=== PATIENT | female | born 1965 | race African-American/Black ===

== ENCOUNTER 2022-08-30 11:42 | Outpatient (OUT) | payer OTHER, SELFPAY ==
--- NOTE | 2022-08-30 11:53 | XR_ITS ---
The [address] [address] Patient Name: GÓMEZ NUNN MRN: [id number] date: 1965 Sex: F Assigned Patient Location: [facility] Current Patient Location: Accession/Order Number: [id number] Exam Date: 08/30/2022 12:00 Report Date: 08/31/2022 07:07 At the request of: KATERINE DOHERTY Procedure: XR foot LT min 3V PROCEDURE: XR foot LT min 3V HISTORY: Pain in left toe M79.675 ; first toe and medial foot pain for one week; no known injury COMPARISON: None. FINDINGS: BONES:Moderate marked narrowing of the first metatarsophalangeal joint with small periarticular degenerative osteophytes. No erosions. No fracture, dislocation, bone lesion. SOFT TISSUES:No visible soft tissue swelling. EFFUSION:None visible. OTHER: Negative. XR/XR foot LT min 3V IMPRESSION: 1. Moderate marked degenerative joint disease of the first metatarsophalangeal joint favoring osteoarthritis. Electronically authenticated by: AMELIE CORONEL Date: 08/31/2022 07:07
== END 2022-08-30 11:43 | disposition home or self-care (01) ==
LOC: RAD 11:48
PROVIDERS: PCP Family Medicine; Visit Provider Family Medicine
DX: M79.675 Pain in left toe(s) (principal); M19.072 Primary osteoarthritis, left ankle and foot
CPT/HCPCS: 73630

== ENCOUNTER 2022-09-12 14:41 | Outpatient (OUT) | payer OTHER, SELFPAY ==
--- NOTE | 2022-09-12 14:41 | XR_ITS ---
The [address] [address] Patient Name: GÓMEZ NUNN MRN: [id number] date: 1965 Sex: F Assigned Patient Location: [facility] Current Patient Location: [facility] Accession/Order Number: [id number] Exam Date: 09/12/2022 14:41 Report Date: 09/12/2022 15:13 At the request of: ROSA FONTANEZ Procedure: XR foot LT min 3V EXAM: XR foot LT min 3V HISTORY: Left FOOT PAIN COMPARISON: 08/30/2022. TECHNIQUE: 3 views left foot. FINDINGS: Moderate to severe degenerative change of the great toe MTP joints similar to prior. Minimal to mild degenerative change of the midfoot with mild pes planus. No fracture or dislocation. No significant swelling or radiopaque foreign body. Small dorsal and plantar calcaneal enthesophytes. XR/XR foot LT min 3V IMPRESSION: Degenerative and chronic change without acute process left foot. Electronically authenticated by: KENIA BERNARD Date: 09/12/2022 15:13
== END 2022-09-12 14:42 | disposition home or self-care (01) ==
LOC: RAD 14:41
PROVIDERS: PCP Family Medicine; Visit Provider Physician Assistant
DX: M19.072 Primary osteoarthritis, left ankle and foot (principal)
CPT/HCPCS: 73630

== ENCOUNTER 2022-09-27 16:34 | Outpatient (OUT) | payer OTHER, SELFPAY ==
[2022-09-27 16:56] LABS: Basophils Percent Auto 0.4 % (0.2-2.0); Eosinophils Absolute Auto 0.3 10^3/uL (0.0-0.7); Eosinophils Percent Auto 4.1 % (0.9-7.0); Hematocrit 41.8 % (36.0-48.0); Immature Granulocytes Abs Auto 0.01 10^3/uL (0.00-0.03); Immature Granulocytes Pct Auto 0.1 % (0.0-0.5); Lymphocytes Absolute Auto 2.6 10^3/uL (1.2-3.8); Lymphocytes Percent Auto 35.7 % (20.5-60.0); Mean Corpuscular HGB Conc 33.5 g/dL (29.9-35.2); Mean Corpuscular Volume 86.7 fL (81.0-99.0); Monocytes Absolute Auto 0.5 10^3/uL (0.3-0.8); Neutrophils Absolute Auto 3.9 10^3/uL (1.4-6.5); Neutrophils Percent Auto 52.7 % (43.0-75.0); Platelet Count 256 10^3/uL (150-450); Red Blood Count 4.82 10^6/uL (4.20-5.40); Red Cell Distribution Width 13.5 % (11.0-15.0); White Blood Count 7.3 10^3/uL (4.0-11.0)
[2022-09-27 17:00] LABS: Erythrocyte Sedimentation Rate 36 mm/hr (<=30)
[2022-09-27 17:15] LABS: Alanine Aminotransferase 22 U/L (14-59); Albumin Level 3.9 g/dL (3.4-5.0); Alkaline Phosphatase 93 U/L (46-116); Anion Gap 12.1; Aspartate Amino Transferase 26 U/L (15-37); Bilirubin Total 0.5 mg/dL (0.2-1.0); Calcium 8.9 mg/dL (8.5-10.1); Carbon Dioxide 27.6 mmol/L (21.0-32.0); Chloride 103 mmol/L (98-107); Estimated GFR (African America >60 (>=60); Estimated GFR (Non-African Ame >60 (>=60); Globulin 3.8 g/dL; Glucose 102 mg/dL (74-106); Potassium 3.7 mmol/L (3.5-5.1); Sodium 139 mmol/L (136-145); Total Protein 7.7 g/dL (6.4-8.2)
[2022-09-29 04:07] LABS: Rheumatoid Factor (RF) <10.0 IU/mL (<14.0)
== END 2022-09-27 16:35 | disposition home or self-care (01) ==
PROVIDERS: PCP Family Medicine; Visit Provider Family Medicine
DX: M19.90 Unspecified osteoarthritis, unspecified site (principal)
CPT/HCPCS: 36415; 80053; 85025; 85652; 86430

== ENCOUNTER 2023-01-04 16:38 | Outpatient (OUT) | payer OTHER, SELFPAY ==
--- NOTE | 2023-01-04 | XR_ITS ---
The [address] [address] Patient Name: GÓMEZ NUNN MRN: [id number] date: 1965 Sex: F Assigned Patient Location: [facility] Current Patient Location: Accession/Order Number: [id number] Exam Date: 01/04/2023 17:00 Report Date: 01/05/2023 01:34 At the request of: KATERINE DOHERTY Procedure: XR cervical spine 5V EXAMINATION: XR cervical spine 5V HISTORY: CERVICAL RADICULAR PAIN COMPARISON: No relevant comparison available. FINDINGS: BONES: Slight reversal normal lordotic curvature. No fracture or bone lesion. Sclerotic degenerative changes of C5 and C6. Multilevel moderate degenerative facet arthropathy. DISC SPACES: Marked narrowing C5-C6, C6-C7. PARASPINOUS: Negative. No paraspinous abnormality is seen. OTHER: Negative. XR/XR cervical spine 5V IMPRESSION: 1. Marked degenerative changes predominantly involving the mid-lower cervical spine. MRI recommended for further evaluation. Electronically authenticated by: AMELIE CORONEL Date: 01/05/2023 01:34
--- NOTE | 2023-01-04 | XR_ITS ---
The [place] [id number] Patient Name: GÓMEZ NUNN MRN: [id number] date: 1965 Sex: F Assigned Patient Location: [facility] Current Patient Location: [facility] Accession/Order Number: [id number] Exam Date: 01/04/2023 17:00 Report Date: 01/05/2023 01:35 At the request of: KATERINE DOHERTY Procedure: XR lumbar spine 2-3V EXAMINATION: XR lumbar spine 2-3V HISTORY: LUMBAR RADICULITIS , chronic COMPARISON: No relevant comparison available. FINDINGS: BONES: No significant spondylosis, scoliosis, fracture, or visible bony lesion. DISC SPACES: Slight narrowing L3-L4. PARASPINOUS: Negative. No paraspinous abnormality is seen. OTHER: Negative. XR/XR lumbar spine 2-3V IMPRESSION: 1. No significant bone abnormality. 2. Minimal degenerative disc disease L3-L4. Electronically authenticated by: AMELIE COROENL Date: 01/05/2023 01:35
== END 2023-01-04 16:39 | disposition home or self-care (01) ==
LOC: RAD 16:40
PROVIDERS: PCP Family Medicine; Visit Provider Family Medicine
DX: M54.12 Radiculopathy, cervical region (principal); M51.16 Intervertebral disc disorders with radiculopathy, lumbar region
CPT/HCPCS: 72050; 72100

== ENCOUNTER 2023-03-30 15:18 | Outpatient (OUT) | payer OTHER, SELFPAY ==
--- NOTE | 2023-03-30 | XR_ITS ---
The [place] [id number] Patient Name: GÓMEZ NUNN MRN: [id number] date: 1965 Sex: F Assigned Patient Location: LAB Current Patient Location: Accession/Order Number: [id number] Exam Date: 03/30/2023 15:40 Report Date: 04/02/2023 07:20 At the request of: KATERINE DOHERTY Procedure: XR lumbar spine 2-3V EXAMINATION: XR lumbar spine 2-3V HISTORY: M54.16 Radiculopathy in the lumbar region COMPARISON: No relevant comparison available. FINDINGS: BONES: Mild widespread spondylosis and facet osteoarthritis. No visible acute bony abnormality. DISC SPACES: Normal. No significant disc height narrowing, subluxation, or endplate abnormality. PARASPINOUS: Negative. No paraspinous abnormality is seen. OTHER: Negative. XR/XR lumbar spine 2-3V IMPRESSION: Mild stable degenerative changes Electronically authenticated by: TAMRA MARQUES Date: 04/02/2023 07:20
--- OUTSIDE RECORDS SUMMARY | 2023-03-30 15:29 | XMS_ITS | CCD ---
Author Name Unknown Address [address] [facility] [facility] [address] [place] [address] Organization [facility] Care Team Providers Care Engineering Lab Technician Name Role Phone Amaya Waldron Primary Care Physician Amaya Garcia Unavailable Unavailable MD Katerine Jacobs Primary Care Provider [phone] MD Mike Mixon Attending Provider MAGDALENA, ABDULAZIM Admitting Unavailable MAGDALENA, ABDULAZIM Attending Unavailable GAMAL MORGAN Referring Unavailable KATERINE JACOBS Primary Care Unavailable MAGDALENA, ABDULAZIM Admitting Unavailable MAGDALENA, ABDULAZIM Attending Unavailable GAMAL MORGAN Referring Unavailable KATERINE JACOBS Primary Care Unavailable DR KATERINE JACOBS Attending Unavailable DR KATERINE JACOBS Consulting Unavailable DR KATERINE JACOBS Primary Care Unavailable DR KATERINE JACOBS Admitting Unavailable MD Katerine Jacobs Primary Care Provider [phone] MD Mike Mixon Attending Provider Mike Mixon Admitting Unavailable Mike Mixon Attending Unavailable Katerine Jacobs Primary Care Unavailable Mike Mixon Attending Unavailable Katerine Jacobs Primary Care Unavailable Mike Mixon Admitting Unavailable ELGAFY, DAVE Attending Unavailable MAGDALENA, ALIYA Referring Unavailable ELGAFY, DAVE Referring Unavailable MAGDALENA, ALIYA Referring Unavailable ELGAFY, DAVE Referring Unavailable MAGDALENA, ALIYA Attending Unavailable MAGDALENA, ALIYA Attending Unavailable MAGDALENA, ALIYA Admitting Unavailable MAGDALENA, ALIYA Attending Unavailable MAGDALENA, ALIYA Attending Unavailable Katerine Jacobs MD Primary Care Provider [phone] KENNA MESA Attending Unavailable KATERINE JACOBS Primary Care Unavailable KENNA MESA Attending Unavailable KENNA MESA Referring Unavailable KATERINE JACOBS Primary Care Unavailable Allergies Allergy Classification Reported Allergen(s) Allergy Type Date of Onset Reaction(s) Facility (1 source) Acetaminophen / Dextromethorphan / Doxylamine / Pseudoephedrine; Translations: [NyQuil] Drug Allergy SEVERE Myrio (1 source) Naproxen; Translations: [Aleve] Drug Allergy MODERATE Myrio (1 source) Other Allergy to substance (disorder) Head and Chest OTC-MODERATE Myrio Medications Current Medications Medication Drug Class(es) Dates Sig (Normalized) Sig (Original) acetaminophen 250 mg / aspirin 250 mg / caffeine 65 mg oral tablet (2 sources) Platelet Aggregation Inhibitor, Nonsteroidal Anti-inflammatory Drug, Central Nervous System Stimulant, Methylxanthine take 2 tablets by mouth once daily as needed aspirin-acetaminoph en-caffeine (EXCEDRIN EXTRA STRENGTH) 250-250-65 mg per tablet 2 tablets Orally Once a day prn 0 Active amoxicillin 875 mg / clavulanate 125 mg oral tablet (2 sources) Penicillin-class Antibacterial Start: 09-17-2017 take 1 tablet by mouth twice daily Amoxicillin-Pot Clavulanate (Augmentin) 875-125 mg tablet Active 1 TAB PO Twice daily September 16, 2017 11:00pm two days left cetirizine hydrochloride 10 mg oral capsule (2 sources) Histamine-1 Receptor Antagonist Start: 09-17-2017 take 1 capsule by mouth once daily Cetirizine (Zyrtec) 10 mg Capsule Active 10 MG PO Daily September 16, 2017 11:00pm cholecalciferol 0.125 mg oral tablet (2 sources) Vitamin D cholecalciferol, vitamin D3, (VITAMIN D3) 5,000 units tablet Take 8,000 Units by mouth in the morning. 0 Active cod liver oiL oil (2 sources) cod liver oiL oi l Take by mouth. 0 Active cyclobenzaprine hydrochloride 5 mg oral tablet (2 sources) Muscle Relaxant take 2 tablets by mouth three times daily as needed for muscle spasms cyclobenzaprine (FLEXERIL) 5 mg tablet Take 2 tablets (10 mg total) by mouth 3 (three) times a day as needed for muscle spasms. 0 Active estradiol 0.1 mg/ml vaginal cream (3 sources) Estrogen Start: 01-31-2022 End: 02-22-2023 estradioL (ESTRACE) 0.01 % (0.1 mg/gram) vaginal cream Indications: Status post hysterectomy , Vaginal dryness, menopausal , Vaginal atrophy Insert 1 g into the vagina 2 (two) times a week. 42.5 g 3 02/22/2023 Active etodolac 500 mg oral tablet (2 sources) Nonsteroidal Anti-inflammatory Drug Start: 12-07-2021 take 1 tablet by mouth in the morning, then take 1 tablet by mouth at bedtime etodolac (LODINE) 500 mg tablet Take 1 tablet (500 mg total) by mouth in the morning and 1 tablet (500 mg total) before bedtime. 0 12/07/2021 Active fluconazole 100 mg oral tablet (2 sources) Azole Antifungal Start: 09-17-2017 take 100 mg by mouth once daily Fluconazole Active 100 MG PO Daily September 16, 2017 11:00pm fluticasone propionate 0.05 mg/actuat metered dose nasal spray (3 sources) Corticosteroid Start: 12-18-2021 take 2 spray(s) nasal route once daily fluticasone propionate (FLONASE) 50 mcg/actuation nasal spray instill 2 (TWO) sprays IN EACH NOSTRIL ONCE DAILY 0 12/18/2021 Active take 50 ug nasal rou te once daily as needed Flonase Allergy Relief 50 mcg/actuation nasal spray,suspension spray 1 - 2 sprays (50 - 100 mcg) in each nostril by intranasal route once daily as needed gabapentin 300 mg oral capsule (2 sources) Anti-epileptic Agent take 1 capsule by mouth once daily in the morning, then take 2 capsules by mouth at bedtime gabapentin (NEURONTIN) 300 mg capsule TAKE 1 CAPSULE BY MOUTH EVERY MORNING and 2 (TWO) CAPSULES AT BEDTIME 0 Active ibuprofen 800 mg oral tablet (3 sources) Nonsteroidal Anti-inflammatory Drug Start: 09-18-19 take 800 mg by mouth four times daily Ibuprofen Active 800 MG PO Four times daily September 16, 2017 11:00pm take 1 tablet by rabia th three times daily as needed ibuprofen 800 mg tablet take 1 tablet by oral route 3 times a day as needed lisinopril 10 mg oral tablet (5 sources) Angiotensin Converting Enzyme Inhibitor Start: 01-17-2022 take 1 tablet by mouth in the morning lisinopriL (PRINIVIL,ZESTRIL) 10 mg tablet Take 1 tablet (10 mg total) by mouth in the morning. 0 01/17/2022 Active Start: 09-17-2017 take 20 mg by mouth once daily Lisinopril Active 20 MG PO Daily September 16, 2017 11:00pm take 1 tablet by rabia th once daily lisinopril 10 mg tablet take 1 tablet (10 mg) by oral route once daily multivitamin capsule (2 sources) take 1 capsule by mouth in the morning multivitamin capsule Take 1 capsule by mouth in the morning. 0 Active naproxen 500 mg delayed release oral tablet (2 sources) Nonsteroidal Anti-inflammatory Drug take 1 tablet by mouth in the morning, then take 1 tablet by mouth at mealtime naproxen (EC NAPROSYN) 500 mg EC tablet Take 1 tablet (500 mg total) by mouth in the morning and 1 tablet (500 mg total) in the evening. Take with meals. 0 Active 24 hr PARoxetine hydrochloride 12.5 mg extended release oral tablet (3 sources) Serotonin Reuptake Inhibitor Start: 02-01-20 22 take 1 tablet by mouth every twenty-four hours in the morning PARoxetine CR (PAXIL-CR) 12.5 mg 24 hr tablet Indications: Status post hysterectomy , Hot flash not due to menopause , Vaginal dryness, menopausal , Vaginal atrophy Take 1 tablet (12.5 mg total) by mouth in the morning. 90 tablet 3 01/31/2022 Active take 1 tablet by mouth once paige y paroxetine ER 12.5 mg tablet,extended release 24 hr take 1 tablet (12.5 mg) by oral route once daily tetrahydrozoline/polyethyl gly (EYE DROPS OPHT) (2 sources) tetrahydrozoline /polyethyl gly (EYE DROPS OPHT) Instill to eye. 0 Active valACYclovir 1000 mg oral tablet (3 sources) Herpesvirus Nucleoside Analog DNA Polymerase Inhibitor, Herpes Simplex Virus Nucleoside Analog DNA Polymerase Inhibitor, Herpes Zoster Virus Nucleoside Analog DNA Polymerase Inhibitor Sta rt: 2 take 1 tablet by mouth in the morning valACYclovir (VALTREX) 1000 mg tablet Take 1 tablet (1,000 mg total) by mouth in the morning. 0 01/17/2022 Active take 1 tablet by mouth once paige y valacyclovir 1 gram tablet take 1 tablet by oral route daily Completed/Discontinued Medications Medication Drug Class(es) Dates Sig (Normalized) Sig (Original) dexamethasone 1 mg/ml / neomycin 3.5 mg/ml / polymyxin b 59693 unt/ml ophthalmic suspension (1 source) Aminoglycoside Antibacterial, Polymyxin-class Antibacterial, Corticosteroid take 1 drop(s) into the eye(s) every four hours as needed neomycin-polymyxi n-dexameth 3.5 mg/mL-10,000 unit/mL-0.1% eye drops instill in affected eye 1 drop by ophthalmic route every 4 hours as needed traMADol hydrochloride 50 mg oral tablet (1 source) Opioid Agonist take 1 tablet by mouth every six hours as needed tramadol 50 mg tablet take 1 tablet (50 mg) by oral route every 6 hours as needed Problems Active Problems Problem Classification Problem Date Documented Date Episodic/Chronic Esophageal disorders (1 source) Gastro-esophageal reflux disease without esophagitis Chronic Essential hypertension (1 source) Essential (primary) hypertension Chronic Menopausal disorders (4 sources) Vaginal dryness; Translations: [Menopausal and female climacteric states] Onset: 02-22-2023 02-22-2023 Chronic Nonmalignant breast conditions (2 sources) Heterogeneously dense breast composition; Translations: [Heterogeneously dense tissue of both breasts on mammography] Onset: 03-06-2023 03-06-2023 Episodic Osteoarthritis (2 sources) Unspecified osteoarthritis, unspecified site; Translations: [Primary generalized (osteo)arthritis] Onset: 10-17-2021 Chronic Other connective tissue disease (1 source) Pain in right arm Onset: 11-11-2020 Episodic Other connective tissue disease (1 source) Pain in left arm Onset: 11-11-2020 Episodic Other connective tissue disease (2 sources) Pain in right hand; Translations: [Pain in right hand] Onset: 09-29-2022 Episodic Other connective tissue disease (2 sources) Pain in left hand; Translations: [Pain in left hand] Onset: 09-29-2022 Episodic Other connective tissue disease (2 sources) Trigger finger, unspecified finger; Translations: [Trigger finger, unspecified finger] Onset: 07-06-2022 Episodic Other nervous system disorders (1 source) Other disturbances of skin sensation Onset: 11-11-2020 Episodic Other non-traumatic joint disorders (1 source) Other specific arthropathies, not elsewhere classified, right shoulder Chronic Other screening for suspected conditions (not mental disorders or infectious disease) (4 sources) Patient encounter status; Translations: [Encounter for screening mammogram for malignant neoplasm of breast] Onset: 02-22-2023 02-22-2023 Episodic Residual codes; unclassified (2 sources) Family history of breast cancer; Translations: [Family history of malignant neoplasm of breast] Onset: 03-06-2023 03-06-2023 Episodic Residual codes; unclassified (1 source) Acquired absence of both cervix and uterus; Translations: [Acquired absence of both cervix and uterus] Onset: 02-22-2023 Episodic Screening and history of mental health and substance abuse codes (2 sources) Standardized adult depression screening tool completed ; Translations: [Encounter for screening for depression] Onset: 02-22-2023 02-22-2023 Episodic Spondylosis; intervertebral disc disorders; other back problems (3 sources) Cervical disc disorder with radiculopathy, unspecified cervical region; Translations: [Radiculopathy, cervical region] Onset: 09-06-2022 Episodic Unclassified (1 source) Annual Exam Onset: 02-22-2023 Past or Other Problems Problem Classification Problem Date Documented Da te Episodic/Chronic Mood disorders (2 sources) Mood disorders Onset: 02-22-2023 02-22-2023 Other connective tissue disease (2 sources) Acquired trigger finger; Translations: [Trigger finger, unspecified finger] Onset: 07-06-2022 02-22-2023 Episodic Unclassified (1 source) [id number] [email or web address] Unclassified (2 sources) Onset: 02-22-2023 02-22-2023 Results Test Name Value Interpretation Reference Range 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 Assessment unchanged from prior. No evidence of malignancy. BI-RADS 1. One year screening mammogram recommended 60 Finalized by Kristian Olmstead MD on 03/21/2023 9:02 PM 1 c MOLE[facility] BR IMG [facility] Office Visiton 09-29-2022 Follow-up visit [id number] Sherron Garcia 1965 F Date Provider Department Center 09/29/2022 373-[facility]ILKS ORTHO MPORTHO Family History Family Status - Relation Status Age at Mother Father Brother Level of Service:89015 CT OFFICE/OUTPATIENT ESTABLISHED LOW MDM 20-29 MIN Reason for Visit and Comments: Follow-up [538414] - Long finger Normal [facility] Consulton 09-06-2022 Consult [id number] Sherron Garcia 1965 F Date Provider Department Center 09/06/2022 Zuly-DAVE MARTE MP ORTHO MPORTHO No family history on file Level of Service:96926 CT OFFICE/OUTPATIENT ESTABLISHED LOW MDM 20-29 MIN Reason for Visit and Comments: New Patient [632] [facility] Office Visiton 08-04-2022 Follow-up visit [id number] Sherron Garcia 1965 F Date Provider Department Center 08/04/2022 373-ALIYA WILKS MP ORTHO MPORTHO No family history on file Level of Service:04366 CT POSTOP FOLLOW UP VISIT RELATED TO ORIGINAL PX Reason for Visit and Comments: Post-op [483] [facility] HPon 07-24-2022 HP H&P reviewed. The patient was examined and there are no changes to the H&P. Patient also presented with clinical symptoms and signs supportive of adjacent right ring trigger finger as well. She consented for release of both the right long and ring trigger fingers. Normal [facility] OPNOTEon 07-24-2022 OPNOTE ORTHOPAEDIC SURGERY OPERATIVE REPORT Date of Surgery: 07/24/2022 Surgeon: Aliya Wilks MD Fine Unhairer: Jana Spencer MD PGY-2 Anup Anthony MD PGY-4 Preoperative Diagnosis: Right long finger trigger finger Right ring finger trigger finger Postoperative Diagnosis: Right long finger trigger finger Right ring finger trigger finger Procedures Performed: Right long finger A1 radha release Right ring finger A1 radha release Anesthesia: Monitored anesthesia care IV Fluids: Per anesthesia record Tourniquet Time: 22 minutes Estimated Blood Loss: 0 mL Complications: none Implants: none Specimens: none Intraoperative Findings: A1 pulleys of the right ring and long fingers were identified and noted to be significantly thickened. These was completely released. No residual tendon locking or catching was noted following release. Indications For Procedure: Sherron Garcia is a 57 y.o. female with a history of right long and ring finger triggering which has been refractory to conservative treatment. The patient elected to undergo operative intervention after discussing the risks, benefits, alternatives of the procedure, and she presented to the preoperative holding area on the day of surgery. Procedure Detail: The patient was met in the preoperative holding area where their identity, procedure to be performed, and correct operative site were identified. The operative site was marked with the attending's initials. The patient was taken back to the operative theater where they were placed under monitored anesthesia care without complication. The patient's right upper extremity was then prepped and draped in the usual sterile fashion. A preoperative timeout was performed, confirming the patient's identity, procedure to be performed, and correct operative site. Everyone present was in agreement. Preoperative antibiotics were not indicated and were not administered. We began by exsanguinating the limb with the use of a previously placed non-sterile tourniquet. We then infiltrated the óscar-incisional area with local anesthetic. Following this, incision was made in line with the palmar skin crease just distal to the distal crease at the level of the A1 radha of the right long and ring fingers . Incision was taken through skin and subcutaneous tissue. Blunt dissection was taken down until the A1 radha was identified. This was released both proximally and distally. It was noted that the radha was significantly thickened compared to normal radha tissue. This was released both proximally and distally. The FDS and FDP tendons were then excursed through the incision with the use of a Ragnell retractor. There was no locking or catching appreciated. We then copiously irrigated the wound with normal saline and closed the incision with simple interrupted Novafil suture. All counts were correct x2 at this time. A sterile dressing was applied and the tourniquet was deflated. The drapes were taken down and the patient was awoken from anesthesia without complication. They were transferred back to their hospital bed and taken to PACU in stable condition. Postoperative Plan: The patient may be weightbearing as tolerated to the right upper extremity, though she has been advised to avoid heavy use of the hand until the incision heals. The patient will leave their surgical dressing in place for approximately 3-5 days. The patient will be discharged home with a short course of narcotic pain medication per protocol as well as ibuprofen. The patient will follow up with Dr. Aliya Wilks MD in clinic in approximately 10-14 days time for clinical check and suture removal. Dr. Aliya Wilks MD was present for the critical portions of the case and was otherwise immediately available to assist. They made all decisions regarding the patient's care. Jana Spencer MD Orthopaedic Surgery Resident, PGY-2 07/24/22 I was present for the entirety of the procedure(s). Aliya Wilks MD [facility] POCT GLUCOSE METER UNSOLICIT ED RESULTSon 07-24-2022 Glucose [Mass/Vol] 98 mg/dL Normal 70-105 [facility] Comment on above: Result Comment: jenc k2 Performed By: #### L [id number] ####[facility] ([facility])[address] [place] [address] Letter (Out)on 07-10-2022 Letter (Out) [id number] Sherron Garcia 1965 F Date Provider Department [place] 07/10/2022 None-None [facility] No family history on file [facility] Follow-Upon 07-06-2022 Follow-Up [id number] Sherron Garcia 1965 F Date Provider Department [place] 07/06/2022 373-ALIYA WILKS MP ORTHO MPORTHO No family history on file Level of Service:59719 CT OFFICE/OUTPATIENT ESTABLISHED LOW MDM 20-29 MIN Reason for Visit and Comments: Pain [136] Follow-up [[id number]] [facility] HPon 07-06-2022 HP -------- Attestation signed by Aliya Wilks MD at 07/10/2022 9:11 AM I personally saw and examined the patient on the same date of service as resident/fellow . I discussed the findings and therapeutic plan with the resident/fellow . I agree with the documentation, except for any edits/updates below. Teaching Physician's Revisions: -------- Subjective Chief complaint: Chief Complaint Patient presents with Right Middle Finger - Pain, Follow-up 07/06/22 Sherron Garcia is a 57 y.o. year old female presenting for evaluation of right hand pain. She has triggering and locking of the right long finger. She has history of previous trigger finger releases on the left hand. She has a steroid injection done previously in previous months that was not very helpful in relieving her symptoms. Denies numbness, tingling, and weakness. ROS: Denies fevers, chills, and other constitutional symptoms. Denies shortness of breath. Patient History No past surgical history on file. No past medical history on file. Objective General: Body mass index is 27.17 kg/m???. There were no vitals filed for this visit. No acute distress, comfortable Respiratory: Unlabored breathing with normal rate, no cough Cardiovascular: Warm well perfused extremities Psych: Appropriate mood behavior Examination of right hand demonstrates tender to palpation at the A1 radha of the long finger with limitation in active flexion of PIP and DIP secondary to nodule at A1 radha Imaging: Assessment/Plan Sherron Garcia is a 57 y.o. year old female with Trigger finger, acquired -OR for release of R long finger A1 radha Rufus Gee MD PGY-4 Orthopedic Surgery [facility] By using the attestations below, the signing clinician agrees that I have read and verify that the documentation has been personally reviewed by me and ensure that the documentation accurately reflects the encounter. GC: I personally saw this patient on the day of the encounter, performed the ragsdale portion(s) of the service and participated in the management and confirm the resident's documentation. Please note there may be an additional personal documentation from me. Normal [facility] Albumin [Mass/volume] in Ser um or PlasmaOrdered By: Dimitri Mixon on 04-18-2022 Albumin [Mass/Vol] 3.8 g/dL 3.2-5.5 [facility] Alkaline phosphatase [Enzyma tic activity/volume] in Serum or PlasmaOrdered By: Dimitri Mixon on 04-18-2022 ALP [Catalytic activity/Vol] 80 U/L 32-92 [facility] Aspartate aminotransferase [ Enzymatic activity/volume] in Serum or PlasmaOrdered By: Dimitri Mixon on 04-18-2022 AST [Catalytic activity/Vol] 16 U/L 10-42 [facility] Basophils Auto (Bld) [#/Vol] Ordered By: Dimitri Mixon on 04-18-2022 Basophils (Bld) [#/Vol] 0.0 10*3/uL 0.0-0.2 [facility] Basophils/100 WBC Auto (Bld) Ordered By: Dimitri Mixon on 04-18-2022 Basophils/100 WBC (Bld) 0.2 % . F [facility] Bilirubin.total [Mass/volume ] in Serum or PlasmaOrdered By: Dimitri Mixon on 04-18-2022 Bilirubin [Mass/Vol] 0.4 mg/dL 0.3-1.2 [facility] Calcium [Mass/volume] in Ser um or PlasmaOrdered By: Dimitri Mixon on 04-18-2022 Calcium [Mass/Vol] 9.4 mg/dL 8.2-10.2 [facility] Carbon dioxide, total [Moles /volume] in Serum or PlasmaOrdered By: Dimitri Mixon on 04-18-2022 CO2 [Moles/Vol] 25.2 mmol/L 22.0-30.0 [facility] Chloride [Moles/volume] in S david or PlasmaOrdered By: Dimitri Mixon on 04-18-2022 Chloride [Moles/Vol] 103 mmol/L 95-114 [facility] Complete Blood Count Auto Di ffon 04-18-2022 Basophils (Bld) [#/Vol] 0.0 10*3/uL Normal 0.0-0.2 [facility] Comment on above: Result Comment: PERF ORMED BY: [place] [address] PATHOLOGIST ROTARY CUTTER KYLAH BRADFORD M.D. Performed By: #### C BC, CMP #### [facility] [address] [place] [address] [place] Basophils/100 WBC (Bld) 0.2 % Normal . F [facility] Comment on above: Performed By: #### C BC, CMP #### [facility] [address] Eosinophils (Bld) [#/Vol] 0.3 10*3/uL Normal 0.0-0.45 [facility] Comment on above: Performed By: #### C BC, CMP #### [facility] [address] [place] [address] [place] Eosinophils/100 WBC (Bld) 4.2 % Normal . [facility] Comment on above: Performed By: #### C BC, CMP #### [facility] [address] Erythrocyte distribution width (RBC) [Ratio] 14.2 % Normal 11.9-15.3 [facility] Comment on above: Performed By: #### C BC, CMP #### [facility] [address] Hematocrit (Bld) [Volume fraction] 41.1 % Normal 34.0-46.4 [facility] Comment on above: Performed By: #### C BC, CMP #### [facility] [address] [place] [address] [place] Hemoglobin (Bld) [Mass/Vol] 13.5 g/dL Normal 11.8-15.4 [facility] Comment on above: Performed By: #### C BC, CMP #### [facility] [address] Lymphocytes (Bld) [#/Vol] 3.0 10*3/uL Normal 1.00-4.8 [facility] Comment on above: Performed By: #### C BC, CMP #### [facility] [address] Lymphocytes/100 WBC (Bld) 37.3 % Normal . [facility] Comment on above: Performed By: #### C BC, CMP #### [facility] [address] MCH (RBC) [Entitic mass] 28.9 pg Normal 24.7-34.3 [facility] Comment on above: Performed By: #### C BC, CMP #### [address] MCV (RBC) [Entitic vol] 88.3 fL Normal 80-100 F [facility] Comment on above: Performed By: #### C BC, CMP #### [address] Mean Corpuscular HGB Conc 32.7 g/dL Normal 32.0-35.0 [facility] Comment on above: Performed By: #### C BC, CMP #### [address] Monocytes (Bld) [#/Vol] 0.6 10*3/uL Normal 0.0-0.8 [facility] Comment on above: Performed By: #### C BC, CMP #### [place] [address] [place] Monocytes/100 WBC (Bld) 7.3 % Normal . [facility] Comment on above: Performed By: #### C BC, CMP #### [address] Neutrophils (Bld) [#/Vol] 4.2 10*3/uL Normal 1.8-7.7 [facility] Comment on above: Performed By: #### C BC, CMP #### [facility] [address] Neutrophils/100 WBC (Bld) 51.0 % Normal . [facility] Comment on above: Performed By: #### C BC, CMP #### [facility] [address] NRBC% 0.1 /100{WBC} Normal 0-0.5 [facility] Comment on above: Performed By: #### C BC, CMP #### [facility] [address] Platelet mean volume (Bld) [Entitic vol] 9.2 fL Normal 6.3-10.7 [facility] Comment on above: Performed By: #### C BC, CMP #### [address] Platelets (Bld) [#/Vol] 238 10*3/uL Normal 150-450 [facility] Comment on above: Performed By: #### C BC, CMP #### [address] RBC (Bld) [#/Vol] 4.66 10*6/uL Normal 3.60-5.00 [facility] Comment on above: Performed By: #### C BC, CMP #### [address] WBC (Bld) [#/Vol] 8.2 10*3/uL Normal 3.8-11.6 [facility] Comment on above: Performed By: #### C BC, CMP #### [address] Comprehensive Metabolic Pane parth 04-18-2022 Albumin [Mass/Vol] 3.8 g/dL Normal 3.2-5.5 [facility] Comment on above: Performed By: #### C BC, CMP #### [address] Albumin/Globulin [Mass ratio] 1.2 {ratio} Normal [facility] Comment on above: Performed By: #### C BC, CMP #### [address] ALP [Catalytic activity/Vol] 80 U/L Normal 32-92 [facility] Comment on above: Result Comment: PERF ORMED BY: [place] [address] PATHOLOGIST ROTARY CUTTER KYLAH BRADFORD M.D. Performed By: #### C BC, CMP #### [address] ALT [Catalytic activity/Vol] 17 U/L Normal 10-60 [facility] Comment on above: Performed By: #### C BC, CMP #### [address] Anion gap [Moles/Vol] 11.8 mmol/L Normal 6.0-15.0 [facility] Comment on above: Performed By: #### C BC, CMP #### [address] AST [Catalytic activity/Vol] 16 U/L Normal 10-42 [facility] Comment on above: Performed By: #### C BC, CMP #### [address] Bilirubin [Mass/Vol] 0.4 mg/dL Normal 0.3-1.2 [facility] Comment on above: Performed By: #### C BC, CMP #### [address] Calcium [Mass/Vol] 9.4 mg/dL Normal 8.2-10.2 [facility] Comment on above: Performed By: #### C BC, CMP #### [place] [address] [place] Chloride [Moles/Vol] 103 mmol/L Normal 95-114 [facility] Comment on above: Performed By: #### C BC, CMP #### [address] CO2 [Moles/Vol] 25.2 mmol/L Normal 22.0-30.0 [facility] Comment on above: Performed By: #### C BC, CMP #### [address] Creatinine [Mass/Vol] 0.60 mg/dL Normal 0.44-1.03 [facility] Comment on above: Performed By: #### C BC, CMP #### [address] Estimated GFR ( Lyn > 60 Normal [facility] Comment on above: Result Comment: GFR estimated reference range: According to KDOQI guidelines, <60 ml/min/1.73m2 is sufficient to diagnose a patient with chronic kidney disease. Performed By: #### C BC, CMP #### [address] Estimated GFR (Non- Am > 60 Normal [facility] Comment on above: Performed By: #### C BC, CMP #### [address] Globulin (S) [Mass/Vol] 3.1 g/dL Normal [facility] Comment on above: Performed By: #### C BC, CMP #### [address] Glucose [Mass/Vol] 98 mg/dL Normal 70-100 [facility] Comment on above: Result Comment: [place] Glucose Reference Range is dependent on time and content of last meal. Glucose of more than 200 mg/dL in a nonstressed, ambulatory subject supports the diagnosis of Diabetes Mellitus. ADA recommended reference range Performed By: #### C BC, CMP #### [address] Potassium [Moles/Vol] 4.0 mmol/L Normal 3.5-5.1 [facility] Comment on above: Performed By: #### C BC, CMP #### [address] Protein [Mass/Vol] 6.9 g/dL Normal 6.1-7.9 [facility] Comment on above: Performed By: #### C BC, CMP #### [facility] [address] [place] [address] [place] Sodium [Moles/Vol] 136 mmol/L Normal 136-146 [facility] Comment on above: Performed By: #### C BC, CMP #### [facility] [address] [place] [id number] [place] Urea nitrogen [Mass/Vol] 18 mg/dL Normal 9-23 [facility] Comment on above: Performed By: #### C BC, CMP #### [facility] [address] Creatinine and Glomerular fi ltration rate.predicted panel (S/P/Bld)Ordered By: Dimitri Mixon on 04-18-2022 Creatinine [Mass/Vol] 0.60 mg/dL 0.44-1.03 [facility] Eosinophils Auto (Bld) [#/Vo l]Ordered By: Dimitri Mixon on 04-18-2022 Eosinophils (Bld) [#/Vol] 0.3 10*3/uL 0.0-0.45 [facility] Eosinophils/100 WBC Auto (Bl d)Ordered By: Dimitri Mixon on 04-18-2022 Eosinophils/100 WBC (Bld) 4.2 % . [facility] Erythrocyte distribution wid th Auto (RBC) [Ratio]Ordered By: Dimitri Mixon on 04-18-2022 Erythrocyte distribution width (RBC) [Ratio] 14.2 % 11.9-15.3 [facility] Estimated glomerular filtrat ion rate (GFR) non- AmericanOrdered By: Dimitri Mixon on 04-18-2022 GFR/1.73 sq M.predicted among non-blacks MDRD (S/P/Bld) [Vol rate/Area] > 60 mL/Min [facility] Globulin Calc (S) [Mass/Vol] Ordered By: Dimitri Mixon on 04-18-2022 Globulin (S) [Mass/Vol] 3.1 g/dL [facility] Glucose [Mass/volume] in Ser um or PlasmaOrdered By: Dimitri Mixon on 04-18-2022 Glucose [Mass/Vol] 98 mg/dL 70-100 [facility] Comment on above: ADA recommended refe rence rangeRandom Glucose Reference Range is dependent on time and content of last meal. Glucose of more than 200 mg/dL in a nonstressed, ambulatory subject supports the diagnosis of Diabetes Mellitus. Hematocrit Auto (Bld) [Volum e fraction]Ordered By: Dimitri Mixon on 04-18-2022 Hematocrit (Bld) [Volume fraction] 41.1 % 34.0-46.4 [facility] Hemoglobin [Mass/volume] in BloodOrdered By: Dimitri Mixon on 04-18-2022 Hemoglobin (Bld) [Mass/Vol] 13.5 g/dL 11.8-15.4 [facility] Leukocytes [#/volume] correc edel for nucleated erythrocytes in Blood by Automated counOrdered By: Dimitri Mixon on 04-18-2022 WBC corrected for nucl RBC Auto (Bld) [#/Vol] 8.2 10*3/uL 3.8-11.6 [facility] Lymphocytes Auto (Bld) [#/Vo l]Ordered By: Dimitri Mixon on 04-18-2022 Lymphocytes (Bld) [#/Vol] 3.0 10*3/uL 1.00-4.8 [facility] Lymphocytes/100 WBC Auto (Bl d)Ordered By: Dimitri Mixon on 04-18-2022 Lymphocytes/100 WBC (Bld) 37.3 % . [facility] MCH Auto (RBC) [Entitic mass ]Ordered By: Dimitri Mixon on 04-18-2022 MCH (RBC) [Entitic mass] 28.9 pg 24.7-34.3 [facility] MCHC Auto (RBC) [Mass/Vol]Or dered By: Dimitri Mixon on 04-18-2022 MCHC (RBC) [Mass/Vol] 32.7 g/dL 32.0-35.0 [facility] MCV Auto (RBC) [Entitic vol] Ordered By: Dimitri Mixon on 04-18-2022 MCV (RBC) [Entitic vol] 88.3 fL 80-100 F [facility] Monocytes Auto (Bld) [#/Vol] Ordered By: Dimitri Mixon on 04-18-2022 Monocytes (Bld) [#/Vol] 0.6 10*3/uL 0.0-0.8 [facility] Monocytes/100 WBC Auto (Bld) Ordered By: Dimitri Mixon on 04-18-2022 Monocytes/100 WBC (Bld) 7.3 % . [facility] Neutrophils Auto (Bld) [#/Vo l]Ordered By: Dimitri Mixon on 04-18-2022 Neutrophils (Bld) [#/Vol] 4.2 10*3/uL 1.8-7.7 [facility] Neutrophils/100 WBC Auto (Bl d)Ordered By: Dimitri Mixon on 04-18-2022 Neutrophils/100 WBC (Bld) 51.0 % . [facility] No Panel InformationOrdered By: Dimitri Mixon on 04-18-2022 Estimated GFR () > 60 mL/Min [facility] Comment on above: GFR estimated refere nce range: According to KDOQI guidelines, <60 ml/min/1.73m2 is sufficient to diagnose a patient with chronic kidney disease. Pharmacy Creatinine Clearance (Chem N/A [facility] Nucleated erythrocytes [Pres ence] in Blood by Automated countOrdered By: Dimitri Mixon on 04-18-2022 Nucleated RBC Auto Ql (Bld) 0.1 /100{WBC} 0-0.5 [facility] Platelet mean volume Auto (B ld) [Entitic vol]Ordered By: Dimitri Mixon on 04-18-2022 Platelet mean volume (Bld) [Entitic vol] 9.2 fL 6.3-10.7 [facility] Platelets Auto (Bld) [#/Vol] Ordered By: Dimitri Mixon on 04-18-2022 Platelets (Bld) [#/Vol] 238 10*3/uL 150-450 [facility] Potassium [Moles/volume] in Serum or PlasmaOrdered By: Dimitri Mixon on 04-18-2022 Potassium [Moles/Vol] 4.0 mmol/L 3.5-5.1 [facility] Protein [Mass/volume] in Ser um or PlasmaOrdered By: Dimitri Mixon on 04-18-2022 Protein [Mass/Vol] 6.9 g/dL 6.1-7.9 [facility] RBC Auto (Bld) [#/Vol]Ordere d By: Dimitri Mixon on 04-18-2022 RBC (Bld) [#/Vol] 4.66 10*6/uL 3.60-5.00 [facility] Serum or plasma alanine wells otransferase measurement without P-5'-P (enzymatic activiOrdered By: Dimitri Mixon on 04-18-2022 ALT No additional P-5'-P [Catalytic activity/Vol] 17 U/L 10-[address] [facility] Serum or plasma albumin/glob ulin mass ratioOrdered By: Dimitri Mixon on 04-18-2022 Albumin/Globulin [Mass ratio] 1.2 {ratio} [facility] Serum or plasma anion gap de terminationOrdered By: Dimitri Mixon on 04-18-2022 Anion gap [Moles/Vol] 11.8 mmol/L 6.0-15.0 [facility] Sodium [Moles/volume] in Ser um or PlasmaOrdered By: Dimitri Mixon on 04-18-2022 Sodium [Moles/Vol] 136 mmol/L 136-146 [facility] Urea nitrogen [Mass/volume] in Serum or PlasmaOrdered By: Dimitri Mixon on 04-18-2022 Urea nitrogen [Mass/Vol] 18 mg/dL 9 [facility] WBC Auto (Bld) [#/Vol]Ordere d By: Dimitri Mixon on 04-18-2022 WBC (Bld) [#/Vol] 8.2 10*3/uL 3.8-11.6 [facility] CBC AUTO DIFFon 01-18-2022 BASO # 0.0 103/ul Normal 0.0-0.1 [facility] Comment on above: Performed By: #### C BC #### [facility] [address] [address] [address] Jaren Landers Basophils/100 WBC (Bld) 0.4 % Normal 0.2-2.0 [facility] Comment on above: Performed By: #### C BC #### [facility] [address] [place] [address] Dr. Jaren Landers EO # 0.3 103/ul Normal 0.0-0.7 [facility] Comment on above: Performed By: #### C BC #### [facility] [address] [place] [address] Dr. Jaren Landers Eosinophils/100 WBC (Bld) 5.1 % Normal 0.9-7.0 [facility] Comment on above: Performed By: #### C BC #### [facility] [address] [place] [address] Dr. Jaren Landers Erythrocyte distribution width (RBC) [Ratio] 14.5 % Normal 11.0-15.0 [facility] Comment on above: Performed By: #### C BC #### [facility] [address] [place] [address] Dr. Jaren Landers Hematocrit (Bld) [Volume fraction] 41.2 % Normal 36.0-48.0 [facility] Comment on above: Performed By: #### C BC #### [facility] [address] [place] [address] Dr. Jaren Landers Hemoglobin (Bld) [Mass/Vol] 13.7 g/dL Normal 12.0-16.0 [facility] Comment on above: Performed By: #### C BC #### [facility] [address] [place] [address] Dr. Jaren Landers IG # 0.01 10e3/ul Normal 0.00-0.03 [facility] Comment on above: Performed By: #### C BC #### [facility] [address] [place] [address] Dr. Jaren Landers IG % 0.1 % Normal 0.0-0.5 [facility] Comment on above: Performed By: #### C BC #### [facility] [address] [place] [address] Dr. Jaren Landers LYMPH # 2.3 103/ul Normal 1.2-3.8 [facility] Comment on above: Performed By: #### C BC #### [facility] [address] [place] [address] Dr. Jaren Landers Lymphocytes/100 WBC (Bld) 34.1 % Normal 20.5-60.0 [facility] Comment on above: Performed By: #### C BC #### [facility] [address] [place] [address] Dr. Jaren Landers MANUAL DIFF REQ NO Normal [facility] Comment on above: Performed By: #### C BC #### [facility] [address] [place] [address] Dr. Jaren Landers MCH (RBC) [Entitic mass] 29.1 pg Normal 26.7-34.0 [facility] Comment on above: Performed By: #### C BC #### [facility] [address] [place] [address] Dr. Jaren Landers MCHC (RBC) [Mass/Vol] 33.3 g/dL Normal 29.9-35.2 [facility] Comment on above: Performed By: #### C BC #### [facility] [address] [place] [address] Dr. Jaren Landers MCV (RBC) [Entitic vol] 87.7 fL Normal 81.0-99.0 [facility] Comment on above: Performed By: #### C BC #### [facility] [address] [place] [address] Dr. Jaren Landers MONO # 0.5 103/ul Normal 0.3-0.8 [facility] Comment on above: Performed By: #### C BC #### [facility] [address] [place] [address] Dr. Jaren Landers Monocytes/100 WBC (Bld) 7.3 % Normal 1.7-12.0 [facility] Comment on above: Performed By: #### C BC #### [facility] [address] [place] [address] Dr. Jaren Landers NEUT # 3.6 103/ul Normal 1.4-6.5 [facility] Comment on above: Performed By: #### C BC #### [facility] [address] [place] [address] Dr. Jaren Landers Neutrophils/100 WBC (Bld) 53.0 % Normal 43.0-75.0 [facility] Comment on above: Performed By: #### C BC #### [facility] [address] [place] [address] Dr. Jaren aLnders Platelet mean volume (Bld) [Entitic vol] 10.4 fL Normal 9.5-13.5 [facility] Comment on above: Performed By: #### C BC #### [facility] [address] [place] [address] Dr. Jaren Landers PLT 248 103/ul Normal 150-450 [facility] Comment on above: Performed By: #### C BC #### [facility] [address] [place] [address] Dr. Jaren Landers RBC 4.70 106/ul Normal 4.20-5.40 [facility] Comment on above: Performed By: #### C BC #### [facility] [address] [place] [address] Dr. Jaren Landers WBC 6.7 103/ul Normal 4.0-11.0 [facility] Comment on above: Performed By: #### C BC #### [facility] [address] [place] [address] Dr. Jaren Landers FREE THYROXINE INDEX T7on -2021 FTI 2.05 Normal 1.30-4.50 [facility] Comment on above: Performed By: #### T 7, CMP, TSH, LIPID #### [facility] [address] [place] [address] Dr. Jaren Landers T3U 31.0 % Normal 30.0-39.0 [facility] Comment on above: Performed By: #### T 7, CMP, TSH, LIPID #### [facility] [address] [place] [address] Dr. Jaren Landers T4 [Mass/Vol] 6.60 ug/dL Normal 4.80-13.90 [facility] Comment on above: Performed By: #### T 7, CMP, TSH, LIPID #### [facility] [address] [place] [address] Dr. Jaren Landers GLYCOHEMOGLOBIN A1Con 2021 ADA RECOMMENDATION SEE BELOW Normal [facility] Comment on above: Result Comment: ADA RECOMMENDED LIMIT 4.0 - 6.0 ADA THERAPEUTIC TARGET < 7.0 ACTION SUGGESTED > 7.0 Performed By: #### A 1C #### [facility] [address] [address] [address] Jaren Landers Glucose [Mass/Vol] 128 mg/dL Normal [facility] Comment on above: Performed By: #### A 1C #### [facility] [address] [address] [address] Jaren Landers HbA1c (Bld) [Mass fraction] 6.1 % Normal 4.5-6.2 [facility] Comment on above: Performed By: #### A 1C #### [facility] [address] [place] [address] Dr. Jaren Landers IRONon 01-18-2022 Iron [Mass/Vol] 86.0 ug/dL Normal 50.0-170.0 [facility] Comment on above: Performed By: #### I SAMM, VITAD #### [facility] [address] [address] [address] Jaren Landers LIPID PROFILEon 01-18-2022 CHOL-HDL RATIO NORM SEE BELOW Normal [facility] Comment on above: Result Comment: 3.3 - 4.4 LOW RISK 4.4 - 7.1 AVERAGE RISK 7.1 - 11.0 MODERATE RISK >11.0 HIGH RISK Performed By: #### T 7, CMP, TSH, LIPID #### [facility] [address] [place] [address] Dr. Jaren Landers Cholesterol [Mass/Vol] 206 mg/dL Critically high <=200 [facility] Comment on above: Performed By: #### T 7, CMP, TSH, LIPID #### [facility] [address] [address] [address] Jaren Landers Cholesterol in HDL [Mass/Vol] 68 mg/dL Critically high 40-60 [facility] Comment on above: Performed By: #### T 7, CMP, TSH, LIPID #### [facility] [address] [address] [address] Jaren Landers Cholesterol in LDL [Mass/Vol] 126.6 mg/dL Normal [facility] Comment on above: Performed By: #### T 7, CMP, TSH, LIPID #### [facility] [address] [address] [address] Jaren Landers Cholesterol.total/Choles terol in HDL [Mass ratio] 3.0 {ratio} Normal [facility] Comment on above: Performed By: #### T 7, CMP, TSH, LIPID #### [facility] [address] [address] [address] Jaren Landers HDL NORMAL > or = 60 mg/dl - LOW CARDIOVASCULAR RISK <40 mg/dl - HIGH CARDIOVASCULAR RISK Normal [facility] Comment on above: Performed By: #### T 7, CMP, TSH, LIPID #### [facility] [address] [address] [address] Jaren Landers LDL CALC NORMAL SEE BELOW Normal [facility] Comment on above: Result Comment: <100 mg/dl OPTIMAL 100 - 129 mg/dl NEAR OR ABOVE OPTIMAL 130 - 159 mg/dl BORDERLINE HIGH 160 - 189 mg/dl HIGH >190 mg/dl VERY HIGH Performed By: #### T 7, CMP, TSH, LIPID #### [facility] [address] [address] [address] Jaren Landers Triglyceride [Mass/Vol] 57 mg/dL Normal <=150 [facility] Comment on above: Performed By: #### T 7, CMP, TSH, LIPID #### [facility] [address] [address] [address] Jaren Landers VLDL CALC 11.4 mg/dL Normal [facility] Comment on above: Performed By: #### T 7, CMP, TSH, LIPID #### [facility] [address] [address] [address] Jaren Landers PROF 14(COMP METB)on 022 Albumin [Mass/Vol] 3.6 g/dL Normal 3.4-5.0 [facility] Comment on above: Performed By: #### T 7, CMP, TSH, LIPID #### [facility] [address] [address] [address] Jaren Landers Albumin/Globulin [Mass ratio] 0.9 {ratio} Normal [facility] Comment on above: Performed By: #### T 7, CMP, TSH, LIPID #### [facility] [address] [address] [address] Jaren Landers ALP [Catalytic activity/Vol] 84 U/L Normal 46-116 [facility] Comment on above: Performed By: #### T 7, CMP, TSH, LIPID #### [facility] [address] [address] [address] Jaren Landers ALT [Catalytic activity/Vol] 27 U/L Normal 14-59 [facility] Comment on above: Performed By: #### T 7, CMP, TSH, LIPID #### [facility] [address] [address] [address] Jaren Landers Anion gap [Moles/Vol] 11.0 mmol/L Normal [facility] Comment on above: Performed By: #### T 7, CMP, TSH, LIPID #### [facility] [address] [address] [address] Jaren Landers AST [Catalytic activity/Vol] 28 U/L Normal 15-37 [facility] Comment on above: Performed By: #### T 7, CMP, TSH, LIPID #### [facility] [address] [address] [address] Jaren Landers Bilirubin [Mass/Vol] 0.4 mg/dL Normal 0.2-1.0 [facility] Comment on above: Performed By: #### T 7, CMP, TSH, LIPID #### [facility] [address] [address] [address] Jaren Landers Calcium [Mass/Vol] 9.2 mg/dL Normal 8.5-10.1 [facility] Comment on above: Performed By: #### T 7, CMP, TSH, LIPID #### [facility] [address] [address] [address] Jaren Landers Chloride [Moles/Vol] 103 mmol/L Normal 98-107 [facility] Comment on above: Performed By: #### T 7, CMP, TSH, LIPID #### [facility] [address] [address] [address] Jaren Landers CO2 [Moles/Vol] 28.8 mmol/L Normal 21.0-32.0 [facility] Comment on above: Performed By: #### T 7, CMP, TSH, LIPID #### [facility] [address] [place] [address] Dr. Jaren Landers Creatinine [Mass/Vol] 0.66 mg/dL Normal 0.55-1.02 [facility] Comment on above: Performed By: #### T 7, CMP, TSH, LIPID #### [facility] [address] [place] [address] Dr. Jaren Landers EGFR-AF MALAYSIAN >60 Normal >=60 [facility] Comment on above: Performed By: #### T 7, CMP, TSH, LIPID #### [facility] [address] [place] [address] Dr. Jaren Landers EGFR-NON AF MALAYSIAN >60 Normal >=60 [facility] Comment on above: Performed By: #### T 7, CMP, TSH, LIPID #### [facility] [address] [place] [address] Dr. Jaren Landers Globulin (S) [Mass/Vol] 4.2 g/dL Normal [facility] Comment on above: Performed By: #### T 7, CMP, TSH, LIPID #### [facility] [address] [place] [address] Dr. Jaren Landers Glucose [Mass/Vol] 107 mg/dL Critically high 74-106 [facility] Comment on above: Performed By: #### T 7, CMP, TSH, LIPID #### [facility] [address] [place] [address] Dr. Jaren Landers Potassium [Moles/Vol] 3.8 mmol/L Normal 3.5-5.1 [facility] Comment on above: Performed By: #### T 7, CMP, TSH, LIPID #### [facility] [address] [place] [address] Dr. Jaren Landers Protein [Mass/Vol] 7.8 g/dL Normal 6.4-8.2 [facility] Comment on above: Performed By: #### T 7, CMP, TSH, LIPID #### [facility] [address] [place] [address] Dr. Jaren Landers Sodium [Moles/Vol] 139 mmol/L Normal 136-145 [facility] Comment on above: Performed By: #### T 7, CMP, TSH, LIPID #### [facility] [address] [place] [address] Dr. Jaren Landers Urea nitrogen [Mass/Vol] 16.0 mg/dL Normal 7.0-18.0 [facility] Comment on above: Performed By: #### T 7, CMP, TSH, LIPID #### [facility] [address] [place] [address] Dr. Jaren Landers Urea nitrogen/Creatinine [Mass ratio] 24.2 mg/mg Normal [facility] Comment on above: Performed By: #### T 7, CMP, TSH, LIPID #### [facility] [address] [place] [address] Dr. Jaren Landers TSHon 01-18-2022 TSH 0.971 uIU/mL Normal 0.358-3.740 [facility] Comment on above: Performed By: #### T 7, CMP, TSH, LIPID #### [facility] [address] [place] [address] Dr. Jaren Landers VITAMIN D 25 OHon 01-18-2022 VIT D 25-OH 81.1 ng/mL Normal [facility] Comment on above: Performed By: #### I SAMM VITAD #### [facility] [address] [place] [address] Dr. Jaren Landers VIT D RANGES SEE BELOW Normal [facility] Comment on above: Result Comment: <20 ng/mL Vit D deficient 20 - <30 ng/mL Vit D insufficient 30 - 100 ng/mL Vit D sufficient >100 ng/mL Potential Toxicity Performed By: #### I SAMM VITAD #### [facility] [address] [address] [address] Jaren Landers HAND LEFT 3 VWSon 10-20-2021 HAND LEFT 3 S [facility] Department of Radiology [address] [place] [phone] == Patient Name: SHERRON GARCIA : 1965 Sex: F Age: Race: Black Pt. Location: Patient Status: D Ordered Date: 10/20/2021 1:35:00 PM Completed Date: 10/20/2021 02:35 PM Requesting Provider: VENTURA WILKS Attending Provider: Report Copy To: Signs & Symptoms: M79.641 Pain in right hand I10 History: [place] Comments: , , , Ordering Provider - A MAGDALENA AJ , Exam: HAND LEFT 3 S == HAND LEFT 3 S 10/20/2021 2:35 PM CLINICAL INDICATIONS: M79.641 Pain in right hand I10 TECHNOLOGIST COMMENTS: bilateral hand pain and swelling hx: arthritis QUESTION FOR THE RADIOLOGIST: , , , Ordering Provider - A MAGDALENA AJ , PROTOCOL: AP,Lateral and Oblique views were obtained. COMPARISON: None FINDINGS: No acute malalignment or fracture. IMPRESSION: No acute osseous abnormality. Approved by:Glen Benton10/21/2021 8:53 AM. I, Tone Cheatham,have reviewed the image(s) and agree with the findings in this report. Electronically signed: Tone Cheatham. Transcribed by: [email or web address], User Resident: GLEN NGUYEN Electronically Signed by: TONE CHEATHAM @ 10/21/2021 09:13 AM I personally read this/these film(s) with this resident Normal [facility] Comment on above: Order Comment: , , = ========= , Ordering Provider - A MAGDALENA AJ , HAND RIGHT 3 VWSon 2 HAND RIGHT 3 VWS [facility] Department of Radiology [address] [place] [phone] == Patient Name: SHERRON GARCIA : 1965 Sex: F Age: Race: Black Pt. Location: Patient Status: D Ordered Date: 10/20/2021 1:35:00 PM Completed Date: 10/20/2021 02:35 PM Requesting Provider: VENTURA WILKS Attending Provider: Report Copy To: Signs & Symptoms: M79.641 Pain in right hand I10 History: [place] Comments: , , , Ordering Provider - A MAGDALENA AJ , Exam: HAND RIGHT 3 VWS == HAND RIGHT 3 VWS 10/20/2021 2:35 PM CLINICAL INDICATIONS: M79.641 Pain in right hand I10 TECHNOLOGIST COMMENTS: bilateral hand pain and swelling hx: arthritis QUESTION FOR THE RADIOLOGIST: , , , Ordering Provider - Thea SILVEIRANegin , PROTOCOL: AP,Lateral and Oblique views were obtained. COMPARISON: None FINDINGS: No acute malalignment or fracture. Mild multifocal degenerative changes. IMPRESSION: Mild multifocal degenerative changes. No acute bony pathology. Approved by:Glen Benton10/21/2021 8:56 AM. I, Tone Cheatham,have reviewed the image(s) and agree with the findings in this report. Electronically signed: Tone Cheatham. Transcribed by: [email or web address], User Resident: GLEN NGUYEN Electronically Signed by: TONE CHEATHAM @ 10/21/2021 09:14 AM I personally read this/these film(s) with this resident Normal [facility] Comment on above: Order Comment: , , = ========= , Ordering Provider - Thea WILKS MD [facility] , Automated basophil %Ordered By: Dimitri Mixon on 10-17-2021 Basophils/100 WBC (Bld) 0.5 % Normal . [facility] Comment on above: Performed By: #### C BC, CMP #### [address] Automated basophil countOrde red By: Dimitri Mixon on 10-17-2021 Basophils (Bld) [#/Vol] 0.1 10*3/uL Normal 0.0-0.2 [facility] Comment on above: Result Comment: PERF ORMED BY: [place] [address] PATHOLOGIST ROTARY CUTTER KYLAH BRADFORD M.D. Performed By: #### C BC, CMP #### [address] Automated blood lymphocyte c ount (number/volume)Ordered By: Dimitri Mixon on 10-17-2021 Lymphocytes (Bld) [#/Vol] 3.4 10*3/uL Normal 1.00-4.8 [facility] Comment on above: Performed By: #### C BC, CMP #### [address] Automated blood lymphocyte c ount as percentage of total leukocytesOrdered By: Dimitri Oral on 10-17-2021 Lymphocytes/100 WBC (Bld) 32.0 % Normal . [facility] Comment on above: Performed By: #### C BC, CMP #### [address] Automated blood monocyte cou ntOrdered By: Dimitri Oral on 10-17-2021 Monocytes (Bld) [#/Vol] 0.8 10*3/uL Normal 0.0-0.8 [facility] Comment on above: Performed By: #### C BC, CMP #### [address] Automated blood platelet cou nt (count/volume)Ordered By: Dimitriroxanne Mixon on 10-17-2021 Platelets (Bld) [#/Vol] 244 10*3/uL Normal 150-450 [facility] Comment on above: Performed By: #### C BC, CMP #### [address] Automated blood platelet kerri n volume measurementOrdered By: Dimitri Oral on 10-17-2021 Platelet mean volume (Bld) [Entitic vol] 9.9 fL Normal 6.3-10.7 [facility] Comment on above: Performed By: #### C BC, CMP #### [address] Automated eosinophil %Ordere d By: Dimitri Oral on 10-17-2021 Eosinophils/100 WBC (Bld) 1.5 % Normal . [facility] Comment on above: Performed By: #### C BC, CMP #### [address] Automated eosinophil countOr dered By: Dimitriroxanne Mixon on 10-17-2021 Eosinophils (Bld) [#/Vol] 0.2 10*3/uL Normal 0.0-0.45 [facility] Comment on above: Performed By: #### C BC, CMP #### [address] Automated erythrocyte distri bution width ratioOrdered By: Dimitri Oral on 10-17-2021 Erythrocyte distribution width (RBC) [Ratio] 14.4 % Normal 11.9-15.3 [facility] Comment on above: Performed By: #### C BC, CMP #### [address] Automated erythrocyte mean c orpuscular hemoglobin (mass per erythrocyte)Ordered By: Dimitri Oral on 10-17-2021 MCH (RBC) [Entitic mass] 29.7 pg Normal 24.7-34.3 [facility] Comment on above: Performed By: #### C BC, CMP #### [address] Automated erythrocyte mean c orpuscular volumeOrdered By: Dimitri Mixon on 10-17-2021 MCV (RBC) [Entitic vol] 88.5 fL Normal 80-100 F [facility] Comment on above: Performed By: #### C JUAN JOSÉ, CMP #### [address] Automated monocyte %Ordered By: Dimitri Mixon on 10-17-2021 Monocytes/100 WBC (Bld) 7.8 % Normal . [facility] Comment on above: Performed By: #### C BC, CMP #### [address] Automated neutrophil %Ordere d By: Dimitri Mixon on 10-17-2021 Neutrophils/100 WBC (Bld) 58.2 % Normal . [facility] Comment on above: Performed By: #### C BC, CMP #### [address] Blood erythrocytes automated count (number/volume)Ordered By: Dimitriroxanne Mixon on 10-17-2021 RBC (Bld) [#/Vol] 4.55 10*6/uL Normal 3.60-5.00 [facility] Comment on above: Performed By: #### C JUAN JOSÉ, CMP #### [address] Blood hemoglobin measurement (mass/volume)Ordered By: Dimitri Paredesrow on 10-17-2021 Hemoglobin (Bld) [Mass/Vol] 13.5 g/dL Normal 11.8-15.4 [facility] Comment on above: Performed By: #### C JUAN JOSÉ, CMP #### [address] Blood leukocytes automated c ount (number/volume)Ordered By: Dimitri Paredesrow on 10-17-2021 WBC (Bld) [#/Vol] 10.8 10*3/uL Normal 4.5-11.0 [facility] Comment on above: Performed By: #### C JUAN JOSÉ, CMP #### [address] Blood neutrophil count by au tomated method (number/volume)Ordered By: Dimitri Paredesrow on 10-17-2021 Neutrophils (Bld) [#/Vol] 6.3 10*3/uL Normal 1.8-7.7 [facility] Comment on above: Performed By: #### C JUAN JOSÉ, CMP #### [address] Body fluid albumin measureme nt (mass/volume)Ordered By: Dimitri Paredesrow on 10-17-2021 Albumin (Body fld) [Mass/Vol] 3.9 g/dL 3.2-5.5 [facility] Complete Blood Count Auto Di ffon 10-17-2021 Mean Corpuscular HGB Conc 33.6 g/dL Normal 32.0-35.0 [facility] Comment on above: Performed By: #### C JUAN JOSÉ, CMP #### [address] Complete Blood Count Auto Di ffOrdered By: Dimitri Oral on 10-17-2021 Nucleated RBC/100 WBC (Bld) [Ratio] 0.1 % Normal 0-0.5 [facility] Comment on above: Performed By: #### C BC, CMP #### [address] Comprehensive Metabolic Pane parth 10-17-2021 Albumin [Mass/Vol] 3.9 g/dL Normal 3.2-5.5 [facility] Comment on above: Performed By: #### C BC, CMP #### [address] ALT [Catalytic activity/Vol] 14 U/L Normal 10-60 [facility] Comment on above: Performed By: #### C BC, CMP #### [address] Estimated GFR ( Lyn > 60 Normal [facility] Comment on above: Result Comment: GFR estimated reference range: According to KDOQI guidelines, <60 ml/min/1.73m2 is sufficient to diagnose a patient with chronic kidney disease. Performed By: #### C BC, CMP #### [address] Estimated GFR (Non- Am > 60 Normal [facility] Comment on above: Performed By: #### C BC, CMP #### [address] Estimated glomerular filtrat ion rate (GFR) non- AmericanOrdered By: Dimitri Mixon on 10-17-2021 GFR/1.73 sq M.predicted among non-blacks MDRD (S/P/Bld) [Vol rate/Area] > 60 mL/Min [facility] Hematocrit [Volume Fraction] of Blood by Automated countOrdered By: Dimitri Mixon on 10-17-2021 Hematocrit (Bld) [Volume fraction] 40.3 % Normal 34.0-46.4 [facility] Comment on above: Performed By: #### C BC, CMP #### [address] MCHC Auto (RBC) [Mass/Vol]Or dered By: Dimitri Mixon on 10-17-2021 MCHC (RBC) [Mass/Vol] 33.6 g/dL 32.0-35.0 [facility] No Panel InformationOrdered By: Dimitri Mixon on 10-17-2021 Estimated GFR () > 60 mL/Min [facility] Comment on above: GFR estimated refere nce range: According to KDOQI guidelines, <60 ml/min/1.73m2 is sufficient to diagnose a patient with chronic kidney disease. Pharmacy Creatinine Clearance (Chem N/A [facility] Protein [Mass/volume] in Ser um or PlasmaOrdered By: Dimitri Mixon on 10-17-2021 Protein [Mass/Vol] 6.6 g/dL Normal 6.1-7.9 [facility] Comment on above: Performed By: #### C BC, CMP #### [facility] [address] [place] [address] Serum globulin measurement b y calculation (mass/volume)Ordered By: Dimitri Mixon on 10-17-2021 Globulin (S) [Mass/Vol] 2.7 g/dL Normal [facility] Comment on above: Performed By: #### C BC, CMP #### [address] Serum or plasma alanine wells otransferase measurement without P-5'-P (enzymatic activiOrdered By: Dimitri Mixon on 10-17-2021 ALT No additional P-5'-P [Catalytic activity/Vol] 14 U/L 10-[address] [facility] Serum or plasma albumin/glob ulin mass ratioOrdered By: Dimitri Mixon on 10-17-2021 Albumin/Globulin [Mass ratio] 1.4 {ratio} Normal [facility] Comment on above: Performed By: #### C BC, CMP #### [facility] [address] [place] [address] Serum or plasma alkaline landry sphatase measurement (enzymatic activity/volume)Ordered By: Dimitri Mioxn on 10-17-2021 ALP [Catalytic activity/Vol] 86 U/L Normal 32-92 [facility] Comment on above: Result Comment: PERF ORMED BY: [place] [address] PATHOLOGIST ROTARY CUTTER KYLAH BRADFORD M.D. Performed By: #### C BC, CMP #### [address] Serum or plasma anion gap de terminationOrdered By: Dimitri Mixon on 10-17-2021 Anion gap [Moles/Vol] 15.0 mmol/L Normal 6.0-15.0 [facility] Comment on above: Performed By: #### C BC, CMP #### [address] Serum or plasma aspartate am inotransferase measurement (enzymatic activity/volume)Ordered By: Dimitri Mixon on 10-17-2021 AST [Catalytic activity/Vol] 18 U/L Normal 10-42 [facility] Comment on above: Performed By: #### C BC, CMP #### [address] Serum or plasma calcium alexa urement (mass/volume)Ordered By: Dimitri Mixon on 10-17-2021 Calcium [Mass/Vol] 10.5 mg/dL High 8.2-10.2 [facility] Comment on above: Performed By: #### C BC, CMP #### [address] Serum or plasma chloride kerri surement (moles/volume)Ordered By: Dimitri Mixon on 10-17-2021 Chloride [Moles/Vol] 100 mmol/L Normal 95-114 [facility] Comment on above: Performed By: #### C BC, CMP #### [address] Serum or plasma creatinine m easurement with calculation of estimated glomerular filtrOrdered By: Dimitri Mixon on 10-17-2021 Creatinine [Mass/Vol] 0.74 mg/dL Normal 0.44-1.03 [facility] Comment on above: Performed By: #### C BC, CMP #### [address] Serum or plasma glucose alexa urement (mass/volume)Ordered By: Dimitri Mixon on 10-17-2021 Glucose [Mass/Vol] 101 mg/dL High 70-100 [facility] Comment on above: ADA recommended refe rence range Random Glucose Reference Range is dependent on time and content of last meal. Glucose of more than 200 mg/dL in a nonstressed, ambulatory subject supports the diagnosis of Diabetes Mellitus. Result Comment: [place] om Glucose Reference Range is dependent on time and content of last meal. Glucose of more than 200 mg/dL in a nonstressed, ambulatory subject supports the diagnosis of Diabetes Mellitus. ADA recommended reference range Performed By: #### C BC, CMP #### [address] Serum or plasma potassium me asurement (moles/volume)Ordered By: Dimitri Mixon on 10-17-2021 Potassium [Moles/Vol] 4.8 mmol/L Normal 3.5-5.1 [facility] Comment on above: Performed By: #### C BC, CMP #### [address] Serum or plasma sodium measu rement (moles/volume)Ordered By: Dimitri Mixon on 10-17-2021 Sodium [Moles/Vol] 138 mmol/L Normal 136-146 [facility] Comment on above: Performed By: #### C BC, CMP #### [address] Serum or plasma total biliru bin measurement (mass/volume)Ordered By: Dimitri Mixon on 10-17-2021 Bilirubin [Mass/Vol] 0.2 mg/dL Low 0.3-1.2 [facility] Comment on above: Performed By: #### C BC, CMP #### [address] Serum or plasma total carbon dioxide measurement (moles/volume)Ordered By: Dimitri Mixon on 10-17-2021 CO2 [Moles/Vol] 27.8 mmol/L Normal 22.0-30.0 [facility] Comment on above: Performed By: #### C BC, CMP #### [address] [place] [address] [facility] Serum or plasma urea nitroge n measurement (mass/volume)Ordered By: Dimitri Mixon on 10-17-2021 Urea nitrogen [Mass/Vol] 20 mg/dL Normal - [facility] Comment on above: Performed By: #### C BC, CMP #### [facility] [address] [id number] [facility] Operative Reporton Operative Report MR#: [id number] [facility] Pt. Name: Sherron Garcia Room #: 0C Discharge Date: Birthdate: 1965 OPERATIVE REPORT DATE OF SURGERY: 06/06/2021 SURGEON: Nelida Wilks M.D. CONTACT WORKER: Benton Lambert M.D. PREOPERATIVE DIAGNOSIS: Left carpal tunnel syndrome and left long finger trigger finger. POSTOPERATIVE DIAGNOSIS: Left carpal tunnel syndrome and left long finger trigger finger. PROCEDURE PERFORMED: 1. Left carpal tunnel release. 2. Left long finger A1 radha release. ANESTHESIA: MAC with local. FLUIDS: Per anesthesia report. EBL: Minimal. COMPLICATIONS: None. INTRAOPERATIVE FINDINGS: Thickening of the long finger A1 radha and the transverse carpal ligament. INDICATION FOR PROCEDURE: This is a 56-year-old female with a history of left carpal tunnel syndrome and a symptomatic trigger finger of her long finger. She elected for surgical treatment. DESCRIPTION OF PROCEDURE: The patient was brought to the preoperative holding area where she was met by the surgical team and the operative extremity was marked. She was then brought back to the operating room. She was placed in supine position, and all bony prominences were well padded. A nonsterile tourniquet was applied to left upper arm, and the arm was prepped and draped in normal sterile fashion. A time-out was called indicating the patient's name, laterality, and procedure to be performed. First began by marking out the planned incisions and then utilized lidocaine for local anesthesia. We then exsanguinated the left arm using the Esmarch bandage and inflated the tourniquet. We then began the procedure by first addressing the trigger finger. A 1 cm incision was made in line with Bianca's lines. Dissection was carried down to the level of A1 radha, which was identified and released. We then turned our attention to the carpal tunnel and made a skin incision. Dissection carried down to the level of the palmaris fascia, which was sharply incised. We then carried dissection down to the level of palmaris brevis, which was swept to the side, and the transverse carpal ligament was identified and entered. We then released distally using Littler scissors and proximally using a guide and a 15 blade. We confirmed both visually and by palpation that the entire transverse carpal ligament had been released, and there was no remaining pressure in the median nerve. We then copiously irrigated using normal saline, and closed using 4-0 Novafil for both incisions. We then applied Xeroform, fluffs, and a soft dressing. Tourniquet was deflated. The patient was awakened from anesthesia, transferred to PACU in stable condition. Dr. Wilks was present for all critical portions of the procedure, and immediately available to assist at all times. Electronically Signed by: Nelida Wilks M.D. 06/06/2021 07:26 P Nelida Wilks M.D. I was present for the entire procedure. Date Dict: 06/06/2021/08:49 A/Benton Lambert MD Date Trans: 06/06/2021 09:17 Thea/tee [id number] cc: Gamal Morgan M.D. [facility] [address] [place] [phone] Katerine Jacobs M.D. [address] [facility] [phone] Normal [facility] POC GLUCOSE LABon 06-06-2021 Glucose [Mass/Vol] 107 mg/dL High 70-100 [facility] Comment on above: Performed By: #### [id number] #### [facility] [address] [place] [address], [facility] Operative Reporton 2 Operative Report MR#: [id number] [facility] Pt. Name: Sherron Garcia Room #: 0C Discharge Date: Birthdate: 1965 OPERATIVE REPORT DATE OF SURGERY: 05/23/2021 SURGEON: eNlida Wilks M.D. CONTACT WORKER: Benton Lambert M.D. PREOPERATIVE DIAGNOSIS: Right carpal tunnel syndrome. POSTOPERATIVE DIAGNOSIS: Right carpal tunnel syndrome. OPERATIVE PROCEDURES: 1. Right carpal tunnel release. 2. Intraoperative findings noted was that the overlying ligament was significantly thickened. The nerve appeared grossly normal. DESCRIPTION OF PROCEDURE: Under monitored anesthesia care, the patient's right upper extremity was prepped and draped for the proposed procedure. A 0.5% Marcaine/1% Xylocaine x 3 mL was infiltrated overlying the carpal tunnel region, and the distal wrist crease. Tourniquet applied to the right proximal humerus, was inflated to 250 mmHg following exsanguination of the limb by application of an Esmarch bandage. A small longitudinal incision was made centered over the carpal tunnel. Hemostasis was obtained with the use of bipolar cautery. The palmar fascia incised in line with the skin incision followed by sharply incising the ligament, thus entering the carpal tunnel. The distal aspect of the ligament was released under direct visualization with the use of Littler scissors. The proximal aspect was delineated with a hemostat, and then released, with a scalpel directed along the grooved nerve protector. The carpal tunnel was then probed ensuring no remaining restricting fibers of the carpal ligament. The wound was irrigated with normal saline solution and closed in a simple suture fashion. A sterile bulky hand dressing was applied. There were no complications. The patient was transferred to recovery room in stable condition. ESTIMATED BLOOD LOSS: 0 mL. Electronically Signed by: Nelida Wilks M.D. 05/24/2021 06:26 P Nelida Wilks M.D. Date Dict: 05/23/2021/11:25 A/Nelida Wilks M.D. Date Trans: 05/23/2021 11:54 A/mmo [id number] cc: Gamal Morgan M.D. [facility] [address] [place] [phone] Katerine Jacobs M.D. [address] [place] [phone] Normal [facility] POC GLUCOSE LABon 05-23-2021 Glucose [Mass/Vol] 87 mg/dL Normal 70-100 [facility] Comment on above: Performed By: #### [id number] #### [facility] [address] Vital Signs Date Time Vital Sign Value Performing Clinician Faci lity 02-22-2023 14:59-0500 Body mass index (BMI) [Ratio] 28.76 kg/m2 Kenna Landryo KILN HEAD 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 [facility] 02-22-2023 14:59-0500 Body weight 62.41 kg Kenna Landryo KILN HEAD 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 Work Phone: [employer] 02-22-2023 14:59-0500 Diastolic blood pressure 80 mm[Hg] Kenna Landryo KILN HEAD 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 Work Phone: [employer] 02-22-2023 14:59-0500 Systolic blood pressure 128 mm[Hg] Kenna Landryo KILN HEAD 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 Work Phone: [employer] 11-11-2020 14:58-0400 Body height 147.32 cm [facility] 11-11-2020 14:58-0400 Body mass index (BMI) [Ratio] 32.71 kg/m2 [facility] 11-11-2020 14:58-0400 Body surface area Derived from formula 1.7 m2 [facility] 11-11-2020 14:58-0400 Body weight 70.99 kg [facility] 11-11-2020 14:58-0400 Diastolic blood pressure 82 mm[Hg] [facility] 11-11-2020 14:58-0400 Heart rate 84 /min [facility] 11-11-2020 14:58-0400 Systolic blood pressure 142 mm[Hg] [facility] Encounters Encounter Date Encounter Type Care Provider Facility Start: 03-06-2023 Orders Only Kenna Mesa APRN-DIRECT MARKETING EXECUTIVE Work Phone: [facility] Comment on above: Heterogeneously dens e tissue of both breasts on mammography (Primary Dx); Family history of breast cancer Start: 03-05-2023 [facility] Start: 03-02-2023 End: 03-03-2023 ambulatory [facility] Start: 02-22-2023 End: 02-22-2023 ambulatory [facility] Start: 02-22-2023 Encounter for gynecological examination (general) (routine) without abnormal findings [facility] Start: 02-22-2023 End: 02-22-2023 Patient encounter procedure Kenna Mesa APRN-DIRECT MARKETING EXECUTIVE Work Phone: [facility] Start: 02-22-2023 End: 02-22-2023 Periodic preventive med est patient 40-64yrs Kenna Mesa APRN-DIRECT MARKETING EXECUTIVE Work Phone: [facility]Gynecology Comment on above: Well woman exam with routine gynecological exam (Primary Dx); Encounter for screening mammogram for malignant neoplasm of breast; Standardized adult depression screening tool completed; Status post hysterectomy; Vaginal dryness, menopausal; Vaginal atrophy Start: 09-29-2022 End: 09-30-2022 ambulatory ALIYA MAGDALENA [facility] Start: 09-07-2022 End: 09-08-2022 ambulatory [facility] Start: 09-06-2022 End: 09-07-[address] [facility] Start: 08-04-2022 End: 08-04-2022 ambulatory [facility] Start: 07-24-2022 End: 07-24-2022 ambulatory ALIYA [facility] Start: 07-06-2022 ambulatory ALIYA MAGDALENA [facility] Start: 04-18-2022 End: 04-18-2022 ambulatory Mike Mixon Facility:[facility] Start: 04-18-2022 End: 04-18-2022 ambulatory MD Katerine Jacobs Work Phone: [facility] Work Phone: Start: 04-18-2022 End: 04-18-2022 Patient encounter procedure MD Katerine Jacobs Work Phone: [facility] [address] Work Phone: Start: 01-21-2022 Encounter for genera l adult medical examination without abnormal findings DR KATERINE JACOBS [facility] Start: 01-18-2022 End: 01-19-[address] KATERINE JACOBS Facility:[facility] Start: 01-18-2022 End: 01-19-2022 Encounter for general adult medical examination without abnormal findings DR KATERINE JACOBS Facility: Start: 10-17-2021 End: 10-17-2021 ambulatory Mike Mixon Facility:[facility] Start: 10-17-2021 End: 10-17-2021 Patient encounter procedure MD Katerine Jacobs Work Phone: [facility] [address] Start: 06-06-2021 End: 06-07-2021 ambulatory ABDULAZIM MAGDALENA Facility:[facility] Start: 05-23-2021 End: 05-24-2021 ambulatory ABDULAZIM MAGDALENA Facility:[facility] Start: 11-11-2020 Split Srvc Amaya Johnston rne Other [facility] Office Procedures Date Procedure Procedure Detail Performing Clinician Start: 03-02-2023 Mammography Kenna Mesa KILN HEAD 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 Work Phone: Start: 02-22-2023 Adult depression screening assessment Kenna Mesa KILN HEAD 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 Work Phone: Start: 09-29-2022 Follow-up visit Follow-up ALIYA MAGDALENA Start: 12-28-2020 Mammography Kenna Mesa KILN HEAD 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 Work Phone: Start: 11-11-2020 Nerve conduction studies 9-10 studies Amaya Waldron H/O: hysterectomy Status post hysterectom y Kenna Mesa KILN HEAD 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 Work Phone: Plan of Treatment Date Care Activity Detail Author Start: 03-02-2024 Adult BMI Screening Adult BMI Screen ing [facility] Start: 03-02-2024 Screening for malign ant neoplasm of breast Mammogram [facility] Start: 02-23-2024 Adult BMI Follow Up Plan Adult BMI F ollow Up Plan [facility] [employer] [facility] Start: 02-23-2024 Adult BMI Screening Adult BMI Screen ing [facility] Start: 02-23-2024 Depression Screening Depression Scre ening [facility] Start: 02-23-2024 Tobacco Screening Tobacco Screening [facility] Start: 03-06-2023 End: 03-06-2024 NM Guidance limited for localization of tumor NM Molecular breast imaging localization limited area Imaging Routine Heterogeneously dense tissue of both breasts on mammography Family history of breast cancer Expected: 03/06/2023, Expires: 03/06/2024 [facility] Work Phone: Comment on above: Expected: 03/06/2023 , Expires: 03/06/2024 Start: 02-22-2023 End: 04-21-2024 DBT Breast - bilateral screening Mammography screening bilateral with CAD Imaging Routine Encounter for screening mammogram for malignant neoplasm of breast Expected: 02/22/2023, Expires: 04/21/2024 [facility] Work Phone: Comment on above: Expected: 02/22/2023 , Expires: 04/21/2024 Start: 10-20-2022 Influenza vaccination Influenza Vacc ine [facility] Start: 12-28-2021 Screening for malign ant neoplasm of breast Mammogram [facility] Start: 2016 Administration of varicella zoster vaccine Zoster (Shingles) Vaccine (1 of 2) [facility] Start: 1985 DTaP,Tdap and Td Vaccines (1 - Tdap) DTaP,Tdap and Td Vaccines (1 - Tdap) [facility] Payers Date Payer Category Payer Private Health Insurance [facility] [id number] 2022 [facility] Health [facility] [id number] 2022-Present [phone] [address] [address] [place] [address] [id number] 2021 Self-pay [id number] 1966 Unknown [id number] .2.647 1966 Unknown [id number] [id number] .2.647 1966 Unknown [id number] [id number] .2.593 1966 Unknown [id number] 2.16.840.1.150322.3.579 .2.1286 1966 Unknown [id number] 2.16.840.1.574195.3.579 .2.1286 1966 Unknown [id number] 2.16.840.1.482337.3.579 .2.1286 1966 Unknown [id number] 2.16.840.1.858168.3.579 .2.1286 1966 Unknown [id number] 2.16.840.1.636723.3.579 .2.1286 1966 Unknown [id number] 2.16.840.1.183787.3.579 .2.1286 1966 Unknown [id number] [id number] .2.1286 1959 Unknown [id number] Private Health Insurance [employer] [id number] Unknown [id number] Unknown [id number] [id number] .2.531 Unknown [id number] [id number] .2.531 Worker's Compensation [id number] Social History Date Type Detail Facility Start: Nonsmoker [facility] Start: Caffeine [facility] Start: Alcohol [facility] Start: 09-17-2017 End: 09-17-2017 Tobacco smoking status VAIS Smoker (finding) [facility] Start: 1965 Sex Assigned At Female [facility] Start: 01-31-2022 Tobacco smoking stat [facility] Never smoked tobacco [facility] Start: 01-31-2022 Tobacco use and exposure Smokeless tobacco non-user [facility] Start: 02-22-2023 End: 03-02-2023 Alcohol intake Current drinker of alcohol (finding) [facility] Start: 02-22-2023 History of Social function [facility] Start: 02-22-2023 Tobacco use panel [facility] Adolescent depressio n screening assessment 0 [facility] Start: 01-31-2022 Alcohol Comment occasional Parishedlinda fletcher [facility] Start: 1965 Sex Assigned At Not on file P [facility] Clinical Notes 07-06-2022 to 02-22-2023 Kenna Mesa, TERELL-DIRECT MARKETING EXECUTIVE - 02/22/2023 3:00 PM EST Note Date & Type Note Facility 02-22-2023 History of Present illness Narrative Sherron Garcia is a 57 y.o. female who presents for annual vehicle dynamics engineer exam. She is postmenopausal. Hysterectomy: yes - 2005 at age 39 for fibroids She is sexually active. No painful intercourse or pelvic pain. 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 Vaginal Bleeding none Hot flashes / menopausal symptoms - Mild (better with paxil) Bladder issues - None Bowel issues - None History of abnormal Pap smear: no Last pap: unknown Family history of uterine or ovarian cancer: no Family hx pancreatic or prostate cancer: yes, maternal grandfather Family history of colon cancer: no Family history of breast cancer: yes - maternal aunt Regular self breast exam: yes Last mammogram: a couple years ago Dexa Scan: no Colonoscopy / Cologuard: colonoscopy 2016 PHQ9 depression screenin OB History 3 Para 2 Term AB 1 Living SAB IAB 1 Ectopic Multiple Live Births Past Medical History: Diagnosis Date Dry eye Hypertension Osteoarthritis Shingles Past Surgical History: Procedure Laterality Date ACHILLES TENDON REPAIR CARPAL TUNNEL RELEASE Bilateral SECTION HYSTERECTOMY 2006 abdominal INDUCED ROTATOR CUFF REPAIR Bilateral TRIGGER FINGER RELEASE Right 07/2022 TUBAL LIGATION Family History Problem Relation Age of Onset Diabetes Father Hypertension Father Diabetes Mother Hypertension Mother Diabetes Brother Hypertension Brother Kidney failure Brother Current Outpatient Medications Medication Sig Dispense Refill sdxmbxk-yndxypvzdodry-fkdhhpui (EXCEDRIN EXTRA STRENGTH) 250-250-65 mg per tablet 2 tablets Orally Once a day prn cholecalciferol, vitamin D3, (VITAMIN D3) 5,000 units tablet Take 8,000 Units by mouth in the morning. cod liver oiL oil Take by mouth. cyclobenzaprine (FLEXERIL) 5 mg tablet Take 2 tablets (10 mg total) by mouth 3 (three) times a day as needed for muscle spasms. fluticasone propionate (FLONASE) 50 mcg/actuation nasal spray instill 2 (TWO) sprays IN EACH NOSTRIL ONCE DAILY gabapentin (NEURONTIN) 300 mg capsule TAKE 1 CAPSULE BY MOUTH EVERY MORNING and 2 (TWO) CAPSULES AT BEDTIME lisinopriL (PRINIVIL,ZESTRIL) 10 mg tablet Take 1 tablet (10 mg total) by mouth in the morning. multivitamin capsule Take 1 capsule by mouth in the morning. naproxen (EC NAPROSYN) 500 mg EC tablet Take 1 tablet (500 mg total) by mouth in the morning and 1 tablet (500 mg total) in the evening. Take with meals. PARoxetine CR (PAXIL-CR) 12.5 mg 24 hr tablet Take 1 tablet (12.5 mg total) by mouth in the morning. 90 tablet 3 tetrahydrozoline/polyethyl gly (EYE DROPS OPHT) Instill to eye. valACYclovir (VALTREX) 1000 mg tablet Take 1 tablet (1,000 mg total) by mouth in the morning. estradioL (ESTRACE) 0.01 % (0.1 mg/gram) vaginal cream Insert 1 g into the vagina 2 (two) times a week. 42.5 g 3 etodolac (LODINE) 500 mg tablet Take 1 tablet (500 mg total) by mouth in the morning and 1 tablet (500 mg total) before bedtime. (Patient not taking: Reported on 02/22/2023) No current facility-administered medications for this visit. ALLERGIES No Known Allergies Review of Systems Constitutional: Negative. Respiratory: Negative. Negative for chest tightness and shortness of breath. Cardiovascular: Negative. Negative for chest pain and palpitations. Gastrointestinal: Positive for constipation. Negative for diarrhea, nausea and vomiting. Endocrine: Negative. Genitourinary: Negative. Negative for dyspareunia, pelvic pain and vaginal bleeding. Musculoskeletal: Negative. Skin: Negative. Allergic/Immunologic: Negative. Neurological: Negative. Hematological: Negative. Psychiatric/Behavioral: Negative. Physical Exam BP 128/80 Wt 62.4 kg (137 lb 9.6 oz) BMI 28.76 kg/m Physical Exam Vitals and nursing note reviewed. Constitutional: Appearance: Normal appearance. HENT: Head: Normocephalic and atraumatic. Cardiovascular: Rate and Rhythm: Normal rate and regular rhythm. Pulses: Normal pulses. Heart sounds: Normal heart sounds. Pulmonary: Effort: Pulmonary effort is normal. Breath sounds: Normal breath sounds. Chest: Breasts: Breasts are symmetrical. Right: Normal. No mass, skin change or tenderness. Left: Normal. No mass, skin change or tenderness. Abdominal: General: Bowel sounds are normal. Palpations: Abdomen is soft. Genitourinary: General: Normal vulva. Labia: Right: No rash or lesion. Left: No rash or lesion. Vagina: Normal. Adnexa: Left adnexa normal. Right: No mass, tenderness or fullness. Left: No mass, tenderness or fullness. Comments: Uterus and cervix surgically absent Musculoskeletal: General: Normal range of motion. Cervical back: Normal range of motion and neck supple. Skin: General: Skin is warm and dry. Neurological: Mental Status: She is alert and oriented to person, place, and time. Psychiatric: Mood and Affect: Mood normal. Speech: Speech normal. Behavior: Behavior normal. Thought Content: Thought content normal. Judgment: Judgment normal. Assessment / Plan Sherron was seen today for annual exam. Diagnoses and all orders for this visit: Well woman exam with routine gynecological exam Encounter for screening mammogram for malignant neoplasm of breast - Mammography screening bilateral with CAD; Future Standardized adult depression screening tool completed Status post hysterectomy - estradioL (ESTRACE) 0.01 % (0.1 mg/gram) vaginal cream; Insert 1 g into the vagina 2 (two) times a week. Vaginal dryness, menopausal - estradioL (ESTRACE) 0.01 % (0.1 mg/gram) vaginal cream; Insert 1 g into the vagina 2 (two) times a week. Vaginal atrophy - estradioL (ESTRACE) 0.01 % (0.1 mg/gram) vaginal cream; Insert 1 g into the vagina 2 (two) times a week. BMI is above average; Discussed eating tips for weight loss and and exercise steps. Discussed SBE. Discussed taking a multivitamin. Discussed Calcium and Vitamin D for prevention of osteoporosis. Discussed need for yearly mammogram after 40 yo. Order placed. Patient to discuss colon cancer screening recommendations with PCP. Educational material provided. All questions answered. 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 RUTH Carcamo APRN-CNP 02/22/23 1527 documented in this encounter [facility] 09-29-2022 Note Attestation signed by Aliya Wilks MD at 10/03/2022 12:12 PM I personally saw and examined the patient on the same date of service as resident/fellow . I discussed the findings and therapeutic plan with the resident/fellow . I agree with the documentation, except for any edits/updates below. Teaching Physician's Revisions: Subjective 07/24/2022 - long finger A1 pully release - Right 09/29/22 57-year-old female who presents to clinic with new complaint PIP joint pain of the right greater than left hand. Patient states that the pain and stiffness in the bilateral small joints of the hand has been getting progressively worse which prompted her to come in for a visit. She has been taking ketorolac, Tylenol extra strength, and using Biofreeze to the affected digits with limited symptom relief. Of note, she went to her PCP earlier this week and he gave her a steroid injection into the deltoid and ordered a series of rheumatoid arthritis labs per patient report. Following the CSI, patient reports better symptom relief. Patient is concerned that she might have rheumatoid arthritis. States her mother has Graves' disease and she has multiple cousins with RA. Denies any numbness or tingling of the right hand. Regarding her recent right long finger A1 radha release, she reports that that has been doing well with no recurrence of triggering/locking. 08/04/22 Sherron Garcia is a 57 y.o. female s/p 07/24/2022 long finger A1 pully release - Right. 57-year-old female returns for first postoperative visit status post long and ring finger trigger release on 07/24/2022. Patient History Past Surgical History: Procedure Laterality Date CARPAL TUNNEL RELEASE 2021 SECTION, LOW TRANSVERSE HYSTERECTOMY LEG TENDON SURGERY ROTATOR CUFF REPAIR TRIGGER FINGER RELEASE Right 07/24/2022 A1 pully release Past Medical History: Diagnosis Date Arthritis Hypertension PONV (postoperative nausea and vomiting) Objective Exam: -Postsurgical incision clean, dry, and intact. No drainage or erythema - Reasonable post-surgical ROM, swelling, and tenderness - Sensation grossly intact distally - Brisk capillary refill -Moderate swelling and tenderness to the bilateral hand PIP and MP joints. Patient able to make a full fist with some noted difficulty. Imaging of bilateral hands: Pending Assessment/Plan Sherron Garcia is a 57 y.o. female s/p long finger A1 pully release - Right (07/24/2022) who presents for new complaint of bilateral hand pain. 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 GC: I personally saw this patient on the day of the encounter, performed the ragsdale portion(s) of the service and participated in the management and confirm the resident's documentation. Please note there may be an additional personal documentation from me. [facility] 09-06-2022 Note Chief Complaint: nec k and radicular pain both arms HPI When did this problem begin: Long time Timing/frequency of occurrence: Constant Pain description: dull ache Pain severity: 5 Radicular pain: both arms Numbness/tingling: both hands Pain is getting: gradually worsening Weakness: No What improves symptoms: Rest What makes symptoms worse: Activity Gait disturbance: No Fine hand dexterity problem: No Previous treatment for this problem: PT ROS Constitutional: Fatigue: No Weight loss: No Fever: No Chills: No Past Surgical History: Procedure Laterality Date CARPAL TUNNEL RELEASE 2021 SECTION, LOW TRANSVERSE HYSTERECTOMY LEG TENDON SURGERY ROTATOR CUFF REPAIR TRIGGER FINGER RELEASE Right 07/24/2022 A1 pully release Past Medical History: Diagnosis Date Arthritis Hypertension PONV (postoperative nausea and vomiting) Past Surgical History: Procedure Laterality Date CARPAL TUNNEL RELEASE 2021 SECTION, LOW TRANSVERSE HYSTERECTOMY LEG TENDON SURGERY ROTATOR CUFF REPAIR TRIGGER FINGER RELEASE Right 07/24/2022 A1 pully release No Known Allergies Current Outpatient Medications: etodolac (Lodine) 500 mg tablet, Take 500 mg by mouth in the morning and at bedtime., Disp: , Rfl: gabapentin (Neurontin) 300 mg capsule, 1 capsule 1 (one) time each day at the same time., Disp: , Rfl: lisinopril 10 mg tablet, Take 1 tablet by mouth in the morning., Disp: , Rfl: PARoxetine CR (Paxil-CR) 12.5 mg 24 hr tablet, Take 12.5 mg by mouth in the morning., Disp: , Rfl: gabapentin (Neurontin) 100 mg capsule, Take 1 capsule (100 mg) by mouth in the morning, at noon, and at bedtime for 7 days., Disp: 21 capsule, Rfl: 0 gabapentin (Neurontin) 300 mg capsule, Take 1 capsule (300 mg) by mouth in the morning, at noon, and at bedtime. AFTER FINISHING 100MG SCRIPT, Disp: 90 capsule, Rfl: 0 Social History Socioeconomic History Marital status: Spouse name: Not on file Number of children: Not on file Years of education: Not on file Highest education level: Not on file Occupational History Not on file Tobacco Use Smoking status: Never Smokeless tobacco: Never Vaping Use Vaping Use: Never used Substance and Sexual Activity Alcohol use: Never Drug use: Never Sexual activity: Not on file Other Topics Concern Not on file Social History Narrative Not on file Social Determinants of Health Financial Resource Strain: Not on file Food Insecurity: Not on file Transportation Needs: Not on file Physical Activity: Not on file Stress: Not on file Social Connections: Not on file Intimate Partner Violence: Not on file Housing Stability: Not on file No family history on file. Physical Exam There were no vitals taken for this visit. Musculoskeletal Ortho spine musculoskeletal examination: Alignment spine: normal Tenderness: paraspinal Range of motion Cervical spine: limited Range of motion lumbar spine: normal Spurling Test: Positive Neurological Biceps strength: 5 Wrist extension: 5 Triceps strength: 5 Finger flexor: 5 Finger abduction strength: 5 Flexion at the hip strength: 5 Quadriceps strength: 5 Tibialis anterior strength: 5 Plantar flexion strength: 5 Extensor Hallicis Longus strength: 5 Sensory Exam: intact DTR/ Pathologic reflexes Biceps reflex- 2 Brachioradialis reflex- 2 Triceps reflex- 2 Patellar reflex- 2 Achilles reflex- 2 Babinski- negative Dewey reflex: Absent Gait and station Gait: Normal Tandem gait: Able Images: I, Dr. Dave Marte, personally reviewed the images and my personal interpretation are: x ray C5-7 disc degeneration Assessment and Plan 57 years presents with neck and radicular pain both upper extremities Explained the clinical and radiological findings with the patient \ Recommended MRI cervical spine to assess spinal stenosis Follow up after MRI [facility] 08-04-2022 Note Attestation signed by Aliya Wilks MD at 08/04/2022 12:34 PM I personally saw and examined the patient on the same date of service as resident/fellow . I discussed the findings and therapeutic plan with the resident/fellow . I agree with the documentation, except for any edits/updates below. Teaching Physician's Revisions: Subjective 07/24/2022 - long finger A1 pully release - Right 08/04/22 Sherron Garcia is a 57 y.o. female s/p 07/24/2022 long finger A1 pully release - Right. 57-year-old female returns for first postoperative visit status post long and ring finger trigger release on 07/24/2022. Patient History Past Surgical History: Procedure Laterality Date CARPAL TUNNEL RELEASE 2021 SECTION, LOW TRANSVERSE HYSTERECTOMY LEG TENDON SURGERY ROTATOR CUFF REPAIR TRIGGER FINGER RELEASE Right 07/24/2022 A1 pully release Past Medical History: Diagnosis Date Arthritis Hypertension PONV (postoperative nausea and vomiting) Objective Exam: - Incision clean, dry, and intact. No drainage or erythema - Reasonable post-surgical ROM, swelling, and tenderness - Sensation grossly intact distally - Brisk capillary refill -Ring finger incision with minimal dehiscence and no drainage. Steri-Strip applied. Assessment/Plan Sherron Garcia is a 57 y.o. female s/p long finger A1 pully release - Right (07/24/2022). She is doing well. -Follow-up as needed - Referral to Dr. Moore for cervical radiculopathy. Luis Antonio Esteban, PGY3 Orthopedic Surgery Resident By using the attestations below, the signing clinician agrees that I have read and verify that the documentation has been personally reviewed by me and ensure that the documentation accurately reflects the encounter. GC: I personally saw this patient on the day of the encounter, performed the ragsdale portion(s) of the service and participated in the management and confirm the resident's documentation. Please note there may be an additional personal documentation from me. [facility] 07-24-2022 Note Patient: Sherron sheldon Procedure Summary Date: 07/24/22 Room / Location: [address] OR Anesthesia Start: 1316 Anesthesia Stop: 1355 Procedure: long finger A1 pully release (Right: Middle Finger) Diagnosis: Trigger finger, acquired (Trigger finger, acquired [M65.30]) Surgeons: Aliya Wilks MD Responsible Provider: Neris Syed MD Anesthesia Type: MAC ASA Status: 2 Anesthesia Type: MAC Vitals Value Taken Time BP 135/65 07/24/22 1410 Temp 36 ???C (96.8 ???F) 07/24/22 1355 Pulse 73 07/24/22 1410 Resp 16 07/24/22 1410 SpO2 98 % 07/24/22 1410 Anesthesia Post Evaluation No notable events documented. [facility] 07-24-2022 Note Patient: Sherron sheldon Procedure Information Date/Time: 07/24/22 1245 Procedure: long finger A1 pully release (Right: Middle Finger) Location: [facility] OR [facility] OR Surgeons: Aliya Wilks MD Relevant Problems No relevant active problems Clinical information reviewed: Tobacco Allergies Meds Med Hx Surg Hx Fam Hx Soc Hx Past Medical History: Diagnosis Date ??? Arthritis ??? Hypertension ??? PONV (postoperative nausea and vomiting) Physical Exam Airway Mallampati: II TM distance: >3 FB Neck ROM: full Cardiovascular - normal exam Rhythm: regular Rate: normal Dental - normal exam Pulmonary - normal exam Abdominal - normal exam Anesthesia Plan ASA 2 MAC The patient is not a current smoker. intravenous induction Anesthetic plan and risks discussed with patient. Plan discussed with CAA. Additional Equipment Requests [facility] 07-06-2022 Note Attestation signed by Aliya Wilks MD at 07/10/2022 9:11 AM I personally saw and examined the patient on the same date of service as resident/fellow . I discussed the findings and therapeutic plan with the resident/fellow . I agree with the documentation, except for any edits/updates below. Teaching Physician's Revisions: Subjective Chief complaint: Chief Complaint Patient presents with Right Middle Finger - Pain, Follow-up 07/06/22 Sherron Garcia is a 57 y.o. year old female presenting for evaluation of right hand pain. She has triggering and locking of the right long finger. She has history of previous trigger finger releases on the left hand. She has a steroid injection done previously in previous months that was not very helpful in relieving her symptoms. Denies numbness, tingling, and weakness. ROS: Denies fevers, chills, and other constitutional symptoms. Denies shortness of breath. Patient History No past surgical history on file. No past medical history on file. Objective General: Body mass index is 27.17 kg/m???. There were no vitals filed for this visit. No acute distress, comfortable Respiratory: Unlabored breathing with normal rate, no cough Cardiovascular: Warm well perfused extremities Psych: Appropriate mood behavior Examination of right hand demonstrates tender to palpation at the A1 radha of the long finger with limitation in active flexion of PIP and DIP secondary to nodule at A1 radha Imaging: Assessment/Plan Sherron Garcia is a 57 y.o. year old female with Trigger finger, acquired -OR for release of R long finger A1 radha Rufus Gee MD PGY-4 Orthopedic Surgery [facility] By using the attestations below, the signing clinician agrees that I have read and verify that the documentation has been personally reviewed by me and ensure that the documentation accurately reflects the encounter. GC: I personally saw this patient on the day of the encounter, performed the [place] portion(s) of the service and participated in the management and confirm the resident's documentation. Please note there may be an additional personal documentation from me. [facility] Evaluation note No assessment inform ation available [facility] Work Phone: Evaluation note Diagnosis Well woman exam with routine gynecological exam- Primary Routine gynecological examination Encounter for screening mammogram for malignant neoplasm of breast Standardized adult depression screening tool completed Status post hysterectomy Acquired absence of both cervix and uterus Vaginal dryness, menopausal Vaginal atrophy Postmenopausal atrophic vaginitis documented in this encounter [facility]* Diagnosis Heterogeneously dense tissue of both breasts on mammography- Primary Family history of breast cancer Family history of malignant neoplasm of breast documented in this encounter [facility] SystemInstructions* Attachments The following attachments cannot be sent through Care Everywhere. * Vaginal dryness ([place]) * Calcium and vitamin D for bone health ([place]) documented in [facility]Pro[facility] [employer] SystemInstructionsNot on file documented in this encounterProT[facility] Chief Complaint and Reason for Visit Chief Complaint M15.0/M54.2/Z79.899 Advance Directives No Advanced Directives Records Found Advance Directive Response Recorded Date/ Time Advance Directives No January 2:59pm Advance Directive Response Recorded Date/ Time Advance Directives No January 1:59pm Summary Purpose Family History No Family History Records FoundNo Family History Records FoundNo Family History Records FoundNo Family History Records FoundNo Family History Records FoundNo Family History Records Found Reason for Referral Specialty Diagnoses / Procedures Referred By [place] joe Referred To Contact Radiology Diagnoses Heterogeneously dense tissue of both breasts on mammography Family history of breast cancer Procedures NM Molecular breast imaging localization limited area [place], [employer] 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 [address] [place] [address] Referral ID Status Reason Start Date Expiration Date V isits Requested Visits Authorized [id number] Pending Review 03/06/2023 03/05/2024 5 5 Additional Source Comments Care Teams (unrecognized sec tion and content) Team Status: Inactive Member Role Status Dates Katerine Jacobs MD Primary Care Provider Active Mike Mixon MD Attending Provider Active Team Status: Active Member Role Status Dates Katerine Jacobs MD Primary Care Provider Active Engineering Lab 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 Relationship Specialty Start Date End Date Katerine Jacobs MD [address] [place] [address] PCP - General Family Medicine 02/22/23 Engineering Lab Technician Relationship Specialty Start Date End Date Katerine Jacobs MD [address] [place] [address] PCP - General Family Medicine 02/22/23 Goals (unrecognized section and content) Goals may be documented in a n alternate sectionGoals may be documented in an alternate sectionNot on filedocumented as of this encounterNot on filedocumented as of this encounter INFORMATION SOURCE (unrecogn ized section and content) DATE CREATED AUTHOR 10/26/2021 [facility] DATE CREATED AUTHOR AUTHOR'S ORGANIZ ATION 01/21/2022 [facility] DATE CREATED AUTHOR AUTHOR'S ORGANIZ ATION 04/27/[address] [facility] DATE CREATED AUTHOR AUTHOR'S ORGANIZ ATION 10/04/2022 [facility] DATE CREATED AUTHOR AUTHOR'S ORGANIZ ATION 03/06/2023 [facility] DATE CREATED AUTHOR AUTHOR'S ORGANIZ ATION 03/25/2023 [facility] Reason for Visit (unrecogniz ed section and content) Reason Comments Annual Exam FOR RECORDS PERTAINING TO PATIENTS WHO ARE OR HAVE BEEN ENROLLED IN A CHEMICAL DEPENDENCY/SUBSTANCEABUSE PROGRAM, SOME INFORMATION MAY BE OMITTED. This clinical summary was aggregated from multiple sources. Caution should be exercised in using it in the provision of clinical care. This summary normalizes information from multiple sources, and as a consequence, information in this document may materially change the coding, format and clinical context of patient data. In addition, data may be omitted in some cases. CLINICAL DECISIONS SHOULD BE BASED ON THE PRIMARY CLINICAL RECORDS. [employer] provides no warranty or guarantee of the accuracy or completeness of information in this document.
[2023-03-30 15:39] LABS: Basophils Percent Auto 0.5 % (0.2-2.0); Eosinophils Absolute Auto 0.2 10^3/uL (0.0-0.7); Eosinophils Percent Auto 2.1 % (0.9-7.0); Hematocrit 42.3 % (36.0-48.0); Hemoglobin 13.7 g/dL (12.0-16.0); Immature Granulocytes Abs Auto 0.01 10^3/uL (0.00-0.03); Immature Granulocytes Pct Auto 0.1 % (0.0-0.5); Lymphocytes Absolute Auto 2.6 10^3/uL (1.2-3.8); Lymphocytes Percent Auto 29.8 % (20.5-60.0); Mean Corpuscular HGB Conc 32.4 g/dL (29.9-35.2); Mean Corpuscular Volume 92.6 fL (81.0-99.0); Mean Platelet Volume 10.3 fL (9.5-13.5); Monocytes Absolute Auto 0.5 10^3/uL (0.3-0.8); Monocytes Percent Auto 5.8 % (1.7-12.0); Neutrophils Absolute Auto 5.5 10^3/uL (1.4-6.5); Neutrophils Percent Auto 61.7 % (43.0-75.0); Platelet Count 291 10^3/uL (150-450); Red Blood Count 4.57 10^6/uL (4.20-5.40); Red Cell Distribution Width 13.9 % (11.0-15.0); White Blood Count 8.8 10^3/uL (4.0-11.0)
[2023-03-30 16:05] LABS: Estimated Average Glucose 120 mg/dL; Glycohemoglobin A1C 5.8 % (4.5-6.2)
[2023-03-30 16:18] LABS: Alanine Aminotransferase 23 U/L (14-59); Alkaline Phosphatase 77 U/L (46-116); Anion Gap 11.1; Aspartate Amino Transferase 18 U/L (15-37); BUN Creatinine Ratio 37.9; Bilirubin Total 0.4 mg/dL (0.2-1.0); Calcium 9.7 mg/dL (8.5-10.1); Carbon Dioxide 31.3 mmol/L (21.0-32.0); Chloride 102 mmol/L (98-107); Chol HDL Ratio 3.1; Cholesterol 208 mg/dL (<=200); Estimated GFR (African America >60 (>=60); Estimated GFR (Non-African Ame >60 (>=60); Free T3 2.47 pg/mL (2.18-3.98); Globulin 3.9 g/dL; Glucose 97 mg/dL (74-106); HDL Cholesterol 68 mg/dL (40-60); Potassium 3.4 mmol/L (3.5-5.1); Sodium 141 mmol/L (136-145); Thyroid Stimulating Hormone 1.045 uIU/mL (0.358-3.740); Total Protein 7.9 g/dL (6.4-8.2); Triglycerides 46 mg/dL (<=150); VLDL CHOLESTEROL 9.2 mg/dL
[2023-04-02 12:09] LABS: Insulin 15.4 uIU/mL (2.6-24.9)
== END 2023-03-30 15:19 | disposition home or self-care (01) ==
LOC: LAB 15:19
PROVIDERS: PCP Family Medicine; Visit Provider Family Medicine
DX: M54.16 Radiculopathy, lumbar region (principal); M19.072 Primary osteoarthritis, left ankle and foot; E55.9 Vitamin D deficiency, unspecified
CPT/HCPCS: 36415; 72100; 80053; 80061; 82306; 83036; 83525; 83540; 84436; 84443; 84481; 85025

== ENCOUNTER 2023-04-13 13:23 | Outpatient (OUT) | payer OTHER, SELFPAY ==
--- NOTE | 2023-04-13 13:25 | MR_ITS ---
[address] [address] Patient Name: GÓMEZ NUNN MRN: [facility]:[id number] date: 1965 Sex: F Assigned Patient Location: MRI Current Patient Location: Accession/Order Number: [id number] Exam Date: 04/13/2023 13:40 Report Date: 04/14/2023 07:19 At the request of: KATERINE DOHERTY Procedure: MR lumbar spine wo con EXAMINATION: MR lumbar spine wo con HISTORY: Lumbar Radiculitis M54.10 ; chronic lumbar pain with left leg pain and weakness COMPARISON: XR lumbar spine 03/30/2023 TECHNIQUE: A variety of imaging planes and parameters were utilized for visualization of suspected pathology. FINDINGS: For the purposes of numbering, sagittal T2 image # 8 extends from the T10 vertebral body superiorly to the S4 level inferiorly. PARASPINAL AREA: Normal with no visible mass. BONES: No fracture, pars defect, or osseous lesion. CORD/CAUDA EQUINA: Normal caliber, contour, and signal intensity. DISC LEVELS: 12-L1: No significant disc/facet abnormality, spinal stenosis, or foraminal stenosis. L1-L2: No significant disc/facet abnormality, spinal stenosis, or foraminal stenosis. L2-L3: No significant disc/facet abnormality, spinal stenosis, or foraminal stenosis. L3-L4: Mild central canal and left foramen narrowing. Mild diffuse disc bulging, mild disc height reduction, and mild degenerative facet hypertrophy bilaterally. L4-L5: Moderate central canal and left foramen narrowing. Mild right foramen narrowing. Moderate diffuse disc bulging with mild disc height reduction and suspected small disc extrusion within the left foramen extending 3 cm cephalad. Moderate degenerative facet arthropathy and ligamentum flavum thickening bilaterally. L5-S1: No significant disc/facet abnormality, spinal stenosis, or foraminal stenosis. MR/MR lumbar spine wo con IMPRESSION: 1. Degenerative disc disease and facet arthropathy of lower lumbar spine, greatest at L4-L5 resulting in moderate left foramen narrowing as detailed above. Electronically authenticated by: AMELIE CORONEL Date: 04/14/2023 07:19
== END 2023-04-13 13:24 | disposition home or self-care (01) ==
LOC: MRI 13:23
PROVIDERS: PCP Family Medicine; Visit Provider Family Medicine
DX: M54.16 Radiculopathy, lumbar region (principal); M51.36 Other intervertebral disc degeneration, lumbar region
CPT/HCPCS: 72148

== ENCOUNTER 2024-03-17 15:06 | Outpatient (RCR) | payer OTHER, SELFPAY | END 2024-04-12 15:13 | disposition home or self-care (01) | LOC: PT 15:06 | PROVIDERS: PCP Family Medicine; Visit Provider Family Medicine | DX: M25.512 Pain in left shoulder (principal) | CPT/HCPCS: 97035; 97110; 97161 ==

== ENCOUNTER 2024-05-01 15:22 | Outpatient (OUT) | payer OTHER, SELFPAY ==
--- NOTE | 2024-05-01 15:27 | MR_ITS ---
[facility] [place] [id number] Patient Name: GÓMEZ NUNN MRN: [id number] date: 1965 Sex: F Assigned Patient Location: MRI Current Patient Location: MRI Accession/Order Number: [id number] Exam Date: 05/01/2024 18:50 Report Date: 05/01/2024 18:56 At the request of: KATERINE DOHERTY MD Procedure: MR shoulder LT wo con MRI left Shoulder without contrast TECHNIQUE: Multiplanar T1 and T2-weighted imaging obtained without contrast. HISTORY: Acute left shoulder pain. 2 months duration. History of rotator cuff repair in the left. COMPARISON: None BONE MARROW EDEMA: None FRACTURE: None AC JOINT: A degeneration with inferior marginal spurring effacing the myotendinous portion of the supraspinatus tendon. Small amount of fluid in the joint space. Mild bone marrow edema and adjacent soft tissue edema. SHOULDER ROOF LIGAMENTS: The coracoacromial and coracoclavicular ligaments are intact. ROTATOR CUFF: Artifact from humeral head anchor screw. Heterogeneous signal changes of the supraspinatus tendon consistent with high-grade date tendinosis. No fluid signal intensity partial or full-thickness tear. No retraction of the tendon. Unremarkable infraspinatus, subscapularis and teres minor tendons. ROTATOR CUFF INTERVAL: Unremarkable BURSAL FLUID: No subacromial subdeltoid bursal fluid identified. GLENOID: Intact BICEPS LABRAL COMPLEX: Intact LONG HEAD OF BICEPS TENDON: Intact GLENOHUMERAL LIGAMENTS: The superior glenohumeral ligament is intact. The middle glenohumeral ligament is intact. The anterior and posterior glenohumeral ligaments are intact. JOINT EFFUSION: No significant joint effusion is seen. MUSCLES: Normal signal intensity of the muscles. NO SUBCUTANEOUS TISSUES: No subcutaneous abnormalities identified. MR/MR shoulder LT wo con IMPRESSION: Rotator cuff repair changes. Extensive tendinosis of supraspinatus tendon. No fluid signal intensity partial tear or full-thickness tear. No retraction of tendon. Fluid within the subacromial subdeltoid bursa. May consider isolated bursitis. Inferior marginal spurring of acromioclavicular joint effacing the myotendinous portion of supraspinatus tendon. Impression dictated by: Paco Laura M.D.05/01/2024 6:56 PM Dictation Location: [place] [address] Electronically authenticated by: [id number] Y Date: 05/01/2024 18:56
--- OUTSIDE RECORDS SUMMARY | 2024-05-01 15:42 | XMS_ITS | CCD ---
Author Organization [facility] Care Team Providers Care Children Teacher Name Role Phone Amaya Waldron Primary Care Physician Amaya Garcia Unavailable Unavailable MD Katerine Jacobs Primary Care Provider MD Mike Mixon Attending Provider [phone] MAGDALENA, ABDULAZIM Admitting Unavailable MAGDALENA, ABDULAZIM Attending Unavailable GAMAL MORGAN Referring Unavailable KATERINE JACOBS Primary Care Unavailable MAGDALENA, ABDULAZIM Admitting Unavailable MAGDALENA, ABDULAZIM Attending Unavailable GAMAL MORGAN Referring Unavailable KATERINE JACOBS Primary Care Unavailable DR KATERINE JACOBS Attending Unavailable DR KATERINE JACOBS Consulting Unavailable DR KATERINE JACOBS Primary Care Unavailable DR KATERINE JACOBS Admitting Unavailable MD Katerine Jacobs Primary Care Provider [phone] MD Mike Mixon Attending Provider [phone] ELGAFY, DAVE Attending Unavailable MAGDALENA, ALIYA Referring Unavailable ELGAFY, DAVE Referring Unavailable MAGDALENA, ALIYA Referring Unavailable ELGAFY, DAVE Referring Unavailable MAGDALENA, ALIYA Attending Unavailable MAGDALENA, ALIYA Attending Unavailable MAGDALENA, ALIYA Admitting Unavailable MAGDALENA, ALIYA Attending Unavailable MAGDALENA, ALIYA Attending Unavailable WARREN MESAA Martin Attending Unavailable KATERINE JACOBS Primary Care Unavailable MOSHE KENNA Attending Unavailable MOSHE, KENNA Referring Unavailable KATERINE JACOBS Primary Care Unavailable WARREN MESAA M Referring Unavailable KATERINE JACOBS Primary Care Unavailable MD Katerine Jacobs Primary Care Provider [phone] MD Dimitri Mixon Attending Provider [phone] Dimitri Mixon Attending Unavailable Dimitri Mixon Admitting Unavailable Katerine Jacobs Primary Care Unavailable Katerine Jacobs MD Primary Care Provider [phone] Allergies Allergy Classification Reported Allergen(s) Allergy Type Date of Onset Reaction(s) Facility (1 source) Acetaminophen / Dextromethorphan / Doxylamine / Pseudoephedrine; Translations: [NyQuil] Drug Allergy SEVERE [place] (1 source) Naproxen; Translations: [Aleve] Drug Allergy MODERATE [place] (1 source) Other Allergy to substance (disorder) Head and Chest OTC-MODERATE [place] Medications Current Medications Medication Drug Class(es) Dates [...] mg / clavulanate 125 mg oral tablet (3 sources) Penicillin-class Antibacterial Start: 09-17-2017 take 1 tablet by mouth twice daily Amoxicillin-Pot Clavulanate (Augmentin) 875-125 mg tablet Active 1 TAB PO Twice daily September 17, 2017 12:00am two days left cetirizine hydrochloride 10 mg oral capsule (3 sources) Histamine-1 Receptor Antagonist Start: 09-17-2017 take 1 capsule by mouth once daily Cetirizine (Zyrtec) 10 mg Capsule Active 10 MG PO Daily September 17, 2017 12:00am cholecalciferol 0.125 mg oral tablet (2 sources) [...] 12/07/2021 Active fluconazole 100 mg oral tablet (3 sources) Azole Antifungal Start: 09-17-2017 take 100 mg by mouth once daily Fluconazole Active 100 MG PO Daily September 17, 2017 12:00am fluticasone propionate 0.05 mg/actuat metered dose nasal [...] 0 Active ibuprofen 800 mg oral tablet (4 sources) Nonsteroidal Anti-inflammatory Drug Start: 09-18-19 take 800 mg by mouth four times daily Ibuprofen Active 800 MG PO Four times daily September 17, 2017 12:00am take 1 tablet by rabia th three times daily as needed ibuprofen 800 mg tablet take 1 tablet by oral route 3 times a day as needed lisinopril 10 mg oral tablet (6 sources) Angiotensin Converting Enzyme Inhibitor Start: 01-17-2022 take 1 tablet by mouth in the morning lisinopriL (PRINIVIL,ZESTRIL) 10 mg tablet Take 1 tablet (10 mg total) by mouth in the morning. 0 01/17/2022 Active Start: 09-17-2017 take 20 mg by mouth once daily Lisinopril Active 20 MG PO Daily September 17, 2017 12:00am take 1 tablet by rabia th once [...] / neomycin 3.5 mg/ml / polymyxin b 63029 unt/ml ophthalmic suspension (1 source) Aminoglycoside Antibacterial, [...] (primary) hypertension Chronic Menopausal disorders (4 sources) Menopausal and female climacteric states; Translations: [Postmenopausal atrophic vaginitis] Onset: 02-22-2023 02-22-2023 Chronic Osteoarthritis (1 source) Unspecified osteoarthritis, unspecified site Chronic Other connective tissue disease (1 source) [...] mental disorders or infectious disease) (4 sources) Other abnormal and inconclusive findings on diagnostic imaging of breast; Translations: [Encounter for screening mammogram for malignant neoplasm of breast] Onset: 02-22-2023 02-22-2023 Episodic Other skin disorders (1 source) Nonscarring hair loss, unspecified; Translations: [Nonscarring hair loss, unspecified] Onset: 12-13-2023 Episodic Residual codes; unclassified (1 source) Acquired absence of both cervix and uterus; Translations: [Acquired absence of both cervix and uterus] Onset: 02-22-2023 Episodic Residual codes; unclassified (1 source) Family history of malignant neoplasm of breast; Translations: [Family history of malignant neoplasm of breast] Onset: 03-06-2023 Episodic Screening and history of mental health and substance abuse codes (2 sources) Encounter for screening for depression; Translations: [Standardized adult depression screening tool completed ] Onset: 02-22-2023 02-22-2023 Episodic Spondylosis; intervertebral disc disorders; other back problems (3 sources) Cervical disc disorder with radiculopathy, unspecified cervical region; Translations: [Radiculopathy, cervical region] Onset: 09-06-2022 Episodic Unclassified (1 source) Annual Exam Onset: 02-22-2023 Unclassified (1 source) Mammographic heterogeneous density, bilateral breasts; Translations: [Mammographic heterogeneous density, bilateral breasts] Onset: 03-06-2023 Past or Other Problems Problem Classification Problem Date Documented Date Episodic/Chronic Mood disorders (2 sources) Mood disorders Onset: 02-22-2023 02-22-2023 Nonmalignant breast conditions (2 sources) Heterogeneously dense breast composition; Translations: [Heterogeneously dense tissue of both breasts on mammography] Onset: 03-06-2023 03-06-2023 Episodic Other connective tissue disease (2 sources) Acquired trigger finger; Translations: [Trigger finger, unspecified finger] Onset: 07-06-2022 02-22-2023 Episodic Residual codes; unclassified (2 sources) Family history of breast cancer; Translations: [Family history of malignant neoplasm of breast] Onset: 03-06-2023 03-06-2023 Episodic Unclassified (1 source) [id number] [email or web address] Unclassified (2 sources) Onset: 02-22-2023 02-22-2023 Results Test Name Value Interpretation Reference Range Facility Thyrotropin [Units/volume] i n Serum or PlasmaOrdered By: Dimitri Mixon on 12-13-2023 TSH Qn 1.36 m[IU]/L Normal 0.45-5.33 [facility] Comment on above: Result Comment: PERF ORMED BY: [place] [address] PATHOLOGIST MEDICAL REFERRAL COORDINATOR KYLAH BRADFORD M.D. 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 Assessment unchanged from prior. No evidence of malignancy. BI-RADS 1. One year screening mammogram recommended 60 Finalized by Kristian Olmstead MD on 03/21/2023 9:02 PM 1 c MOLEC BR IMG Normal [facility] Office Visiton 09-29-2022 Follow-up visit [id number] Sherron Garcia 1965 F Date Provider Department Center 09/29/2022 373-ALIYA WILKS MP ORTHO MPORTHO Family History Family Status - Relation Status Age at Mother Father Brother Level of Service:[address]136 [place] OFFICE/OUTPATIENT ESTABLISHED LOW MDM 20-29 MIN Reason for Visit and Comments: Follow-up [756156] - Long finger Normal [facility] Consulton 09-06-2022 Consult [id number] Sherron Garcia 1965 F Date Provider Department Center 09/06/2022 DAVE RIOJAS MP ORTHO MPORTHO No family history on file Level of Service:45839 [place] OFFICE/OUTPATIENT ESTABLISHED LOW MDM 20-29 MIN Reason for Visit and Comments: New Patient [632] [facility] Office Visiton 08-04-2022 Follow-up visit [id number] Sherron Garcia 1965 F Date Provider Department Center 08/04/2022 ALIYA MALAGON MP ORTHO MPORTHO No family history on file Level of Service:27175 [place] POSTOP FOLLOW UP VISIT RELATED TO ORIGINAL PX Reason for Visit and Comments: Post-op [483] [facility] HPon 07-24-2022 HP H&P reviewed. The patient was examined and there are no changes to the H&P. Patient also presented with clinical symptoms and signs supportive of adjacent right ring trigger finger as well. She consented for release of both the right long and ring trigger fingers. [facility] OPNOTEon 07-24-2022 OPNOTE ORTHOPAEDIC SURGERY OPERATIVE REPORT Date of Surgery: 07/24/2022 Surgeon: Aliya Wilks MD Manufacturing Management Associate: Jana Spencer MD PGY-2 Anup Anthony MD [...] entirety of the procedure(s). Aliya Wilks MD [facility] POCT GLUCOSE METER UNSOLICIT ED RESULTSon 07-24-2022 Glucose [Mass/Vol] 98 mg/dL Normal 70-105 [facility] Comment on above: Result Comment: jennurys k2 Performed By: #### L [id number] ####[facility] ([facility])[address] [place] [address] Letter (Out)on 07-10-2022 Letter (Out) [id number] Sherron Garcia 1965 F Date Provider Department [place] 07/10/2022 None-None [facility] [place] [facility] No family history on file [facility] Follow-Upon 07-06-2022 Follow-Up [id number] Sherron Garcia 1965 F Date Provider Department [place] 07/06/2022 373-ALIYA WILKS ORTHO MPORTHO No family history on file Level of Service:74577 [place] OFFICE/OUTPATIENT ESTABLISHED LOW MDM 20-29 MIN Reason for Visit and Comments: Pain [136] Follow-up [[id number]] [facility] HPon 07-06-2022 HP -------- Attestation signed [...] radha Rufus Gee MD PGY-4 Orthopedic Surgery [facility] By using the attestations below, the signing [...] an additional personal documentation from me. Normal [facility] Albumin [Mass/volume] in Ser um or PlasmaOrdered By: Dimitri Mixon on 04-18-2022 Albumin [Mass/Vol] 3.8 g/dL 3.2-5.5 [facility] Alkaline phosphatase [Enzyma tic activity/volume] in Serum or PlasmaOrdered By: Dimitri Mixon on 04-18-2022 ALP [Catalytic activity/Vol] 80 U/L 32-92 [facility] Aspartate aminotransferase [ Enzymatic activity/volume] in Serum or PlasmaOrdered By: Dimitri Mixon on 04-18-2022 AST [Catalytic activity/Vol] 16 U/L 10-42 [facility] Basophils Auto (Bld) [#/Vol] Ordered By: Dimitri Mixon on 04-18-2022 Basophils (Bld) [#/Vol] 0.0 10*3/uL 0.0-0.2 [facility] Basophils/100 WBC Auto (Bld) Ordered By: Dimitri Mixon on 04-18-2022 Basophils/100 WBC (Bld) 0.2 % . [facility] Bilirubin.total [Mass/volume ] in Serum or PlasmaOrdered By: Dimitri Mixon on 04-18-2022 Bilirubin [Mass/Vol] 0.4 mg/dL 0.3-1.2 [facility] Calcium [Mass/volume] in Ser um or PlasmaOrdered By: Dimitri Mixon on 04-18-2022 Calcium [Mass/Vol] 9.4 mg/dL 8.2-10.2 [facility] Carbon dioxide, total [Moles /volume] in Serum or PlasmaOrdered By: Dimitri Mixon on 04-18-2022 CO2 [Moles/Vol] 25.2 mmol/L 22.0-30.0 [facility] Chloride [Moles/volume] in S david or PlasmaOrdered By: Dimitri Mixon on 04-18-2022 Chloride [Moles/Vol] 103 mmol/L 95-114 [facility] Creatinine and Glomerular fi ltration rate.predicted panel (S/P/Bld)Ordered By: Dimitri Mixon on 04-18-2022 Creatinine [Mass/Vol] 0.60 mg/dL 0.44-1.03 [facility] Eosinophils Auto (Bld) [#/Vo l]Ordered By: Dimitri Mixon on 04-18-2022 Eosinophils (Bld) [#/Vol] 0.3 10*3/uL 0.0-0.45 [facility] Eosinophils/100 WBC Auto (Bl d)Ordered By: Dimitri Mixon on 04-18-2022 Eosinophils/100 WBC (Bld) 4.2 % . [facility] Erythrocyte distribution wid th Auto (RBC) [Ratio]Ordered By: Dimitri Mixon on 04-18-2022 Erythrocyte distribution width (RBC) [Ratio] 14.2 % 11.9-15.3 [facility] Estimated glomerular filtrat ion rate (GFR) non- AmericanOrdered By: Dimitri Mixon on 04-18-2022 GFR/1.73 sq M.predicted among non-blacks MDRD (S/P/Bld) [Vol rate/Area] > 60 mL/Min [facility] Globulin Calc (S) [Mass/Vol] Ordered By: Dimitri Mixon on 04-18-2022 Globulin (S) [Mass/Vol] 3.1 g/dL [facility] Glucose [Mass/volume] in Ser um or PlasmaOrdered By: Dimitri Mixon on 04-18-2022 Glucose [Mass/Vol] 98 mg/dL 70-100 [facility] Comment on above: ADA recommended refe rence rangeRandom Glucose Reference Range is dependent on time and content of last meal. Glucose of more than 200 mg/dL in a nonstressed, ambulatory subject supports the diagnosis of Diabetes Mellitus. Hematocrit Auto (Bld) [Volum e fraction]Ordered By: Dimitri Mixon on 04-18-2022 Hematocrit (Bld) [Volume fraction] 41.1 % 34.0-46.4 [facility] Hemoglobin [Mass/volume] in BloodOrdered By: Dimitri Mixon on 04-18-2022 Hemoglobin (Bld) [Mass/Vol] 13.5 g/dL 11.8-15.4 [facility] Leukocytes [#/volume] correc edel for nucleated erythrocytes in Blood by Automated counOrdered By: Dimitri Mixon on 04-18-2022 WBC corrected for nucl RBC Auto (Bld) [#/Vol] 8.2 10*3/uL 3.8-11.6 [facility] Lymphocytes Auto (Bld) [#/Vo l]Ordered By: Dimitri Mixon on 04-18-2022 Lymphocytes (Bld) [#/Vol] 3.0 10*3/uL 1.00-4.8 [facility] Lymphocytes/100 WBC Auto (Bl d)Ordered By: Dimitri Mixon on 04-18-2022 Lymphocytes/100 WBC (Bld) 37.3 % . [facility] MCH Auto (RBC) [Entitic mass ]Ordered By: Dimitri Mixon on 04-18-2022 MCH (RBC) [Entitic mass] 28.9 pg 24.7-34.3 [facility] MCHC Auto (RBC) [Mass/Vol]Or dered By: Dimitri Mixon on 04-18-2022 MCHC (RBC) [Mass/Vol] 32.7 g/dL 32.0-35.0 [facility] MCV Auto (RBC) [Entitic vol] Ordered By: Dimitri Mixon on 04-18-2022 MCV (RBC) [Entitic vol] 88.3 fL 80-100 [facility] Monocytes Auto (Bld) [#/Vol] Ordered By: Dimitri Mixon on 04-18-2022 Monocytes (Bld) [#/Vol] 0.6 10*3/uL 0.0-0.8 [facility] Monocytes/100 WBC Auto (Bld) Ordered By: Dimitri Mixon on 04-18-2022 Monocytes/100 WBC (Bld) 7.3 % . [facility] Neutrophils Auto (Bld) [#/Vo l]Ordered By: Dimitri Mixon on 04-18-2022 Neutrophils (Bld) [#/Vol] 4.2 10*3/uL 1.8-7.7 [facility] Neutrophils/100 WBC Auto (Bl d)Ordered By: Dimitri Mixon on 04-18-2022 Neutrophils/100 WBC (Bld) 51.0 % . [facility] No Panel InformationOrdered By: Dimitri Mixon on 04-18-2022 Estimated GFR () > 60 mL/Min [facility] Comment on above: GFR estimated refere nce range: According to KDOQI guidelines, <60 ml/min/1.73m2 is sufficient to diagnose a patient with chronic kidney disease. Pharmacy Creatinine Clearance (Chem N/A [facility] Nucleated erythrocytes [Pres ence] in Blood by Automated countOrdered By: Dimitri Mixon on 04-18-2022 Nucleated RBC Auto Ql (Bld) 0.1 /100{WBC} 0-0.5 [facility] Platelet mean volume Auto (B ld) [Entitic vol]Ordered By: Dimitri Mixon on 04-18-2022 Platelet mean volume (Bld) [Entitic vol] 9.2 fL 6.3-10.7 [facility] Platelets Auto (Bld) [#/Vol] Ordered By: Dimitri Mixon on 04-18-2022 Platelets (Bld) [#/Vol] 238 10*3/uL 150-450 [facility] Potassium [Moles/volume] in Serum or PlasmaOrdered By: Dimitri Mixon on 04-18-2022 Potassium [Moles/Vol] 4.0 mmol/L 3.5-5.1 [facility] Protein [Mass/volume] in Ser um or PlasmaOrdered By: Dimitri Mixon on 04-18-2022 Protein [Mass/Vol] 6.9 g/dL 6.1-7.9 [facility] RBC Auto (Bld) [#/Vol]Ordere d By: Dimitri Mixon on 04-18-2022 RBC (Bld) [#/Vol] 4.66 10*6/uL 3.60-5.00 [facility] Serum or plasma alanine wells otransferase measurement without P-5'-P (enzymatic activiOrdered By: Dimitri Mixon on 04-18-2022 ALT No additional P-5'-P [Catalytic activity/Vol] 17 U/L 10-60 [facility] Serum or plasma albumin/glob ulin mass ratioOrdered By: Dimitri Mixon on 04-18-2022 Albumin/Globulin [Mass ratio] 1.2 {ratio} [facility] Serum or plasma anion gap de terminationOrdered By: Dimitri Mixon on 04-18-2022 Anion gap [Moles/Vol] 11.8 mmol/L 6.0-15.0 [facility] Sodium [Moles/volume] in Ser um or PlasmaOrdered By: Dimitri Mixon on 04-18-2022 Sodium [Moles/Vol] 136 mmol/L 136-146 [facility] Urea nitrogen [Mass/volume] in Serum or PlasmaOrdered By: Dimitri Mixon on 04-18-2022 Urea nitrogen [Mass/Vol] 18 mg/dL 9 [facility] WBC Auto (Bld) [#/Vol]Ordere d By: Dimitri Mixon on 04-18-2022 WBC (Bld) [#/Vol] 8.2 10*3/uL 3.8-11.6 [facility] CBC AUTO DIFFon 01-18-2022 BASO # 0.0 103/ul Normal 0.0-0.1 [facility] Comment on above: Performed By: #### C BC #### [facility] [address] [place] [address] Dr. Jaren Landers Basophils/100 WBC (Bld) 0.4 % Normal 0.2-2.0 [facility] Comment on above: Performed By: #### C BC #### [facility] [address] [place] [address] Dr. Jaren Landers EO # 0.3 103/ul Normal 0.0-0.7 [facility] Comment on above: Performed By: #### C BC #### [facility] [address] [place] [address] Dr. Jaren Landers Eosinophils/100 WBC (Bld) 5.1 % Normal 0.9-7.0 [facility] Comment on above: Performed By: #### C BC #### [facility] [address] [place] [address] Dr. Jaren Landers Erythrocyte distribution width (RBC) [Ratio] 14.5 % Normal 11.0-15.0 [facility] Comment on above: Performed By: #### C BC #### [facility] [address] [place] [address] Dr. Jaren Landers Hematocrit (Bld) [Volume fraction] 41.2 % Normal 36.0-48.0 [facility] Comment on above: Performed By: #### C BC #### [facility] [address] [place] [address] Dr. Jaren Landers Hemoglobin (Bld) [Mass/Vol] 13.7 g/dL Normal 12.0-16.0 [facility] Comment on above: Performed By: #### C BC #### [facility] [address] [address] [address] Jaren Landers IG # 0.01 10e3/ul Normal 0.00-0.03 [facility] Comment on above: Performed By: #### C BC #### [facility] [address] [address] [address] Jaren Landers IG % 0.1 % Normal 0.0-0.5 [facility] Comment on above: Performed By: #### C BC #### [facility] [address] [place] [address] Dr. Jaren Landers LYMPH # 2.3 103/ul Normal 1.2-3.8 [facility] Comment on above: Performed By: #### C BC #### [facility] [address] [place] [address] Dr. Jaren Landers Lymphocytes/100 WBC (Bld) 34.1 % Normal 20.5-60.0 [facility] Comment on above: Performed By: #### C BC #### [facility] [address] [place] [address] Dr. Jaren Landers MANUAL DIFF REQ NO Normal [facility] Comment on above: Performed By: #### C BC #### [facility] [address] [place] [address] Dr. Jaren Landers MCH (RBC) [Entitic mass] 29.1 pg Normal 26.7-34.0 [facility] Comment on above: Performed By: #### C BC #### [facility] [address] [place] [address] Dr. Jaren Landers MCHC (RBC) [Mass/Vol] 33.3 g/dL Normal 29.9-35.2 [facility] Comment on above: Performed By: #### C BC #### [facility] [address] [place] [address] Dr. Jaren Landers MCV (RBC) [Entitic vol] 87.7 fL Normal 81.0-99.0 [facility] Comment on above: Performed By: #### C BC #### [facility] [address] [place] [address] Dr. Jaren Landers MONO # 0.5 103/ul Normal 0.3-0.8 [facility] Comment on above: Performed By: #### C BC #### [facility] [address] [place] [address] Dr. Jaren Landers Monocytes/100 WBC (Bld) 7.3 % Normal 1.7-12.0 [facility] Comment on above: Performed By: #### C BC #### [facility] [address] [place] [address] Dr. Jaren Landers NEUT # 3.6 103/ul Normal 1.4-6.5 [facility] Comment on above: Performed By: #### C BC #### [facility] [address] [place] [address] Dr. Jaren Landers Neutrophils/100 WBC (Bld) 53.0 % Normal 43.0-75.0 [facility] Comment on above: Performed By: #### C BC #### [facility] [address] [place] [address] Dr. Jaren Landers Platelet mean volume (Bld) [Entitic vol] 10.4 fL Normal 9.5-13.5 [facility] Comment on above: Performed By: #### C BC #### [facility] [address] [place] [address] Dr. Jaren Landers PLT 248 103/ul Normal 150-450 [facility] Comment on above: Performed By: #### C BC #### [facility] [address] [place] [address] Dr. Jaren Landers RBC 4.70 106/ul Normal 4.20-5.40 [facility] Comment on above: Performed By: #### C BC #### [facility] [address] [place] [address] Dr. Jaren Landers WBC 6.7 103/ul Normal 4.0-11.0 [facility] Comment on above: Performed By: #### C BC #### [facility] [address] [place] [address] Dr. Jaren Landers FREE THYROXINE INDEX T7on 11 -30-2022 FTI 2.05 Normal 1.30-4.50 [facility] Comment on above: Performed By: #### T 7, CMP, TSH, LIPID #### [facility] [address] [address] [address] Jaren Landers T3U 31.0 % Normal 30.0-39.0 [facility] Comment on above: Performed By: #### T 7, CMP, TSH, LIPID #### [facility] [address] [address] [address] Jaren Landers T4 [Mass/Vol] 6.60 ug/dL Normal 4.80-13.90 [facility] Comment on above: Performed By: #### T 7, CMP, TSH, LIPID #### [facility] [address] [address] [address] Jaren Landers GLYCOHEMOGLOBIN A1Con 2021 ADA RECOMMENDATION SEE BELOW Normal [facility] Comment on above: Result Comment: ADA RECOMMENDED LIMIT 4.0 - 6.0 ADA THERAPEUTIC TARGET < 7.0 ACTION SUGGESTED > 7.0 Performed By: #### A 1C #### [facility] [address] [address] [address] Jaren Landers Glucose [Mass/Vol] 128 mg/dL Normal [facility] Comment on above: Performed By: #### A 1C #### [facility] [address] [address] [address] Jaren Landers HbA1c (Bld) [Mass fraction] 6.1 % Normal 4.5-6.2 [facility] Comment on above: Performed By: #### A 1C #### [facility] [address] [address] [address] Jaren Landers IRONon 01-18-2022 Iron [Mass/Vol] 86.0 ug/dL Normal 50.0-170.0 [facility] Comment on above: Performed By: #### I SAMM VITAD #### [facility] [address] [address] [address] Jaren Landers LIPID PROFILEon 01-18-2022 CHOL-HDL RATIO NORM SEE BELOW Normal [facility] Comment on above: Result Comment: 3.3 - 4.4 LOW RISK 4.4 - 7.1 AVERAGE RISK 7.1 - 11.0 MODERATE RISK >11.0 HIGH RISK Performed By: #### T 7, CMP, TSH, LIPID #### [facility] [facility] [address] [address] [address] Jaren Landers Cholesterol [Mass/Vol] 206 mg/dL Critically high <=200 [facility] Comment on above: Performed By: #### T 7, CMP, TSH, LIPID #### [facility] [address] [address] [address] Jaren Landers Cholesterol in HDL [Mass/Vol] 68 mg/dL Critically high 40-60 [facility] Comment on above: Performed By: #### T 7, CMP, TSH, LIPID #### [facility] [address] [address] [address] Jaren Landers Cholesterol in LDL [Mass/Vol] 126.6 mg/dL Normal [facility] Comment on above: Performed By: #### T 7, CMP, TSH, LIPID #### [facility] [address] [address] [address] Jaren Landers Cholesterol.total/Choles terol in HDL [Mass ratio] 3.0 {ratio} Normal [facility] Comment on above: Performed By: #### T 7, CMP, TSH, LIPID #### [facility] [address] [address] [address] Jaren Landers HDL NORMAL > or = 60 mg/dl - LOW CARDIOVASCULAR RISK <40 mg/dl - HIGH CARDIOVASCULAR RISK Normal [facility] Comment on above: Performed By: #### T 7, CMP, TSH, LIPID #### [facility] [address] [address] [address] Jaren Landers LDL CALC NORMAL SEE BELOW Normal [facility] Comment on above: Result Comment: <100 mg/dl OPTIMAL 100 - 129 mg/dl NEAR OR ABOVE OPTIMAL 130 - 159 mg/dl BORDERLINE HIGH 160 - 189 mg/dl HIGH >190 mg/dl VERY HIGH Performed By: #### T 7, CMP, TSH, LIPID #### [facility] [address] [address] [address] Jaren Landers Triglyceride [Mass/Vol] 57 mg/dL Normal <=150 [facility] Comment on above: Performed By: #### T 7, CMP, TSH, LIPID #### [facility] [address] [address] [address] Jaren Landers VLDL CALC 11.4 mg/dL Normal [facility] Comment on above: Performed By: #### T 7, CMP, TSH, LIPID #### [facility] [address] [address] [address] Jaren Landers PROF 14(COMP METB)on 022 Albumin [Mass/Vol] 3.6 g/dL Normal 3.4-5.0 [facility] Comment on above: Performed By: #### T 7, CMP, TSH, LIPID #### [facility] [address] [address] [address] Jaren Landers Albumin/Globulin [Mass ratio] 0.9 {ratio} Normal [facility] Comment on above: Performed By: #### T 7, CMP, TSH, LIPID #### [facility] [address] [address] [address] Jaren Landers ALP [Catalytic activity/Vol] 84 U/L Normal 46-116 [facility] Comment on above: Performed By: #### T 7, CMP, TSH, LIPID #### [facility] [address] [address] [address] Jaren Landers ALT [Catalytic activity/Vol] 27 U/L Normal 14-59 [facility] Comment on above: Performed By: #### T 7, CMP, TSH, LIPID #### [facility] [address] [address] [address] Jaren Landers Anion gap [Moles/Vol] 11.0 mmol/L Normal [facility] Comment on above: Performed By: #### T 7, CMP, TSH, LIPID #### [facility] [address] [address] [address] Jaren Landers AST [Catalytic activity/Vol] 28 U/L Normal 15-37 [facility] Comment on above: Performed By: #### T 7, CMP, TSH, LIPID #### [facility] [address] [address] [address] Jaren Landers Bilirubin [Mass/Vol] 0.4 mg/dL Normal 0.2-1.0 [facility] Comment on above: Performed By: #### T 7, CMP, TSH, LIPID #### [facility] [address] [address] [address] Jaren Landers Calcium [Mass/Vol] 9.2 mg/dL Normal 8.5-10.1 [facility] Comment on above: Performed By: #### T 7, CMP, TSH, LIPID #### [facility] [address] [place] [address] Dr. Jaren Landers Chloride [Moles/Vol] 103 mmol/L Normal 98-107 [facility] Comment on above: Performed By: #### T 7, CMP, TSH, LIPID #### [facility] [address] [place] [address] Dr. Jaren Landers CO2 [Moles/Vol] 28.8 mmol/L Normal 21.0-32.0 [facility] Comment on above: Performed By: #### T 7, CMP, TSH, LIPID #### [facility] [address] [place] [address] Dr. Jaren Landers Creatinine [Mass/Vol] 0.66 mg/dL Normal 0.55-1.02 [facility] Comment on above: Performed By: #### T 7, CMP, TSH, LIPID #### [facility] [address] [place] [address] Dr. Jaren Landers EGFR-AF MOZAMBICAN >60 Normal >=60 [facility] Comment on above: Performed By: #### T 7, CMP, TSH, LIPID #### [facility] [address] [place] [address] Dr. Jaren Landers EGFR-NON AF MOZAMBICAN >60 Normal >=60 [facility] Comment on above: Performed By: #### T 7, CMP, TSH, LIPID #### [facility] [address] [place] [address] Dr. Jaren Landers Globulin (S) [Mass/Vol] 4.2 g/dL Normal [facility] Comment on above: Performed By: #### T 7, CMP, TSH, LIPID #### [facility] [address] [address] [address] Jaren Landers Glucose [Mass/Vol] 107 mg/dL Critically high 74-106 [facility] Comment on above: Performed By: #### T 7, CMP, TSH, LIPID #### [facility] [address] [place] [address] Dr. Jaren Landers Potassium [Moles/Vol] 3.8 mmol/L Normal 3.5-5.1 [facility] Comment on above: Performed By: #### T 7, CMP, TSH, LIPID #### [facility] [address] [place] [address] Dr. Jaren Landers Protein [Mass/Vol] 7.8 g/dL Normal 6.4-8.2 [facility] Comment on above: Performed By: #### T 7, CMP, TSH, LIPID #### [facility] [address] [place] [address] Dr. Jaren Landers Sodium [Moles/Vol] 139 mmol/L Normal 136-145 [facility] Comment on above: Performed By: #### T 7, CMP, TSH, LIPID #### [facility] [address] [place] [address] Dr. Jaren Landers Urea nitrogen [Mass/Vol] 16.0 mg/dL Normal 7.0-18.0 [facility] Comment on above: Performed By: #### T 7, CMP, TSH, LIPID #### [facility] [address] [place] [address] Dr. Jaren Landers Urea nitrogen/Creatinine [Mass ratio] 24.2 mg/mg Normal [facility] Comment on above: Performed By: #### T 7, CMP, TSH, LIPID #### [facility] [address] [place] [address] Dr. Jaren Landers TSHon 01-18-2022 TSH 0.971 uIU/mL Normal 0.358-3.740 [facility] Comment on above: Performed By: #### T 7, CMP, TSH, LIPID #### [facility] [address] [place] [address] Dr. Jaren Landers VITAMIN D 25 OHon 01-18-2022 VIT D 25-OH 81.1 ng/mL Normal [facility] Comment on above: Performed By: #### I SAMM, VITAD #### [facility] [address] [place] [address] Dr. Jaren Landers VIT D RANGES SEE BELOW Normal [facility] Comment on above: Result Comment: <20 ng/mL Vit D deficient 20 - <30 ng/mL Vit D insufficient 30 - 100 ng/mL Vit D sufficient >100 ng/mL Potential Toxicity Performed By: #### I SAMM, VITAD #### [facility] [address] [place] [address] Dr. Jaren Landers HAND LEFT 3 VWSon 10-20-2021 HAND LEFT 3 [facility] Department of Radiology [address] [place] [phone] == Patient Name: SHERRON GARCIA : 1965 Sex: F Age: Race: Black Pt. Location: Patient Status: D Ordered Date: 10/20/2021 1:35:00 PM Completed Date: 10/20/2021 02:35 PM Requesting Provider: VENTURA WILKS Attending Provider: Report Copy To: Signs & Symptoms: M79.641 Pain in right hand I10 History: [place] Comments: , , , Ordering Provider - A MAGDALENA VIDES [facility] , Exam: HAND LEFT 3 VWS == HAND LEFT 3 S 10/20/2021 2:35 PM CLINICAL INDICATIONS: M79.641 Pain in right hand I10 TECHNOLOGIST COMMENTS: bilateral hand pain and swelling hx: arthritis QUESTION FOR THE RADIOLOGIST: , , , Ordering Provider - Thea AJ , PROTOCOL: AP,Lateral and Oblique views were obtained. COMPARISON: None FINDINGS: No acute malalignment or fracture. IMPRESSION: No acute osseous abnormality. Approved by:Glen Benton10/21/2021 8:53 AM. I, Tone Cheatham,have reviewed the image(s) and agree with the findings in this report. Electronically signed: Tone Cheatham. Transcribed by: [email or web address], User Resident: GLEN NGUYEN Electronically Signed by: TONE CHEATHAM @ 10/21/2021 09:13 AM I personally read this/these film(s) with this resident Normal [facility] Comment on above: Order Comment: , , = ========= , Ordering Provider - Thea AJ , HAND RIGHT 3 [facility] 2 HAND RIGHT 3 [facility] Department of Radiology [address] [place] [phone] == Patient Name: SHERRON GARCIA : 1965 Sex: F Age: Race: Black Pt. Location: 84 Patient Status: D Ordered Date: 10/20/2021 1:35:00 PM Completed Date: 10/20/2021 02:35 PM Requesting Provider: VENTURA WILKS Attending Provider: Report Copy To: Signs & Symptoms: M79.641 Pain in right hand I10 History: [place] Comments: , , , Ordering Provider - Thea AJ , Exam: HAND RIGHT 3 VWS [...] report. Electronically signed: Tone Cheatham. Transcribed by: [email or web address], User Resident: GLEN NGUYEN Electronically Signed by: TONE CHEATHAM @ 10/21/2021 09:14 AM I personally read this/these film(s) with this resident Normal [facility] Comment on above: Order Comment: , , = ========= , Ordering Provider - Thea AJ , Basophils Auto (Bld) [#/Vol] Ordered By: Dimitri Mixon on 10-17-2021 Basophils (Bld) [#/Vol] 0.1 10*3/uL 0.0-0.2 [facility] Basophils/100 WBC Auto (Bld) Ordered By: Dimitri Mixon on 10-17-2021 Basophils/100 WBC (Bld) 0.5 % . [facility] Blood hemoglobin measurement (mass/volume)Ordered By: Dimitri Mixon on 10-17-2021 Hemoglobin (Bld) [Mass/Vol] 13.5 g/dL 11.8-15.4 [facility] Blood leukocytes automated c ount (number/volume)Ordered By: Dimitri Mixon on 10-17-2021 WBC (Bld) [#/Vol] 10.8 10*3/uL 4.5-11.0 [facility] Body fluid albumin measureme nt (mass/volume)Ordered By: Dimitri Mixon on 10-17-2021 Albumin (Body fld) [Mass/Vol] 3.9 g/dL 3.2-5.5 [facility] Creatinine and Glomerular fi ltration rate.predicted panel (S/P/Bld)Ordered By: Dimitri Mixon on 10-17-2021 Creatinine [Mass/Vol] 0.74 mg/dL 0.44-1.03 [facility] Eosinophils Auto (Bld) [#/Vo l]Ordered By: Dimitri Mixon on 10-17-2021 Eosinophils (Bld) [#/Vol] 0.2 10*3/uL 0.0-0.45 [facility] Eosinophils/100 WBC Auto (Bl d)Ordered By: Dimitri Mixon on 10-17-2021 Eosinophils/100 WBC (Bld) 1.5 % . [facility] Erythrocyte distribution wid th Auto (RBC) [Ratio]Ordered By: Dimitri Mixon on 10-17-2021 Erythrocyte distribution width (RBC) [Ratio] 14.4 % 11.9-15.3 [facility] Estimated glomerular filtrat ion rate (GFR) non- AmericanOrdered By: Dimitri Mixon on 10-17-2021 GFR/1.73 sq M.predicted among non-blacks MDRD (S/P/Bld) [Vol rate/Area] > 60 mL/Min [facility] Globulin Calc (S) [Mass/Vol] Ordered By: Dimitri Mixon on 10-17-2021 Globulin (S) [Mass/Vol] 2.7 g/dL [facility] Hematocrit Auto (Bld) [Volum e fraction]Ordered By: Dimitri Mixon on 10-17-2021 Hematocrit (Bld) [Volume fraction] 40.3 % 34.0-46.4 [facility] Laboratory - Hematology and Cell countsOrdered By: Dimitri Mixon on 10-17-2021 Nucleated RBC/100 WBC (Bld) [Ratio] 0.1 % 0-0.5 [facility] Lymphocytes Auto (Bld) [#/Vo l]Ordered By: Dimitri Mixon on 10-17-2021 Lymphocytes (Bld) [#/Vol] 3.4 10*3/uL 1.00-4.8 [facility] Lymphocytes/100 WBC Auto (Bl d)Ordered By: Dimitri Mixon on 10-17-2021 Lymphocytes/100 WBC (Bld) 32.0 % . [facility] MCH Auto (RBC) [Entitic mass ]Ordered By: Dimitri Mixon on 10-17-2021 MCH (RBC) [Entitic mass] 29.7 pg 24.7-34.3 [facility] MCHC Auto (RBC) [Mass/Vol]Or dered By: Dimitri Mixon on 10-17-2021 MCHC (RBC) [Mass/Vol] 33.6 g/dL 32.0-35.0 [facility] MCV Auto (RBC) [Entitic vol] Ordered By: Dimitri Mixon on 10-17-2021 MCV (RBC) [Entitic vol] 88.5 fL 80-100 [facility] Monocytes Auto (Bld) [#/Vol] Ordered By: Dimitri Mioxn on 10-17-2021 Monocytes (Bld) [#/Vol] 0.8 10*3/uL 0.0-0.8 [facility] Monocytes/100 WBC Auto (Bld) Ordered By: Dimitri Mixon on 10-17-2021 Monocytes/100 WBC (Bld) 7.8 % . [facility] Neutrophils Auto (Bld) [#/Vo l]Ordered By: Dimitri Mixon on 10-17-2021 Neutrophils (Bld) [#/Vol] 6.3 10*3/uL 1.8-7.7 [facility] Neutrophils/100 WBC Auto (Bl d)Ordered By: Dimitri Mixon on 10-17-2021 Neutrophils/100 WBC (Bld) 58.2 % . [facility] No Panel InformationOrdered By: Dimitri Mixon on 10-17-2021 Estimated GFR () > 60 mL/Min [facility] Comment on above: GFR estimated refere nce range: According to KDOQI guidelines, <60 ml/min/1.73m2 is sufficient to diagnose a patient with chronic kidney disease. Pharmacy Creatinine Clearance (Chem N/A [facility] Platelet mean volume Auto (B ld) [Entitic vol]Ordered By: Dimitri Mixon on 10-17-2021 Platelet mean volume (Bld) [Entitic vol] 9.9 fL 6.3-10.7 [facility] Platelets Auto (Bld) [#/Vol] Ordered By: Dimitri Mixon on 10-17-2021 Platelets (Bld) [#/Vol] 244 10*3/uL 150-450 [facility] Protein [Mass/volume] in Ser um or PlasmaOrdered By: Dimitri Mixon on 10-17-2021 Protein [Mass/Vol] 6.6 g/dL 6.1-7.9 [facility] RBC Auto (Bld) [#/Vol]Ordere d By: Dimitri Mixon on 10-17-2021 RBC (Bld) [#/Vol] 4.55 10*6/uL 3.60-5.00 [facility] Serum or plasma alanine wells otransferase measurement without P-5'-P (enzymatic activiOrdered By: Dimitri Mixon on 10-17-2021 ALT No additional P-5'-P [Catalytic activity/Vol] 14 U/L 10-60 [facility] Serum or plasma albumin/glob ulin mass ratioOrdered By: Dimitri Mixon on 10-17-2021 Albumin/Globulin [Mass ratio] 1.4 {ratio} [facility] Serum or plasma alkaline landry sphatase measurement (enzymatic activity/volume)Ordered By: Dimitri Mixon on 10-17-2021 ALP [Catalytic activity/Vol] 86 U/L 32-92 [facility] Serum or plasma anion gap de terminationOrdered By: Dimitri Mixon on 10-17-2021 Anion gap [Moles/Vol] 15.0 mmol/L 6.0-15.0 [facility] Serum or plasma aspartate am inotransferase measurement (enzymatic activity/volume)Ordered By: Dimitri Mixon on 10-17-2021 AST [Catalytic activity/Vol] 18 U/L 10-42 [facility] Serum or plasma calcium alexa urement (mass/volume)Ordered By: Dimitri Mixon on 10-17-2021 Calcium [Mass/Vol] 10.5 mg/dL 8.2-10.2 [facility] Serum or plasma chloride kerri surement (moles/volume)Ordered By: Dimitri Mixon on 10-17-2021 Chloride [Moles/Vol] 100 mmol/L 95-114 [facility] Serum or plasma glucose alexa urement (mass/volume)Ordered By: Dimitri Mixon on 10-17-2021 Glucose [Mass/Vol] 101 mg/dL 70-100 [facility] Comment on above: ADA recommended refe rence range Random Glucose Reference Range is dependent on time and content of last meal. Glucose of more than 200 mg/dL in a nonstressed, ambulatory subject supports the diagnosis of Diabetes Mellitus. Serum or plasma potassium me asurement (moles/volume)Ordered By: Dimitri Mixon on 10-17-2021 Potassium [Moles/Vol] 4.8 mmol/L 3.5-5.1 [facility] Serum or plasma sodium measu rement (moles/volume)Ordered By: Dimitri Mixon on 10-17-2021 Sodium [Moles/Vol] 138 mmol/L 136-146 [facility] Serum or plasma total biliru bin measurement (mass/volume)Ordered By: Dimitri Mixon on 10-17-2021 Bilirubin [Mass/Vol] 0.2 mg/dL 0.3-1.2 [facility] Serum or plasma total carbon dioxide measurement (moles/volume)Ordered By: Dimitri Mixon on 10-17-2021 CO2 [Moles/Vol] 27.8 mmol/L 22.0-30.0 [facility] Serum or plasma urea nitroge n measurement (mass/volume)Ordered By: Dimitri Mixon on 10-17-2021 Urea nitrogen [Mass/Vol] 20 mg/dL 11-11 [facility] Operative Reporton 2 Operative Report MR#: [id number] [facility] Pt. Name: Sherron Garcia Room #: 0C Discharge Date: Birthdate: 1965 OPERATIVE REPORT DATE OF SURGERY: 06/06/2021 SURGEON: Nelida Wilks M.D. SUSTAIN ENGINEER: Benton Lambert M.D. PREOPERATIVE DIAGNOSIS: Left carpal [...] Lambert MD Date Trans: 06/06/2021 09:17 Thea/tee [id number] cc: Gamal Morgan M.D. [facility] [address] [place] [phone] Katerine Jacobs M.D. [address] [phone] Normal [facility] POC GLUCOSE LABon 06-06-2021 Glucose [Mass/Vol] 107 mg/dL High 70-100 [facility] Comment on above: Performed By: #### [id number] #### [facility] [address] [place] [address], [facility] Operative Reporton 2 Operative Report MR#: [id number] [facility] Pt. Name: Sherron Garcia Room #: 0C Discharge Date: Birthdate: 1965 OPERATIVE REPORT DATE OF SURGERY: 05/23/2021 SURGEON: Nelida Wilks M.D. SUSTAIN ENGINEER: Benton Lambert M.D. PREOPERATIVE DIAGNOSIS: Right carpal [...] A/Nelida Wilks M.D. Date Trans: 05/23/2021 11:54 A/tee [id number] cc: Gamal Morgan M.D. [facility] [address] [place] [phone] Katerine Jacobs M.D. [address] [place] [phone] Normal [facility] POC GLUCOSE LABon 05-23-2021 Glucose [Mass/Vol] 87 mg/dL Normal 70-[address] [facility] Comment on above: Performed By: #### [id number] #### [facility] [address] Vital Signs Date Time Vital Sign Value Performing Clinician Tiarra wilkinson 02-22-2023 14:59-0500 Body mass index (BMI) [Ratio] 28.76 kg/m2 Kenna Moshe D[employer]ITAL LEARNING [employer]ATFORMS MANAGER-FLIGHT TEST SUPERVISOR Work Phone: [employer] 02-22-2023 14:59-0500 Body weight 62.41 kg Kenna Moshe [employer] LEARNING PLATFOR[employer] MANAGER-FLIGHT TEST SUPERVISOR Work Phone: [employer] 02-22-2023 14:59-0500 Diastolic blood pressure 80 mm[Hg] Kenna Moshe [employer]ITAL LEARNING PLATFORMS MANAGER-FLIGHT TEST SUPERVISOR Work Phone: [employer] 02-22-2023 14:59-0500 Systolic blood pressure 128 mm[Hg] Kenna Moshe [employer]ITAL LEARNING PLATFORMS MANAGER-FLIGHT TEST SUPERVISOR Work Phone: [employer] 11-11-2020 14:58-0400 Body height 147.32 cm [facility] 11-11-2020 14:58-0400 Body mass index (BMI) [Ratio] 32.71 kg/m2 [facility] 11-11-2020 14:58-0400 Body surface area Derived from formula 1.7 m2 [facility] 11-11-2020 14:58-0400 Body weight 70.99 kg [employer] 11-11-2020 14:58-0400 Diastolic blood pressure 82 mm[Hg] [employer] 11-11-2020 14:58-0400 Heart rate 84 /min [facility] 11-11-2020 14:58-0400 Systolic blood pressure 142 mm[Hg] [employer] Encounters Encounter Date Encounter Type Care Provider Facility Start: 12-13-2023 End: 12-13-2023 Patient encounter procedure MD Katerine Jacobs Work Phone: [facility] [address] Work Phone: Start: 12-13-2023 End: 12-13-2023 ambulatory MD Katerine Jacobs Work Phone: [facility] Work Phone: Start: 05-10-2023 End: 05-11-2023 ambulatory [facility] Start: 03-06-2023 Orders Only Kenna Mesa D[employer] LEARNING [employer]ATFORMS MANAGER-FLIGHT TEST SUPERVISOR Work Phone: [facility] Comment on above: Heterogeneously dens e tissue of both breasts on mammography (Primary Dx); Family history of breast cancer Start: 03-05-2023 [facility] Start: 03-02-2023 End: 03-03-2023 ambulatory [facility] Start: 02-22-2023 End: 02-22-2023 ambulatory [facility] Start: 02-22-2023 Encounter for gynecological examination (general) (routine) without abnormal findings [facility] Start: 02-22-2023 End: 02-22-2023 Patient encounter procedure Kenna Mesa D[employer] LEARNING PLATFORMS MANAGER-FLIGHT TEST SUPERVISOR Work Phone: [facility] Start: 02-22-2023 End: 02-22-2023 Periodic preventive med est patient 40-64yrs Kenna Mesa D[employer] LEARNING PLATFORMS MANAGER-FLIGHT TEST SUPERVISOR Work Phone: [facility] Comment on above: Well woman exam with routine gynecological exam (Primary Dx); Encounter for screening mammogram for malignant neoplasm of breast; Standardized adult depression screening tool completed; Status post hysterectomy; Vaginal dryness, menopausal; Vaginal atrophy Start: 09-29-2022 End: 09-30-2022 ambulatory [facility] Start: 09-07-2022 End: 09-08-2022 ambulatory [facility] Start: 09-06-2022 End: 09-07-2022 ambulatory [facility] Start: 08-04-2022 End: 08-04-2022 ambulatory [facility] Start: 07-24-2022 End: 07-24-2022 ambulatory [facility] Start: 07-06-[address] [facility] Start: 04-18-2022 End: 04-18-2022 ambulatory MD Katerine Jacobs Work Phone: [facility] Work Phone: Start: 04-18-2022 End: 04-18-2022 Patient encounter procedure MD Katerine Jacobs Work Phone: [facility] [address] Work Phone: Start: 01-21-2022 Encounter for genera l adult medical examination without abnormal findings DR KATERINE JACOBS [facility] Start: 01-18-2022 End: 01-19-[address] KATERINE JACOBS Facility:[facility] Start: 01-18-2022 End: 01-19-2022 Encounter for general adult medical examination without abnormal findings DR KATERINE JACOBS Facility:[facility] Start: 10-17-2021 End: 10-17-2021 Patient encounter procedure MD Katerine Jacobs Work Phone: [facility] [address] Start: 06-06-2021 End: 06-07-2021 ambulatory ABDULAZIM MAGDALENA Facility:[facility] Start: 05-23-2021 End: 05-24-2021 ambulatory ABDULAZIM MAGDALENA Facility:[facility] Start: 11-11-2020 Split Srvc Amaya Johnston rne Other [facility] Office Procedures Date Procedure Procedure Detail Performing Clinician Start: 03-02-2023 Mammography Kenna Mesa D[employer] LEARNING [employer]AT[employer]MS MANAGER-FLIGHT TEST SUPERVISOR Work Phone: Start: 02-22-2023 Adult depression screening assessment Kenna Mesa D[employer] LEARNING PLATFORMS MANAGER-FLIGHT TEST SUPERVISOR Work Phone: Start: 09-29-2022 Follow-up visit Follow-up ALIYA MAGDALENA Start: 12-28-2020 Mammography Kenna Mesa D[employer] LEARNING PLATFORMS MANAGER-FLIGHT TEST SUPERVISOR Work Phone: Start: 11-11-2020 Nerve conduction studies 9-10 studies Amaya Waldron H/O: hysterectomy Status post hysterectom y Kenna Mesa D[employer] LEARNING PLATFORMS MANAGER-FLIGHT TEST SUPERVISOR Work Phone: Plan of Treatment Date Care Activity Detail Author Start: 03-02-2024 Adult BMI Screening Adult BMI Screen ing [facility] Start: 03-02-2024 Screening for malign ant neoplasm of breast Mammogram [facility] Start: 02-23-2024 Adult BMI Follow Up Plan Adult BMI F ollow Up Plan [facility] Start: 02-23-2024 Adult BMI Screening Adult BMI Screen ing [facility] Start: 02-23-2024 Depression Screening Depression Scre ening [facility] Start: 02-23-2024 Tobacco Screening Tobacco Screening [facility] Start: 03-06-2023 End: 03-06-2024 NM Guidance limited for localization of tumor NM Molecular breast imaging localization limited area Imaging Routine Heterogeneously dense tissue of both breasts on mammography Family history of breast cancer Expected: 03/06/2023, Expires: 03/06/2024 [facility] [facility] Work Phone: Comment on above: Expected: 03/06/2023 , Expires: 03/06/2024 Start: 02-22-2023 End: 04-21-2024 DBT Breast - bilateral screening Mammography screening bilateral with CAD Imaging Routine Encounter for screening mammogram for malignant neoplasm of breast Expected: 02/22/2023, Expires: 04/21/2024 [facility] Work Phone: Comment on above: Expected: 02/22/2023 , Expires: 04/21/2024 Start: 10-20-2022 Influenza vaccination Influenza Vacc ine [facility] Start: 12-28-2021 Screening for malign ant neoplasm of breast Mammogram [facility] Start: 2016 Administration of varicella zoster vaccine Zoster (Shingles) Vaccine (1 of 2) [facility] Start: 1985 DTaP,Tdap and Td Vaccines (1 - Tdap) DTaP,Tdap and Td Vaccines (1 - Tdap) [facility] Payers Date Payer Category Payer Self-pay [id number] 2022 Private Health Insurance [facility] [id number] 2022 Private Health Insurance [facility] BENEFITS/[employer] [id number] 2022-Present [phone] [address] [address] [place] [address] [id number] 1966 Unknown [id number] 2.16.840.1.521994.3.579 .2.647 1965 Unknown [id number] 2.16.840.1.060322.3.579 .2.647 1966 Unknown [id number] 2.16.840.1.821205.3.579 .2.593 1966 Unknown [id number] 2.16.840.1.445213.3.579 .2.1286 1966 Unknown [id number] 2.16.840.1.102336.3.579 .2.1286 1966 Unknown [id number] 2.16.840.1.432257.3.579 .2.1286 1966 Unknown [id number] 2.16.840.1.138956.3.579 .2.1286 1966 Unknown [id number] 2.16.840.1.470423.3.579 .2.6 1966 Unknown [id number] 2.16.840.1.574632.3.579 .2.1286 1966 Unknown [id number] 2.16.840.1.164540.3.579 .2.1286 1966 Unknown [id number] 2.16.840.1.396447.3.579 .2.1286 1959 Unknown [id number] Private Health Insurance [employer] [id number] Unknown [id number] 2.16.840.1.750143.3.441 Unknown [id number] 2.16.840.1.641561.3.579 .2.531 Worker's Compensation [id number] Social History Date Type Detail Facility Start: Nonsmoker [facility] Start: Caffeine [employer] [facility] Start: Alcohol [employer] [facility] Start: 09-17-2017 End: 09-17-2017 Tobacco smoking status NHIS Smoker (finding) [facility] Start: 1965 Sex Assigned At Female [facility] Start: 01-31-2022 Tobacco smoking stat [facility] Never smoked tobacco [facility] Start: 01-31-2022 Tobacco use and exposure Smokeless tobacco non-user [facility] Start: 02-22-2023 End: 03-02-2023 Alcohol intake Current drinker of alcohol (finding) [facility] Start: 02-22-2023 History of Social function [facility] Start: 02-22-2023 Tobacco use panel [facility] Adolescent depressio n screening assessment 0 [facility] Start: 01-31-2022 Alcohol Comment occasional [facility] Start: 1965 Sex Assigned At Not on file [facility] Clinical Notes 07-06-2022 to 02-22-2023 Kenna Mesa, TERELL-FLIGHT TEST SUPERVISOR - 02/22/2023 3:00 PM EST Note Date & Type Note Facility 02-22-2023 History of Present illness Narrative Sherron Garcia is a 57 y.o. female who presents for annual abrasive sawyer exam. She is postmenopausal. Hysterectomy: yes - 2005 at age 39 for fibroids She is sexually active. No painful intercourse or pelvic pain. 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 All questions answered. RTO for annual abrasive sawyer exam and / or PRN. RUTH Carcamo APRN-CNP 02/22/23 1527 documented in this encounter [facility] 09-29-2022 Note Attestation signed by Aliya [...] hand pain. -Pt already has appt with [employer] Worker setup - RTC as needed if symptoms worsen or fail to improve - Call office any questions or concerns Ramin Stone MD Orthopedic Surgery, PGY-2 Pager: [phone] 09/29/22 8:26 AM By using the attestations [...] be an additional personal documentation from me. [facility] 09-06-2022 Note Chief Complaint: nec k [...] Tandem gait: Able Images: I, Dr. Dave Aguilera, personally reviewed the images and my personal interpretation are: x ray C5-7 disc degeneration Assessment and Plan 57 years presents with neck and radicular pain both upper extremities Explained the clinical and radiological findings with the patient \ Recommended MRI cervical spine to assess spinal stenosis Follow up after MRI [facility] 08-04-2022 Note Attestation signed by Aliya [...] be an additional personal documentation from me. [facility] 07-24-2022 Note Patient: Sherron sheldon Procedure Summary Date: 07/24/22 Room / Location: [facility] OR [address] [place] [address] OR Anesthesia Start: 1316 Anesthesia Stop: 1355 [...] Anesthesia Post Evaluation No notable events documented. [facility] 07-24-2022 Note Patient: Sherron sheldon Procedure Information Date/Time: 07/24/22 1245 Procedure: long finger A1 pully release (Right: Middle Finger) Location: [facility] OR [address] [place] [address] OR Surgeons: Aliya Wilks MD Relevant Problems [...] Plan discussed with CAA. Additional Equipment Requests [facility] 07-06-2022 Note Attestation signed by Aliya [...] radha Rufus Gee MD PGY-4 Orthopedic Surgery [facility] By using the attestations below, the signing [...] be an additional personal documentation from me. [facility] Evaluation note No assessment inform ation available [facility] Work Phone: Evaluation note Diagnosis Well woman exam with routine gynecological exam- Primary Routine gynecological examination Encounter for screening mammogram for malignant neoplasm of breast Standardized adult depression screening tool completed Status post hysterectomy Acquired absence of both cervix and uterus Vaginal dryness, menopausal Vaginal atrophy Postmenopausal atrophic vaginitis documented [facility] Diagnosis Heterogeneously dense tissue of both breasts on mammography- Primary Family history of breast cancer Family history of malignant neoplasm of breast documented in this encounter [facility] Attachments The following attachments cannot be sent through Care Everywhere. * Vaginal dryness (Nepali) * Calcium and vitamin D for bone health (Nepali) documented in this encounter[facility] SystemInstructionsNot on file [facility]Pro[facility] Chief Complaint and Reason for Visit Chief Complaint M15.0/M54.2/Z79.899 Advance Directives Advance Directive Response Recorded Date/ Time Advance [...] Specialty Diagnoses / Procedures Referred By [place] t Referred To Contact Radiology Diagnoses Heterogeneously dense tissue of both breasts on mammography Family history of breast cancer Procedures NM Molecular breast imaging localization limited area Kenna Mesa, DIGITAL LEARNING PLATFORMS MANAGER-FLIGHT TEST SUPERVISOR [address] [id number] Referral ID Status Reason Start Date Expiration Date V isits Requested Visits Authorized [id number] Pending Review 03/06/2023 03/05/2024 5 5 Additional Source Comments Care Teams (unrecognized sec tion and content) Team Status: Inactive Member Role Status Dates Katerine Jacobs MD Primary Care Provider Active Mike Mixon MD Attending Provider Active Team Status: Active Member Role Status Dates Katerine Jacobs MD Primary Care Provider Active Team Status: Inactive Member Role Status Dates Katerine Jacobs MD Primary Care Provider Active Start: December 13, 2023 End: December 13, 2023 Dimitri Mixon MD Attending Provider Active St art: December 13, 2023 End: December 13, 2023 Children Teacher Relationship Specialty Start Date End Date Katerine Jacobs MD [address] [id number] PCP - General Family Medicine 02/22/23 Children Teacher Relationship Specialty Start Date End Date Katerine Jacobs MD [address] [place] [address] PCP - General Family Medicine 02/22/23 Goals (unrecognized section and content) Goals may be documented in a n alternate sectionGoals may be documented in an alternate sectionGoals may be documented in an alternate sectionNot on filedocumented as of this encounterNot on filedocumented as of this encounter INFORMATION SOURCE (unrecogn ized section and content) DATE CREATED AUTHOR 10/26/2021 [facility] DATE CREATED AUTHOR AUTHOR'S ORGANIZ ATION 01/21/2022 [facility] DATE CREATED AUTHOR AUTHOR'S ORGANIZ ATION 10/04/2022 [facility] DATE CREATED AUTHOR AUTHOR'S ORGANIZ ATION 03/06/2023 [facility] DATE CREATED AUTHOR AUTHOR'S ORGANIZ ATION 03/25/[address] [facility] DATE CREATED AUTHOR AUTHOR'S ORGANIZ ATION 05/12/2023 [facility] DATE CREATED AUTHOR AUTHOR'S ORGANIZ ATION 12/24/2023 [facility] Reason for Visit (unrecogniz ed section and [...] BE BASED ON THE PRIMARY CLINICAL RECORDS. [facility]. provides no warranty or guarantee of the accuracy or completeness of information in this document.
== END 2024-05-01 15:23 | disposition home or self-care (01) ==
LOC: MRI 15:22
PROVIDERS: PCP Family Medicine; Visit Provider Family Medicine
DX: M25.512 Pain in left shoulder (principal); M75.32 Calcific tendinitis of left shoulder
CPT/HCPCS: 73221

== ENCOUNTER 2024-08-20 15:47 | Outpatient (OUT) | payer OTHER, SELFPAY ==
--- OUTSIDE RECORDS SUMMARY | 2007-10-24 06:45 | XMS_ITS | Continuity of Care Document ---
Author Organization [facility] Address [address] [place] [address] Phone Care Team Providers Care Automotive Manufacturer Name Role Phone Visci DO DO, Miller Unavailable Unavailable Procedures Procedure Date OFFICE/OUTPATIENT VISIT, [facility] MMR VACCINE, [place] Advance Directives Directive Yes / No Effective Date File Name No Information Encounters Encounter Description Practice Location Reason(s) For Visit Diagnoses Date Provider Providers Copied on Encounter OFFICE/OUTPATI ENT VISIT, [facility], [address], [place], [id number], [place] tel:[phone] [facility] No Information Visci Miller. [address], [place], [id number], [place]. tel:[phone] Family History Family Member Type Diagnosis Age [...]
--- OUTSIDE RECORDS SUMMARY | 2024-05-01 15:27 | XMS_ITS ---
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 Role Phone Reynaldo Cosme Primary Care Provider Reason For Referral Diagnosis 1 Arthritis of left sh oulder region (M19.012) Diagnosis 2 Bursitis of shoulder , left (M75.52) Referral Organization [facility] Referring Provider First Name Cosme Referring Provider Last Name Reynaldo Referring Provider [facility] george Referred Provider Gigi Cm Referred Provider Specialty Orthopedic S urgery Referral Priority Routine REASON FOR VISIT review MRI shoulder Problems Problem Type SNOMED Code ICD Code Onset Dates Problem Status W/U Status Risk Notes Problem Localized, primary osteoarthritis of the shoulder region (976452806) Arthritis of left shoulder region (M19.012) Active confirmed Encounters Encounter Location Date Provider Diagnosis [facility] [address] [place] [address] 05/01/2024 Cosme Jacobs Arthritis of left shoulder region M19.012 and Bursitis of shoulder, left M75.52 Assessments Encounter Date Diagnosis (ICD Code) Assessment Notes Treatment Notes Treatment Clinical Notes Section Notes 05/01/2024 Arthritis of left shoulder region (ICD-10 - M19.012) 05/01/2024 Bursitis of shoulder, left (ICD-10 - M75.52) Plan Of Treatment Referrals Referral Date Details 05/02/2024 05/02/2024, Gigi calixto Progress Notes * Sherron NUNN MDOB: 7 (59 yo F)Acc No.[id number]:05/01/2024 Patient: Sherron JIMENEZ :1965 A ge:59 Y S ex:Female Address:[address], [place] [address] Subjective: * Chief Complaints: * r eview MRI shoulder * Medical History: * Surgical History: * Hospitalization/Major Diagno stic Procedure: * Medications: Objective: * Vitals: * Physical Examination: Assessment: * Assessment: 1. A rthritis of left shoulder region - M19.012 (Primary) 2 . B ursitis of shoulder, left - M75.52 Plan: * Treatment: 2. B ursitis of shoulder, left Referral To:Gigi Cm Orthopedic Surgery Reason: * Procedure Codes: * true * Date: Generated for Andrew vega/[place]/eTransmitting on: 0 08/20/2024 03:51 PM EDT Consultation Request Notes Referral Date Referring Provider Referred Provider Not es 05/02/2024 Cosme Jacobs Steven
--- NOTE | 2024-08-20 | XR_ITS ---
The [address] [address] Patient Name: GÓMEZ NUNN MRN: [id number] date: 1965 Sex: F Assigned Patient Location: [facility] Current Patient Location: [facility] Accession/Order Number: [id number] Exam Date: 08/20/2024 16:31 Report Date: 08/20/2024 16:31 At the request of: KATERINE DOHERTY MD Procedure: XR cervical spine 2-3V CERVICAL SPINE 4 views: CLINICAL HISTORY: Cervical Radicular pain M54.12 COMPARISON: Cervical spine 01/04/2023 FINDINGS: The right is appear maintained. Moderate spondylosis C5-C7. 3 mm of anterior subluxation of C4 on C5. No prevertebral soft tissue swelling. XR/XR cervical spine 2-3V IMPRESSION: MODERATE SPONDYLOSIS C5-C7 SIMILAR TO THE PRIOR STUDY. Impression dictated by: Parminder Jacobo Jr., D.O. 08/20/2024 4:31 PM Dictation Location: [place] [address] Electronically authenticated by: [id number] Y Date: 08/20/2024 16:31
--- OUTSIDE RECORDS SUMMARY | 2024-08-20 10:45 | XMS_ITS ---
Author Organization [facility] [place] Address [address] [place] [address] Care Team Providers Care Stem Sizer Name Role Phone Cosme Jacobs Primary Care Provider Allergies No Known Allergies REASON FOR VISIT Left Shoulder Pain Medications Medication SIG (Take, Route, Frequency, Duration) Notes Start Date End Date Status Excedrin Extra Strength 250-250-65 MG 2 tablets Orally Once a day prn PRN Active Meloxicam 15 MG 1 tablet Orally Once a day for 30 days 07/16/2024 Active Naproxen 500 MG 1 tablet with food o r milk as needed Orally every 12 hrs PRN Active Gabapentin 300 MG 1 capsule 2 at hs Or ally Daily Active Lisinopril 10 mg TAKE 1 TABLET BY VENKATESH TH DAILY for 90 days Active Estradiol 0.1 MG/GM as directed Vaginal Active Vitamin D (Cholecalciferol) 25 MCG (1000 UT) 1 capsule Orally Once a day Active Voltaren 1 % as directed External ly prn PRN Active Cod Liver Oil 4000-200 UNIT as directed Orally Active Valium 5 MG 1 tablet as needed O rally once about 1 hour before procedure for 1 days 04/29/2024 Active Pataday 0.1 % 1 drop into affected eye Ophthalmic Twice a day Active tiZANidine HCl 4 MG 2 tablets Orally at bedtime for 15 PRN 01/03/2023 Active Tylenol 8 Hour Arthritis Pain 650 MG 2 tablets as needed Orally every 8 hrs prn PRN Active valACYclovir HCl 1 GM 1 tablet Orally On ce a day for 90 days PRN Active Social History Tobacco Use: Social History Observation Description Date Details (start date - stop date) Never Smoker NA - NA Tobacco Use/Smoking Question Answer Notes Patient is a nonsmoker Problems Problem Type SNOMED Code ICD Code Onset Dates Problem Status W/U Status Risk Notes Problem Cervical radicular pain (M54.12) Active confirmed Vital Signs Weight 131 lbs 08/20/2024 Height 58 in 08/20/2024 Blood pressure systolic 152 mm Hg 08/21/19 25 Blood pressure diastolic 82 mm Hg 025 BMI 27.38 kg/m2 08/20/2024 Encounters Encounter Location Date Provider Diagnosis [facility] [address] [place] [address] 08/20/2024 Cosme Jacobs Cervical radicular pain M54.12 Assessments Encounter Date Diagnosis (ICD Code) Assessment Notes Treatment Notes Treatment Clinical Notes Section Notes 08/20/2024 Cervical radicular pain (ICD-10 - M54.12) 08/20/2024 Other Recommended to rest and use a heating pad on the area. Take NSAIDs for pain as needed Plan Of Treatment Treatment Notes Assessment Notes Other Recommended to rest and use a heating pad on the area. Take NSAIDs for pain as needed Pending Test Test Name Order Date MRI CSPINE WO CON 08/20/2024 XR cervical spine 2-3V 08/20/2024 Medications Administered Medication Instructions Date of Administration Dosage Notes Triamcinolone 40 mg/ml 08/20/2024 80 mg Progress Notes * Sherron NUNN MDOB: 7 (59 yo F)Acc No.[id number]:08/20/2024 UNLOCKED PROGRESS NOTE Progress Note Patient: Sherron JIMENEZ Provider: Lea Jacobs ([facility])MD :1965 A ge:59 Y S ex:Female Date:08/20/2024 Address:[address], [facility], [id number] Check In:02:44 PM ESTCheck O ut:03:27 PM EST Subjective: * Chief Complaints: * 1 . Left Shoulder Pain. * HPI: G eneral: Lef shoulder pain and up into necalk painint 1 2- nd doigit - ice helps - prednisone helps soime. B ack Pain: The patient complains of -. The symptoms have been present for 1-2 days. The patient believes symptoms are injury related No. The symptoms are mild. Symptomatic treatment has included heating pad, stretching. Associated symptoms include None. * ROS: G eneral/Constitutional: Lightheadedness d enies. C hange in appetite d enies. W eight Change d enies. C ardiovascular: Irregular heartbeat d enies. S welling in hands/feet�denies. R espiratory: Shortness of breath d enies. S hortness of breath with exertion d enies. W heezing d enies. M usculoskeletal: Comments S [facility] for details. N eurologic: Dizziness d enies. F ainting d enies. H eadache�denies. * Medical History: D DD (degenerative disc disease), cervical, ADHD, Impingement syndrome of right shoulder, Primary osteoarthritis, left ankle and foot. 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 * Hospitalization/Major Diagno stic Procedure: D enies Past Hospitalization. * Family History: F ather: 79 yrs. M other: 78 yrs, diagnosed with Unspecified heart disease. B rother(s): 52 yrs. S on(s): alive. D fior(s): alive. M aternal aunt: diagnosed with Other malignant neoplasm of unspecified site. 1 brother(s) . 1 son(s) , 1 daughter(s) - healthy. . * Social History: T obacco Use: T obacco Use/Smoking P atient is a n onsmoker * Medications: T aking Cod Liver Oil 4000-200 UNIT Capsule as directed Orally , Taking Estradiol 0.1 MG/GM Cream as directed Vaginal , Taking Excedrin Extra Strength(Fkpljcp-Cdfnczdetnrhp-Afrkmqqf) 250-250-65 MG Tablet 2 tablets Orally Once a day prn , Notes to Pharmacist: PRN, Taking Gabapentin 300 MG Capsule 1 capsule 2 at hs Orally Daily , Taking Lisinopril 10 mg Tablet TAKE 1 TABLET BY MOUTH DAILY , Taking Meloxicam 15 MG Tablet 1 tablet Orally Once a day , Taking Naproxen 500 MG Tablet 1 tablet with food or milk as needed Orally every 12 hrs , Notes to Pharmacist: PRN, Taking Pataday(Olopatadine HCl) 0.1 % Solution 1 drop into affected eye Ophthalmic Twice a day , Taking tiZANidine HCl 4 MG Tablet 2 tablets Orally at bedtime , Notes to Pharmacist: PRN, Taking Tylenol 8 Hour Arthritis Pain(Acetaminophen ER) 650 MG Tablet Extended Release 2 tablets as needed Orally every 8 hrs prn , Notes to Pharmacist: PRN, Taking valACYclovir HCl 1 GM Tablet 1 tablet Orally Once a day , Notes to Pharmacist: PRN, Taking Valium(diazePAM) 5 MG Tablet 1 tablet as needed Orally once about 1 hour before procedure , Taking Vitamin D (Cholecalciferol) 25 MCG (1000 UT) Capsule 1 capsule Orally Once a day , Taking Voltaren 1 % Gel as directed Externally prn , Notes to Pharmacist: PRN, Medication List reviewed and reconciled with the patient * Allergies: N .K.D.A. Objective: * Vitals: W t:131lbs, Ht: 58 in, BP:152/82mm Hg, BMI:27.38Index, Ht-cm: 147.32 cm, Wt-k.42 kg. * Examination: G eneral Examination: GENERAL APPEARANCE: i n no acute distress, well developed, well nourished. LUNGS: clear to auscultation bilaterally. CARDIO: S1, S2 normal, no murmurs, rubs, gallops. MUSCULOSKELETAL: Poor elida Poor rom in neck due to pain and inc pain wiht extension worse than flexion. EXTREMITIES: no clubbing, cyanosis, or edema. NEUROLOGIC: alert, oriented to time, place, & person.� Assessment: * Assessment: 1. C ervical radicular pain - M54.12 (Primary) Plan: * Treatment: 2. O thers Notes: Recommended to rest and use a heating pad on the area. Take NSAIDs for pain as needed � * Therapeutic Injections: Triamcinolone 40 mg/ml : 80 mg (Route: Intramuscular) given by PAULA Gutierrez on right deltoid (Cervical radicular pain) * Procedure Codes: J 3301 TMC ACET,PER 10MG. * Preventive Medicine: Screenings/Counseling: B TX ACTION PLAN Above Normal BMI Follow-up D ietary management education, guidance, and counseling * * Electronic signature of Cosme Jacobs MD, [phone] on 08/20/2024 at 03:51 PM EDT Sign off status: Pending Visit Status: Negin MENON (Check Out) * Provider: Lea Jacobs ([facility])MD Date: 08/20/2024 Generated for Printi ng/Faxing/eTransmitting on: 08/20/2024 03:51 PM EDT History and Physical Notes * HPI (History of Present Illness) Category Sub-Category Detail Notes Category Not es General Lef shoulder pa in and up into necalk painint 1 2- nd doigit - ice helps - prednisone helps soime Examination Category Sub-Category Detail Notes Category Not es General Examination GENERAL APPEARANCE: in no ac clementine distress, well developed, well nourished CARDIO: S1, S2 normal, no mu rmurs, rubs, gallops LUNGS: clear to auscultatio n bilaterally NEUROLOGIC: alert, oriented to t yury, place, & person EXTREMITIES: no clubbing, cyanosi s, or edema MUSCULOSKELETAL: Poor elida Poor rom in neck due to pain and inc pain wiht extension worse than flexion
--- OUTSIDE RECORDS SUMMARY | 2024-08-20 15:51 | XMS_ITS | Patient Health Record ---
Author Organization [facility] in [place] Address [address] [place] [address] Care Team Providers Care Local Coordinator Name Role Phone Cosme Doherty Primary Care Provider Allergies No Known Allergies Results Component Value Reference Range Notes MR shoulder LT wo con Reviewed date:05/01/2024 07:28:28 PM Interpretation: Performing Lab: Notes/Report: Source Facility: [place] [address] Magnetic Resonance Report Signed Patient: SHERRON NUNN MR#: [id number] : 1965 Acct:[id number] Age/Sex: 59 / F ADM Date: 05/01/24 Loc: MRI Attending Dr: Katerine Doherty M.D. Ordering Physician: Katerine Doherty M.D. Date of Service: 05/01/24 Procedure(s): MR shoulder LT wo con Accession Number(s): [id number] cc: Katerine Doherty M.D. [place] [address] Patient Name: SHERRON NUNN MRN: [id number] date: 1965 Sex: F Assigned Patient Location: MRI Current Patient Location: MRI Accession/Order Number: [id number] Exam Date: 05/01/2024 18:50 Report Date: 05/01/2024 18:56 At the request of: KATERINE DOHERTY MD Procedure: MR shoulder LT wo con MRI left Shoulder without contrast TECHNIQUE: Multiplanar T1 and T2-weighted imaging obtained without contrast. HISTORY: Acute left shoulder pain. 2 months duration. History of rotator cuff repair in the left. COMPARISON: None BONE MARROW EDEMA: None FRACTURE: None AC JOINT: A degeneration with inferior marginal spurring effacing the myotendinous portion of the supraspinatus tendon. Small amount of fluid in the joint space. Mild bone marrow edema and adjacent soft tissue edema. SHOULDER ROOF LIGAMENTS: The coracoacromial and coracoclavicular ligaments are intact. ROTATOR CUFF: Artifact from humeral head anchor screw. Heterogeneous signal changes of the supraspinatus tendon consistent with high-grade date tendinosis. No fluid signal intensity partial or full-thickness tear. No retraction of the tendon. Unremarkable infraspinatus, subscapularis and teres minor tendons. ROTATOR CUFF INTERVAL: Unremarkable BURSAL FLUID: No subacromial subdeltoid bursal fluid identified. GLENOID: Intact BICEPS LABRAL COMPLEX: Intact LONG HEAD OF BICEPS TENDON: Intact GLENOHUMERAL LIGAMENTS: The superior glenohumeral ligament is intact. The middle glenohumeral ligament is intact. The anterior and posterior glenohumeral ligaments are intact. JOINT EFFUSION: No significant joint effusion is seen. MUSCLES: Normal signal intensity of the muscles. NO SUBCUTANEOUS TISSUES: No subcutaneous abnormalities identified. MR/MR shoulder LT wo con IMPRESSION: Rotator cuff repair changes. Extensive tendinosis of supraspinatus tendon. No fluid signal intensity partial tear or full-thickness tear. No retraction of tendon. Fluid within the subacromial subdeltoid bursa. May consider isolated bursitis. Inferior marginal spurring of acromioclavicular joint effacing the myotendinous portion of supraspinatus tendon. Impression dictated by: Paco Laura M.D.05/01/2024 6:56 PM Dictation Location: [place] [address] Electronically authenticated by: [id number] Y Date: 05/01/2024 18:56 Dictated By: Paco Laura D.O. Signed By: 05/01/241858 DD/ 55 TD/TT: Gamma Operator: [place] [address] Magnetic Resonance Report Signed Patient: ELI NUNN MR#: [id number] : 1965 Acct:[id number] Age/Sex: 59 / F ADM Date: 05/01/24 Loc: MRI Attending Dr: Katerine Doherty M.D. Ordering Physician: Katerine Doherty M.D. Date of Service: 05/01/24 Procedure(s): MR sulaiman anderson LT wo con Accession Number(s): [id number] cc: Katerine Doherty M.D. [place] [address] Patient Name: SHERRON NUNN MRN: [id number] date: 1965 Sex: F Assigned Patient Location: MRI Current Patient Location: MRI Accession/Order Numb er: [id number] Exam Date: 05/01/2024 18:50 Report Date: 05/01/2024 18:56 At the request of: KATERINE DOHERTY MD Procedure: MR should er LT wo con MRI left Shoulder wi thout contrast TECHNIQUE: Multiplan ar T1 and T2-weighted imaging obtained without contrast. HISTORY: Acute left shoulder pain. 2 months duration. History of rotator cuff repair in the left. COMPARISON: None BONE MARROW EDEMA: None FRACTURE: None AC JOINT: A degenera tion with inferior marginal spurring effacing the myotendinous portion of the supraspinatus tendon. Small amount of fluid in the joint space. Mil d bone marrow edema and adjacent soft tissue edema. SHOULDER ROOF LIGAME NTS: The coracoacromial and coracoclavicular ligaments are intact. ROTATOR CUFF: Artifa ct from humeral head anchor screw. Heterogeneous signal changes of the supra spinatus tendon consistent with high-grade date tendinosis. No fluid signal intensity partial or full-thickness tear. No retraction of the te ndon. Unremarkable infraspinatus, subscapularis and teres minor tendons. ROTATOR CUFF INTERVA L: Unremarkable BURSAL FLUID: No sub acromial subdeltoid bursal fluid identified. GLENOID: Intact BICEPS LABRAL COMPLEX: Intact LONG HEAD OF BICEPS TENDON: Intact GLENOHUMERAL LIGAMEN TS: The superior glenohumeral ligament is intact. The middle glenohumeral ligament is intact. The anterior and posterior glenohumeral ligamen ts are intact. JOINT EFFUSION: No s ignificant joint effusion is seen. MUSCLES: Normal sign al intensity of the muscles. NO SUBCUTANEOUS TISS UES: No subcutaneous abnormalities identified. M R/MR shoulder LT wo con IMPRESSION: Rotator cuff repair changes. Extensive tendinosis of supraspinatus tendon. No fluid signal inte nsity partial tear or full-thickness tear. No retraction of tendon. Fluid wit hin the subacromial subdeltoid bursa. May consider isolated bursitis. I nferior marginal spurring of acromioclavicular joint effacing the myotend inous portion of supraspinatus tendon. Impression dictated by: Paco Laura M.D.05/01/2024 6:56 PM Dictation Location: [employer] Electronically authe nticated by: [id number] Y Date: 05/01/2024 18:56 Dictated By: Paco Laura D.O. Signed By: 05/01/241858 DD/ 55 TD/TT: Gamma Operator: Reason For Referral Diagnosis 1 Pain in left shoulde r (M25.512) Referral Organization [facility] Referring Provider First Name Cosme Referring Provider Last Name Reynaldo Referring Provider [facility] george Referred Provider [facility], Physical Therap y Referred Provider Specialty Physical The rapist Referral Priority Routine Diagnosis 1 Arthritis of left sh oulder region (M19.012) Diagnosis 2 Bursitis of shoulder , left (M75.52) Referral Organization [facility] Referring Provider First Name Cosme Referring Provider Last Name Reynaldo Referring Provider [facility] george Referred Provider Gigi Cm Referred Provider Specialty Orthopedic S urgery Referral Priority Routine Medications Medication SIG (Take, Route, Frequency, Duration) Notes Start Date End Date Status Pataday 0.1 % 1 drop into affected eye Ophthalmic Twice a day Active tiZANidine HCl 4 MG 2 tablets Orally at bedtime for 15 PRN 01/03/2023 Active Tylenol 8 Hour Arthritis Pain 650 MG 2 tablets as needed Orally every 8 hrs prn PRN Active Estradiol 0.1 MG/GM as directed Vaginal Active Vitamin D (Cholecalciferol) 25 MCG (1000 UT) 1 capsule Orally Once a day Active Excedrin Extra Strength 250-250-65 MG 2 tablets Orally Once a day prn PRN Active Voltaren 1 % as directed External ly prn PRN Active valACYclovir HCl 1 GM 1 tablet Orally On ce a day for 90 days PRN Active Cod Liver Oil 4000-200 UNIT as directed Orally Active Valium 5 MG 1 tablet as needed O rally once about 1 hour before procedure for 1 days 04/29/2024 Active Meloxicam 15 MG 1 tablet Orally Once a day for 30 days 07/16/2024 Active Naproxen 500 MG 1 tablet with food o r milk as needed Orally every 12 hrs PRN Active Gabapentin 300 MG 1 capsule 2 at hs Or ally Daily Active Lisinopril 10 mg TAKE 1 TABLET BY VENKATESH TH DAILY for 90 days Active Social History Tobacco Use: Social History Observation Description Date Details (start date - stop date) Never Smoker NA - NA Tobacco Use/Smoking Question Answer Notes Patient is a nonsmoker Alcohol Screen (Audit-C) Question Answer Notes Did you have a drink contain ing alcohol in the past year? Yes How often did you have 6 or more drinks on one occasion in the past year? Never (0 point) How many drinks did you have on a typical day when you were drinking in the past year? 1 or 2 drinks (0 point) How often did you have a dri nk containing alcohol in the past year? Weekly (3 points) Points 3 Interpretation Positive AUDIT-C (Standard) Question Answer Notes Did you have a drink containing alcohol in the p ast year? No Points 0 Interpretation Negative Problems Problem Type SNOMED Code ICD Code Onset Dates Problem Status W/U Status Risk Notes Problem 04720623 Carpal tunnel syndrome, unspecified upper limb (G56.00) Active confirmed Problem 1710328591072740 Primary osteoarthritis , left ankle and foot (M19.072) Active confirmed Problem 427616303 Hallux rigidus, left foot (M20.22) Active confirmed Problem Arthritis (0842484) Arthritis (M19.90) Active confirmed Problem Left shoulder pain (8753055402) Left shoulder pain (M25.512) Active confirmed Problem Osteoarthritis of right knee joint (988782177053736) Right knee DJD (M17.9) Active confirmed Problem Bicipital tenosynovitis (55507765) Biceps tendonitis (M75.20) Active confirmed Problem Lumbar radiculitis (48645787466161396) Lumbar radiculitis (M54.16) Active confirmed Problem Cervical radiculopathy (91504512) Cervical radicular pain (M54.12) Active confirmed Problem Bursitis of shoulder (420600703) Shoulder bursitis (M75.50) Active confirmed Problem Localized, primary osteoarthritis of the shoulder region (679697512) Arthritis of left shoulder region (M19.012) Active confirmed Vital Signs Temperature 97.4 degrees Fahrenheit 10/25/2023 Blood pressure diastolic 82 mm Hg 08/20/2024 Height 58 in 08/20/2024 Blood pressure systolic 152 mm Hg 08/20/2024 Weight 131 lbs 08/20/2024 BMI 27.38 kg/m2 08/20/2024 Encounters Encounter Location Date Provider Diagnosis [address] [address] 2024 Cosme Hoy Left shoulder pain M25.[address] [address] 04/29/2024 Cosme Hoy [address] [address] 05/01/2024 Cosme Hoy Arthritis of left shoulder region M19.012 and Bursitis of shoulder, left M75.[address] [address] 01/24/2024 Cosme Hoy [address] [address] 03/11/2024 Cosme Hoy Pain in left shoulde r M25.[address] [address] 10/25/2023 Cosme Hoy Acute bronchitis, unspecified organism J20.[address] [address] 03/10/2024 Cosme Hoy Left shoulder pain M25.[address] [address] 07/16/2024 Cosme Hoy Cervical radiculopat hy M54.[address] [place] [address] 08/20/2024 Cosme Doherty Cervical radicular p ain M54.12 [facility] [address] [place] [address] 04/04/2024 Cosme Doherty Biceps tendonitis M7 5.20 Assessments Encounter Date Diagnosis (ICD Code) Assessment Notes Treatment Notes Treatment Clinical Notes Section Notes 10/25/2023 Acute bronchitis, unspecified organism (ICD-10 - J20.9) Rest and drink more liquids, especially water. You may use a humidifier or vaporizer to help keep the drainage moist. Ilxs-jse-lqngpau Nasal Saline may help the stuffy and runny nose. Use Ibuprofen and or Tylenol as needed for fever, chills, body aches or pain. Children 5 years old should not be given llty-bcq-zbznhwc cough and cold medications such as guaifenesin and dextromethorphan. If you're over age 5, you may try xsiq-qil-cainwjv cold medications such as guaifenesin and dextromethorphan, or multi-symptom cold reliever such as Dayquil to help reduce the symptoms. Antibiotics have been prescribed. You should take these until completed and follow the directions. Antibiotics can sometimes cause upset stomach, and in rare cases, serious allergic reactions or serious gastrointestinal problems. If you start having severe abdominal pain, severe vomiting, or bloody diarrhea, you should be reevaluated by your physician or urgent care immediately. Follow up with your Primary Care Provider or return to clinic if symptoms do not improve within 3-5 days. If you develop severe symptoms such as shortness of breath, repeated vomiting, coughing up blood, or chest pain you should go to the emergency room or call 911 03/10/2024 Left shoulder pain (ICD-10 - M25.512) may need PT 04/04/2024 Biceps tendonitis (ICD-10 - M75.20) 07/16/2024 Cervical radiculopathy (ICD-10 - M54.12) trial injection - and keep ing oral muscle relacer 08/20/2024 Cervical radicular pain (ICD-10 - M54.12) 03/11/2024 Pain in left shoulder (ICD-10 - M25.512) 2024 Left shoulder pain (ICD-10 - M25.512) 05/01/2024 Arthritis of left shoulder region (ICD-10 - M19.012) 05/01/2024 Bursitis of shoulder, left (ICD-10 - M75.52) 08/20/2024 Other Recommended to rest and use a heating pad on the area. Take NSAIDs for pain as needed 07/16/2024 Other Recommended to rest and use a heating pad on the area. Take NSAIDs for pain as needed Plan Of Treatment Pending Test Test Name Order Date CMP (COMPLETE METABOLIC PANEL) 4 HEMOGLOBIN A1C (GLYCO) 03/30/2023 IRON, TOTAL 03/30/2023 LIPID PANEL (CHOL/TRIG/HDL/LDL) 03/30/19 24 CBC WITH DIFF 03/30/2023 VITAMIN D, 25 LEVEL (TOTAL) 03/30/2023 MRI Shoulder LT w/o contrast 2024 RHEUMATOID PANEL 09/27/2022 Insulin Level 03/30/2023 CBC AUTO DIFF 09/27/2022 PROF 14(COMP METB) 09/27/2022 SED RATE WESTERGREN 09/27/2022 MRI CSPINE WO CON 08/20/2024 MRI LSPINE WO CON 03/30/2023 XR CSPINE MIN 4 VIEWS 01/03/2023 XR FOOT LT MIN 3 VIEWS 08/29/2022 XR LSPINE 2_3 VIEWS 03/30/2023 XR LSPINE 2_3 VIEWS 01/03/2023 THYROID PANEL (T4/TSH/FREE T3) XR cervical spine 2-3V 08/20/2024 Insurance Providers Payer Name Payer Address Payer Phone Subscriber Number Group Number Insured Name Patient Relationship to Insured Coverage Start Date Coverage End Date [employer] [address] [address] [place] [address] [id number] Sherron Nunn Self - patient is the insured Medications Administered Medication Instructions Date of Administration Dosage Notes Kenalog-40 09/27/2022 120 mg 120 Kenalog-40 01/03/2023 120 mg Kenalog-40 03/30/2023 120 mg 120 Kenalog-40 10/25/2023 80 mg Ketorolac Tromethamine 01/03/2023 60 mg Ketorolac Tromethamine 03/30/2023 60 mg 60 Ketorolac Tromethamine 07/16/2024 60 mg Orphenadrine Citrate 01/03/2023 60 mg Orphenadrine Citrate 03/30/2023 60 mg 60 Orphenadrine Citrate 07/16/2024 60 mg Triamcinolone 40 mg/ml 03/10/2024 120 mg Triamcinolone 40 mg/ml 04/04/2024 120 mg Triamcinolone 40 mg/ml 07/16/2024 80 mg Medical (General) History Medical History History ICD Code DDD (degenerative disc disease), cervica l M50.30 ADHD F90.9 Impingement syndrome of right shoulder M 75.41 Primary osteoarthritis, left ankle and f oot M19.072 Surgical History Surgery Date(Month/Year) hysterctomy 06/2005 left achilles tendon 05/2016 rotator cuff left 03/2020 rotator cuff left 11/2019 CTS left / left trigger finger 05/2017 CTS right 05/2021 trigger finger 06/2022
--- OUTSIDE RECORDS SUMMARY | 2024-08-20 15:51 | XMS_ITS | Clinical Summary ---
Author Organization [facility] tem Address [id number] [address] [place] [address] Care Team Providers Care Furnace Unloader Name Role Phone Nikos Jacobs MD Primary Care Provider [phone] Allergies No known active allergies Medications lisinopriL (PRINIVIL,ZESTR IL) 10 mg tablet Take 1 tablet (10 mg total) by mouth in the morning. 01/17/2022 Active valACYclovir (VALTREX) 1000 mg tablet Take 1 tablet (1,000 mg total) by mouth in the morning. 01/17/2022 Active fluticasone propionate (FLONASE) 50 mcg/actuation nasal spray instill 2 (TWO) sprays IN EACH NOSTRIL ONCE DAILY 12/18/2021 Active etodolac (LODINE) 500 mg tablet Take 1 tablet (500 mg total) by mouth in the morning and 1 tablet (500 mg total) before bedtime. 12/07/2021 Active cyclobenzaprine (FLEXERIL) 5 mg tablet Take 2 tablets (10 mg total) by mouth 3 (three) times a day as needed for muscle spasms. Active tetrahydrozolin e/polyethyl gly (EYE DROPS OPHT) Instill to eye. Active multivitamin capsule Take 1 capsule by mouth in the morning. Active cholecalciferol , vitamin D3, (VITAMIN D3) 5,000 units tablet Take 8,000 Units by mouth in the morning. Active cod liver oiL oil Take by mouth. Active PARoxetine CR (PAXIL-CR) 12.5 mg 24 hr tabletIndicatio ns:Status post hysterectomy,Ho t flash not due to menopause,Vagin al dryness, menopausal,Vagi nal atrophy Take 1 tablet (12.5 mg total) by mouth in the morning. 90 tablet 3 01/31/2022 Active naproxen (EC NAPROSYN) 500 mg EC tablet Take 1 tablet (500 mg total) by mouth in the morning and 1 tablet (500 mg total) in the evening. Take with meals. Active aspirin-acetami nophen-caffeine (EXCEDRIN EXTRA STRENGTH) 250-250-65 mg per tablet 2 tablets Orally Once a day prn Active gabapentin (NEURONTIN) 300 mg capsule TAKE 1 CAPSULE BY MOUTH EVERY MORNING and 2 (TWO) CAPSULES AT BEDTIME Active estradioL (ESTRACE) 0.01 % (0.1 mg/gram) vaginal creamIndication s:Status post hysterectomy,Va ginal dryness, menopausal,Vagi nal atrophy Insert 1 g into the vagina 2 (two) times a week. 42.5 g 3 02/22/2023 Active Active Problems Problem Noted Date Diagnosed Date Heterogeneously dense tissue of both breasts on mammography 03/06/2023 Overview (03/06/2023): Recommendation: Recommend MBI as a supplemental screening combined with annual mammography.. Family history of breast cancer 03/06/2023 Overview (03/06/2023): Maternal aunt Trigger finger, acquired 07/06/2022 Overview (02/22/2023): Added automatically from request for surgery [id number] Family History Medical History Relation Name Comments Diabetes Brother Hypertension Brother Kidney failure Brother Diabetes Father Hypertension Father Breast cancer Maternal Aunt Diabetes Mother Hypertension Mother Daniel Breast Cancer Neg Hx Relation Name Status Comments Brother Father Maternal Aunt Mother Social History Tobacco Use Types Packs/Day Years Used Date Smoking Tobacco: Never Smokeless Tobacco: Never Alcohol Use Standard Drinks/Week Comments Yes 0 (1 standard drink = 0.6 oz pur e alcohol) occasional PHQ-2 Answer Date Recorded Total Score 0 02/22/2023 Hunger Screening Answer Date Recorded Within the past 12 months we worried whether our food would run out before we got money to buy more. Never True 02/22/2023 Within the past 12 months th e food we bought just didn't last and we didn't have money to get more. Never True 02/22/2023 Comments No Sex and Gender Information Value Date Recorded Sex Assigned at Not on file Legal Sex Female 3:20 PM EST Gender Identity Not on file Sexual Orientation Not on file Last Filed Vital Signs Vital Sign Reading Time Taken Comments Blood Pressure 128/80 02/22/2023 2:59 PM EST Pulse 84 01/31/2022 1:32 PM EST Temperature - - Respiratory Rate 16 01/31/2022 1:32 PM EST Oxygen Saturation - - Inhaled Oxygen Concentration - - Weight 60.3 kg (133 lb) 03/02/2023 2:59 PM EST Height 147.3 cm (4' 10 ) 03/02/2023 2:59 PM EST Body Mass Index 27.8 03/02/2023 2:59 PM EST Plan of Treatment Health Maintenance Due Date Last Done Comments DTaP,Tdap and Td Vaccines (1 - Tdap) 1985 Zoster (Shingles) Vaccine (1 of 2) 2016 Depression Screening 02/23/2024 02/22/2023 Tobacco Screening 02/23/2024 02/22/2023 Adult BMI Screening 03/02/2024 03/02/2023 Mammogram 03/02/2024 03/02/2023, 10/2020, 12/28/2020, Additional history exists Influenza Vaccine 10/20/2024 Medical Devices Not on file Procedures Procedure Name Priority Date/Time Associated Diagnosis Comments MAMM SCREENING BILATERAL W CAD Routine 03/02/2023 3:15 PM EST Encounter for screening mammogram for malignant neoplasm of breast from Last 3 Months or Most Recently Relevant to Health Maintenance Results * Mammography screening bilateral with CAD (03/02/2023 3:15 PM EST) Anatomical Region Laterality Modality Breast Bilateral Mammography 03/06/2023 8:35 AM EST Addenda Addendum by Kristian Olmstead MD on 03/21/2023 9:02 PM EST *ADDENDUM*Comparisons from 12/28/2020, 10/02/2019 are now available. Assessment unchanged from prior. No evidence of malignancy. BI-RADS 1. One year screening mammogram recommended Finalized by Kristian Olmstead MD on 03/21/2023 9:02 PM 1 c [facility] Narrative 03/06/2023 8:38 AM EST EXAM: MAMM SCREENING BILATERAL W CAD, 03/02/2023 2:55 PM CLINICAL INDICATIONS: Screening, Encounter for screening mammogram for malignant neoplasm of breast COMPARISON: No prior studies currently available for comparison. TECHNIQUE: Bilateral digital tomosynthesis MLO and CC views of the breasts were obtained, with creation of synthetic 2D views. Computer aided detection was utilized. FINDINGS: The breasts are heterogeneously dense, which may obscure small masses. There are no suspicious masses, calcifications, or areas of architectural distortions. IMPRESSION: No mammographic evidence of malignancy. Continue annual screening mammography per ACR recommendations. BI-RADS: BI-RADS 1 - Negative Recommendation: Recommend MBI as a supplemental screening combined with annual mammography.. Finalized by Kristian Olmstead MD on 03/06/2023 8:38 AM 1 c [facility] Procedure Note Kristian Olmstead MD - 03/06/2023 EXAM: MAMM SCREENING BILATERAL W CAD, 03/02/2023 2:55 PM CLINICAL INDICATIONS: Screening, Encounter for screening mammogram formalignant neoplasm of breast COMPARISON: No prior studies currently available for comparison. TECHNIQUE: Bilateral digital tomosynthesis MLO and CC views of the breasts wereobtained, with creation of synthetic 2D views. Computer aided detectionwas utilized. FINDINGS: The breasts are heterogeneously dense, which may obscure small masses. There are no suspicious masses, calcifications, or areas of architecturaldistortions. IMPRESSION: No mammographic evidence of malignancy. Continue annual screeningmammography per ACR recommendations. BI-RADS: BI-RADS 1 - Negative Recommendation: Recommend MBI as a supplemental screening combined withannual mammography.. 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
--- OUTSIDE RECORDS SUMMARY | 2024-08-20 15:51 | XMS_ITS | Clinical Summary ---
Author Organization [facility] Address [address] [place] [address] Care Team Providers Care Interventional Technologist Name Role Phone Nikos Jacobs MD Primary Care Provider [phone] Allergies No known active allergies Medications etodolac (Lodine) 500 mg tablet Take 500 mg by mouth in the morning and at bedtime. 06/13/2022 Active lisinopril 10 mg tablet Take 1 tablet by mouth in the morning. Active gabapentin (Neurontin) 300 mg capsule 1 capsule 1 (one) time each day at the same time. Active PARoxetine CR (Paxil-CR) 12.5 mg 24 hr tablet Take 12.5 mg by mouth in the morning. 06/06/2022 Active Active Problems Problem Noted Date Diagnosed Date Trigger finger, acquired 07/06/2022 Overview (07/06/2022): Added automatically from request for surgery [id number] Family History Relation Name Status Comments Brother Father Mother Social History Tobacco Use Types Packs/Day Years Used Date Smoking Tobacco: Never Smokeless Tobacco: Never Tobacco Cessation:Counseling Given: Not Answered Alcohol Use Standard Drinks/Week Comments Never 0 (1 standard drink = 0.6 oz pur e alcohol) PHQ-2 Answer Date Recorded Patient Health Questionnaire-2 Score 0 09/29/2022 [facility] Safety [facility] Answer Date Rec orded Fear of Current or Ex-Partner Not on file Emotionally Abused Not on file 04/12/2023 Physically Abused Not on file 04/12/2023 Sexually Abused Not on file 04/12/2023 Physically or Sexually Abused Not on file Comments Unknown Sex and Gender Information Value Date Recorded Sex Assigned at Female 07/06/2022 3:04 PM EDT Legal Sex Female 12:17 AM EDT Gender Identity Female 07/06/2022 3:04 PM EDT Sexual Orientation Heterosexual or Straight 06/19 3:04 PM EDT Last Filed Vital Signs Vital Sign Reading Time Taken Comments Blood Pressure 140/61 07/24/2022 2:25 PM EDT Pulse 72 07/24/2022 2:25 PM EDT Temperature 36 C (96.8 F) 07/24/2022 2:25 PM EDT Respiratory Rate 16 07/24/2022 2:25 PM EDT Oxygen Saturation 98% 07/24/2022 2:25 PM EDT Inhaled Oxygen Concentration - - Weight 63.5 kg (140 lb) 09/29/2022 8:08 AM EDT Height 147.3 cm (4' 10 ) 09/29/2022 8:08 AM EDT Body Mass Index 29.26 09/29/2022 8:08 AM EDT Plan of Treatment Health Maintenance Due Date Last Done Comments CT Colonography 1966 Colonoscopy 1966 Colorectal Cancer Screening 1966 FIT-DNA 1966 FIT 1966 FOBT 1966 Sigmoidoscopy 1966 Depression Screening 1978 Hepatitis B Vaccines (1 of 3 - 19+ 3-dose series) 1985 Pap Smear 1987 Adult Tetanus 1988 Cervical Cancer Screening 1996 HPV/Cotest 1996 Mammogram 2006 Zoster Vaccines (1 of 2) 2016 Influenza Vaccine (#1) 2024 HIB Vaccines Aged Out No longer eligi ble based on patient's age to complete this topic HPV Vaccines Aged Out No longer eligi ble based on patient's age to complete this topic IPV Vaccines Aged Out No longer eligi ble based on patient's age to complete this topic Meningococcal B Vaccine Aged Out No l onger eligible based on patient's age to complete this topic Meningococcal Vaccine Aged Out No parth dasia eligible based on patient's age to complete this topic Pneumococcal Vaccine: Pediat rics (0 to 5 Years) and At-Risk Patients (6 to 64 Years) Aged Out No longer eligible b ased on patient's age to complete this topic Rotavirus Vaccines Aged Out No longer eligible based on patient's age to complete this [place] [address] [facility] Care Teams Interventional Technologist Relationship Specialty Start Date End Date Nikos Jacobs MD [address] [place] [address] PCP - General 07/06/22
--- OUTSIDE RECORDS SUMMARY | 2024-08-20 15:51 | XMS_ITS | Clinical Summary ---
Author Organization [facility] Address [address] [place] [address] Care Team Providers Care On Air Personality Name Role Phone Unavailable Primary Care Provider Unavailabl e Social History Tobacco Use Types Packs/Day Years Used Date Smoking Tobacco: Never Assessed Comments Unknown Sex and Gender Information Value Date Recorded Sex Assigned at Not on file Legal Sex Female 6:35 PM EDT Gender Identity Not on file Sexual Orientation Not on file Last Filed Vital Signs Vital Sign Reading Time Taken Comments Blood Pressure 130/80 12/18/2021 12:00 PM EDT Pulse - - Temperature - - Respiratory Rate - - Oxygen Saturation - - Inhaled Oxygen Concentration - - Weight 62.1 kg (137 lb) 12/18/2021 12:00 PM EDT Height 147.3 cm (4' 10 ) 12/18/2021 12:00 PM EDT Body Mass Index 28.63 12/18/2021 12:00 PM EDT Plan of Treatment Not on file
--- OUTSIDE RECORDS SUMMARY | 2024-08-20 15:51 | XMS_ITS ---
Author Organization [facility] Address [address] [place] [address] Care Team Providers Care Assembler Equipment Name Role Phone [facility] Unavailable [phone] Transplant Episode Kidney Potential Donor [facility] ([place], [place]) - DESIREE Referred on 07/07/2021 Marked as Deferred on 11/28/2021 Reason: Medically Not Eligible Kidney CoordinatorJono Valdes RN Phone: N/A Fax: N/A Email: N/A Care Team Name Role Phone Fax Email Jono Valdes RN Kidney Coordinator N/A N/A N/A Arias Jimenez MD, PhD Transplant Physician [phone] [email or web address] Personnel Officer N/A N/A N/A Nato Hernandez MD Design Cell Engineer [phone] [email or web address] Pre-Donation Referred: 07/07/2021
--- OUTSIDE RECORDS SUMMARY | 2024-08-20 15:51 | XMS_ITS | Patient Health Record ---
Author Organization [facility] Address [address] [place] [address] Care Team Providers Care Bryologist Name Role Phone Nikos Jacobs Primary Care Provider Gigi Mathis Unavailable [phone] Livia Melo Unavailable Reason For Referral No Information Medications Medication SIG (Take, Route, Frequency, Duration) Notes Start Date End Date Status Neurontin Active multivitamin Active Cod Liver Oil Active lisinopril Active naproxen Active Social History Tobacco Use: Social History Observation Description Date Details (start date - stop date) Never Smoker NA - NA AUDIT-C (Standard) Question Answer Notes Did you have a drink contain ing alcohol in the past year? Yes How often did you have a dri nk containing alcohol in the past year? Monthly or less (1 point) How many drinks did you have on a typical day when you were drinking in the past year? 1 or 2 drinks (0 point) How often did you have six o r more drinks on one occasion in the past year? Never (0 point) Points 1 Interpretation Negative Tobacco Control (Standard) Question Answer Notes Tobacco use: Nonsmoker Problems Problem Type SNOMED Code ICD Code Onset Dates Problem Status W/U Status Risk Notes Problem [id number] Bursitis of left shoulder (M75.52) Active confirmed Problem Tendonitis of left shoulder ([id number]) Left shoulder tendonitis (M77.8) Active confirmed Vital Signs Height 4'10 in 06/30/2024 Weight 126 lbs 06/30/2024 BMI 26.33 06/30/2024 Encounters Encounter Location Date Provider Diagnosis [facility] [address] [place] [address] [place] [address] 05/19/2024 Livia Melo Bursitis of right shoulder M75.51 and Bursitis of left shoulder M75.52 [facility] [address] [place] [address] [place] [address] 06/30/2024 Gigi Cm Bursitis of left shoulder M75.52 and Left shoulder tendonitis M77.8 Assessments Encounter Date Diagnosis (ICD Code) Assessment Notes Treatment Notes Treatment Clinical Notes Section Notes 05/19/2024 Bursitis of left shoulder (ICD-10 - M75.52) Bilateral shoulder bursitis/tend initis Prior bilateral rotator cuff repairs, biceps tenodesis 05/19/2024 Bursitis of right shoulder (ICD-10 - M75.51) Bilateral shoulder bursitis/tend initis Prior bilateral rotator cuff repairs, biceps tenodesis 06/30/2024 Bursitis of left shoulder (ICD-10 - M75.52) 06/30/2024 Left shoulder tendonitis (ICD-10 - M77.8) 05/19/2024 Other Today reviewed patient's MRI results with her and given her repair is intact and she does have tendinitis/bursiti s she elected to proceed with bilateral corticosteroid injections. Patient is not diabetic. We will see her back in 6 weeks for reevaluation. Bilateral shoulder bursitis/tend initis Prior bilateral rotator cuff repairs, biceps tenodesis 06/30/2024 Other For her left shoulder bursitis and tendinitis I have discussed treatment options for medications which she is currently on, therapy and injections. She is interested in repeating a steroid injection. Plan Of Treatment No Information Insurance Providers Payer Name Payer Address Payer Phone Subscriber Number Group Number Insured Name Patient Relationship to Insured Coverage Start Date Coverage End Date [employer] [address] [address] [place] [address] [id number] GÓMEZ NUNN Self - patient is the insured Medications Administered Medication Instructions Date of Administration Dosage Notes BUPIVACAINE 05/19/2024 4 mL BUPIVACAINE 06/30/2024 2 mL Depo-Medrol 05/19/2024 2 mL Depo-Medrol 06/30/2024 2 mL lidocaine 06/30/2024 2 mL
--- OUTSIDE RECORDS SUMMARY | 2024-08-20 15:52 | XMS_ITS | Clinical Summary ---
Author Organization [facility] Address [address] [address] Care Team Providers Care Ceramic Restorer Name Role Phone [facility] Other Unavailable [phone] Social History Tobacco Use Types Packs/Day Years Used Date Smoking Tobacco: Never Assessed Comments Unknown Sex and Gender Information Value Date Recorded Sex Assigned at Not on file Legal Sex Female 12:00 PM EDT Gender Identity Not on file Sexual Orientation Not on file Last Filed Vital Signs Vital Sign Reading Time Taken Comments Blood Pressure - - Pulse - - Temperature - - Respiratory Rate - - Oxygen Saturation - - Inhaled Oxygen Concentration - - Weight 61.2 kg (135 lb) 07/07/2021 12:00 PM EDT Height 144.8 cm (4' 9 ) 07/07/2021 12:00 PM EDT Body Mass Index 29.21 07/07/2021 12:00 PM EDT Plan of Treatment Health Maintenance Due Date Last Done Comments HEPATITIS C VIRUS SCREENING 1966 TETANUS 1966 HIV SCREENING DISCUSSION 1981 HEP B VACCINE (1 of 3 - 19+ 3-dose series) 1985 TDAP (ADULT) 1985 CERVICAL CANCER SCREENING DISCUSSION 1987 LIPID SCREENING 2006 MAMMOGRAM SCREENING DISCUSSION 2006 COLORECTAL CANCER SCREENING DISCUSSION 2011 PNEUMOCOCCAL VACCINE SERIES (1 of 1 - PCV) 2016 ZOSTER (SHINGLES) VACCINE (1 of 2) 2016 COVID-19 VACCINE (1 - 2023- season) 2023 INFLUENZA VACCINE (Season Ended) 2024 Care Teams Ceramic Restorer Relationship Specialty Start Date End Date [facility], Other [address] [place] [address] PCP - [facility] 07/07/21
== END 2024-08-20 15:48 | disposition home or self-care (01) ==
LOC: RAD 15:49
PROVIDERS: PCP Family Medicine; Visit Provider Family Medicine
DX: M54.12 Radiculopathy, cervical region (principal); M47.812 Spondylosis without myelopathy or radiculopathy, cervical region
CPT/HCPCS: 72040

== ENCOUNTER 2024-08-29 13:51 | Outpatient (OUT) | payer OTHER, SELFPAY ==
--- NOTE | 2024-08-29 13:59 | MR_ITS ---
[address] [address] Patient Name: GÓMEZ NUNN MRN: [id number] date: 1965 Sex: F Assigned Patient Location: MRI Current Patient Location: MRI Accession/Order Number: [id number] Exam Date: 08/29/2024 19:20 Report Date: 08/29/2024 19:34 At the request of: KATERINE DOHERTY MD Procedure: MR cervical spine wo con EXAMINATION: MRI OF THE CERVICAL SPINE WITHOUT CONTRAST CLINICAL DATA: Cervical Radicular Pain TECHNIQUE: Multiecho imaging was performed in the sagittal and axial plane without contrast administration. FINDINGS: The craniocervical junction is maintained. Minimal reversal of the normal cervical lordosis. Bone marrow signal is unremarkable. There is moderate intervertebral space narrowing C5-C7. Mild intervertebral space narrowing C4-C5 2 mm anterolisthesis C3 on C4 and 1 mm retrolisthesis of C6 on C7. Multilevel facet arthropathy. The cervical cord demonstrates normal signal and morphology. Prevertebral and paraspinal soft tissues are unremarkable. C2-C3: Mild left-sided uncovertebral spurring and facet arthropathy causing moderate left neural from narrowing. Right foramen and central canal patent. C3-C4: Broad-based disc bulge with uncovertebral spurring and facet arthropathy greatest right. Moderate right and mild left neural from narrowing. Canal is patent. C4-C5: Broad-based disc osteophyte complex with uncovertebral spurring and facet arthropathy. This results in moderate right moderate severe left neural from narrowing. Tttq-ll-lgqlwfsd central canal stenosis. C5-6: Circumferential disc osteophyte complex formation with uncovertebral spurring greatest left. Minimal right tfmffmww-mg-aowpuw left neural from narrowing. Moderate central canal stenosis. C6-C7: Broad-based disc osteophyte complex formation with bilateral uncovertebral spurring results in moderate foraminal narrowing. There is moderate central canal stenosis. C7-T1: Bilateral uncovertebral spurring and facet arthropathy. This results in mild to moderate neural foraminal narrowing. Canal is patent. MR/MR cervical spine wo con IMPRESSION: Multilevel degenerative changes with up to moderate central canal stenosis C5-C7. Multilevel neural foraminal encroachment greatest in the left C4-C6 Impression dictated by: Fernando Goncalves M.D. 08/29/2024 7:34 PM Dictation Location: [place] [address] Electronically authenticated by: [id number] Y Date: 08/29/2024 19:34
== END 2024-08-29 13:52 | disposition home or self-care (01) ==
PROVIDERS: PCP Family Medicine; Visit Provider Family Medicine
DX: M54.12 Radiculopathy, cervical region (principal); M48.02 Spinal stenosis, cervical region; M50.30 Other cervical disc degeneration, unspecified cervical region
CPT/HCPCS: 72141

== ENCOUNTER 2024-09-23 15:42 | Outpatient (OUT) | payer OTHER, SELFPAY ==
--- OUTSIDE RECORDS SUMMARY | 2024-08-27 10:02 | XMS_ITS ---
Author Organization [facility] [place] Address [address] [place] [address] Care Team Providers Care Hired Help Name Role Phone Cosme Jacobs Primary Care Provider [phone] REASON FOR VISIT mri Medications Medication SIG (Take, Route, Frequency, Duration) Notes Start Date End Date Status Valium 10 MG 1 tablet as needed O rally once about 1 hour before procedure for 1 days 08/27/2024 Active Encounters Encounter Location Date Provider Diagnosis [facility] [address] [place] [address] 08/27/2024 Cosme Jacobs Plan Of Treatment Medication Medication Name Sig Start Date Stop Date Notes Valium 10 MG 1 tablet as needed O rally once about 1 hour before procedure for 1 days 08/27/2024 Progress Notes * Sherron NUNN MDOB: 7 (59 yo F)Acc No.[id number]:08/27/2024 Patient: Sherron JIMENEZ :1965 A ge:59 Y S ex:Female Address:[address] [place] [address] * Refills Start Valium Tablet, 10 MG, Orally, 1, 1 tablet as needed, once about 1 hour before procedure, 1 days * true * Date: Generated for Printi ng/Faxing/eTransmitting on: 0 09/23/2024 03:46 PM EDT
--- OUTSIDE RECORDS SUMMARY | 2024-08-31 12:02 | XMS_ITS ---
Author Organization [facility] [place] Address [address] [place] [address] Care Team Providers Care Commercial Journeyman Electrician Name Role Phone Reynaldo Cosme Primary Care Provider [phone] Reason For Referral Diagnosis 1 Cervical radicular p ain (M54.12) Diagnosis 2 Lumbar radiculitis ( M54.16) Referral Organization [facility] Referring Provider First Name Cosme Referring Provider Last Name Reynaldo Ref[facility] icine Referred Provider Angelito Cotton Referred Provider Specialty Neurosurgery Referral Priority Routine REASON FOR VISIT MRI Results- Encounters Encounter Location Date Provider Diagnosis [facility] [address] [place] [address] 08/31/2024 Cosme Jacobs Cervical radicular p ain M54.12 and Lumbar radiculitis M54.16 Assessments Encounter Date Diagnosis (ICD Code) Assessment Notes Treatment Notes Treatment Clinical Notes Section Notes 08/31/2024 Cervical radicular pain (ICD-10 - M54.12) 08/31/2024 Lumbar radiculitis (ICD-10 - M54.16) Plan Of Treatment Referrals Referral Date Details 09/04/2024 09/04/2024Angelito Progress Notes * Sherron NUNN MDOB: 7 (59 yo F)Acc No.[id number]:08/31/2024 Patient: Sherron JIMENEZ :1965 A ge:59 Y S ex:Female Address:[address] [place] [address] Subjective: * Chief Complaints: * M RI Results- * Medical History: * Surgical History: * Hospitalization/Major Diagno stic Procedure: * Medications: Objective: * Vitals: * Physical Examination: Assessment: * Assessment: 1. C ervical radicular pain - M54.12 (Primary) 2 . L umbar radiculitis - M54.16 Plan: * Treatment: 2. L umbar radiculitis Referral To:Angelito Cotton Neurosurgery Reason: * Procedure Codes: * true * Date: Generated for Monicai silvia/Edison/eTransmitting on: 0 09/23/2024 03:46 PM EDT Consultation Request Notes Referral Date Referring Provider Referred Provider Not es 09/04/2024 Cosme Jacobs [place]
--- OUTSIDE RECORDS SUMMARY | 2024-09-22 12:00 | XMS_ITS ---
Author Organization [facility] [place] Address [address] [place] [address] Care Team Providers Care Insulating Machine Operator Name Role Phone Cosme Jacobs Primary Care Provider Allergies No Known Allergies REASON FOR VISIT FREQUENT BRUISING Medications Medication SIG (Take, Route, Frequency, Duration) Notes Start Date End Date Status Lisinopril 10 mg TAKE 1 TABLET BY VENKATESH TH DAILY for 90 days Active Gabapentin 300 MG 1 capsule 2 at hs Or ally Daily Active Excedrin Extra Strength 250-250-65 MG 2 tablets Orally Once a day prn PRN Active Estradiol 0.1 MG/GM as directed Vaginal Active Cod Liver Oil 4000-200 UNIT as directed Orally Active Voltaren 1 % as directed External ly prn PRN Active Vitamin D (Cholecalciferol) 25 MCG (1000 UT) 1 capsule Orally Once a day Active Valium 5 MG 1 tablet as needed O rally once about 1 hour before procedure for 1 days 04/29/2024 Active valACYclovir HCl 1 GM 1 tablet Orally On ce a day for 90 days PRN Active tiZANidine HCl 4 MG 2 tablets Orally at bedtime for 15 PRN 01/03/2023 Active Pataday 0.1 % 1 drop into affected eye Ophthalmic Twice a day Active Meloxicam 15 MG 1 tablet Orally Once a day for 30 days 07/16/2024 Active Tylenol 8 Hour Arthritis Pain 650 MG 2 tablets as needed Orally every 8 hrs prn PRN Active Social History Tobacco Use: Social History Observation Description Date Details (start date - stop date) Never Smoker NA - NA Tobacco Use/Smoking Question Answer Notes Patient is a nonsmoker AUDIT-C (Standard) Question Answer Notes Did you have a drink containing alcohol in the p ast year? No Points 0 Interpretation Negative Problems Problem Type SNOMED Code ICD Code Onset Dates Problem Status W/U Status Risk Notes Problem Bruising ([id number]) Bruising (T14.8XXA) Active confirmed Vital Signs Weight 134 lbs 09/22/2024 Height 58 in 09/22/2024 Blood pressure systolic 128 mm Hg 09/23/19 25 Blood pressure diastolic 78 mm Hg 025 BMI 28 kg/m2 09/22/2024 Encounters Encounter Location Date Provider Diagnosis [facility] [address] [place] [address] 09/22/2024 Cosme Hoy Bruising T14.8XX A Assessments Encounter Date Diagnosis (ICD Code) Assessment Notes Treatment Notes Treatment Clinical Notes Section Notes 09/22/2024 Bruising (ICD-10 - T14.8XXA) Plan Of Treatment Medication Medication Name Sig Start Date Stop Date Notes Naproxen 500 MG 1 tablet with food o r milk as needed Orally every 12 hrs PRN Pending Test Test Name Order Date CBC AUTO DIFF 09/22/2024 FERRITIN 09/22/2024 PROF 14(COMP METB) 09/22/2024 PROTIME 09/22/2024 PTT 09/22/2024 Medications Administered Medication Instructions Date of Administration Dosage Notes Ketorolac Tromethamine 09/22/2024 60 mg Orphenadrine Citrate 09/22/2024 60 mg Progress Notes * Sherron NUNN MDOB: 7 (59 yo F)Acc No.[id number]:09/22/2024 UNLOCKED PROGRESS NOTE Progress Note Patient: Sherron JIMENEZ Provider: Lea Jacobs (TTC)MD :1965 A ge:59 Y S ex:Female Date:09/22/2024 Address:[address] [facility], [id number] Check In:04:07 PM ESTCheck O ut:04:56 PM EST Subjective: * Chief Complaints: * 1 . FREQUENT BRUISING. * HPI: G eneral: Buising easy for 6 month -. * Medical History: D DD (degenerative disc disease), cervical, ADHD, Impingement syndrome of right shoulder, Primary osteoarthritis, left ankle and foot. * Surgical History: t running rigger finger 06/2022, CTS right 05/2021, CTS left / left trigger finger 05/2017, rotator cuff left 11/2019, rotator cuff left 03/2020, left achilles tendon 05/2016, hysterctomy 06/2005. * Family History: F ather: 79 yrs. M other: 78 yrs, diagnosed with Unspecified heart disease. B terier(s): 52 yrs. S on(s): alive. D fior(s): alive. M aternal aunt: diagnosed with Other malignant neoplasm of unspecified site. 1 brother(s) . 1 son(s) , 1 daughter(s) - healthy. . * Social History: T obacco Use: T obacco Use/Smoking P atient is a n onsmoker D rug/Alcohol: A ISIDRO-C (Standard) D id you have a drink containing alcohol in the past year? N o P oints 0 I nterpretation N egative * Medications: T aking Cod Liver Oil 4000-200 UNIT Capsule as directed Orally , Taking Estradiol 0.1 MG/GM Cream as directed Vaginal , Taking Excedrin Extra Strength(Lgadmrl-Zehroqkrawuby-Tvqpjcbb) 250-250-65 MG Tablet 2 tablets Orally Once [...] Allergies: N .K.D.A. Objective: * Vitals: W t:134lbs, Ht: 58 in, BP:128/78mm Hg, BMI:28Index, Ht-cm: 147.32 cm, Wt-k.78 kg. * Examination: A bdomen Exam:: m ultiple bruises on arms. Assessment: * Assessment: 1. B ruising - T14.8XXA (Primary) Plan: * Treatment: 2. O thers Stop Naproxen Tablet, 500 MG, 1 tablet with food or milk as needed, Orally, every 12 hrs, Notes to Pharmacist: PRN. * Therapeutic Injections: Ketorolac Tromethamine : 60 mg (Route: Intramuscular) given by PAULA Gutierrez on right buttock? Orphenadrine Citrate : 60 mg (Route: Intramuscular) given by PAULA Gutierrez on left buttock (Bruising) * Procedure Codes: 9 6372 THERAP.INJ. OF MED. INTRAMUSCULAR OR SUBCUTANEOUS, J1885 TORADOL, PER 15 MG, Units: 4.00 , Modifiers: JZ , J2360 NORFLEX,UP TO 60MG. * Preventive Medicine: Screenings/Counseling: B NC ACTION PLAN Above Normal BMI Follow-up D ietary management education, guidance, and counseling * * Electronic signature of Cosme Jacobs MD, [id number] on 09/23/2024 at 03:46 PM EDT Sign off status: Pending Visit Status: C HK (Check Out) * Provider: eLa Jacobs (TTC)MD Date: 0 09/22/2024 Generated for Andrew vega/Edison/Jesusitting on: 09/23/2024 03:46 PM EDT History and Physical Notes * HPI (History of Present Illness) Category Sub-Category Detail Notes Category Not es General Buising easy fo r 6 month - Examination Category Sub-Category Detail Notes Category Not es Abdomen Exam: multiple bruis es on arms
--- OUTSIDE RECORDS SUMMARY | 2024-09-23 15:46 | XMS_ITS | Patient Health Record ---
Author Organization [facility] Address [address] [place] [address] Care Team Providers Care Leg Assembler Name Role Phone Nikos Jacobs Primary Care Provider Gigi Mathis Unavailable [phone] Livia Melo Unavailable Reason For Referral No [...] Problem Status W/U Status Risk Notes Problem [id number] Bursitis of left shoulder (M75.52) Active confirmed Problem Left shoulder tendonitis (M77.8) Active confirmed Vital Signs Height 4'10 in 06/30/2024 Weight 126 lbs 06/30/2024 BMI 26.33 06/30/2024 Encounters Encounter Location Date Provider Diagnosis [facility] [address] [place] [address] [place] [address] 05/19/2024 Livia Melo Bursitis of right shoulder M75.51 and Bursitis of left shoulder M75.52 [facility] Office [address] [place] [address] 06/30/2024 Gigi Cm Bursitis of left shoulder [...] Insured Coverage Start Date Coverage End Date [facility] [address] [address] [place] [address] [phone] [id number] GÓMEZ NUNN Self - patient is the insured 5 Medications Administered Medication Instructions Date of Administration Dosage Notes BUPIVACAINE 05/19/2024 4 mL BUPIVACAINE 06/30/2024 2 mL Depo-Medrol 05/19/2024 2 mL Depo-Medrol 06/30/2024 2 mL lidocaine 06/30/2024 2 mL
--- OUTSIDE RECORDS SUMMARY | 2024-09-23 15:46 | XMS_ITS ---
Author Organization [facility] Address [address] [place] [address] Care Team Providers Care Intelligence Agent Name Role Phone [facility] Other Unavailable [phone] Transplant Episode Kidney Potential Donor [facility] ([place], [place]) - DESIREE Referred on 07/07/2021 Marked as Deferred on 11/28/2021 Reason: Medically Not Eligible Kidney CoordinatorJono Vlades RN Phone: N/A Fax: N/A Email: N/A Care Team Name Role Phone Fax Email oJno Valdes RN Kidney Coordinator N/A N/A N/A Arias Jimenez MD, PhD Transplant Physician [phone] [email or web address] Christine Jung Retort Load Expediter N/A N/A N/A Nato Hernandez MD Skidway Man [phone] [email or web address] Pre-Donation Referred: 07/07/2021
--- OUTSIDE RECORDS SUMMARY | 2024-09-23 15:46 | XMS_ITS | Clinical Summary ---
Author Organization [facility] Address [address] [place] [address] Care Team Providers Care Air/Ocean Export Clerk Name Role Phone Nikos Jacobs MD Primary Care Provider [phone] Allergies No known active allergies Medications etodolac [...] (07/06/2022): Added automatically from request for surgery [id number] Family History Relation Name Status Comments Brother Father Mother Social History Tobacco Use Types Packs/Day Years Used Date Smoking Tobacco: Never Smokeless Tobacco: Never Tobacco Cessation:Counseling Given: Not Answered Alcohol Use Standard Drinks/Week Comments Never 0 (1 standard drink = 0.6 oz pur e alcohol) PHQ-2 Answer Date Recorded Patient Health Questionnaire-2 Score 0 09/29/2022 ID Safety & Environment Answer Date Rec orded [...] age to complete this topic Insurance [place] [address] [facility] Care Teams Air/Ocean Export Clerk Relationship Specialty Start Date End Date Nikos Jacobs MD [address] [place] [address] PCP - General 07/06/22
--- OUTSIDE RECORDS SUMMARY | 2024-09-23 15:46 | XMS_ITS | Patient Health Record ---
Author Organization [facility] [place] Address [address] [place] [address] Care Team Providers Care Vessel Crew Member Name Role Phone Cosme Doherty Primary Care Provider Allergies No Known Allergies Results Component Value Reference Range Notes XR cervical spine 2-3V Reviewed date:08/20/2024 07:16:37 PM Interpretation: Performing Lab: Notes/Report: Source Facility: [place] [address] XRay Report Signed Patient: SHERRON NUNN MR#: [id number] : 1965 Acct:[id number] Age/Sex: 59 / F ADM Date: 08/20/24 Loc: RAD Attending Dr: Katerine Doherty M.D. Ordering Physician: Katerine Doherty M.D. Date of Service: 08/20/24 Procedure(s): XR cervical spine 2-3V Accession Number(s): [id number] cc: Katerine Doherty M.D. [place] [address] Patient Name: SHERRON NUNN MRN: [id number] date: 1965 Sex: F Assigned Patient Location: RAD Current Patient Location: RAD Accession/Order Number: [id number] Exam Date: 08/20/2024 16:31 Report Date: 08/20/2024 16:31 At the request of: KATERINE DOHERTY MD Procedure: XR cervical spine 2-3V CERVICAL SPINE 4 views: CLINICAL HISTORY: Cervical Radicular pain M54.12 COMPARISON: Cervical spine 01/04/2023 FINDINGS: The right is appear maintained. Moderate spondylosis C5-C7. 3 mm of anterior subluxation of C4 on C5. No prevertebral soft tissue swelling. XR/XR cervical spine 2-3V IMPRESSION: MODERATE SPONDYLOSIS C5-C7 SIMILAR TO THE PRIOR STUDY. Impression dictated by: Parminder Jacobo Jr., D.O. 08/20/2024 4:31 PM Dictation Location: [place] [address] Electronically authenticated by: [id number] Y Date: 08/20/2024 16:31 Dictated By: Parminder Jacobo M.D. Signed By: 08/20/241633 DD/ 30 TD/TT: Monument Stonecutter: [place] [address] XRay Report Signed Patient: ELI NUNN MR#: [id number] : 1965 Acct:[id number] Age/Sex: 59 / F ADM Date: 08/20/24 Loc: RAD Attending Dr: Katerine Doherty M.D. Ordering Physician: Katerine Doherty M.D. Date of Service: 08/20/24 Procedure(s): XR cer vical spine 2-3V Accession Number(s): [id number] cc: Katerine Doherty M.D. [place] [id number] Patient Name: SHERRON NUNN MRN: [id number] date: 1965 Sex: F Assigned Patient Location: RAD Current Patient Location: RAD Accession/Order Numb er: [id number] Exam Date: 08/20/2024 16:31 Report Date: 08/20/2024 16:31 At the request of: KATERINE DOHERTY MD Procedure: XR cervic al spine 2-3V CERVICAL SPINE 4 views: CLINICAL HISTORY: Ce rvical Radicular pain M54.12 COMPARISON: Cervical spine 01/04/2023 FINDINGS: The right is appear maintained. Moderate spondylosis C5-C7. 3 mm of anterior subluxation of C4 on C5. No prevertebral soft tissue swelling. X R/XR cervical spine 2-3V IMPRESSION: MODERATE SPONDYLOSIS C5-C7 SIMILAR TO THE PRIOR STUDY. Impression dictated by: Parminder Jacobo Jr., D.O. 08/20/2024 4:31 PM Dictation Location: [place] [address] Electronically authe nticated by: [id number] Y Date: 08/20/2024 16:31 Dictated By: Parminder Dickson i, M.D. Signed By: 08/20/24 1634 DD/ 1631 TD/TT: Monument Stonecutter: MR cervical spine wo con Reviewed date:08/31/2024 04:04:07 PM Interpretation: Performing Lab: Notes/Report: Source Facility: [place] [address] Magnetic Resonance Report Signed Patient: SHERRON NUNN MR#: [id number] : 1965 Acct:[id number] Age/Sex: 59 / F ADM Date: 08/29/24 Loc: MRI Attending Dr: Katerine Doherty M.D. Ordering Physician: Katerine Doherty M.D. Date of Service: 08/29/24 Procedure(s): MR cervical spine wo con Accession Number(s): [id number] cc: Katerine Doherty M.D. [place] [address] Patient Name: SHERRON NUNN MRN: [id number] date: 1965 Sex: F Assigned Patient Location: MRI Current Patient Location: MRI Accession/Order Number: [id number] Exam Date: 08/29/2024 19:20 Report Date: 08/29/2024 19:34 At the request of: KATERINE DOHERTY MD Procedure: MR cervical spine wo con EXAMINATION: MRI OF THE CERVICAL SPINE WITHOUT CONTRAST CLINICAL DATA: Cervical Radicular Pain TECHNIQUE: Multiecho imaging was performed in the sagittal and axial plane without contrast administration. FINDINGS: The craniocervical junction is maintained. Minimal reversal of the normal cervical lordosis. Bone marrow signal is unremarkable. There is moderate intervertebral space narrowing C5-C7. Mild intervertebral space narrowing C4-C5 2 mm anterolisthesis C3 on C4 and 1 mm retrolisthesis of C6 on C7. Multilevel facet arthropathy. The cervical cord demonstrates normal signal and morphology. Prevertebral and paraspinal soft tissues are unremarkable. C2-C3: Mild left-sided uncovertebral spurring and facet arthropathy causing moderate left neural from narrowing. Right foramen and central canal patent. C3-C4: Broad-based disc bulge with uncovertebral spurring and facet arthropathy greatest right. Moderate right and mild left neural from narrowing. Canal is patent. C4-C5: Broad-based disc osteophyte complex with uncovertebral spurring and facet arthropathy. This results in moderate right moderate severe left neural from narrowing. Hznw-ph-snnomfsw central canal stenosis. C5-6: Circumferential disc osteophyte complex formation with uncovertebral spurring greatest left. Minimal right rumbraav-kh-irvjel left neural from narrowing. Moderate central canal stenosis. C6-C7: Broad-based disc osteophyte complex formation with bilateral uncovertebral spurring results in moderate foraminal narrowing. There is moderate central canal stenosis. C7-T1: Bilateral uncovertebral spurring and facet arthropathy. This results in mild to moderate neural foraminal narrowing. Canal is patent. MR/MR cervical spine wo con IMPRESSION: Multilevel degenerative changes with up to moderate central canal stenosis C5-C7. Multilevel neural foraminal encroachment greatest in the left C4-C6 Impression dictated by: Fernando Goncalves M.D. 08/29/2024 7:34 PM Dictation Location: [place] [address] Electronically authenticated by: [id number] Y Date: 08/29/2024 19:34 Dictated By: Fernando Goncalves M.D. Signed By: 08/29/241935 DD/ 33 TD/TT: Monument Stonecutter: [place] [address] Magnetic Resonance Report Signed Patient: ELI NUNN MR#: [id number] : 1965 Acct:[id number] Age/Sex: 59 / F ADM Date: 08/29/24 Loc: MRI Attending Dr: Katerine Doherty M.D. Ordering Physician: Katerine Doherty M.D. Date of Service: 08/29/24 Procedure(s): cer vical spine wo con Accession Number(s): [id number] cc: Katerine Doherty M.D. [address] [address] Patient Name: SHERRON NUNN MRN: [id number] date: 1965 Sex: F Assigned Patient Location: MRI Current Patient Location: MRI Accession/Order Numb er: [id number] Exam Date: 08/29/2024 19:20 Report Date: 08/29/2024 19:34 At the request of: KATERINE DOHERTY MD Procedure: MR cervic al spine wo con EXAMINATION: MRI OF THE CERVICAL SPINE WITHOUT CONTRAST CLINICAL DATA: Cervi leland Radicular Pain TECHNIQUE: Multiecho imaging was performed in the sagittal and axial plane without contrast administration. FINDINGS: The craniocervical j unction is maintained. Minimal reversal of the normal cervical lordosis. B one marrow signal is unremarkable. There is moderate intervertebral space narrowing C5-C7. Mild intervertebral space narrowing C4-C5 2 mm anterolis thesis C3 on C4 and 1 mm retrolisthesis of C6 on C7. Multilevel facet art hropathy. The cervical cord demonstrates normal signal and morphology. Prev ertebral and paraspinal soft tissues are unremarkable. C2-C3: Mild left-sammy ed uncovertebral spurring and facet arthropathy causing moderate left neural from narrowing. Right foramen and central canal patent. C3-C4: Broad-based d isc bulge with uncovertebral spurring and facet arthropathy greatest right. Moderate right and mild left neural from narrowing. Canal is patent. C4-C5: Broad-based d isc osteophyte complex with uncovertebral spurring and facet arthropathy. T his results in moderate right moderate severe left neural from narrowing. Fjti-ul-awqmajyl central canal stenosis. C5-6: Circumferentia l disc osteophyte complex formation with uncovertebral spurring greatest le ft. Minimal right dsbwtbyz-qv-ayunzb left neural from narrowing. Moderate central canal stenosis. C6-C7: Broad-based d isc osteophyte complex formation with bilateral uncovertebral spurri ng results in moderate foraminal narrowing. There is moderate central can al stenosis. C7-T1: Bilateral unc overtebral spurring and facet arthropathy. This results in mild to moderate neural foraminal narrowing. Canal is patent. M R/MR cervical spine wo con IMPRESSION: Multilevel degenerat amalia changes with up to moderate central canal stenosis C5-C7. Multilevel neural fo raminal encroachment greatest in the left C4-C6 Impression dictated by: Fernando Goncalves M.D. 08/29/2024 7:34 PM Dictation Location: [place] [address] Electronically authe nticated by: [id number] Y Date: 08/29/2024 19:34 Dictated By: Fernando Goncalves M.D. Signed By: 08/29/241935 DD/ 33 TD/TT: Monument Stonecutter: shoulder LT wo con Reviewed date:05/01/2024 07:28:28 PM Interpretation: Performing Lab: Notes/Report: Source Facility: [place] [address] Magnetic Resonance Report Signed Patient: SHERRON NUNN MR#: [id number] : 1965 Acct:[id number] Age/Sex: 59 / F ADM Date: 05/01/24 Loc: MRI Attending Dr: Katerine Doherty M.D. Ordering Physician: Katerine Doherty M.D. Date of Service: 05/01/24 Procedure(s): MR shoulder LT wo con Accession Number(s): [id number] cc: Katerine Doherty M.D. [place] [address] Patient Name: SHERRON NUNN MRN: [id number] date: 1965 Sex: F Assigned Patient Location: MRI Current Patient Location: MRI Accession/Order Number: [id number] Exam Date: 05/01/2024 18:50 Report Date: 05/01/2024 [...] Paco Laura M.D.05/01/2024 6:56 PM Dictation Location: [facility] Electronically authenticated by: [id number] Y Date: 05/01/2024 18:56 Dictated By: Paco Laura D.O. Signed By: 05/01/241858 DD/ 55 TD/TT: Monument Stone[employer]ter: [place] [address] Magnetic Resonance Report Signed Patient: ELI NUNN MR#: [id number] : 1965 Acct:[id number] Age/Sex: 59 / F ADM Date: 05/01/24 Loc: MRI Attending Dr: Katerine Doherty M.D. Ordering Physician: Katerine Doherty M.D. Date of Service: 05/01/24 Procedure(s): MR sulaiman anderson LT wo con Accession Number(s): [id number] cc: Katerine Doherty M.D. [place] [id number] Patient Name: SHERRON NUNN MRN: [id number] date: 1965 Sex: F Assigned Patient Location: MRI Current Patient Location: MRI Accession/Order Numb er: [id number] Exam Date: 05/01/2024 18:50 Report Date: 05/01/2024 18:56 At the request of: KATERINE DOHERTY MD Procedure: MR basilio er LT wo con MRI left Shoulder [...] Paco Laura M.D.05/01/2024 6:56 PM Dictation Location: [place] Electronically authe nticated by: [id number] Y Date: 05/01/2024 18:56 Dictated By: Paco Laura D.O. Signed By: 05/01/241858 DD/ 55 TD/TT: Monument Stonecutter: Reason For Referral Diagnosis 1 Pain in left shoulde r (M25.512) Referral Organization [facility] Referring Provider First Name Cosme Referring Provider Last Name [facility] Referring Provider [facility] Referred Provider [facility], Physical Therap y Referred Provider Specialty Physical The rapist Referral Priority Routine Diagnosis 1 Arthritis of left sh oulder region (M19.012) Diagnosis 2 Bursitis of shoulder , left (M75.52) Referral Organization [facility] Referring Provider First Name Cosme Referring Provider Last Name [facility] Referred Provider Gigi Cm Referred Provider Specialty Orthopedic S urgery Referral Priority Routine Diagnosis 1 Cervical radicular p ain (M54.12) Diagnosis 2 Lumbar radiculitis ( M54.16) Referral Organization [facility] Referring Provider First Name Cosme Referring Provider Last Name [facility] Referring Provider [facility] Referred Provider Angelito Cotton Referred Provider Specialty Neurosurgery Referral Priority Routine Medications Medication SIG (Take, Route, Frequency, Duration) Notes Start Date End Date Status tiZANidine HCl 4 MG 2 tablets Orally at bedtime for 15 PRN 01/03/2023 Active Pataday 0.1 % 1 drop into affected eye Ophthalmic Twice a day Active Meloxicam 15 MG 1 tablet Orally Once a day for 30 days 07/16/2024 Active Lisinopril 10 mg TAKE 1 TABLET BY VENKATESH TH DAILY for 90 days Active Gabapentin 300 MG 1 capsule 2 at hs Or ally Daily Active Excedrin Extra Strength 250-250-65 MG 2 tablets Orally Once a day prn PRN Active Voltaren 1 % as directed External ly prn PRN Active Estradiol 0.1 MG/GM as directed Vaginal Active Vitamin D (Cholecalciferol) 25 MCG (1000 UT) 1 capsule Orally Once a day Active Cod Liver Oil 4000-200 UNIT as directed Orally Active Valium 5 MG 1 tablet as needed O rally once about 1 hour before procedure for 1 days 04/29/2024 Active valACYclovir HCl 1 GM 1 tablet Orally On ce a day for 90 days PRN Active Tylenol 8 Hour Arthritis Pain 650 [...] Problem Status W/U Status Risk Notes Problem 52891214 Carpal tunnel syndrome, unspecified upper limb (G56.00) Active confirmed Problem 8188194965885705 Primary osteoarthritis , left ankle and foot (M19.072) Active confirmed Problem 580351711 Hallux rigidus, left foot (M20.22) Active confirmed Problem Arthritis (8162404) Arthritis (M19.90) Active confirmed Problem Left shoulder pain (3778119279) Left shoulder pain (M25.512) Active confirmed Problem Osteoarthritis of right knee joint (273028265592087) Right knee DJD (M17.9) Active confirmed Problem Bicipital tenosynovitis (51278965) Biceps tendonitis (M75.20) Active confirmed Problem Lumbar radiculitis (52156858495407623) Lumbar radiculitis (M54.16) Active confirmed Problem Cervical radiculopathy (41583022) Cervical radicular pain (M54.12) Active confirmed Problem Bursitis of shoulder (377613640) Shoulder bursitis (M75.50) Active confirmed Problem Localized, primary osteoarthritis of the shoulder region (651458608) Arthritis of left shoulder region (M19.012) Active confirmed Problem Bruising (093431007) Bruising (T14.8XXA) Active confirmed Vital Signs Temperature 97.4 degrees Fahrenheit 10/25/2023 Blood pressure diastolic 78 mm Hg 09/22/2024 Height 58 in 09/22/2024 Blood pressure systolic 128 mm Hg 09/22/2024 Weight 134 lbs 09/22/2024 BMI 28 kg/m2 09/22/2024 Encounters Encounter Location Date Provider Diagnosis [place] [address] [place] [address] 10/25/2023 Cosme Hoy Acute bronchitis, unspecified organism J20.9 [place] [address] [place] [address] 03/10/2024 Cosme Hoy Left shoulder pain M25.512 [place] [address] [place] [address] 04/04/2024 Cosme Hoy Biceps tendonitis M7 5.20 [place] [address] [place] [address] 07/16/2024 Cosme Hoy Cervical radiculopat hy M54.12 [place] [address] [place] [address] 08/20/2024 Cosme Hoy Cervical radicular p ain M54.12 [place] [address] [place] [address] 09/22/2024 Cosme Hoy Bruising T14.8XXA [place] [address] [place] [address] 01/24/2024 Cosme Hoy [facility] [address] [place] [place] [address] 03/11/2024 Cosme Hoy Pain in left shoulde r M25.512 [facility] [address] [place] [address] 2024 Cosme Hoy Left shoulder pain M25.512 [facility] [address] [place] [address] 04/29/2024 Cosme Hoy [facility] [address] [place] [address] 05/01/2024 Cosme Hoy Arthritis of left shoulder region M19.012 and Bursitis of shoulder, left M75.52 [facility] [address] [place] [address] 08/20/2024 Cosme Hoy [facility] [address] [place] [place] [address] 08/27/2024 Cosme Hoy [facility] [address] [place] [place] [address] 08/31/2024 Cosme Hoy Cervical radicular p ain M54.12 and Lumbar radiculitis M54.16 Assessments Encounter Date Diagnosis (ICD Code) Assessment Notes Treatment Notes Treatment Clinical Notes Section Notes 10/25/2023 Acute bronchitis, unspecified organism (ICD-10 - J20.9) Rest and drink more liquids, especially water. You may use a humidifier or vaporizer to help keep the drainage moist. Jhms-klw-lnvezan Nasal Saline may help the stuffy and runny nose. Use Ibuprofen and or Tylenol as needed for fever, chills, body aches or pain. Children 5 years old should not be given drvw-qei-evkuoda cough and cold medications such as guaifenesin and dextromethorphan. If you're over age 5, you may try qstd-jkt-awefiwh cold medications such as guaifenesin and dextromethorphan, [...] 08/20/2024 Cervical radicular pain (ICD-10 - M54.12) 09/22/2024 Bruising (ICD-10 - T14.8XXA) 03/11/2024 Pain in left shoulder (ICD-10 - M25.512) 2024 Left shoulder pain (ICD-10 - M25.512) 05/01/2024 Bursitis of shoulder, left (ICD-10 - M75.52) 05/01/2024 Arthritis of left shoulder region (ICD-10 - M19.012) 08/31/2024 Lumbar radiculitis (ICD-10 - M54.16) 08/31/2024 Cervical radicular pain (ICD-10 - M54.12) 07/16/2024 Other Recommended to rest and use a heating pad on the area. Take NSAIDs for pain as needed 08/20/2024 Other Recommended to rest and use [...] Insulin Level 03/30/2023 CBC AUTO DIFF 09/27/2022 CBC AUTO DIFF 09/22/2024 FERRITIN 09/22/2024 PROF 14(COMP METB) 09/22/2024 PROF 14(COMP METB) 09/27/2022 PROTIME 09/22/2024 PTT 09/22/2024 SED RATE WESTERGREN 09/27/2022 MRI CSPINE WO CON 08/20/2024 MRI LSPINE WO CON 03/30/2023 XR CSPINE MIN 4 VIEWS 01/03/2023 XR FOOT LT MIN 3 VIEWS 08/29/2022 XR LSPINE 2_3 VIEWS 01/03/2023 XR LSPINE 2_3 VIEWS 03/30/2023 THYROID PANEL (T4/TSH/FREE T3) 4 Insurance Providers Payer Name Payer Address Payer Phone Subscriber Number Group Number Insured Name Patient Relationship to Insured Coverage Start Date Coverage End Date [employer] [address] [address] [place] [address] [id number] Sherron Nunn Self - patient is the insured Medications Administered Medication Instructions Date of Administration Dosage Notes Kenalog-40 09/27/2022 120 mg 120 Kenalog-40 01/03/2023 120 mg Kenalog-40 03/30/2023 120 mg 120 Kenalog-40 10/25/2023 80 mg Ketorolac Tromethamine 01/03/2023 60 mg Ketorolac Tromethamine 03/30/2023 60 mg 60 Ketorolac Tromethamine 07/16/2024 60 mg Ketorolac Tromethamine 09/22/2024 60 mg Orphenadrine Citrate 01/03/2023 60 mg Orphenadrine Citrate 03/30/2023 60 mg 60 Orphenadrine Citrate 07/16/2024 60 mg Orphenadrine Citrate 09/22/2024 60 mg Triamcinolone 40 mg/ml 03/10/2024 120 mg Triamcinolone 40 mg/ml 04/04/2024 120 mg Triamcinolone 40 mg/ml 07/16/2024 80 mg Triamcinolone 40 mg/ml 08/20/2024 80 mg Medical (General) History Medical History [...]
--- OUTSIDE RECORDS SUMMARY | 2024-09-23 15:46 | XMS_ITS | Clinical Summary ---
Author Organization [facility] tem Address [id number] [place] [address] Care Team Providers Care Marketing Segment Manager Name Role Phone Nikos Jacobs MD Primary Care Provider [phone] Allergies No known active allergies Medications lisinopriL [...] (02/22/2023): Added automatically from request for surgery [id number] Family History Medical History Relation Name Comments [...] 1 c MOLEC BR IMG Kenna Ledesma COMMUNITY AFFAIRS DIRECTOR-PICK UP IMG MAMMOGRAPHY ORDERABL ES Edited Result - Final from Last 3 Months or Most Recently Relevant to Health Maintenance Insurance [employer] Care Teams Marketing Segment Manager Relationship Specialty Start Date End Date Nikos Jacobs MD PCP - General Family Medicine 02/22/23
--- OUTSIDE RECORDS SUMMARY | 2024-09-23 15:47 | XMS_ITS | Clinical Summary ---
Author Organization [facility] Address [address] [place] [address] Care Team Providers Care Nuclear Cardiology Technologist Name Role Phone [facility] [place], Other Unavailable [phone] Social History Tobacco Use Types Packs/Day Years [...] (1 - 2023- season) 2023 INFLUENZA VACCINE (#1) 2024 Care Teams Nuclear Cardiology Technologist Relationship Specialty Start Date End Date [facility] [place], Other [address] [place] [address] PCP - Print Shop Manager Transplant 07/07/21
[2024-09-23 16:22] LABS: Hematocrit 42.4 % (36.0-48.0); Hemoglobin 14.1 g/dL (12.0-16.0); Immature Granulocytes Abs Auto 0.03 10^3/uL (0.00-0.03); Immature Granulocytes Pct Auto 0.3 % (0.0-0.5); Lymphocytes Absolute Auto 2.5 10^3/uL (1.2-3.8); Mean Corpuscular HGB Conc 33.3 g/dL (29.9-35.2); Mean Corpuscular Hemoglobin 30.1 pg (26.7-34.0); Mean Corpuscular Volume 90.6 fL (81.0-99.0); Platelet Count 244 10^3/uL (150-450); Red Blood Count 4.68 10^6/uL (4.20-5.40); White Blood Count 9.9 10^3/uL (4.0-11.0)
[2024-09-23 16:30] LABS: INR 1.03; Partial Thromboplastin Time 23.1 sec (22.3-36.2); Prothrombin Time 10.9 sec (9.0-11.6)
[2024-09-23 17:21] LABS: Alanine Aminotransferase 50 U/L (14-59); Albumin Globulin Ratio 1.1; Albumin Level 4.0 g/dL (3.4-5.0); Alkaline Phosphatase 77 U/L (46-116); Anion Gap 13.7; Aspartate Amino Transferase 24 U/L (15-37); Blood Urea Nitrogen 24.0 mg/dL (7.0-18.0); Calcium 9.7 mg/dL (8.5-10.1); Carbon Dioxide 28.1 mmol/L (21.0-32.0); Chloride 105 mmol/L (98-107); Estimated GFR (African America >60 (>=60 mL/min/1.73m^2); Estimated GFR (Non-African Ame >60 (>=60 mL/min/1.73m^2); Globulin 3.6 g/dL; Glucose 100 mg/dL (74-106); Potassium 3.8 mmol/L (3.5-5.1); Sodium 143 mmol/L (136-145); Total Protein 7.6 g/dL (6.4-8.2)
[2024-09-23 17:34] LABS: Ferritin 63.0 ng/mL (8.0-252.0)
== END 2024-09-23 15:43 | disposition home or self-care (01) ==
LOC: LAB 15:44
PROVIDERS: PCP Family Medicine; Visit Provider Family Medicine
DX: T14.8XXA Other injury of unspecified body region, initial encounter (principal)
CPT/HCPCS: 36415; 80053; 82728; 85025; 85610; 85730

== ENCOUNTER 2025-01-03 11:45 | Outpatient (OUT) | payer OTHER, SELFPAY ==
--- OUTSIDE RECORDS SUMMARY | 2007-10-24 05:45 | XMS_ITS | Continuity of Care Document ---
Author Organization [facility] Address [address] [place] [address] Phone Care Team Providers Care Demand Planning Analyst Name Role Phone Visci DO DO, Miller Unavailable Unavailable Procedures Procedure Date OFFICE/OUTPATIENT VISIT, [facility] MMR VACCINE, [place] Advance Directives Directive Yes / No Effective Date File Name No Information Encounters Encounter Description Practice Location Reason(s) For Visit Diagnoses Date Provider Providers Copied on Encounter OFFICE/OUTPATI ENT VISIT, [facility], [address], [place], [id number], [place] tel:[phone] [facility] No Information Visci Miller. [address], [place], [id number], [place]. tel:[phone] Family History Family Member Type Diagnosis Age At Onset No Information Payers Payer name Insurance type Covered green party ID Authoriza tion(s) No Information Social History Type Description Quantity Date Captured Comments Sex Female Smoking Status No Information Chief Complaint And Reason For Visit No Information Reason For Referral Reason For Referral No Information History Of Present Illness Encounter Date Complaint History Of Prese nt Illness No Information Functional Status Date Functional Assessmen t No Information Instructions Date Instruction Additional Infor mation No Information Assessments Type Assessment Date No Information Patient Care Teams Name Effective Dates (start - stop) Status Members No Information
--- OUTSIDE RECORDS SUMMARY | 2024-12-23 10:30 | XMS_ITS ---
Author Organization [facility] e [facility] Address [address] [place] [address] Care Team Providers Care Scagliola Mechanic Name Role Phone Nikos Jacobs Primary Care Provider UnavailGigi Pappas Unavailable [phone] Chrissy Crow Unavailable [phone] Allergies No Known Allergies REASON FOR VISIT post Cervical SLAVA with local at [facility]IO with Oral sedation, Left sided cervical pain, Bilateral hand pain Medications Medication SIG (Take, Route, Frequency, Duration) Notes Start Date End Date Status lisinopril 20 mg 1 tab(s) orally once a day ActiveCod Liver OilActivediazePAM 10 mg1 tab(s) orally about 30-40 mins prior to injection; Duration: 1 days5ActiveNeurontin 300 mg1-2 cap(s) orally twice a dayActivemultivitaminActiveVitamin DActivevalACYclovir 1 g1 tab(s) orally 3 times a dayActivenaproxenActive Social History Tobacco Use: Social History Observation Description Date Details (start date - stop date) Never Smoker NA - NA AUDIT-C (Standard) Question Answer Notes Did you have a drink containing alcohol in the p ast year? Yes How often did you have a drink containing alcohol in the past year?Monthly or less (1 point)How many drinks did you have on a typical day when you were drinking in the past year?1 or 2 drinks (0 point)How often did you have six or more drinks on one occasion in the past year?Never (0 point)Points1 InterpretationNegativeTobacco Control (Standard) Question Answer Notes Tobacco use: Nonsmoker Problems Problem Type SNOMED Code ICD Code Onset Dates Problem Status W/U Status Risk Notes Problem Lumbar radiculitis (64572763796561109) Jovanna mbar radiculitis (M54.16) ActiveconfirmedProblemLumbar spondylosis (659243518)Lumbar spondylosis (M47.816) Activeconfirmed Vital Signs Height 58 in 12/23/2024 Weight 130 lbs 12/23/2024 BMI 27.17 12/23/2024 Procedures Procedure Date Ordered Date Performed Result Body Sit e LUMBAR SLAVA 12/23/2024 12/23/2024 N/A Encounters Encounter Location Date Provider Diagnosis [place] [facility] [place] [address] 12/23/2024 [facility] Lumbar radiculitis M54.16 and Lumbar spondylosis M47.816 Assessments Encounter Date Diagnosis (ICD Code) Assessment Notes Treatment Notes Treatment Clinical Notes Section Notes 12/23/2024 Lumbar radiculitis (ICD-10 - M54 .16) 12/23/2024Lumbar spondylosis (ICD-10 - M47.816)12/23/2024Other After thorough history, physical examination, and review of patient's previous treatments and imaging results, a description of the patient's painful diagnoses was performed. This was discussed with patient today with use of diagrams and plastic models. Risks and benefits associated with treatments were discussed and the following plan was developed with the patient 1. Interventional The patient will be scheduled to undergo lumbar SLAVA after evaluation revealed symptoms consistent with lumbar radicular pain. Recent advanced imaging, including MRI and/or CT scan, shows evidence forstenosis at the level corresponding with the recommended injection. This lumbar SLAVA will be performed at L4-L5 to the left of the midline. We have yet to treat the patient for any lumbar radicular complaints or any lumbar pain whatsoever. If lumbar pain persists even with improvement in radicular complaints we may need to consider proceeding with medial branch blocks and radiofrequency ablation for any residual axial low back pain. I did encourage her to return to her orthopedic provider in regards to her bilateral hands and wrists for further treatment options especially considering previoushistory of carpal tunnel release with recurrent symptoms 3 years after surgery was completed. 2. Medications No new medications were prescribed at today's visit. The patient was encouraged to continue with their current medication regimen as prescribed by other providers. They were also encouraged to continue with any OTC medications that they may be taking at this time to managing their symptoms. We are not currently prescribing any medications for this patient. She may continue with Neurontin 300 mg in the morning and 600 mg at night. 3. Activity Patient will continue with physical activity as tolerated and continue performing at-home exercisesas previously instructed. 4. Follow up The patient will follow up after the completion of their procedure for further evaluation and treatment. This will serve as a History & Physical for any recommended procedures in the future if scheduled within 30 days of today's visit. This note was generated using a speech recognition program and may contain errors due to phonetic interpretation. Plan Of Treatment Treatment Notes Assessment Notes Other After thorough history, physical examination, and review of patient's previous treatments and imaging results, a description of the patient's painful diagnoses was performed. This was discussed with patient today with use of diagrams and plastic models. Risks and benefits associated with treatments were discussed and the following plan was developed with the patient 1. Interventional The patient will be scheduled to undergo lumbar SLAVA after evaluation revealed symptoms consistent with lumbar radicular pain. Recent advanced imaging, including MRI and/or CT scan, shows evidence for stenosis at the level corresponding with the recommended injection. This lumbar SLAVA will be performed at L4-L5 to the left of the midline. We have yet to treat the patient for any lumbar radicular complaints or any lumbar pain whatsoever. If lumbar pain persists even with improvement in radicular complaints we may need to consider proceeding with medial branch blocks and radiofrequency ablation for any residual axial low back pain. I did encourage her to return to her orthopedic provider in regards to her bilateral hands and wrists for further treatment options especially considering previous history of carpal tunnel release with recurrent symptoms 3 years after surgery was completed. 2. Medications No new medications were prescribed at today's visit. The patient was encouraged to continue with their current medication regimen as prescribed by other providers. They were also encouraged to continue with any OTC medications that they may be taking at this time to managing their symptoms. We are not currently prescribing any medications for this patient. She may continue with Neurontin 300 mg in the morning and 600 mg at night. 3. Activity Patient will continue with physical activity as tolerated and continue performing at-home exercises as previously instructed. 4. Follow up The patient will follow up after the completion of their procedure for further evaluation and treatment. This will serve as a History & Physical for any recommended procedures in the future if scheduled within 30 days of today's visit. This note was generated using a speech recognition program and may contain errors due to phonetic interpretation. Next Appt Details Provider Name:Azar Mohamud, 1 03/04/2024 09:30:00 AM, [address] [place] [address], [place], [address], Provider Name:Chrissy Merino rd, 02/09/2025 03:30:00 PM, [address] [place] [address], [place], [address], Progress Notes * GÓMEZ NUNN MDOB: 7 (59 yo F)Acc No.[id number]:12/23/2024 Patient:?GÓMEZ NUNN :?Chrissy Crow APRN-CNPDOB:1965???Age: 59 Y???Sex:FemaleDate:12/23/2024Phone:[phone]:Yahaira RAI DR, [phone]:Nikos Jacobs Subjective: * Chief Complaints: * p ost Cervical SLAVA with local at [facility] with Oral sedationLeft sided cervical painBilateral hand pain * HPI: ???HPI:? Patient returns today for post procedure follow-up after undergoing cervical SLAVA on 11/21/2024. Today the patient reports their pain is better with their worst pain 5/10, least pain 0/10, and usual pain 3-6/10. Patient reports significant relief of cervical spinepain as well as pain traveling up to the shoulders and into the bilateral upper extremities howevershe does continue have pain into the bilateral wrists and hands stating that it feels like I have been smacked across the wrists. She describes burning and stiffness into the hands. Patient has undergone bilateral carpal tunnel release previously completed in 2021 stating that this did provide her with relief but for only 1 year. She has had trigger finger releases of the 3rd and 4th digits of the bilateral hands as well and did find this to be very beneficial for some of her hand pain. She does feel that some of her hand symptoms are starting to return. She does report having undergone EMG approximately 1 year after carpal tunnel release which confirmed the recurrence of carpaltunnel syndrome. She has yet to follow-up with orthopedics even after her EMG was completed. She does also have complaints of pain into the left greater than right sided lower back and traveling intothe anterior left thigh following what appears to be exclusively an L4 dermatomal pattern describing numbness and tingling sensations. She states this is a newer set of symptoms over the course of the last 3 to 4 weeks. She notices this when walking or standing for any period of time greater than 10 to 15 minutes as well as when getting out of bed in the morning. Sitting and nonweightbearing posit ions do provide her with relief of the numbness and tingling sensations as well as help with some of her midline low back pain where she describes stiffness and achiness. She does perform repetitive bending and lifting type activities that do seem to exacerbate her low back pain as well. She does continue with gabapentin 600 mg nightly and 300 mg in the morning. She does also utilize naproxen daily as needed finding very mild relief with this. * Medical History: * Surgical History: C esarean x2 Hysterectomy 2005Left Achilles 2016Left shoulder replacement 2019Right shoulder replacement /L CTR 2021 * Family History: M other: , diagnosed with Hypertension. S iblings: , Kidney disease, diagnosed with Hypertension. F ather: , diagnosed with Hypertension. 1 son(s) , 1 daughter(s) . . * Social History: A ISIDRO-C (Standard) D id you have a drink containing alcohol in the past year? Y es,?How often did you have a drink containing alcohol in the past year? M onthly or less (1 point), H ow many drinks did you have on a typical day when you were drinking in the past year? 1 or 2 drinks (0 point), H ow often did you have six or more drinks on one occasion in the past year? N ever (0 point), P oints 1 , I nterpretation N egative. T obacco Control (Standard) T obacco use: N onsmoker. * Medications: T akingvalACYclovir 1 g tablet 1 tab(s) orally 3 times a day Vitamin D multivitamin Cod Liver Oil lisinopril 20 mg tablet 1 tab(s) orally once a day Neurontin 300 mg capsule 1-2 cap(s) orally twice a day diazePAM 10 mg tablet 1 tab(s) orally about 30-40 mins prior to injection naproxen Medication List reviewed and reconciled with the patientTaking valACYclovir 1 g tablet 1 tab(s) orally 3 times a day Taking Vitamin D Taking multivitamin Taking Cod Liver Oil Taking lisinopril 20 mg tablet 1 tab(s) orally once a day Taking Neurontin 300 mg capsule 1-2 cap(s) orally twice a day Taking diazePAM 10 mg tablet 1 tab(s) orally about 30-40 mins prior to injection Taking naproxen Medication List reviewed and reconciled with the patient * Allergies: N .K.D.A.no[Allergies Verified] Objective: * Vitals: P ain Scale (NRS): 6, Ht: 58 in, Wt: 130 lbs, BMI:27.17. * Examination: ???General examination: ???Well-developed, well nourished. Alert and cooperative. Reliable historian. Seatedin mild discomfort in a chair in exam room. ???Skin: ???Warm, dry and intact. ???Chest: ???Equal expansion, clear to auscultation bilaterally. ???Neurologic exam: ???Sensory and motor function within normal limits into the bilateral upper and lower extremities. Seated straight leg raise was positive for radicular pain to the left anterior thigh following the L4 dermatome. ???HEENT: ???Extraocular movements intact, head is normocephalic and atraumatic. ???Cardiovascular: ???Regular rate and rhythm without murmurs, rubs or gallops. ???Lumbar Spine: ???Mild tenderness over the left greater than right lumbar facet joints at L4-5 and L5-S1 with mild discomfort to the left during loading and no discomfort to the right. Nontender throughout the remainder lumbar spine. SI joints and piriformis muscles were nontender to palpation bilaterally. Compression and distraction, Gaenslen's maneuver, and Royal's maneuver all negative for SI Joint pathology bilaterally. ???MRI STUDIES: ???MRI lumbar spine 04/14/23 Paraspinal areas normal with no visible masses. No fractures, pars defect or osseous lesions identified. Normal caliber, contour and signal intensity of the spinal cord and cauda equina. T12-L3:No significant disc/facet abnormality, spinal stenosis or foraminal stenosis. L3-L4:Mild central canal and left foraminal narrowing. Mild diffuse disc bulging, mild disc height reduction, and mild degenerative facet hypertrophy bilaterally. L4-L5:Moderate central canal and left foraminal narrowing. Mild right foraminal narrowing. Moderatediffuse disc bulging with mild disc height reduction and suspected small disc extrusion within the left foramen extending 3 cm cephalad. Moderate degenerative facet arthropathy and ligamentum flavum thickening bilaterally. L5-S1:No significant disc/facet abnormality, spinal stenosis or foraminal stenosis. ???Psychological: ???Normal affect. ??? Assessment: * Assessment: 1.?Lumbar radiculitis - M54.16 (Primary)???2.?Lumbar spondylosis - M47.816& #160;?? Plan: * Treatment: ?Procedure: LUMBAR SLAVA (Performed Date - 12/23/2024)2.?Others? Notes: After thorough history, physical examination, and review of patient's previous treatments and imaging results, a description of the patient's painful diagnoses was performed. This was discussed with patient today with use of diagrams and plastic models. Risks and benefits associated with treatments were discussed and the following plan was developed with the patient 1. Interventional The patient will be scheduled to undergo lumbar SLAVA after evaluation revealed symptoms consistent with lumbar radicular pain. Recent advanced imaging, including MRI and/or CT scan, shows evidence forstenosis at the level corresponding with the recommended injection. This lumbar SLAVA will be performed at L4-L5 to the left of the midline. We have yet to treat the patient for any lumbar radicular complaints or any lumbar pain whatsoever. If lumbar pain persists even with improvement in radicular complaints we may need to consider proceeding with medial branch blocks and radiofrequency ablation for any residual axial low back pain. I did encourage her to return to her orthopedic provider in regards to her bilateral hands and wrists for further treatment options especially considering previoushistory of carpal tunnel release with recurrent symptoms 3 years after surgery was completed. 2. Medications No new medications were prescribed at today's visit. The patient was encouraged to continue with their current medication regimen as prescribed by other providers. They were also encouraged to continue with any OTC medications that they may be taking at this time to managing their symptoms. We are not currently prescribing any medications for this patient. She may continue with Neurontin 300 mg in the morning and 600 mg at night. 3. Activity Patient will continue with physical activity as tolerated and continue performing at-home exercisesas previously instructed. 4. Follow up The patient will follow up after the completion of their procedure for further evaluation and treatment. This will serve as a History & Physical for any recommended procedures in the future if scheduled within 30 days of today's visit. This note was generated using a speech recognition program and may contain errors due to phonetic interpretation.?? * Procedure Codes: 9 9214 Office Visit, Est Pt., Level 4, SA Forms: * Images: * ign off status: Completed true * Provider: RUTH Kline Date: 1 02/23/2024 Generated for Printing/Faxing/eTransmitting on:?12/31/2024 03:39 PM EST History and Physical Notes * HPI (History of Present Illness) CategorySub-CategoryDetailNotesCategory NotesHPIPatient returns today for post procedure follow-up after undergoing cervical SLAVA on 11/21/2024. Today the patient reports their pain is better with their worst pain 5/10, least pain 0/10, and usual pain 3-6/10. Patient reports significant relief of cervical spine pain as well as pain traveling up tothe shoulders and into the bilateral upper extremities however she does continue have pain into thebilateral wrists and hands stating that it feels like I have been smacked across the wrists. She describes burning and stiffness into the hands. Patient has undergone bilateral carpal tunnel release previously completed in 2021 stating that this did provide her with relief but for only 1 year. She has had trigger finger releases of the 3rd and 4th digits of the bilateral hands as well and did find this to be very beneficial for some of her hand pain. She does feel that some of her hand symptoms are starting to return. She does report having undergone EMG approximately 1 year after carpal tunnel release which confirmed the recurrence of carpal tunnel syndrome. She has yet to follow-up withorthopedics even after her EMG was completed. She does also have complaints of pain into the left gr eater than right sided lower back and traveling into the anterior left thigh following what appearsto be exclusively an L4 dermatomal pattern describing numbness and tingling sensations. She states this is a newer set of symptoms over the course of the last 3 to 4 weeks. She notices this when walking or standing for any period of time greater than 10 to 15 minutes as well as when getting out of bed in the morning. Sitting and nonweightbearing positions do provide her with relief of the numbness and tingling sensations as well as help with some of her midline low back pain where she describesstiffness and achiness. She does perform repetitive bending and lifting type activities that do seem to exacerbate her low back pain as well. She does continue with gabapentin 600 mg nightly and 300 mg in the morning. She does also utilize naproxen daily as needed finding very mild relief with this. Examination CategorySub-CategoryDetailNotesCategory NotesGeneral examinationWell-developed, well nourished. Alert and cooperative. Reliable historian. Seated in mild discomfort in a chair in exam room.SkinWarm, dry and intactChestEqual expansion, clear to auscultation bilaterallyNeurologic examSensory and motor function within normal limits into the bilateral upper and lower extremities. Seated straight leg raise was positive for radicular pain to the left anterior thigh following the L4 dermatome.HEENTExtraocular movements intact, head is normocephalic and atraumaticCardiovascularRegular rate and rhythm without murmurs, rubs or gallopsLumbar SpineMild tenderness over the left greater than right lumbar facet joints at L4-5 and L5-S1 with mild discomfort to the left during loading and no discomfort to the right. Nontender throughout the remainde r lumbar spine. SI joints and piriformis muscles were nontender to palpation bilaterally. Compression and distraction, Gaenslen's maneuver, and Royal's maneuver all negative for SI Joint pathology bilaterally.MRI STUDIES MRI lumbar spine 04/14/23 Paraspinal areas normal with no visible masses. No fractures, pars defect or osseous lesions identified. Normal caliber, contour and signal intensity of the spinal cord and cauda equina. T12-L3:No significant disc/facet abnormality, spinal stenosis or foraminal stenosis. L3-L4:Mild central canal and left foraminal narrowing. Mild diffuse disc bulging, mild disc height reduction, and mild degenerative facet hypertrophy bilaterally. L4-L5:Moderate central canal and left foraminal narrowing. Mild right foraminal narrowing. Moderatediffuse disc bulging with mild disc height reduction and suspected small disc extrusion within the left foramen extending 3 cm cephalad. Moderate degenerative facet arthropathy and ligamentum flavum thickening bilaterally. L5-S1:No significant disc/facet abnormality, spinal stenosis or foraminal stenosis. PsychologicalNormal affect
--- OUTSIDE RECORDS SUMMARY | 2024-12-24 10:15 | XMS_ITS ---
Author Organization [facility] in [place] Address [address] [place] [address] Care Team Providers Care Shelter Advocate Name Role Phone Cosme Jacobs Primary Care Provider Allergies No Known Allergies REASON FOR VISIT Bilateral Hand Pain Medications Medication SIG (Take, Route, Frequency, Duration) Notes Start Date End Date Status Meloxicam 15 MG 1 tablet Orally Once a day; Dura tion: 30 days 5ActivePataday 0.1 %1 drop into affected eye Ophthalmic Twice a day ActivetiZANidine HCl 4 MG2 tablets Orally at bedtime; Duration: 81WZG5001/03/2023 ActiveTylenol 8 Hour Arthritis Pain 650 MG2 tablets as needed Orally every 8 hrs prnPRNActivevalACYclovir HCl 1 GM1 tablet Orally Once a day; Duration: 90 days PRNActiveLisinopril 10 mgTAKE 1 TABLET BY MOUTH DAILY; Duration: 90 daysActive Cod Liver Oil 4000-200 UNITas directed OrallyActiveEstradiol 0.1 MG/GMas directed VaginalActiveExcedrin Extra Strength 250-250-65 MG2 tablets Orally Once a day prnPRNActiveGabapentin 300 MG1 capsule 2 at hs Orally DailyActive predniSONE 20 MG3 tablets Orally Once a day; Duration: 5 days5Active Valium 5 MG1 tablet as needed Orally once about 1 hour before procedure; Duration: 1 days5ActiveVitamin D (Cholecalciferol) 25 MCG (1000 UT)1 capsule Orally Once a dayActiveVoltaren 1 %as directed Externally prnPRNActive Social History Tobacco Use: Social History Observation Description Date Details (start date - stop date) Never Smoker NA - NA Tobacco Use/Smoking Question Answer Notes Patient is a nonsmoker Vital Signs Weight 133.4 lbs 12/24/2024 Height 58 in 12/24/2024 Blood pressure systolic 144 mm Hg 12/25/19 25 Blood pressure diastolic 84 mm Hg 025 BMI 27.88 kg/m2 12/24/2024 Encounters Encounter Location Date Provider Diagnosis [facility] [address] [place] [address] 12/24/2024 Cosme Jacobs Arthritis M19.90 Assessments Encounter Date Diagnosis (ICD Code) Assessment Notes Treatment Notes Treatment Clinical Notes Section Notes 12/24/2024 Arthritis (ICD-10 - M19.90) Plan Of Treatment Medication Medication Name Sig Start Date Stop Date Notes predniSONE 20 MG 3 tablets Orally Once a day; Duration : 5 days 12/24/2024 Medications Administered Medication Instructions Date of Administration Dosage Notes Dexamethasone, 4mg/mL mgKetorolac Rjoyqwuxwwin19/05/427986 mg Progress Notes * Sherron NUNN MDOB: 7 (59 yo F)Acc No.[id number]:12/24/2024 Progress Note Patient: Sherron JIMENEZ :?Nikos MartinEmily Jacobs ([facility]), MDDOB:1965???Age: 59 Y???Sex:FemaleDate:12/24/2024Phone:[phone]:[phone], [place], [id number] In:03:18 PM ESTCheck Out:03:46 PM EST Subjective: * Chief Complaints: * B ilateral Hand Pain * HPI: ???General:? Bit hand pain doing more activities-? some extralifting for fall stuff feel like th aching joints- naprosyn hel;ps some - but not lating whole day feels lkike CTS - failed test arlrady. 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 Modified On:07/26/2022W/U Status:vrpngxmvdL57.072Primary osteoarthritis, left ankle and foot Modified On:10/04/2022W/U Status:kuqqohmvnJ56.90Arthritis Modified On:10/25/2022U Status:eyonixokiO49.22Hallux rigidus, left foot Modified On:10/04/2022/U Status:xqugytaskF48.16Lumbar radiculitis Modified On:04/16/2023/U Status:enatshsukL86.00Carpal tunnel syndrome, unspecified upper limb Modified On:01/04/2023U Status:csxxmfrpoL70.512Left shoulder pain Modified On:03/10/2024/U Status:nnehzybrgO40.20Biceps tendonitis Modified On:04/04/2024/U Status:yhhypptbkA32.012Arthritis of left shoulder region Modified On:05/02/2024U Status:ngntgycjfH58.50Shoulder bursitis Modified On:08/19/2024U Status:bbqeowoglM47.12Cervical radicular pain Modified On:08/20/2024U Status:hhtoauruyK26.8XXABruising Modified On:09/22/2024U Status:vshnlzjlhM86.30Trigger finger Modified On:10/01/2024/U Status:qizhsthhhK19.06Lumbar spondylolysis Modified On:12/25/2024 Status:confirmed * Medical History: * Surgical History: t flour mixer helper finger TS right TS left / left trigger finger 05/2017rotator cuff left 11/2019rotator cuff left eft achilles tendon 05/2016hysterctomy 06/2005Cervical Epidural Steroid Inj- Dr Mohamud 11/21/24 * Hospitalization/Major Diagno stic Procedure: Lea guido Past Hospitalization * Family History: F ather: 79 yrs. M other: 78 yrs, diagnosed with Heart Disease. B shirley(s): 52 yrs. S on(s): alive. D fior(s): alive. M aternal aunt: diagnosed with Cancer. 1 brother(s) . 1 son(s) , 1 daughter(s) - healthy. . * Social History: ???Tobacco Use:?Tobacco Use/Smoking?Patient is a?nonsmoker * Medications: T akingCod Liver Oil 4000-200 UNIT Capsule as directed Orally Estradiol 0.1 MG/GM Cream as directed Vaginal Excedrin Extra Strength(Nbhdopt-Pnildbtqvrahp-Mkzdsupf) 250-250-65 MG Tablet 2 tablets Orally Once a day prn , Notes to Pharmacist: PRNGabapentin 300 MG Capsule 1 capsule 2 at hs Orally Daily Lisinopril 10 mg Tablet TAKE 1 TABLET BY MOUTH DAILY Meloxicam 15 MG Tablet 1 tablet Orally Once a day Pataday(Olopatadine HCl) 0.1 % Solution 1 drop into affected eye Ophthalmic Twice a day tiZANidine HCl 4 MG Tablet 2 tablets Orally at bedtime , Notes to Pharmacist: PRNTylenol 8 Hour Arthritis Pain(Acetaminophen ER) 650 MG Tablet Extended Release 2 tablets as needed Orally every 8 hrs prn , Notes to Pharmacist: PRNvalACYclovir HCl 1 GM Tablet 1 tablet Orally Once a day , Notes to Pharmacist: PRNValium(diazePAM) 5 MG Tablet 1 tablet as needed Orally once about 1 hour before procedure Vitamin D (Cholecalciferol) 25 MCG (1000 UT) Capsule 1 capsule Orally Once a day Voltaren 1 % Gel as directed Externally prn , Notes to Pharmacist: PRNMedication List reviewed and reconciled with the patientTaking Cod Liver Oil 4000-200 UNIT Capsule as directed Orally Taking Estradiol 0.1 MG/GM Cream as directed Vaginal Taking Excedrin Extra Strength(Egdocve-Efmkjslgsftws-Xlgkvspp) 250-250-65 MG Tablet 2 tablets Orally Once a day prn , Notes to Pharmacist: PRNTaking Gabapentin 300 MG Capsule 1 capsule 2 at hs Orally Daily Taking Lisinopril 10 mg Tablet TAKE 1 TABLET BY MOUTH DAILY Taking Meloxicam 15 MG Tablet 1 tablet Orally Once a day Taking Pataday(Olopatadine HCl) 0.1 % Solution 1 drop into affected eye Ophthalmic Twice a day Taking tiZANidine HCl 4 MG Tablet 2 tablets Orally at bedtime , Notes to Pharmacist: PRNTaking Tylenol 8 Hour Arthritis Pain(Acetaminophen ER) 650 MG Tablet Extended Release 2 tablets as needed Orally every 8 hrs prn , Notes to Pharmacist: PRNTaking valACYclovir HCl 1 GM Tablet 1 tablet Orally Once a day , Notes to Pharmacist: PRNTaking Valium(diazePAM) 5 MG Tablet 1 tablet as needed Orally once about 1 hour before procedure Taking Vitamin D (Cholecalciferol) 25 MCG (1000 UT) Capsule 1 capsule Orally Once a day Taking Voltaren 1 % Gel as directed Externally prn , Notes to Pharmacist: PRNMedication List reviewed and reconciled with the patient * Allergies: N .K.D.A.no[Allergies Verified] Objective: * Vitals: W t:133.4lbs, Ht: 58 in, BP:144/84mm Hg, BMI:27.88Index, Ht-cm: 147.32 cm, Wt-k.51 kg. * Examination: ???Upper Extremities: ???Bilateral wrist pain with poor rom. Assessment: * Assessment: 1.?Arthritis - M19.90 (Primary)??? Plan: * Treatment: Start predniSONE Tablet, 20 MG, 3 tablets, Orally, Once a day, 5 days, 15 Tablet.?? * Therapeutic Injections: Dexamethasone, 4mg/mL : 8 mg (Route: Intramuscular) given by PAUAL Gutierrez on right buttock ?? Ketorolac Tromethamine : 60 mg (Route: Intramuscular) given by PAULA Gutierrez on left buttock (Arthritis) * Procedure Codes: 9 6372 THERAP.INJ. OF MED. INTRAMUSCULAR OR [id number] Dexamethasone, 4mg/mL, Units: 2.00 J1885 TORADOL, PER 15 MG, Units: 4.00 , Modifiers: JZ * Preventive Medicine: ??Screenings/Counseling:?BMI ACTION PLAN?Above Normal BMI Follow-up?Dietary management education, guidance, and counseling * * Sign off status: CompletedVisit Status:?CHK (Check Out) true * Provider: Lea Jacobs ([facility])MD Date: 02/24/2024 Generated for Printing/Faxing/eTransmitting on:?12/31/2024 04:29 PM EST History and Physical Notes * HPI (History of Present Illness) CategorySub-CategoryDetailNotesCategory NotesGeneral Bit hand pain doing more activities- some extralifting for fall stuff feel like th aching joints- naprosyn hel;ps some - but not lating whole day feels lkike CTS - failed test arlrady Examination CategorySub-CategoryDetailNotesCategory NotesUpper ExtremitiesBilateral wrist pain with poor rom
--- OUTSIDE RECORDS SUMMARY | 2024-12-31 16:30 | XMS_ITS | Clinical Summary ---
Author Organization [facility] Healthcare Address [address] [place] [address] Care Team Providers Care Pit And Auxiliaries Supervisor Name Role Phone Unavailable Primary Care Provider Unavailabl e Social History Tobacco UseTypesPacks/DayYears UsedDateSmoking Tobacco: Never Assessed CommentsUnknownSex and Gender InformationValueDate RecordedSex Assigned at Not on fileLegal JhePynmuy75/15/2023 6:35 PM EDTGender IdentityNot on fileSexual OrientationNot on file Last Filed Vital Signs Vital SignReadingTime TakenCommentsBlood Yjhlnqkv671/8010 12:00 PM EDT Pulse--Temperature--Respiratory Rate--Oxygen Saturation--Inhaled Oxygen Concentration--Azgdra39.1 kg (137 lb)12/18/2021 12:00 PM FXDOckgvy334.3 cm (4' 10 )12/18/2021 12:00 PM EDTBody Mass Index28.6312/18/2021 12:00 PM EDT Plan of Treatment Not on file
--- OUTSIDE RECORDS SUMMARY | 2024-12-31 16:30 | XMS_ITS | Clinical Summary ---
Author Organization [facility] Address [address] [place] [address] Care Team Providers Care Relief Mate Name Role Phone Nikos Jacobs MD Primary Care Provider [phone] Allergies No known active allergies Medications MedicationSigDispense QuantityRefillsLast FilledStart DateEnd DateStatus etodolac (Lodine) 500 mg tablet Take 500 mg by mouth in the morning and at bedtime.06/13/2022ctive lisinopril 10 mg tablet Take 1 tablet by mouth in the morning.Active gabapentin (Neurontin) 300 mg capsule 1 capsule 1 (one) time each day at the same time.Active PARoxetine CR (Paxil-CR) 12.5 mg 24 hr tablet Take 12.5 mg by mouth in the morning.06/06/2022ctive Active Problems ProblemNoted DateDiagnosed DateTrigger finger, wfnxkmta52/18/2023 Overview (07/06/2022): Added automatically from request for surgery [id number] Family History RelationNameStatusCommentsBrotherDeceasedFatherDeceasedMotherDeceased Social History Tobacco UseTypesPacks/DayYears UsedDateSmoking Tobacco: NeverSmokeless Tobacco: Never Tobacco Cessation:Counseling Given: Not Answered Alcohol UseStandard Drinks/WeekCommentsNever0 (1 standard drink = 0.6 oz pure alcohol)PHQ-2AnswerDate RecordedPatient Health Questionnaire-2 Joeyv892 [place] Safety & EnvironmentAnswerDate RecordedFear of Current or Ex-PartnerNot on file04/12/2023Emotionally AbusedNot on file04/12/2023hysically AbusedNot on file04/12/2023Sexually AbusedNot on file04/12/2023hysically or Sexually Abused Not on file04/12/2023CommentsUnknownSex and Gender InformationValueDate RecordedSex Assigned at FgicwClxoam01/18/2023 3:04 PM EDTLegal SexFemale 08/18/2021 12:17 AM EDTGender TspjrzrnNxdmwb63/18/2023 3:04 PM EDTSexual OrientationHeterosexual or Nidyjxrh11/18/2023 3:04 PM EDT Last Filed Vital Signs Vital SignReadingTime TakenCommentsBlood Ibepwuxh438/61007/24/2022 2:25 PM EDT Bxrnf4325/05/2023 2:25 PM FPLHmhjkhbhgcl65 ??C (96.8 ??F)07/24/2022 2:25 PM EDT Respiratory Dfke743607/24/2022 2:25 PM EDTOxygen Bjpkxtrbyq96%07/24/2022 2:25 PM EDTInhaled Oxygen Concentration--Gbtycd07.5 kg (140 lb)09/29/2022 8:08 AM EDT Odjcwk605.3 cm (4' 10 )09/29/2022 8:08 AM EDTBody Mass Index29.2608 8:08 AM EDT Plan of Treatment Health MaintenanceDue DateLast DoneCommentsCT Ahodsjvxumyk09/21/1967Colonoscopy 1966Colorectal Cancer Xunsagoxi78/21/1967FIT-DNA1966FIT1966 FOBT1966 1873Baympxkoyvrqu27/21/1967Depression Izanfrzhy36/21/1979Hepatitis B Vaccines (1 of 3 - 19+ 3-dose series)1985Pap Smear1987Adult Tetanus 1988Cervical Cancer Eunguakfk30/21/1997HPV/Bimcqj5904/11/1996Mammogram 2006Zoster Vaccines (1 of 2)2016Influenza Vaccine (#1)2024HIB VaccinesAged OutNo longer eligible based on patient's age to complete this topic HPV VaccinesAged OutNo longer eligible based on patient's age to complete this topicIPV VaccinesAged OutNo longer eligible based on patient's age to complete this topicMeningococcal B VaccineAged OutNo longer eligible based on patient's age to complete this topicMeningococcal VaccineAged OutNo longer eligible based on patient's age to complete this topicPneumococcal Vaccine: Pediatrics (0 to 5 Years) and At-Risk Patients (6 to 64 Years)Aged OutNo longer eligible based on patient's age to complete this topicRotavirus VaccinesAged OutNo longer eligible based on patient's age to complete this topic Insurance Care Teams Team MemberRelationshipSpecialtyStart DateEnd Nikos Jacobs MD [address] [facility] [place] [address] [facility]07/06/22
--- OUTSIDE RECORDS SUMMARY | 2024-12-31 16:30 | XMS_ITS | Clinical Summary ---
Author Organization [facility] Address [address] [place] [address] Care Team Providers Care Separator Operator [employer] Name Role Phone [facility], Other Unavailable [phone] Social History Tobacco UseTypesPacks/DayYears UsedDateSmoking Tobacco: Never Assessed CommentsUnknownSex and Gender InformationValueDate RecordedSex Assigned at Not on fileLegal WbdRvuipb90/19/2022 12:00 PM EDTGender IdentityNot on file Sexual OrientationNot on file Last Filed Vital Signs Vital SignReadingTime TakenCommentsBlood Pressure--Pulse--Temperature-- Respiratory Rate--Oxygen Saturation--Inhaled Oxygen Concentration--Oqvrii48.2 kg (135 lb)07/07/2021 12:00 PM LNNPafmxe065.8 cm (4' 9 )07/07/2021 12:00 PM EDTBody Mass Index29.21007/07/2021 12:00 PM EDT Plan of Treatment Health MaintenanceDue DateLast DoneCommentsHEPATITIS C VIRUS XMZXVVAMX94/21/1967 GALXJNI29 1966HIV SCREENING VUEDHQQIRM53/21/1982HEP B VACCINE (1 of 3 - 19+ 3-dose series)1985TDAP (ADULT)1985CERVICAL CANCER SCREENING MABDXXGUQO15/21/1988LIPID KLPNLGGBS75/21/2007MAMMOGRAM SCREENING DISCUSSION 2006COLORECTAL CANCER SCREENING BTORGFXLGI33/21/2012PNEUMOCOCCAL VACCINE SERIES (1 of 1 - PCV)2016ZOSTER (SHINGLES) VACCINE (1 of 2)2016 COVID-19 VACCINE (1 - 2024- season)2024INFLUENZA VACCINE (#1)2024 Care Teams Team MemberRelationshipSpecialtyStart DateEnd Date [facility], Other [address] [place] [address] PCP - Transplant CoordinatorTransplant07/07/21
--- OUTSIDE RECORDS SUMMARY | 2024-12-31 16:30 | XMS_ITS | Patient Health Record ---
Author Organization [facility] [place] Address [address] [place] [address] Care Team Providers Care Plasterer Foreman Name Role Phone Cosme Doherty Primary Care Provider Allergies No Known Allergies Results Component Value Reference Range Notes XR cervical spine 2-3V Reviewed date:08/20/2024 07:16:37 PM Interpretation: Performing Lab: Notes/Report: Source Facility: [place] [address] XRay Report Signed Patient: SHERRON NUNN MR#: [id number] : 1965 Acct:[id number] Age/Sex: 59 / F ADM Date: 08/20/24 Loc: RAD Attending Dr: Katerine Doherty M.D. Ordering Physician: Katerine Doherty M.D. Date of Service: 08/20/24 Procedure(s): XR cervical spine 2-3V Accession Number(s): [id number] cc: Katerine Doherty M.D. [place] [address] Patient Name: SHERRON NUNN MRN: [id number] date: 1965 Sex: F Assigned Patient Location: RAD Current Patient Location: RAD Accession/Order Number: [id number] Exam Date: 08/20/2024 16:31 Report Date: 08/20/2024 [...] Jr., D.O. 08/20/2024 4:31 PM Dictation Location: [place] [address] Electronically authenticated by: [id number] Y Date: 08/20/2024 16:31 Dictated By: Parminder Jacobo M.D. Signed By: 08/20/244 DD/ 30 TD/TT: Sheet Hanger: FERRITIN Reviewed date:09/24/2024 12:35:49 PM Interpretation: Performing Lab: Notes/Report: [facility] , Ferritin 63.0 8.0-252.0 ng/mL Performing Lab:see noteML - [facility] LBPROF 14(COMP METB) Reviewed date:09/24/2024 12:35:49 PM Interpretation: Performing Lab: Notes/Report: [facility] ,Kfmkmo622070-832 mmol/LPotassium3.83.5-5.1 mmol/MWbtabxqt07493-061 mmol/LCarbon Jeeuwqg00.121.0-32.0 mmol/LAnion Gap13.0Uvphxne21075-365 mg/dLBlood Urea Wllpprwo10.07.0-18.0 mg/dLCreatinine0.650.55-1.02 mg/dLEstimated GFR ( Lyn>60>=60 mL/min/1.73m 2Estimated GFR (Non- Abbey>60>=60 mL/min/1.73m 2BUN Creatinine Ratio36.6Ldapwpz5.78.5-10.1 mg/dLBilirubin Total0.30.2-1.0 mg/dL Aspartate Amino Tfuooadwzdt8467-27 U/LAlanine Zwspuyhzebciiuzs3545-97 U/L Alkaline Gectrnvufbt3490-552 U/LTotal Protein7.66.4-8.2 g/dLAlbumin Level4.03.4- 5.0 g/dLGlobulin3.6Albumin Globulin Ratio1.1Performing Lab:see noteML - [facility] LBPTT Reviewed date:09/24/2024 12:35:49 PM Interpretation: Performing Lab: Notes/Report: [facility] ,Partial Thromboplastin Time23.122.3-36.2 secPerforming Lab:see noteML - [facility] LBMR shoulder LT wo con Reviewed date:05/01/2024 07:28:28 PM Interpretation: Performing Lab: Notes/Report: Source Facility: [facility]-[address] [place] [address] [place] [address] Magnetic Resonance Report Signed Patient: SHERRON NUNN MR#: [id number] : 1965 Acct:[id number] Age/Sex: 59 / F ADM Date: 05/01/24 Loc: MRI Attending Dr: Katerine Doherty M.D. Ordering Physician: Katerine Doherty M.D. Date of Service: 05/01/24 Procedure(s): MR shoulder LT wo con Accession Number(s): [id number] cc: Katerine Doherty M.D. [place] [address] Patient Name: SHERRON NUNN MRN: [id number] date: 1965 Sex: F Assigned Patient Location: MRI Current Patient Location: MRI Accession/Order Number: [id number] Exam Date: 05/01/2024 18:50 Report Date: 05/01/2024 [...] Paco Laura M.D.05/01/2024 6:56 PM Dictation Location: [place] [address] Electronically authenticated by: [id number] Y Date: 05/01/2024 18:56 Dictated By: Paco [place] D.O. Signed By: 05/01/241858 DD/ 55 TD/TT: Sheet Hanger:CBC AUTO DIFF Reviewed date:09/24/2024 12:35:49 PM Interpretation: Performing Lab: Notes/Report: [facility] ,White Blood Count9.94.0-11.0 10 3/uLRed Blood Count4.684.20-5.40 10 6/uL Zmztjnnckl75.112.0-16.0 g/hNQlarwejcsz66.436.0-48.0 %Mean Corpuscular Apkccw43.6 81.0-99.0 fLMean Corpuscular Rgewpdoant81.126.7-34.0 pgMean Corpuscular HGB Conc 33.329.9-35.2 g/dLRed Cell Distribution Width14.011.0-15.0 %Platelet Uwijg838 150-450 10 3/uLMean Platelet Volume9.99.5-13.5 fLNeutrophils Percent Auto65.8 43.0-75.0 %Lymphocytes Percent Auto25.420.5-60.0 %Monocytes Percent Auto7.21.7- 12.0 %Eosinophils Percent Auto1.10.9-7.0 %Basophils Percent Auto0.20.2-2.0 % Immature Granulocytes Pct Auto0.30.0-0.5 %Neutrophils Absolute Auto6.51.4-6.5 10 3/uLLymphocytes Absolute Auto2.51.2-3.8 10 3/uLMonocytes Absolute Auto0.70.3-0.8 10 3/uLEosinophils Absolute Auto0.10.0-0.7 10 3/uLBasophils Absolute Auto0.00.0- 0.1 10 3/uLImmature Granulocytes Abs Auto0.030.00-0.03 10 3/uLPerforming Lab:see noteML - [facility] LBProthrombin Time INR Reviewed date:09/24/2024 12:35:49 PM Interpretation: Performing Lab: Notes/Report: [facility] ,Prothrombin Time10.99.0-11.6 secINR1.03 2.5-3.5 RECURRENT THROMBOSIS 2.0-3.0 CONDITIONS NOT LISTED BELOW DESIRED INR: 2.5-3.5 FOR PROSTHETIC HEART VALVE REPLACEMENT Performing Lab:see noteML - [facility] LBMR cervical spine wo con Reviewed date:08/31/2024 04:04:07 PM Interpretation: Performing Lab: Notes/Report: Source Facility: [facility] [place] [address] [place] [address] Magnetic Resonance Report Signed Patient: SHERRON NUNN MR#: [id number] : 1965 Acct:[id number] Age/Sex: 59 / F ADM Date: 08/29/24 Loc: MRI Attending Dr: Katerine Doherty M.D. Ordering Physician: Katerine Doherty M.D. Date of Service: 08/29/24 Procedure(s): MR cervical spine wo con Accession Number(s): [id number] cc: Katerine Doherty M.D. [address] [address] Patient Name: SHERRON NUNN MRN: [facility] [employer] [employer] [facility] [employer]:[id number] date: 1965 Sex: F Assigned Patient Location: MRI Current Patient Location: MRI Accession/Order Number: [id number] Exam Date: 08/29/2024 19:20 Report Date: 08/29/2024 [...] right moderate severe left neural from narrowing. Bqoy-qc-jxzvfzis central canal stenosis. C5-6: Circumferential disc osteophyte complex formation with uncovertebral spurring greatest left. Minimal right oksunrxn-hl-vivjar left neural from narrowing. Moderate central canal [...] Goncalves M.D. 08/29/2024 7:34 PM Dictation Location: [place] [address] Electronically authenticated by: [id number] Y Date: 08/29/2024 19:34 Dictated By: Fernando Goncalves M.D. Signed By: 08/29/241935 DD/ 33 TD/TT: Sheet Hanger: Reason For Referral Diagnosis 1 Pain in left shoulde r (M25.512) Referral Organization [facility] Referring Provider First Name Cosme Referring Provider Last Name elly Referring Provider [facility] icine Referred Provider [facility], Physical Therap y Referred Provider Specialty Physical The rapist Referral Priority Routine Diagnosis 1 Arthritis of left sh oulder region (M19.012) Diagnosis 2 Bursitis of shoulder , left (M75.52) Referral Organization [facility] Referring Provider First Name Cosme Referring Provider Last Name Reynaldo Referring Provider [facility] Referred Provider Gigi Cm Referred Provider Specialty Orthopedic S urgery Referral Priority Routine Diagnosis 1 Cervical radicular p ain (M54.12) Diagnosis 2 Lumbar radiculitis ( M54.16) Referral Organization [facility] Referring Provider First Name Cosme Referring Provider Last Name Yovany Referring Provider [facility] Referred Provider Angelito Cotton Referred Provider Specialty Neurosurgery Referral Priority Routine Medications Medication SIG (Take, Route, Frequency, Duration) Notes Start Date End Date Status tiZANidine HCl 4 MG 2 tablets Orally at bedtime; Duration: 15 PRN 01/03/2023 ActiveTylenol 8 Hour Arthritis Pain 650 MG2 tablets as needed Orally every 8 hrs prnPRNActivePataday 0.1 %1 drop into affected eye Ophthalmic Twice a dayActive Lisinopril 10 mgTAKE 1 TABLET BY MOUTH DAILY; Duration: 90 daysActiveEstradiol 0.1 MG/GMas directed VaginalActiveExcedrin Extra Strength 250-250-65 MG2 tablets Orally Once a day prnPRNActiveVitamin D (Cholecalciferol) 25 MCG (1000 UT)1 capsule Orally Once a dayActiveCod Liver Oil 4000-200 UNITas directed Orally ActiveVoltaren 1 %as directed Externally prnPRNActivevalACYclovir HCl 1 GM1 tablet Orally Once a day; Duration: 90 daysPRNActive Social History Tobacco Use: Social History Observation [...] one occasion in the past year?Never (0 point)How many drinks did you have on a typical day when you were drinking in the past year?1 or 2 drinks (0 point)How often did you have a drink containing alcohol in the past year?Weekly (3 points)Slbhgy0RoltvadahmyfpkTybhfvwhILEPY-V (Standard) Question Answer Notes Did you have a drink containing alcohol in the p ast year? No Mwnwzf2RyfhukvxnfjenuByjexlmr Problems Problem Type SNOMED Code ICD Code Onset Dates Problem Status W/U Status Risk Notes Problem Carpal tunnel syndrome (95354104 ) Carpal tunnel syndrome, unspecified upper limb (G56.00) ActiveconfirmedProblemLocalized, primary osteoarthritis of the ankle and/or foot (607877207)Primary osteoarthritis, left ankle and foot (M19.072)Activeconfirmed ProblemAcquired hallux rigidus (5554314)Hallux rigidus, left foot (M20.22)Active confirmedProblemArthritis (4870452)Arthritis (M19.90)ActiveconfirmedProblem Trigger finger (5632299)Trigger finger (M65.30)ActiveconfirmedProblemLeft shoulder pain (2430867612)Left shoulder pain (M25.512)ActiveconfirmedProblem Acquired spondylolisthesis (112335461)Lumbar spondylolysis (M43.06)Active confirmedProblemAlopecia (49192094)Hair loss (L65.9)ActiveconfirmedProblem Osteoarthritis of right knee joint (453137360849759)Right knee DJD (M17.9)Active confirmedProblemBicipital tenosynovitis (12302674)Biceps tendonitis (M75.20) ActiveconfirmedProblemLumbar radiculitis (68931570080276784)Lumbar radiculitis (M54.16)ActiveconfirmedProblemCervical radiculopathy (24126105)Cervical radicular pain (M54.12)ActiveconfirmedProblemBursitis of shoulder (644350280) Shoulder bursitis (M75.50)ActiveconfirmedProblemLocalized, primary osteoarthritis of the shoulder region (637069506)Arthritis of left shoulder region (M19.012)ActiveconfirmedProblemBruising (046037621)Bruising (T14.8XXA) Activeconfirmed Vital Signs Blood pressure diastolic 74 mm Hg 12/31/2024 Xftfze59 in12/31/2024lood pressure lygnuonp283 mm Hg12/31/20248927Xxgfwe801 lbs 12/31/2024BMI28.21 kg/m212/31/2024 Encounters Encounter Location Date Provider Diagnosis [facility] [address] [place] [address] 01/24/2024 Cosme [facility] [place] [address] 03/11/2024Doug HoyPain in left shoulder M25.512[facility] [address] [place] [address]/Doug HoyLeft shoulder pain M25.512[facility] [place] [address]/12/2024[facility] [place] [address]/Doug HoyArthritis of left shoulder region M19.012 and Bursitis of shoulder, left M75.52[facility] [place] [address]/03/2024Doug [facility] [place] [address]/10/2024Doug [facility] [facility] [place] [address]/ Cosme HoyCervical radicular pain M54.12 and Lumbar radiculitis M54.16[place] [address] [facility] [place] [address]/07/2024 Cos[place] [address] [facility] [place] [address]/Doug HoyLeft shoulder pain M25.[address] [place] [address]/Doug HoyCervical radiculopathy M54.[address] [place] [address]/03/2024Doug HoyCervical radicular pain M54.[address] [place] [address]/06/2024 Cosme HoyArthritis M19.[address] [place] [address]/01/2025Doug HoyHair loss L65.9 and Well adult Z00.[address] [place] [address] 04/04/2024Doug HoyBiceps tendonitis M75.[address] [place] [address]/05/2024Doug HoyBruising T14.8XXA Assessments Encounter Date Diagnosis (ICD Code) Assessment Notes Treatment Notes Treatment Clinical Notes Section Notes 03/10/2024 Left shoulder pain (ICD-10 - M25 .512) may need PT5Biceps tendonitis (ICD-10 - M75.20)5Cervical radiculopathy (ICD-10 - M54.12)trial injection - and keep ing oral muscle brnbcky06/02/2025Cervical radicular pain (ICD-10 - M54.12)5Bruising (ICD-10 - T14.8XXA)12/24/2024rthritis (ICD-10 - M19.90)12/31/2024Hair loss (ICD-10 - L65.9)12/31/2024Well adult (ICD-10 - Z00.00)03/11/2024Pain in left shoulder (ICD-10 - M25.512)2024Left shoulder pain (ICD-10 - M25.512) 05/01/2024rthritis of left shoulder region (ICD-10 - M19.012)05/01/2024ursitis of shoulder, left (ICD-10 - M75.52)08/31/2024ervical radicular pain (ICD-10 - M54.12)08/31/2024Lumbar radiculitis (ICD-10 - M54.16)12/31/2024OtherRecommended to rest and use a heating pad on the area. Take NSAIDs for pain as needed 07/16/2024OtherRecommended to rest and use a heating pad on the area. Take NSAIDs for pain as ovumrl8408/20/2024OtherRecommended to rest and use a heating pad on the area. Take NSAIDs for pain as needed Plan Of Treatment Pending Test Test Name Order Date CMP (COMPLETE METABOLIC PANEL) 4 HEMOGLOBIN A1C (GLYCO) 03/30/2023 HEMOGLOBIN A1C (GLYCO) 12/31/2024 IRON, TOTAL 12/31/2024 IRON, TOTAL 03/30/2023 LIPID PANEL (CHOL/TRIG/HDL/LDL) 03/30/19 24 LIPID PANEL (CHOL/TRIG/HDL/LDL) 01/01/20 25 CBC WITH DIFF 03/30/2023 VITAMIN D, 25 LEVEL (TOTAL) 03/30/2023 VITAMIN D, 25 LEVEL (TOTAL) 12/31/2024 MRI Shoulder LT w/o contrast 2024 RHEUMATOID PANEL 09/27/2022 Insulin Level 03/30/2023 Insulin Level 12/31/2024 CBC AUTO DIFF 09/27/2022 PROF 14(COMP METB) 09/27/2022 PROTIME 09/22/2024 SED RATE WESTERGREN 09/27/2022 THYROID ANTIBODIES 12/31/2024 VIT B12 AND FOLATE 12/31/2024 MRI CSPINE WO CON 08/20/2024 MRI LSPINE WO CON 03/30/2023 XR CSPINE MIN 4 VIEWS 01/03/2023 XR FOOT LT MIN 3 VIEWS 08/29/2022 XR LSPINE 2_3 VIEWS 01/03/2023 XR LSPINE 2_3 VIEWS 03/30/2023 THYROID PANEL (T4/TSH/FREE T3) 4 THYROID PANEL (T4/TSH/FREE T3) 5 CMP (COMP MET WHITING) w/eGFR CKD-EPI 2024 CBC WITH DIFF 12/31/2024 Insurance Providers Payer Name Payer Address Payer Phone Subscriber Number Group Number Insured Name Patient Relationship to Insured Coverage Start Date Coverage End Date [employer] [address] [address] [place] [address] [id number] Sherron Nunn Self - patient is the insured Medications Administered Medication Instructions Date of Administration Dosage Notes Dexamethasone, 4mg/mL mgKenalog-400820 fd025Vvageqt-238420 mgKenalog-40 jw070Dhibpoa-0210 mgKetorolac Powmpsibswba88/15/202360 mgKetorolac Grlfsljezqjc19/09/202460 pw61Nprazjhkz Ffcnyhhzxkfv99/28/202560 mg Ketorolac Ngkmcnlkkbmx53/04/202560 mgKetorolac Rkkoyviyebcy95/05/202560 mg Orphenadrine Uouhbhb20 mgOrphenadrine Yarwuca61 mg60 Orphenadrine Cvawczo64 mgOrphenadrine Hjlvolx16 mg Triamcinolone 40 mg/ml20 mgTriamcinolone 40 mg/ml mg Triamcinolone 40 mg/ml mgTriamcinolone 40 mg/ml mg Medical (General) History Medical History History ICD Code DDD (degenerative disc disease), cervica l M50.30 ADHD F90.9 Impingement syndrome of right shoulder M 75.41 Primary osteoarthritis, left ankle and f oot M19.072 Surgical History Surgery Date(Month/Year) Cervical Epidural Steroid Inj- Dr Mohamud 1 hysterctomy 06/2005 left achilles tendon 05/2016 rotator cuff left 03/2020 rotator cuff left 11/2019 CTS left / left trigger finger 05/2017 CTS right 05/2021 trigger finger 06/2022
--- OUTSIDE RECORDS SUMMARY | 2024-12-31 16:30 | XMS_ITS | Clinical Summary ---
Author Organization [facility] tem Address [id number] [address] [place] [address] Care Team Providers Care Welfare Director Name Role Phone Nikos Jacobs MD Primary Care Provider [phone] Allergies No known active allergies Medications MedicationSigDispense QuantityRefillsLast FilledStart DateEnd DateStatus lisinopriL (PRINIVIL,ZESTRIL) 10 mg tablet Take 1 tablet (10 mg total) by mouth in the morning.01/17/2022ctive valACYclovir (VALTREX) 1000 mg tablet Take 1 tablet (1,000 mg total) by mouth in the morning.01/17/2022ctive fluticasone propionate (FLONASE) 50 mcg/actuation nasal spray instill 2 (TWO) sprays IN EACH NOSTRIL ONCE DAILY12/18/2021ctive etodolac (LODINE) 500 mg tablet Take 1 tablet (500 mg total) by mouth in the morning and 1 tablet (500 mg total) before bedtime.12/07/2021ctive cyclobenzaprine (FLEXERIL) 5 mg tablet Take 2 tablets (10 mg total) by mouth 3 (three) times a day as needed for muscle spasms.Active tetrahydrozoline/polyethyl gly (EYE DROPS OPHT) Instill to eye.Active multivitamin capsule Take 1 capsule by mouth in the morning.Active cholecalciferol, vitamin D3, (VITAMIN D3) 5,000 units tablet Take 8,000 Units by mouth in the morning.Active cod liver oiL oil Take by mouth.Active PARoxetine CR (PAXIL-CR) 12.5 mg 24 hr tablet Indications:Status post hysterectomy,Hot flash not due to menopause,Vaginal dryness, menopausal,Vaginal atrophyTake 1 tablet (12.5 mg total) by mouth in the morning. 90 tablet ctive naproxen (EC NAPROSYN) 500 mg EC tablet Take 1 tablet (500 mg total) by mouth in the morning and 1 tablet (500 mg total) in the evening. Take with meals.Active vgjynvy-uhpnhnscbueng-dzgocsvj (EXCEDRIN EXTRA STRENGTH) 250-250-65 mg per tablet 2 tablets Orally Once a day prnActive gabapentin (NEURONTIN) 300 mg capsule TAKE 1 CAPSULE BY MOUTH EVERY MORNING and 2 (TWO) CAPSULES AT BEDTIMEActive estradioL (ESTRACE) 0.01 % (0.1 mg/gram) vaginal cream Indications:Status post hysterectomy,Vaginal dryness, menopausal,Vaginal atrophy Insert 1 g into the vagina 2 (two) times a week. 42.5 g ctive Active Problems ProblemNoted DateDiagnosed DateHeterogeneously dense tissue of both breasts on onsauvecyhh97/16/2024 Overview (03/06/2023): Recommendation: Recommend MBI as a supplemental screening combined with annual mammography.. Family history of breast zffkvd8403/06/2023 Overview (03/06/2023): Maternal aunt Trigger finger, cusyhsqh91/18/2023 Overview (02/22/2023): Added automatically from request for surgery [id number] Family History Medical HistoryRelationNameCommentsDiabetesBrotherHypertensionBrotherKidney failureBrotherDiabetesFatherHypertensionFatherBreast cancerMaternal AuntDiabetes MotherHypertensionMotherBil Breast CancerNeg HxRelationNameStatusCommentsBrother FatherDeceasedMaternal AuntMotherDeceased Social History Tobacco UseTypesPacks/DayYears UsedDateSmoking Tobacco: NeverSmokeless Tobacco: NeverAlcohol UseStandard Drinks/WeekCommentsYes0 (1 standard drink = 0.6 oz pure alcohol)occasionalPHQ-2AnswerDate RecordedTotal Vnzxx929Hunger Screening AnswerDate RecordedWithin the past 12 months we worried whether our food would run out before we got money to buy more.Never True02/22/2023Within the past 12 months the food we bought just didn't last and we didn't have money to get more. Never True02/22/2023CommentsNoSex and Gender InformationValueDate RecordedSex Assigned at BirthNot on fileLegal VajFmuyoe22/22/2022 3:20 PM EST Gender IdentityNot on fileSexual OrientationNot on file Last Filed Vital Signs Vital SignReadingTime TakenCommentsBlood Oggegqao886/80002/22/2023 2:59 PM EST Lqriw382901/31/2022 1:32 PM ESTTemperature--Respiratory Imgp811704/03/2021 1:32 PM ESTOxygen Saturation--Inhaled Oxygen Concentration--Zljnks44.3 kg (133 lb) 03/02/2023 2:59 PM OQHGhxybf193.3 cm (4' 10 )03/02/2023 2:59 PM ESTBody Mass Index27. 2:59 PM EST Plan of Treatment Health MaintenanceDue DateLast DoneCommentsDTaP,Tdap and Td Vaccines (1 - Tdap) 1985Zoster (Shingles) Vaccine (1 of 2)2016Depression Screening Tobacco Daylgqbzv85dult BMI Screening Mammogram, 12/28/2020, 12/28/2020, Additional history existsInfluenza Pgzlbpf0510/20/2024 Medical Devices Not on file Procedures Procedure NamePriorityDate/TimeAssociated DiagnosisCommentsMAMM SCREENING BILATERAL W TCXNjtbbyg53/12/2024 3:15 PM EST Encounter for screening mammogram for malignant neoplasm of breast from Last 3 Months or Most Recently Relevant to Health Maintenance Results * Mammography screening bilateral with CAD (03/02/2023 3:15 PM EST)Anatomical RegionLateralityModalityBreastBilateralMammographySpecimen (Source)Anatomical Location / LateralityCollection Method / VolumeCollection TimeReceived Time 03/06/2023 8:35 AM EST Addenda Addendum by Kristian Olmstead MD on 03/21/2023 9:02 PM EST *ADDENDUM*Comparisons from 12/28/2020, 10/02/2019 are now available. Assessment unchanged from prior. No evidence of malignancy. BI-RADS 1. One year screening mammogram recommended Finalized by Kristian Olmsteda MD on 03/21/2023 9:02 PM 1 c [...] distortions. IMPRESSION: No mammographic evidence of malignancy. ??Continue annual screening mammography per ACR recommendations. BI-RADS: BI-RADS 1 - Negative Recommendation: ??Recommend MBI as a supplemental screening combined with annual mammography.. Finalized by Kristian Olmstead MD on 03/06/2023 8:38 AM 1 c [facility] IMG Procedure Note Kristian Olmstead MD - 03/06/2023 [...] MD on 03/06/2023 8:38 AM 1 c [facility] IMG Authorizing ProviderResult TypeResult StatusLi Martin Markylayachapin SUPERINTENDENT COMMISSARY-CNPIMG MAMMOGRAPHY ORDERABLESEdited Result - Final from Last 3 Months or Most Recently Relevant to Health Maintenance Insurance Care Teams Team MemberRelationshipSpecialtyStart DateEnd Date Nikos Jacobs MD PCP - GeneralFamily Medicine02/22/23
--- OUTSIDE RECORDS SUMMARY | 2024-12-31 16:30 | XMS_ITS | Patient Health Record ---
Author Organization [facility] Address [address] [place] [address] Care Team Providers Care Commanding Officer Motorized Squad Name Role Phone Reynaldo Nikos Primary Care Provider UnavailGigi Pappas Unavailable [phone] Azar Mohamud Unavailable [phone] Carine Townsend Unavailable [phone] Chrissy Crow Unavailable [phone] Livia Melo Unavailable Allergies No Known Allergies Reason For Referral Reason Cervical SLAVA Diagnosis 1 Cervical radiculitis (M54.12) Referral Organization [facility] Referring Provider First Name Azar Referring Provider Last Name [place] Referring Provider Speciality Pain Manag ement [facility] Provider Azar Mohamud Referred Address [address] [place] [phone], Referred Provider Specialty Pain Managem ent Procedure 1 NJX INTERLAMINAR CRV /THRC (27819) General Notes Deanna Olmos 11/11/2024 06:49:50 AM > umr for approval - pending, Deanna Olmos 11/13/2024 07:18:50 AM > TELMA - ref#[id number] - scanned in chart Referral Priority Routine Reason Lumbar SLAVA L4-L5 LEF T of midline with oral sedation Diagnosis 1 Lumbar radiculitis ( M54.16) Referral Organization [facility] Referring Provider First Name Azar Referring Provider Last Name One[place] Referring Provider Speciality Pain Manag ement Referred Organization [facility] Referred Provider Azar Mohamud Referred Address [address] [place] [address],[place], [place],[address],[place] Referred Provider Specialty Pain Managem ent Procedure 1 NJX INTERLAMINAR LMB R/SAC (19022) General Notes Deanna Olmos 12/24/2024 06:44:21 AM > UMR for approval - pending, Deanna Olmos 12/25/2024 07:28:57 AM > TELMA -r #[id number] Referral Priority Routine Medications Medication SIG (Take, Route, Frequency, Duration) Notes Start Date End Date Status Vitamin D ActivevalACYclovir 1 g1 tab(s) orally 3 times a dayActivenaproxenActive lisinopril 20 mg1 tab(s) orally once a dayActiveCod Liver OilActiveNeurontin 300 mg1-2 cap(s) orally twice a dayActivediazePAM 10 mg1 tab(s) orally about 30-40 mins prior to injection; Duration: 1 days5ActivemultivitaminActive Social History Tobacco Use: Social History Observation [...] Status W/U Status Risk Notes Problem Cervical radiculitis (75156544) Cervical radiculitis (M54.12) ActiveconfirmedProblemCervical spondylosis (276693049)Cervical spondylosis (M47.812)ActiveconfirmedProblemBursitis of left shoulder (338404116804810) Bursitis of left shoulder (M75.52)ActiveconfirmedProblemCervicalgia (63277976) Cervicalgia (M54.2)ActiveconfirmedProblemLumbar spondylosis (413638315)Lumbar spondylosis (M47.816)ActiveconfirmedProblemLumbar radiculitis (49814776304303014)Lumbar radiculitis (M54.16)ActiveconfirmedProblemTendonitis of left shoulder (0887170048120126)Left shoulder tendonitis (M77.8)Active confirmed Vital Signs Blood pressure diastolic 96 mm Hg 11/10/2024 Onclau82 in12/23/2024lood pressure mm Hg11/10/20245078Xgxvwx184 lbs 12/23/2024BMI27.17102/23/2024 Procedures Procedure Date Ordered Date Performed Result Body Sit e CERVICAL SLAVA 11/10/2024 11/11/2024 N/A LUMBAR ESIN/A Encounters Encounter Location Date Provider Diagnosis [facility] [address] [facility] [place] [address] [place] [address] 05/19/2024 Livia p[place]ualWhiteland Bursitis of right shoulder M75.51 and Bursitis of left shoulder M75.52 [facility] [address] [facility] [place] [address] [place] [address] 06/30/2024 Gigi Daoland Bursitis of left shoulder M75.52 and Left shoulder tendonitis M77.8 [facility] [address] [place] [phone] 11/10/2024 Azar Bahdevi Cervical radiculitis M54.12 ; Cervical spondylosis M47.812 and Cervicalgia M54.2 [facility] [address] [place] [phone] 11/21/2024 Azar Mohamud Cervical radiculitis M54.12 [facility] [address] [place] [phone] 12/23/2024 Chrissy Crow Lumbar radiculitis M54.16 and Lumbar spondylosis M47.816 [facility] [address] [place] [address] 12/29/2024 Carine Townsend Cervical radiculitis M54.12 Assessments Encounter Date Diagnosis (ICD Code) Assessment Notes Treatment Notes Treatment Clinical Notes Section Notes 05/19/2024 Bursitis of left shoulder (ICD-1 0 - M75.52) Bilateral shoulder bursitis/tendinitis Prior bilateral rotator cuff repairs, biceps tenodesis 05/19/2024ursitis of right shoulder (ICD-10 - M75.51) Bilateral shoulder bursitis/tendinitis Prior bilateral rotator cuff repairs, biceps tenodesis 06/30/2024ursitis of left shoulder (ICD-10 - M75.52)06/30/2024Left shoulder tendonitis (ICD-10 - M77.8)11/10/2024ervical radiculitis (ICD-10 - M54.12) 11/21/2024ervical radiculitis (ICD-10 - M54.12)12/23/2024Lumbar spondylosis (ICD-10 - M47.816)12/23/2024Lumbar radiculitis (ICD-10 - M54.16)12/29/2024 Cervical radiculitis (ICD-10 - M54.12)11/10/2024ervical spondylosis (ICD-10 - M47.812)11/10/2024ervicalgia (ICD-10 - M54.2)05/19/2024OtherToday reviewed patient's MRI results with her and given her repair is intact and she does have tendinitis/bursitis she elected to proceed with bilateral corticosteroid injections. Patient is not diabetic. We will see her back in 6 weeks for reevaluation. Bilateral shoulder bursitis/tendinitis Prior bilateral rotator cuff repairs, biceps tenodesis 06/30/2024OtherFor her left shoulder bursitis and tendinitis I have discussed treatment options for medications which she is currently on, therapy and injections. She is interested in repeating a steroid injection.11/10/2024Other After thorough history, physical examination, and review of patient's previous treatments and imaging results, a description of the patient's painful diagnoses was performed. This was discussed with patient today with use of diagrams and plastic models. Risks and benefits associated with treatmentswere discussed and the following plan was developed with the patient: 1. Interventional: The patient will be scheduled for cervical SLAVA under fluoroscopic guidance. She would like oral sedation with Valium as she is very concerned about injections. She underwent IV sedation in the past but is willing to try oral sedation this time. 2. Medications: The patient should continue with her current medications including her gabapentin. She will discontinue Excedrin about 1 week prior to upcoming injection. 3. Activity: The patient should continue with activity as tolerate. Additional formal therapy may be helpful. She has been through this in the past and understands home exercise program that she should be completing. Referral to surgeon could be considered if she does not respond to injection. 4. Follow up: The patient will follow-up with our office after upcoming injection for further recommendations. Today we discussed a multi-focal approach to the management of the patient's pain symptoms including, but not limited to, behavioral health practices, activity modifications, physical therapy exercises and home exercise programming along with medication management both prescriptive and ejhj-hyu-mmxbvjk. I did spend 30 minutes with the patient today discussing their chronic pain condition and chart review. This will suffice as an H&P for any interventional procedure. import current medications 12/23/2024Other After thorough history, physical examination, and review [...] due to phonetic interpretation. Plan Of Treatment Next Appt Details Provider Name:Azar Mohamud, 1 03/04/2024 09:30:00 AM, [address] [place] [address], [phone], Provider Name:Chrissy Merino rd, 02/09/2025 03:30:00 PM, [address] [place] [address], [phone], Insurance Providers Payer Name Payer Address Payer Phone Subscriber Number Group Number Insured Name Patient Relationship to Insured Coverage Start Date Coverage End Date [employer] [address] [address] [place] [address] [id number] GÓMEZ NUNN Self - patient is the insured 5 Medications Administered Medication Instructions Date of Administration Dosage Notes BUPIVACAINE kSVNYWHUFPVAE77/12/20252 mLDepo-Ictgwn34 mLDepo-Medrol mLDepo-Uaijau70 vXoglkktdtiuezd59/03/20251 mLlidocaine uDrelppmvqk26/03/20255 sIXcwxoikcw82/03/20253 mL Medical (General) History Medical History History ICD Code High Blood Pressure Surgical History Surgery Date(Month/Year) B/L CTR 2021 Right shoulder replacement 2020 Left shoulder replacement 2019 Left Achilles 2017 Hysterectomy 2006 x2
--- OUTSIDE RECORDS SUMMARY | 2024-12-31 16:32 | XMS_ITS | CCD ---
Author Organization [facility] Care Team Providers Care Clinical Administrator Name Role Phone Amaya Waldron Primary Care Physician Amaya Garcia Unavailable Unavailable MD Katerine Jacobs Primary Care Provider MD Mike Mixon Attending Provider MAGDALENA, ABDULAZIM [...] Unavailable MD Katerine Jacobs Primary Care Provider [phone] MD Mike Mixon Attending Provider ELGAFY, DAVE Attending Unavailable MAGDALENA, ALIYA Referring Unavailable ELGAFY, DAVE Referring Unavailable MAGDALENA, ALIYA Referring Unavailable ELGAFY, DAVE Referring Unavailable MAGDALENA, ALIYA Attending Unavailable MAGDALENA, ALIYA Attending Unavailable MAGDALENA, ALIYA Admitting Unavailable MAGDALENA, ALIYA Attending Unavailable MAGDALENA, ALIYA Attending Unavailable WARREN MESAA Martin Attending Unavailable KATERINE JACOBS Primary Care Unavailable MOSHE KENNA Attending Unavailable MOSHE KENNA Referring Unavailable KATERINE JACOBS Primary Care Unavailable WARREN MESAA M Referring Unavailable KATERINE JACOBS Primary Care Unavailable MD Katerine Jacobs Primary Care Provider [phone] MD Dimitri Mixon Attending Provider Katerine Jacobs MD Primary Care Provider [phone] Katerine Jacobs MD Primary Care Provider [phone] Nivia Howard Attending Provider Katerine Jacobs Primary Care Unavailable Dimitri Mixon Admitting Unavailable Dimitri Mixon Attending Unavailable Nivia Pearce Admitting Unavailable Nivia Pearce Attending Unavailable Katerine Jacobs Primary Care Unavailable Katerine Jacobs MD Primary Care Provider [phone] Angelito Cotton MD Attending Provider [phone] Allergies Allergy ClassificationReported Allergen(s)Allergy TypeDate of OnsetReaction(s) Facility (1 source)Acetaminophen / Dextromethorphan / Doxylamine / Pseudoephedrine; Translations: [NyQuil]Drug AllergySEVEREGarfieldPFI Acquisition (1 source)Naproxen; Translations: [Aleve]Drug AllergyMODERATEGarfieldPFI Acquisition (1 source)OtherAllergy to substance (disorder)Head and Chest OTC-MODERATE [place] [facility] Medications Current Medications MedicationDrug Class(es)DatesSig (Normalized)Sig (Original)acetaminophen 250 mg / aspirin 250 mg / caffeine 65 mg oral tablet (2 sources)Platelet Aggregation Inhibitor, Nonsteroidal Anti-inflammatory Drug, Central Nervous System Stimulant, Methylxanthinetake 2 tablets by mouth once daily as nmpzoanlafecu-lhsaewfxpeatp-jjivkmxr (EXCEDRIN EXTRA STRENGTH) 250-250-65 mg per tablet 2 tablets Orally Once a day prn 0 Activecholecalciferol 0.025 mg oral capsule (3 sources)Vitamin DStart: 43-40-5160gsym 1 capsule by mouth once daily Cholecalciferol (Vitamin D3) 25 mcg (1,000 unit) capsule Active 25 MCG PO Daily September 25, 2024 12:00am Complies with drug therapycholecalciferol, vitamin D3, (VITAMIN D3) 5,000 units tablet Take 8,000 Units by mouth in the morning. 0 ActiveCod Liver Oil capsule (1 source)Start: 97-83-3443rqrm 1 capsule by mouth once dailyCod Liver Oil capsule Active 1 CAP PO Daily September 25, 2024 12:00am Complies with drug therapycod liver oiL oil (2 sources)cod liver oiL oil Take by mouth. 0 Activecyclobenzaprine hydrochloride 5 mg oral tablet (2 sources)Muscle Relaxanttake 2 tablets by mouth three times daily as needed for muscle spasmscyclobenzaprine (FLEXERIL) 5 mg tablet Take 2 tablets (10 mg total) by mouth 3 (three) times a day as needed for muscle spasms. 0 Active estradiol 0.1 mg/ml vaginal cream (3 sources)EstrogenStart: 01-31-2022 End: 82-86-5756pkgphckjQ (ESTRACE) 0.01 % (0.1 mg/gram) vaginal cream Indications: Status post hysterectomy , Vaginal dryness, menopausal , Vaginal atrophy Insert 1 g into the vagina 2 (two) times a week. 42.5 g 3 02/22/2023 Activeetodolac 500 mg oral tablet (2 sources)Nonsteroidal Anti-inflammatory DrugStart: 24-67-4849tgdq 1 tablet by mouth in the morning, then take 1 tablet by mouth at bedtimeetodolac (LODINE) 500 mg tablet Take 1 tablet (500 mg total) by mouth in the morning and 1 tablet (500 mg total) before bedtime. 0 12/07/2021 Activefluticasone propionate 0.05 mg/actuat metered dose nasal spray (3 sources)CorticosteroidStart: 14-70-3783ajfi 2 spray(s) nasal route once daily fluticasone propionate (FLONASE) 50 mcg/actuation nasal spray instill 2 (TWO) sprays IN EACH NOSTRIL ONCE DAILY 0 12/18/2021 Activetake 50 ug nasal route once daily as neededFlonase Allergy Relief 50 mcg/actuation nasal spray,suspension spray 1 - 2 sprays (50 - 100 mcg) ineach nostril by intranasal route once daily as neededgabapentin 600 mg oral tablet (4 sources)Anti-epileptic AgentStart: 12-72-0597nmwe 1 capsule by mouth once dailyGabapentin 300 mg capsule Active 300 MG PO Daily September 25, 2024 12:00am Complies with drug therapyStart: 68-22-0613jgwa 1 tablet by mouth once daily at bedtimeGabapentin 600 mg tablet Active 600 MG PO Daily at bedtime September 25, 2024 12:00am Complies with drug therapytake 1 capsule by mouth once daily in the morning, then take 2 capsules by mouth at bedtimegabapentin (NEURONTIN) 300 mg capsule TAKE 1 CAPSULE BY MOUTH EVERY MORNING and 2 (TWO) CAPSULES ATBEDTIME 0 Activelisinopril 10 mg oral tablet (8 sources)Angiotensin Converting Enzyme InhibitorStart: 27-07-5940wftd 1 tablet by mouth in the morninglisinopriL (PRINIVIL,ZESTRIL) 10 mg tablet Take 1 tablet (10 mg total) by mouth in the morning. 0 01/17/2022 ActiveStart: 03-31-1821faim 1 tablet by mouth once dailyLisinopril 20 mg Tablet Active 20 MG PO Daily September 17, 2017 12:00am Complies with drug therapytake 1 tablet by mouth once daily lisinopril 10 mg tablet take 1 tablet (10 mg) by oral route once dailymeloxicam 15 mg oral tablet (1 source)Nonsteroidal Anti-inflammatory DrugStart: 90-89-1172sopg 1 tablet by mouth once dailyMeloxicam 15 mg tablet Active 15 MG PO Daily September 25, 2024 12:00am Complies with drug therapymultivitamin capsule (2 sources)take 1 capsule by mouth in the morningmultivitamin capsule Take 1 capsule by mouth in the morning. 0 ActiveMultivitamin tablet (1 source)Start: 78-94-5823gmmh 1 tablet by mouth once dailyMultivitamin tablet Active 1 TAB PO Daily September 25, 2024 12:00am Complies with drug therapy naproxen 500 mg delayed release oral tablet (2 sources)Nonsteroidal Anti-inflammatory Drugtake 1 tablet by mouth in the morning, then take 1 tablet by mouth at mealtimenaproxen (EC NAPROSYN) 500 mg EC tablet Take 1 tablet (500 mg total) by mouth in the morning and 1 tablet (500 mg total) in the evening. Take with meals. 0 Iekfgu84 hr PARoxetine hydrochloride 12.5 mg extended release oral tablet (3 sources)Serotonin Reuptake InhibitorStart: 51-91-8389lrbr 1 tablet by mouth every twenty-four hours in the morningPARoxetine CR (PAXIL-CR) 12.5 mg 24 hr tablet Indications: Status post hysterectomy , Hot flash notdue to menopause , Vaginal dryness, menopausal , Vaginal atrophy Take 1 tablet (12.5 mg total) by mouth in the morning. 90 tablet 3 01/31/2022 Activetake 1 tablet by mouth once dailyparoxetine ER 12.5 mg tablet,extended release 24 hr take 1 tablet (12.5 mg) by oral route once dailytetrahydrozoline/polyethyl gly (EYE DROPS OPHT) (2 sources)tetrahydrozoline/polyethyl gly (EYE DROPS OPHT) Instill to eye. 0 ActivevalACYclovir 1000 mg oral tablet (3 sources)Herpesvirus Nucleoside Analog DNA Polymerase Inhibitor, Herpes Simplex Virus Nucleoside Analog DNA Polymerase Inhibitor, Herpes Zoster Virus Nucleoside Analog DNA Polymerase InhibitorStart: 61-20-8064ssku 1 tablet by mouth in the morningvalACYclovir (VALTREX) 1000 mg tablet Take 1 tablet (1,000 mg total) by mouth in the morning. 0 01/17/2022 Activetake 1 tablet by mouth once dailyvalacyclovir 1 gram tablet take 1 tablet by oral route daily Completed/Discontinued Medications MedicationDrug Class(es)DatesSig (Normalized)Sig (Original)amoxicillin 875 mg / clavulanate 125 mg oral tablet (5 sources)Penicillin-class AntibacterialStart: 09-17-2017 End: 61-28-4393aqjj 1 tablet by mouth twice dailyAmoxicillin-Pot Clavulanate (Augmentin) 875-125 mg tablet Discontinued 1 TAB PO Twice daily September 17, 2017 12:00am September 25, 2024 2:31pm two days leftcetirizine hydrochloride 10 mg oral capsule (5 sources)Histamine-1 Receptor AntagonistStart: 09-17-2017 End: 58-69-4674xwqk 1 capsule by mouth once dailyCetirizine (Zyrtec) 10 mg Capsule Discontinued 10 MG PO Daily September 17, 2017 12:00am September 25, 2024 2:31pmdexamethasone 1 mg/ml / neomycin 3.5 mg/ml / polymyxin b 67898 unt/ml ophthalmic suspension (1 source)Aminoglycoside Antibacterial, Polymyxin-class Antibacterial, Corticosteroidtake 1 drop(s) into the eye(s) every four hours as needed ryyiidgz-kddlfmitb-juivuprm 3.5 mg/mL-10,000 unit/mL-0.1% eye drops instill in affected eye 1 drop by ophthalmic route every 4 hours as neededfluconazole 100 mg oral tablet (5 sources)Azole AntifungalStart: 09-17-2017 End: 94-32-5641pvew 1 tablet by mouth once dailyFluconazole 100 mg Tablet Discontinued 100 MG PO Daily September 17, 2017 12:00am September 25, 2024 2:32pm ibuprofen 800 mg oral tablet (6 sources)Nonsteroidal Anti-inflammatory DrugStart: 09-17-2017 End: 20-01-3486ojvj 1 tablet by mouth four times daily as needed for pain Ibuprofen 800 mg Tablet Discontinued 800 MG PO Four times daily as needed for Pain September 17, 2017 12:00am September 25, 2024 2:32pmtake 1 tablet by mouth three times daily as neededibuprofen 800 mg tablet take 1 tablet by oral route 3 times a day as neededtraMADol hydrochloride 50 mg oral tablet (1 source)Opioid Agonisttake 1 tablet by mouth every six hours as neededtramadol 50 mg tablet take 1 tablet (50 mg) by oral route every 6 hours as needed Problems Active Problems Problem ClassificationProblemDateDocumented DateEpisodic/ChronicEsophageal disorders (1 source)Gastro-esophageal reflux disease without esophagitisChronicEssential hypertension (1 source)Essential (primary) hypertensionChronicMenopausal disorders (4 sources)Menopausal and female climacteric states; Translations: [Postmenopausal atrophic vaginitis]Onset: [id number] Osteoarthritis (2 sources)Unspecified osteoarthritis, unspecified site; Translations: [Primary generalized (osteo)arthritis]Onset: 23-23-1770FsenfppOktow connective tissue disease (1 source)Pain in right armOnset: 43-32-2684LfafsyzwUbbfg connective tissue disease (1 source)Pain in left armOnset: 35-32-8651MsvabfqsJjqnb connective tissue disease (2 sources)Pain in right hand; Translations: [Pain in right hand]Onset: 29-23-2092MpqfiswdNdsfy connective tissue disease (2 sources)Pain in left hand; Translations: [Pain in left hand]Onset: 09-29-2022 EpisodicOther connective tissue disease (2 sources)Trigger finger, unspecified finger; Translations: [Trigger finger, unspecified finger]Onset: 06-29-7505RyzjxyvhQqdfj nervous system disorders (1 source)Other disturbances of skin sensationOnset: 60-25-4145VqjjqcfjVtbhp non-traumatic joint disorders (1 source)Other specific arthropathies, not elsewhere classified, right shoulder ChronicOther screening for suspected conditions (not mental disorders or infectious disease) (4 sources)Other abnormal and inconclusive findings on diagnostic imaging of breast; Translations: [Encounter for screening mammogram for malignant neoplasm of breast]Onset: 104691-17-4355YerbnbgdKqbyrhsm codes; unclassified (1 source)Acquired absence of both cervix and uterus; Translations: [Acquired absence of both cervix and uterus]Onset: 56-86-4614LcizrkezLgirucyp codes; unclassified (1 source)Family history of malignant neoplasm of breast; Translations: [Family history of malignant neoplasmof breast]Onset: 20-02-2862UbflkifdZnxyzajyr and history of mental health and substance abuse codes (2 sources)Encounter for screening for depression; Translations: [Standardized adult depression screening toolcompleted ]Onset: 921958-53-4795Rrpjgxzw Spondylosis; intervertebral disc disorders; other back problems (8 sources)Cervical disc disorder with radiculopathy, unspecified cervical region; Translations: [Radiculopathy, cervical region]Onset: 82-40-2927Xvbjqujx Unclassified (1 source)Annual ExamOnset: 53-82-5058Ogqlzgchphfq (1 source)Mammographic heterogeneous density, bilateral breasts; Translations: [Mammographic heterogeneous density, bilateral breasts]Onset: 03-06-2023 Unclassified (1 source)M50.121 - Cervical disc disorder at C4-C5 level with radiculopathy Past or Other Problems Problem ClassificationProblemDateDocumented DateEpisodic/ChronicMood disorders (2 sources)Mood disordersOnset: 579369-73-2303Awbjzincsfee breast conditions (2 sources)Heterogeneously dense breast composition; Translations: [Heterogeneously dense tissue of both breasts on mammography]Onset: 03-06-2023 83-79-8996OqpdgtgrYjqxq connective tissue disease (2 sources)Acquired trigger finger; Translations: [Trigger finger, unspecified finger]Onset: 579155-14-8112ThenzfspXwqrx skin disorders (1 source)Nonscarring hair loss, unspecified; Translations: [Nonscarring hair loss, unspecified]Onset: 25-05-7488VlaosahmXxzzyqey codes; unclassified (2 sources)Family history of breast cancer; Translations: [Family history of malignant neoplasm of breast]Onset: 170989-62-1304JurufehpHlioxtborycz (1 source)[id number]_name_3Unclassified (2 sources)Onset: Results Test NameValueInterpretationReference RangeFacilityAlanine aminotransferase [Enzymatic activity/volume] in Serum or PlasmaOrdered By: Nivia Pearce on 23-37-7216QMQ [Catalytic activity/Vol]Alanine aminotransferase [Enzymatic activity/volume] in Serum or Plasma-[facility] HospitalAlbumin [Mass/volume] in Serum or Plasma by Bromocresol green (BCG) dye binding metho Ordered By: Nivia Pearce on 12-16-6227Vmhjwml BCG dye [Mass/Vol]Albumin [Mass/volume] in Serum or Plasma by Bromocresol green (BCG) dye binding metho 3.5-5.7FUniversity Hospitals TriPoint Medical CenterAlkaline phosphatase [Enzymatic activity/volume] in Serum or PlasmaOrdered By: Nivia Pearce on 98-86-4428XZO [Catalytic activity/Vol]Alkaline phosphatase [Enzymatic activity/volume] in Serum or Beambf11-195XpgonqahiDayton Osteopathic HospitalAspartate aminotransferase [Enzymatic activity/volume] in Serum or PlasmaOrdered By: Nivia Pearce on 29-31-2034TKN [Catalytic activity/Vol]Aspartate aminotransferase [Enzymatic activity/volume] in Serum or Iaewrq82-08TlijsarsjDayton Osteopathic Hospital Basophils Auto (Bld) [#/Vol]Ordered By: Nivia Pearce on 96-68-9653Tvxlzseav (Bld) [#/Vol]Automated basophil count0.0-0.2FUniversity Hospitals TriPoint Medical Center Basophils/100 WBC Auto (Bld)Ordered By: Nivia Pearce on 06-18-2024 Basophils/100 WBC (Bld)Automated basophil %.[facility] Bilirubin.total [Mass/volume] in Serum or PlasmaOrdered By: Nivia Pearce on 64-79-0977Zkeeggsrt [Mass/Vol]Bilirubin.total [Mass/volume] in Serum or Plasma 0.3-1.0[facility] HospitalCalcium [Mass/volume] in Serum or Plasma Ordered By: Nivia Pearce on 53-16-6092Qfjmual [Mass/Vol]Calcium [Mass/volume] in Serum or Plasma8.6-10.3FUniversity Hospitals TriPoint Medical CenterCarbon dioxide, total [Moles/volume] in Serum or PlasmaOrdered By: Nivia Pearce on 67-13-7813KU9 [Moles/Vol]Carbon dioxide, total [Moles/volume] in Serum or Talhvv17.0-31.0 [facility] HospitalChloride [Moles/volume] in Serum or Plasma Ordered By: Nivia Pearce on 42-73-0567Rgrzoysm [Moles/Vol]Chloride [Moles/volume] in Serum or Wceceh29-346YbdlndpimDayton Osteopathic HospitalComplete Blood Count Auto Diffon 87-50-2568Lkgxmurgh (Bld) [#/Vol]0.1 10*3/uLNormal 0.0-0.2The [facility]rium Health Physician GroupComment on above:Result Comment: PERFORMED BY: [place] [id number] PATHOLOGIST ETL INFORMATICA DEVELOPER MIA NATARAJAN M.D.Performed By: #### CMP, CBC #### [facility] [address] [place] [address] USABasophils/100 WBC (Bld)0.8 %Normal.The [facility] Health Physician GroupComment on above:Performed By: #### CMP, CBC #### [facility] [address] [place] [address] USAEosinophils (Bld) [#/Vol]0.2 10*3/uLNormal0.0-0.45The [facility] Health Physician GroupComment on above:Performed By: #### CMP, CBC #### [place] [id number] USAEosinophils/100 WBC (Bld)1.8 %Normal.The [facility] Health Physician GroupComment on above:Performed By: #### CMP, CBC #### [place] [address] USAErythrocyte distribution width (RBC) [Ratio]14.9 %Normal 11.9-15.3The [facility] Health Physician GroupComment on above:Performed By: #### CMP, CBC #### [place] [address] USAHematocrit (Bld) [Volume fraction]41.5 %Ygxlmc92.0-46.4The [facility] Health Physician GroupComment on above:Performed By: #### CMP, CBC #### [place] [address] USAHemoglobin (Bld) [Mass/Vol]14.1 g/nMYngodh47.8-15.4The [facility] Health Physician GroupComment on above:Performed By: #### CMP, CBC #### [place] [address] USALymphocytes (Bld) [#/Vol]3.1 10*3/uLNormal1.00-4.8The [facility] Health Physician GroupComment on above:Performed By: #### CMP, CBC #### [place] [id number] USALymphocytes/100 WBC (Bld)29.1 %Normal.The [facility] Health Physician GroupComment on above:Performed By: #### CMP, CBC #### [place] [address] USAMCH (RBC) [Entitic mass]30.7 dpEcdrsj40.7-34.3The [facility] Health Physician GroupComment on above:Performed By: #### CMP, CBC #### [place] [address] USAMCV (RBC) [Entitic vol]90.1 bFGegnee76-354Gio [facility] Physician GroupComment on above:Performed By: #### CMP, CBC #### [facility] [address] [place] [address] USAMean Corpuscular HGB Conc34.1 g/xBStrbkm24.0-35.0The [facility] Health Physician GroupComment on above:Performed By: #### CMP, CBC #### [facility] [address] [place] [address] USAMonocytes (Bld) [#/Vol]0.8 10*3/uLNormal0.0-0.8The [facility] Health Physician GroupComment on above:Performed By: #### CMP, CBC #### [facility] [address] [place] [address] USAMonocytes/100 WBC (Bld)7.7 %Normal.The [facility] Health Physician GroupComment on above:Performed By: #### CMP, CBC #### [place] [address] USANeutrophils (Bld) [#/Vol]6.5 10*3/uLNormal1.8-7.7The [facility] Health Physician GroupComment on above:Performed By: #### CMP, CBC #### [place] [address] USANeutrophils/100 WBC (Bld)60.6 %Normal.The [facility] Health Physician GroupComment on above:Performed By: #### CMP, CBC #### [facility] [address] [place] [address] USANRBC%0.1 /100{WBC}Normal0-0.5The [facility] Comment on above:Performed By: #### CMP, CBC #### [facility] [address] [place] [address] USAPlatelet mean volume (Bld) [Entitic vol]8.8 fLNormal 6.3-10.7The [facility] Health Physician GroupComment on above:Performed By: #### CMP, CBC #### [place] [address] USAPlatelets (Bld) [#/Vol]265 10*3/ySJycnkj298-758Koy [facility] Physician GroupComment on above:Performed By: #### CMP, CBC #### [place] [address] USARBC (Bld) [#/Vol]4.61 10*6/uLNormal3.60-5.00The [facility] Health Physician GroupComment on above:Performed By: #### CMP, CBC #### [place] [address] USAWBC (Bld) [#/Vol]10.7 10*3/uLNormal3.8-11.6The [facility] Health Physician GroupComment on above:Performed By: #### CMP, CBC #### [place] [address] USAComprehensive Metabolic Panelon 28-28-7507Blzupxy [Mass/Vol]4.4 g/dLNormal3.5-5.7The [facility] Health Physician GroupComment on above: Performed By: #### CMP, CBC #### [place] [address] USAAlbumin/Globulin [Mass ratio]1.6 {ratio}NormalThe Atrium Health Physician GroupComment on above:Performed By: #### CMP, CBC #### [place] [address] USAALP [Catalytic activity/Vol]65 U/HLnmpfc10-818Qkw [facility] Physician GroupComment on above:Result Comment: PERFORMED BY: [place] [id number] PATHOLOGIST ETL INFORMATICA DEVELOPER MIA NATARAJAN M.D.Performed By: #### CMP, CBC #### [place] [address] USAALT [Catalytic activity/Vol]23 U/LNormal7-52The [facility] Health Physician GroupComment on above:Performed By: #### CMP, CBC #### [place] [address] USAAnion gap [Moles/Vol]13.3 mmol/LNormal6.0-15.0The [facility] Health Physician GroupComment on above:Performed By: #### CMP, CBC #### [facility] [address] [place] [address] USAAST [Catalytic activity/Vol]21 U/QInqbdx57-37Nor [facility] Physician GroupComment on above:Performed By: #### CMP, CBC #### [facility] [address] [place] [address] USABilirubin [Mass/Vol]0.3 mg/dLNormal0.3-1.0The [facility] Health Physician GroupComment on above:Performed By: #### CMP, CBC #### [facility] [address] [place] [address] USACalcium [Mass/Vol]10.0 mg/dLNormal8.6-10.3The [facility] Health Physician GroupComment on above:Performed By: #### CMP, CBC #### [facility] [address] [place] [address] USAChloride [Moles/Vol]101 mmol/ELxpqjx39-659Hvt [facility] Physician GroupComment on above:Performed By: #### CMP, CBC #### [facility] [address] [place] [id number] USACO2 [Moles/Vol]27.8 mmol/CUsgpbm06.0-31.0The [facility] Health Physician GroupComment on above:Performed By: #### CMP, CBC #### [facility] [address] [place] [address] USACreatinine [Mass/Vol]0.70 mg/dLNormal0.60-1.20The [facility] Health Physician GroupComment on above:Performed By: #### CMP, CBC #### [facility] [address] [place] [address] USAGFR/1.73 sq M.predicted MDRD (S/P/Bld) [Vol rate/Area] mL/min/{1.73_m2}NormalThe Atrium Health Physician GroupComment on above:Performed By: #### CMP, CBC #### [facility] [address] [place] [id number] USAGlobulin (S) [Mass/Vol]2.7 g/dLNormalThe Atrium Health Physician GroupComment on above:Performed By: #### CMP, CBC #### [facility] [address] [place] [address] USAGlucose [Mass/Vol]121 mg/lGQnns38-538Los [facility] Health Physician GroupComment on above:Result Comment: Random Glucose Reference Range is dependent on time and content of last meal. Glucose of more than 200 mg/dL in a nonstressed, ambulatory subject supports the diagnosis of Diabetes Mellitus. ADA recommended reference rangePerformed By: #### CMP, CBC #### [facility] [address] [place] [address] USAPotassium [Moles/Vol]4.1 mmol/LNormal3.5-5.1The [facility] Health Physician GroupComment on above:Performed By: #### CMP, CBC #### [facility] [address] [place] [address] USAProtein [Mass/Vol]7.1 g/dLNormal6.4-8.9The [facility] Health Physician GroupComment on above:Performed By: #### CMP, CBC #### [facility] [address] [place] [id number] USASodium [Moles/Vol]138 mmol/XEusdac161-206Qvd [facility] Physician GroupComment on above:Performed By: #### CMP, CBC #### [facility] [address] [place] [address] USAUrea nitrogen [Mass/Vol]27 mg/dLHigh7-25The [facility] Health Physician GroupComment on above:Performed By: #### CMP, CBC #### [facility] [address] [place] [address] USACreatinine [Mass/volume] in Serum or PlasmaOrdered By: Nivia Pearce on 37-26-4976Fusudrjgxo [Mass/Vol]Creatinine [Mass/volume] in Serum or Plasma0.60-1.20[facility] HospitalEosinophils Auto (Bld) [#/Vol]Ordered By: Nivia Pearce on 66-13-1508Pcxhfggwnss (Bld) [#/Vol] Automated eosinophil count0.0-0.45[facility] Eosinophils/100 WBC Auto (Bld)Ordered By: Nivia Pearce on 06-18-2024 Eosinophils/100 WBC (Bld)Automated eosinophil %.[facility] HospitalErythrocyte distribution width Auto (RBC) [Ratio]Ordered By: Nivia Pearce on 23-69-6333Vhiaeqlbtsu distribution width (RBC) [Ratio]Erythrocyte distribution width [Ratio] by Automated count11.9-15.3FUniversity Hospitals TriPoint Medical CenterGlobulin Calc (S) [Mass/Vol]Ordered By: Nivia Pearce on 06-18-2024 Globulin (S) [Mass/Vol]Serum globulin measurement by calculation (mass/volume) [facility] HospitalGlucose [Mass/volume] in Serum or PlasmaOrdered By: Nivia Pearce on 18-89-6693Omguruo [Mass/Vol]Glucose [Mass/volume] in Serum or GqvcqpDldh90-391XptyikigrDayton Osteopathic HospitalComment on above:ADA recommended reference rangeRandom Glucose Reference Range is dependent on time and content of last meal. Glucose of more than 200 mg/dL in a nonstressed, ambulatory subject supports the diagnosisof Diabetes Mellitus.Hematocrit Auto (Bld) [Volume fraction]Ordered By: Nivia Pearce on 15-03-4770Njabufviaf (Bld) [Volume fraction]Hematocrit [Volume Fraction] of Blood by Automated count 34.0-46.4FUniversity Hospitals TriPoint Medical CenterHemoglobin [Mass/volume] in Blood Ordered By: Nivia Pearce on 67-38-0025Lvmfxihnpj (Bld) [Mass/Vol]Hemoglobin [Mass/volume] in Blood11.8-15.4FUniversity Hospitals TriPoint Medical CenterLeukocytes [#/volume] corrected for nucleated erythrocytes in Blood by Automated coun Ordered By: Nivia Pearce on 25-90-4054AVU corrected for nucl RBC Auto (Bld) [#/Vol]Leukocytes [#/volume] corrected for nucleated erythrocytes in Blood by Automated coun3.8-11.6FUniversity Hospitals TriPoint Medical CenterLymphocytes Auto (Bld) [#/Vol]Ordered By: Nivia Pearce on 60-93-7975Kptooxkbiji (Bld) [#/Vol] Lymphocytes [#/volume] in Blood by Automated count1.00-4.8[facility] HospitalLymphocytes/100 WBC Auto (Bld)Ordered By: Nivia Pearce on 04-30-3730Otignkgsbiq/100 WBC (Bld)Lymphocytes/100 leukocytes in Blood by Automated count.[facility] HospitalMCH Auto (RBC) [Entitic mass] Ordered By: Nivia Pearce on 49-01-7655KDE (RBC) [Entitic mass]MCH [Entitic mass] by Automated count24.7-34.3FUniversity Hospitals TriPoint Medical CenterMCHC Auto (RBC) [Mass/Vol]Ordered By: Nivia Pearce on 46-40-4361PDBN (RBC) [Mass/Vol] MCHC [Mass/volume] by Automated count32.0-35.0[facility] MCV Auto (RBC) [Entitic vol]Ordered By: Nivia Pearce on 62-43-7040TXN (RBC) [Entitic vol]MCV [Entitic volume] by Automated urnoe28-329AdkfsmgatDayton Osteopathic HospitalMonocytes Auto (Bld) [#/Vol]Ordered By: Nivia Pearce on 22-56-5246Lmngzmmxa (Bld) [#/Vol]Automated blood monocyte count0.0-0.8[facility] HospitalMonocytes/100 WBC Auto (Bld)Ordered By: Nivia Pearce on 61-20-3198Dareyxlkx/100 WBC (Bld)Automated monocyte %.[facility] HospitalNeutrophils Auto (Bld) [#/Vol]Ordered By: Nivia Pearce on 71-79-3509Idctrmgnvcz (Bld) [#/Vol]Neutrophils [#/volume] in Blood by Automated count1.8-7.7FUniversity Hospitals TriPoint Medical CenterNeutrophils/100 WBC Auto (Bld) Ordered By: Nivia Pearce on 48-86-7769Nmblroqkfrh/100 WBC (Bld)Automated neutrophil %.[facility] HospitalNo Panel InformationOrdered By: Nivia Pearce on 30-48-1163Fmqumfutt GFR (CKD-EPI)> 60.0 mL/MinDayton Osteopathic HospitalPharmacy Creatinine Clearance (ChemN/AFUniversity Hospitals TriPoint Medical CenterNucleated erythrocytes [Presence] in Blood by Automated count Ordered By: Nivia Pearce on 53-35-3690Ldbohoibq RBC Auto Ql (Bld)Nucleated erythrocytes [Presence] in Blood by Automated count0-0.5FUniversity Hospitals TriPoint Medical CenterPlatelet mean volume Auto (Bld) [Entitic vol]Ordered By: Nivia Pearce on 41-60-7928Dylwavzi mean volume (Bld) [Entitic vol]Platelet mean volume [Entitic volume] in Blood by Automated count6.3-10.7FUniversity Hospitals TriPoint Medical CenterPlatelets Auto (Bld) [#/Vol]Ordered By: Nivia Pearce on 27-70-9353Qjxdkqbrw (Bld) [#/Vol]Platelets [#/volume] in Blood by Automated -029OyyjfidynDayton Osteopathic HospitalPotassium [Moles/volume] in Serum or PlasmaOrdered By: Nivia Pearce on 56-84-3469Zcuojuddx [Moles/Vol]Potassium [Moles/volume] in Serum or Plasma3.5-5.1FUniversity Hospitals TriPoint Medical CenterProtein [Mass/volume] in Serum or PlasmaOrdered By: Nivia Pearce on 60-47-3350Grywbaz [Mass/Vol]Protein [Mass/volume] in Serum or Plasma6.4-8.9[facility] HospitalRBC Auto (Bld) [#/Vol]Ordered By: Nivia Pearce on 10-95-7061QOW (Bld) [#/Vol]Erythrocytes [#/volume] in Blood by Automated count3.60-5.00 [facility] Hospitalerum or plasma albumin/globulin mass ratio Ordered By: Nivia Pearce on 04-30-0048Tgdjjuw/Globulin [Mass ratio]Serum or plasma albumin/globulin mass ratioCommunity Memorial Hospitalerum or plasma anion gap determinationOrdered By: Nivia Pearce on 94-67-9092Upxjh gap [Moles/Vol]Serum or plasma anion gap determination6.0-15.0[facility] Memorial Hospitalodium [Moles/volume] in Serum or PlasmaOrdered By: Nivia Pearce on 63-00-6275Eicrok [Moles/Vol]Sodium [Moles/volume] in Serum or Jvvhbx519-977 [facility] HospitalUrea nitrogen [Mass/volume] in Serum or Plasma Ordered By: Nivia Pearce on 43-13-4557Huey nitrogen [Mass/Vol]Urea nitrogen [Mass/volume] in Serum or PlasmaHigh7-25[facility] HospitalWBC Auto (Bld) [#/Vol]Ordered By: Nivia Pearce on 07-71-5900ILY (Bld) [#/Vol] Leukocytes [#/volume] in Blood by Automated count3.8-11.6FUniversity Hospitals TriPoint Medical CenterThyrotropin [Units/volume] in Serum or PlasmaOrdered By: Dimitri Mixon on 95-18-8451FDT Qn1.36 m[IU]/LNormal0.45-5.33[facility] HospitalComment on above:Result Comment: PERFORMED BY: [place] [id number] PATHOLOGIST ETL INFORMATICA DEVELOPER KYLAH BRADFORD M.D.Performed By: #### T4F, TSH3 #### [facility] [address] [place], [place] [address] USAThyroxine (T4) free [Mass/volume] in Serum or Plasma Ordered By: Dimitri Mixon on 14-34-3858Jxfu T4 [Mass/Vol]0.78 ng/dLNormal 0.61-1.12[facility] HospitalComment on above:Performed By: #### T4F, TSH3 #### [facility] [address] [place], [place] [address] USAMAMM SCREENING BILATERAL W CADon 78-85-8308BQXW SCREENING BILATERAL W CADMAMM SCREENING BILATERAL W CAD *ADDENDUM*Comparisons from 12/28/2020, 10/02/2019 are now available. Assessment unchanged from prior. No evidence of malignancy. BI-RADS 1. One year screening mammogram recommended Finalized by Kristian Olmstead MD on 03/21/2023 9:02 PM 1 c MOLEC BR IMGNormalProMedica Sierra Nevada Memorial HospitalOffice Visiton 66-12-2063Rsidvs-up [id number] Sherron Garcia 1965 F Date Provider Department Center 09/29/2022 АЛЕКСАНДР MALAGON ORTHO MPORTHO Family History Family Status - Relation Status Age at Mother Father Brother Level of Service:80685 [place] OFFICE/OUTPATIENT ESTABLISHED LOW MDM 20-29 MIN Reason for Visit and Comments: Follow-up [766250] - Long fingerNormalUniHolzer Health SystemConsult on [id number] Sherron Garcia 1965 F Date Provider Department Center 09/06/2022 DAVE RIOJAS MP ORTHO MPORTHO No family history on file Level of Service:90108 [place] OFFICE/OUTPATIENT ESTABLISHED LOW MDM 20-29 MIN Reason for Visit and Comments: New Patient [632][facility] CenterOffice Visiton 19-18-4917Rukiff-up [id number] Sherron Garcia 1965 F Date Provider Department Center 08/04/2022 АЛЕКСАНДР MALAGON ORTHO MPORTHO No family history on file Level of Service:61676 [place] POSTOP FOLLOW UP VISIT RELATED TO ORIGINAL PX Reason for Visit and Comments: Post-op [483][facility] Medical CenterHPon 15-80-2598RZF&P reviewed. The patient was examined and there are no changes to the H&P. Patient also presented with clinical symptoms and signs supportive of adjacent right ring trigger finger as well. She consented for release of both the right long and ring trigger fingers.[facility] Medical CenterOPNOTEon 59-86-7373RZKQHGMXEXKJQZNZX SURGERY OPERATIVE REPORT Date of Surgery: 07/24/2022 Surgeon: Aliya Wilks MD Svp Chief Marketing Officer: Jana Spencer MD PGY-2 Anup Anthony MD [...] the entirety of the procedure(s). Aliya Wilks MDNormalUniversOhioHealth Marion General HospitalPOCT GLUCOSE METER UNSOLICITED RESULTSon 34-43-0866Jezuinp [Mass/Vol]98 mg/sTPqexny45-520MfuxgvwirwMarion HospitalComment on above:Result Comment: cfuey1Dbhbgsqse By: #### [id number] ####[facility] ([facility])[address] [place] [address] Letter (Out)on 54-36-6700Nzogqw (Out)[id number] Sherron Garcia 1965 Date Provider Department Center 07/10/2022 None-None [facility] AUTH AL Medical C No family history on fileNormalUniversOhioHealth Marion General HospitalFollow-Upon [id number] Sherron Garcia 1965 Provider Department [place] 07/06/2022 373-ALIYA WILKS ORTHO MPORTHO No family history on file Level of Service:97953 MA OFFICE/OUTPATIENT ESTABLISHED LOW MDM 20-29 MIN Reason for Visit and Comments: Pain [136] Follow-up [322836]NormalUnMarion HospitalHPon 13-54-3518SX Attestation signed by Aliya Wilks MD at [...] radha Rufus Gee MD PGY-4 Orthopedic Surgery [facility] By using the attestations below, the [...] may be an additional personal documentation from me.[facility] Medical CenterAlbumin [Mass/volume] in Serum or PlasmaOrdered By: Dimitri Mixon on 45-08-2375Nmfvanv [Mass/Vol]3.8 g/dL3.2-5.5FUniversity Hospitals TriPoint Medical CenterAlkaline phosphatase [Enzymatic activity/volume] in Serum or PlasmaOrdered By: Dimitri Mixon on 65-12-7313DZJ [Catalytic activity/Vol]80 U/R38-15XojeostkiDayton Osteopathic HospitalAspartate aminotransferase [Enzymatic activity/volume] in Serum or Plasma Ordered By: Dimitri Mixon on 62-08-0997NNG [Catalytic activity/Vol]16 U/L10-42 [facility] HospitalBasophils Auto (Bld) [#/Vol]Ordered By: Dimitri Mixon on 20-00-8367Kgmeqypzk (Bld) [#/Vol]0.0 10*3/uL0.0-0.2FUniversity Hospitals TriPoint Medical CenterBasophils/100 WBC Auto (Bld)Ordered By: Dimitri Mixon on 33-02-5317Xpcylsgrr/100 WBC (Bld)0.2 %.[facility] Bilirubin.total [Mass/volume] in Serum or PlasmaOrdered By: Dimitri Mixon on 36-13-1953Ujhtroxfq [Mass/Vol]0.4 mg/dL0.3-1.2FUniversity Hospitals TriPoint Medical Center Calcium [Mass/volume] in Serum or PlasmaOrdered By: Dimitri Mixon on 04-18-2022 Calcium [Mass/Vol]9.4 mg/dL8.2-10.2FUniversity Hospitals TriPoint Medical CenterCarbon dioxide, total [Moles/volume] in Serum or PlasmaOrdered By: Dimitri Mixon on 79-16-6258OY2 [Moles/Vol]25.2 mmol/L22.0-30.0[facility] Chloride [Moles/volume] in Serum or PlasmaOrdered By: Dimitri Mixon on 78-75-5401Riumxrrs [Moles/Vol]103 mmol/F25-248SscseqcfmDayton Osteopathic Hospital Creatinine and Glomerular filtration rate.predicted panel (S/P/Bld)Ordered By: Dimitri Mixon on 80-31-7323Tajmcutjeq [Mass/Vol]0.60 mg/dL0.44-1.03[facility] HospitalEosinophils Auto (Bld) [#/Vol]Ordered By: Dimitri Mixon on 61-98-8200Lujfjkbujsp (Bld) [#/Vol]0.3 10*3/uL0.0-0.45[facility]opathic HospitalEosinophils/100 WBC Auto (Bld)Ordered By: Dimitri Mixon on 91-71-3651Runhnmyplhn/100 WBC (Bld)4.2 %.[facility] Erythrocyte distribution width Auto (RBC) [Ratio]Ordered By: Dimitri Mixon on 63-61-3041Akmkomasqai distribution width (RBC) [Ratio]14.2 %11.9-15.3FUniversity Hospitals TriPoint Medical CenterEstimated glomerular filtration rate (GFR) non- AmericanOrdered By: Dimitri Mixon on 01-78-2212GRZ/1.73 sq M.predicted among non-blacks MDRD (S/P/Bld) [Vol rate/Area]> 60 mL/MinDayton Osteopathic HospitalGlobulin Calc (S) [Mass/Vol]Ordered By: Dimitri Mixon on 04-18-2022 Globulin (S) [Mass/Vol]3.1 g/dLDayton Osteopathic HospitalGlucose [Mass/volume] in Serum or PlasmaOrdered By: Dimitri Mixon on 89-76-5575Jgkkeff [Mass/Vol]98 mg/uQ43-689MguwywbpgDayton Osteopathic HospitalComment on above:ADA recommended reference rangeRandom Glucose Reference Range is dependent on time and content of last meal. Glucose of more than 200 mg/dL in a nonstressed, ambulatory subject supports the diagnosisof Diabetes Mellitus.Hematocrit Auto (Bld) [Volume fraction]Ordered By: Dimitri Mixon on 53-71-9681Uczuihlemz (Bld) [Volume fraction]41.1 %34.0-46.4FUniversity Hospitals TriPoint Medical CenterHemoglobin [Mass/volume] in BloodOrdered By: Dimitri Mixon on 63-61-7814Jrwlwtntum (Bld) [Mass/Vol]13.5 g/dL11.8-15.4FUniversity Hospitals TriPoint Medical CenterLeukocytes [#/volume] corrected for nucleated erythrocytes in Blood by Automated coun Ordered By: Dimitri Mixon on 43-87-2014PQH corrected for nucl RBC Auto (Bld) [#/Vol]8.2 10*3/uL3.8-11.6FUniversity Hospitals TriPoint Medical CenterLymphocytes Auto (Bld) [#/Vol]Ordered By: Dimitri Mixon on 70-03-2166Ypfjdbjzcsf (Bld) [#/Vol] 3.0 10*3/uL1.00-4.8[facility] HospitalLymphocytes/100 WBC Auto (Bld)Ordered By: Dimitri Mixon on 95-58-6661Smqarklqfmw/100 WBC (Bld)37.3 %. [facility] HospitalMCH Auto (RBC) [Entitic mass]Ordered By: Dimitri Mixon on 86-71-6952OUR (RBC) [Entitic mass]28.9 pg24.7-34.3FUniversity Hospitals TriPoint Medical CenterMCHC Auto (RBC) [Mass/Vol]Ordered By: Dimitri Mixon on 20-00-6936PNRK (RBC) [Mass/Vol]32.7 g/dL32.0-35.0[facility] HospitalMCV Auto (RBC) [Entitic vol]Ordered By: Dimitri Mixon on 12-51-8777INL (RBC) [Entitic vol]88.3 oA95-834OnhizabraDayton Osteopathic HospitalMonocytes Auto (Bld) [#/Vol]Ordered By: Dimitri Mixon on 56-85-9484Emohdpemm (Bld) [#/Vol]0.6 10*3/uL0.0-0.8[facility] HospitalMonocytes/100 WBC Auto (Bld) Ordered By: Dimitri Mixon on 35-78-0544Kudqqolxw/100 WBC (Bld)7.3 %.[facility] HospitalNeutrophils Auto (Bld) [#/Vol]Ordered By: Dimitri Mixon on 58-36-5311Pggaxevfjyv (Bld) [#/Vol]4.2 10*3/uL1.8-7.7FUniversity Hospitals TriPoint Medical CenterNeutrophils/100 WBC Auto (Bld)Ordered By: Dimitri Mixon on 73-48-1208Oiptkeankrr/100 WBC (Bld)51.0 %.[facility] HospitalNo Panel InformationOrdered By: Dimitri Mioxn on 87-64-9259Xwebiumad GFR ()> 60 mL/MinDayton Osteopathic HospitalComment on above:GFR estimated reference range: According to KDOQI guidelines, <60 ml/min/1.73m2 is sufficient todiagnose a patient with chronic kidney disease.Pharmacy Creatinine Clearance (ChemN/[facility] CenterNucleated erythrocytes [Presence] in Blood by Automated countOrdered By: Dimitri Mixon on 04-18-2022 Nucleated RBC Auto Ql (Bld)0.1 /100{WBC}0-0.5FUniversity Hospitals TriPoint Medical Center Platelet mean volume Auto (Bld) [Entitic vol]Ordered By: Dimitri Mixon on 63-23-9720Nklvctuf mean volume (Bld) [Entitic vol]9.2 fL6.3-10.7FUniversity Hospitals TriPoint Medical CenterPlatelets Auto (Bld) [#/Vol]Ordered By: Dimitri Mixon on 71-41-5495Jujfeqbhr (Bld) [#/Vol]238 10*3/aT707-781QsgzkmfqpDayton Osteopathic HospitalPotassium [Moles/volume] in Serum or PlasmaOrdered By: Dimitri Mixon on 02-13-8981Cpbycomin [Moles/Vol]4.0 mmol/L3.5-5.1FUniversity Hospitals TriPoint Medical CenterProtein [Mass/volume] in Serum or PlasmaOrdered By: Dimitri Mixon on 69-96-6575Enkhbjk [Mass/Vol]6.9 g/dL6.1-7.9[facility] HospitalRBC Auto (Bld) [#/Vol]Ordered By: Dimitri Mixon on 42-36-6505SIO (Bld) [#/Vol]4.66 10*6/uL3.60-5.00[facility] Memorial Hospitalerum or plasma alanine aminotransferase measurement without P-5'-P (enzymatic activiOrdered By: Dimitri Mixon on 40-94-5010QON No additional P-5'-P [Catalytic activity/Vol]17 U/L 10-60[facility] Hospitalerum or plasma albumin/globulin mass ratioOrdered By: Dimitri Mixon on 26-22-2572Pjbojvy/Globulin [Mass ratio]1.2 {ratio}[facility] Memorial Hospitalerum or plasma anion gap determination Ordered By: Dimitri Mixon on 42-68-0324Kllkp gap [Moles/Vol]11.8 mmol/L6.0-15.0 [facility] Hospitalodium [Moles/volume] in Serum or PlasmaOrdered By: Dimitri Mixon on 67-34-2576Likxha [Moles/Vol]136 mmol/U942-033MjccpzexlDayton Osteopathic HospitalUrea nitrogen [Mass/volume] in Serum or PlasmaOrdered By: Dimitri Mixon on 42-49-4122Kwmf nitrogen [Mass/Vol]18 mg/dL9-23Day[facility]opathic HospitalWBC Auto (Bld) [#/Vol]Ordered By: Dimitri Mixon on 53-37-3120DWI (Bld) [#/Vol]8.2 10*3/uL3.8-11.6FUniversity Hospitals TriPoint Medical Center CBC AUTO DIFFon 78-91-5709WIJY #0.0 103/ulNormal0.0-0.1[facility] Comment on above:Performed By: #### CBC #### [facility] [address] [address] [address] Jaren Ramsaysophils/100 WBC (Bld)0.4 %Normal0.2-2.0[facility] Comment on above:Performed By: #### CBC #### [facility] [address] [address] [address] Jaren Sprague #0.3 103/ulNormal0.0-0.7The Doctors HospitalComment on above: Performed By: #### CBC #### [facility] [address] [address] [address] Yilan ChangEosinophils/100 WBC (Bld)5.1 %Normal0.9-7.0[facility] Comment on above:Performed By: #### CBC #### [facility] [address] [place] [address] Dr. Jaren Shirleyrythrocyte distribution width (RBC) [Ratio]14.5 %Aadhcc15.0-15.0 The Doctors HospitalComment on above:Performed By: #### CBC #### [facility] [address] [place] [address] Dr. Jaren LandersHematocrit (Bld) [Volume fraction]41.2 %Ohwxft08.0-48.0The Doctors HospitalComment on above:Performed By: #### CBC #### [facility] [address] [place] [address] Dr. Jaren LandersHemoglobin (Bld) [Mass/Vol]13.7 g/mCDvqyko84.0-16.0The Doctors HospitalComment on above:Performed By: #### CBC #### [facility] [address] [place] [address] Dr. Jaren LandersIG #0.01 10e3/ulNormal0.00-0.03The Doctors HospitalComment on above:Performed By: #### CBC #### [facility] [address] [place] [address] Dr. Jaren LandersIG %0.1 %Normal0.0-0.5The Doctors HospitalComment on above: Performed By: #### CBC #### [facility] [address] [place] [address] Dr. Jaren FayH #2.3 103/ulNormal1.2-3.8The Doctors HospitalComment on above:Performed By: #### CBC #### [facility] [address] [place] [address] Dr. Jaren Rosariomphocytes/100 WBC (Bld)34.1 %Cewtcr45.5-60.0The Doctors HospitalComment on above:Performed By: #### CBC #### [facility] [address] [place], [place] [id number] Dr. Jaren Ro DIFF REQNONormalThe Doctors HospitalComment on above: Performed By: #### CBC #### [facility] [address] [place] [address] Dr. Jaren Andrade (RBC) [Entitic mass]29.1 hgQyhzlw16.7-34.0The Doctors HospitalComment on above:Performed By: #### CBC #### [facility] [address] [place] [address] Dr. Jaren Andrade (RBC) [Mass/Vol]33.3 g/oMMzmyka89.9-35.2The Doctors HospitalComment on above:Performed By: #### CBC #### [facility] [address] [place] [address] Dr. Jaren Andrade (RBC) [Entitic vol]87.7 cQGnijuf40.0-99.0The Doctors HospitalComment on above:Performed By: #### CBC #### [facility] [address] [place] [address] Dr. Jaren Martinez #0.5 103/ulNormal0.3-0.8The Doctors HospitalComment on above:Performed By: #### CBC #### [facility] [address] [place] [address] Dr. Jaren Herreraocytes/100 WBC (Bld)7.3 %Normal1.7-12.0[facility] Comment on above:Performed By: #### CBC #### [facility] [address] [place] [address] Dr. Jaren Steele #3.6 103/ulNormal1.4-6.5The Doctors HospitalComment on above:Performed By: #### CBC #### [facility] [address] [place] [address] Dr. Jaren Espinalutrophils/100 WBC (Bld)53.0 %Yrijkk44.0-75.0The Doctors HospitalComment on above:Performed By: #### CBC #### [facility] [address] [address] [address] Jaren Kay mean volume (Bld) [Entitic vol]10.4 fLNormal9.5-13.5The Doctors HospitalComment on above:Performed By: #### CBC #### [facility] [address] [place] [address] Dr. Jaren SyT248 103/cxHylyit458-713Ele Doctors HospitalComment on above: Performed By: #### CBC #### [facility] [address] [place] [address] Dr. Jaren LandersRBC4.70 106/ulNormal4.20-5.40The Doctors HospitalComment on above:Performed By: #### CBC #### [facility] [address] [place] [address] Dr. Jaren LandersWBC6.7 103/ulNormal4.0-11.0The Doctors HospitalComment on above: Performed By: #### CBC #### [facility] [address] [place] [address] Dr. Jaren LandersFREE THYROXINE INDEX T7on 48-80-7834JCK1.48Ehxssc2.30-4.50The [facility] HospitalComtrinity health [facility] on above:Performed By: #### T7, CMP, TSH, LIPID #### [facility] [address] [place] [address] Dr. Jaren LandersT3U31.0 %Lkcxms91.0-39.0The [facility] Hospitalment on above: Performed By: #### T7, CMP, TSH, LIPID #### [facility] [address] [place] [address] Dr. Jaren LandersT4 [Mass/Vol]6.60 ug/dLNormal4.80-13.90[facility] Comment on above:Performed By: #### T7, CMP, TSH, LIPID #### [facility] [address] [place] [address] Dr. Jaren LandersGLYCOHEMOGLOBIN A1Con 77-88-3512RPM RECOMMENDATIONSEE BELOWNormal The Doctors HospitalComment on above:Result Comment: ADA RECOMMENDED LIMIT 4.0 - 6.0 ADA THERAPEUTIC TARGET < 7.0 ACTION SUGGESTED > 7.0Performed By: #### A1C #### [facility] [address] [place] [address] Dr. Jaren LandersGlucose [Mass/Vol]128 mg/dLThe Christ HospitalComtrinity health [facility] on above:Performed By: #### A1C #### [facility] [address] [place] [address] Dr. Jaren LandersHbA1c (Bld) [Mass fraction]6.1 %Normal4.5-6.2The [facility] HospitalComtrinity health [facility] on above:Performed By: #### A1C #### [facility] [address] [place] [address] Dr. Jaren Zayas 99-18-2838Wgtk [Mass/Vol]86.0 ug/wHPskyyw82.0-170.0The [facility] HospitalComtr[facility] on above:Performed By: #### IRON, VITAD #### [facility] [address] [place] [address] Dr. Jaren PetersonID PROFILEon 16-46-4220EHNA-HDL RATIO NORMSRegional Medical CenterComtrinity health [facility] on above:Result Comment: 3.3 - 4.4 LOW RISK 4.4 - 7.1 AVERAGE RISK 7.1 - 11.0 MODERATE RISK >11.0 HIGH RISKPerformed By: #### T7, CMP, TSH, LIPID #### [facility] [address] [place] [address] Dr. Jaren LandersCholesterol [Mass/Vol]206 mg/dLCritically high<=200The [facility] on above:Performed By: #### T7, CMP, TSH, LIPID #### [facility] [address] [place] [address] Dr. Jaren Armijoesterol in HDL [Mass/Vol]68 mg/dLCritically emzk48-32Knw [facility] on above:Performed By: #### T7, CMP, TSH, LIPID #### [facility] [address] [place] [address] Dr. Yilan ChangCholesterol in LDL [Mass/Vol]126.6 mg/dLThe Christ HospitalComment on above:Performed By: #### T7, CMP, TSH, LIPID #### [facility] [address] [place] [address] Dr. Jaren Franklin.total/Cholesterol in HDL [Mass ratio]3.0 {ratio} NormalThe Doctors HospitalComment on above:Performed By: #### T7, CMP, TSH, LIPID #### [facility] [address] [place] [address] Dr. Jaren Pickens NORMAL> or = 60 mg/dl - LOW CARDIOVASCULAR RISK <40 mg/dl - HIGH CARDIOVASCULAR RISKThe Christ HospitalComment on above:Performed By: #### T7, CMP, TSH, LIPID #### [facility] [address] [place] [address] Dr. Jaren Wray CALC NORMALSEE BELOWThe Christ HospitalComment on above:Result Comment: <100 mg/dl OPTIMAL 100 - 129 mg/dl NEAR OR ABOVE OPTIMAL 130 - 159 mg/dl BORDERLINE HIGH 160 - 189 mg/dl HIGH >190 mg/dl VERY HIGH Performed By: #### T7, CMP, TSH, LIPID #### [facility] [address] [place] [address] Dr. Jaren LandersTriglyceride [Mass/Vol]57 mg/dLNormal<=150[facility] Comment on above:Performed By: #### T7, CMP, TSH, LIPID #### [facility] [address] [place] [address] Dr. Jaren LandersVLDL CALC11.4 mg/dLNoWhite HospitalComment on above: Performed By: #### T7, CMP, TSH, LIPID #### [facility] [address] [place] [address] Dr. Jaren LandersPROMilena 14(COMP METB)on 26-81-4558Ngjxvdu [Mass/Vol]3.6 g/dLNormal 3.4-5.0The Doctors HospitalComment on above:Performed By: #### T7, CMP, TSH, LIPID #### [facility] [address] [address] [address] Jaren LandersAlbumin/Globulin [Mass ratio]0.9 {ratio}NormalThe [facility] Memorial Hospitalment on above:Performed By: #### T7, CMP, TSH, LIPID #### [facility] [address] [address] [address] Jaren HamlinP [Catalytic activity/Vol]84 U/VSsdfip29-133Ehj Doctors HospitalComment on above:Performed By: #### T7, CMP, TSH, LIPID #### [facility] [address] [address] [address] Jaren HamlinT [Catalytic activity/Vol]27 U/ITlozrw45-31Nde Doctors HospitalComment on above:Performed By: #### T7, CMP, TSH, LIPID #### [facility] [address] [place] [address] Dr. Jaren Brockon gap [Moles/Vol]11.0 mmol/LNormalThe [facility] Comment on above:Performed By: #### T7, CMP, TSH, LIPID #### [facility] [address] [place] [address] Dr. Jaren LandersAST [Catalytic activity/Vol]28 U/MOkjkdo16-88Lvi Doctors HospitalComment on above:Performed By: #### T7, CMP, TSH, LIPID #### [facility] [address] [place] [address] Dr. Jaren LandersBilirubin [Mass/Vol]0.4 mg/dLNormal0.2-1.0[facility] Comment on above:Performed By: #### T7, CMP, TSH, LIPID #### [facility] [address] [place] [address] Dr. Jaren LandersCalcium [Mass/Vol]9.2 mg/dLNormal8.5-10.1[facility] Comment on above:Performed By: #### T7, CMP, TSH, LIPID #### [facility] [address] [address] [address] Jaren LandersChloride [Moles/Vol]103 mmol/OBxyveg15-600HhgLutheran Hospital Comment on above:Performed By: #### T7, CMP, TSH, LIPID #### [facility] [address] [place] [address] Dr. Jaren LandersCO2 [Moles/Vol]28.8 mmol/ESdcejo20.0-32.0[facility] Comment on above:Performed By: #### T7, CMP, TSH, LIPID #### [facility] [address] [place] [address] Dr. Jaren LandersCreatinine [Mass/Vol]0.66 mg/dLNormal0.55-1.02Lutheran HospitalComment on above:Performed By: #### T7, CMP, TSH, LIPID #### [facility] [address] [place] [address] Dr. Jaren ShirleyGFR-AF COSTA RICAN>60Normal>=60The Doctors HospitalComment on above:Performed By: #### T7, CMP, TSH, LIPID #### [facility] [address] [place] [address] Dr. Jaren ShirleyGFR-NON AF COSTA RICAN>60Normal>=60The Doctors HospitalComment on above:Performed By: #### T7, CMP, TSH, LIPID #### [facility] [address] [place] [address] Dr. Jaren LandersGlobulin (S) [Mass/Vol]4.2 g/dLNormalThe Doctors HospitalComment on above:Performed By: #### T7, CMP, TSH, LIPID #### [facility] [address] [place] [address] Dr. Jaren LandersGlucose [Mass/Vol]107 mg/dLCritically brsh47-844Xdv Doctors HospitalComment on above:Performed By: #### T7, CMP, TSH, LIPID #### [facility] [address] [place] [address] Dr. Jaren LandersPotassium [Moles/Vol]3.8 mmol/LNormal3.5-5.1[facility] Comment on above:Performed By: #### T7, CMP, TSH, LIPID #### [facility] [address] [place] [address] Dr. Jaren LandersProtein [Mass/Vol]7.8 g/dLNormal6.4-8.2[facility] Comment on above:Performed By: #### T7, CMP, TSH, LIPID #### [facility] [address] [place] [address] Dr. Jaren LandersSodium [Moles/Vol]139 mmol/SEvrfat316-681Bnn [facility] Comment on above:Performed By: #### T7, CMP, TSH, LIPID #### [facility] [address] [place] [address] Dr. Jaren LandersUrea nitrogen [Mass/Vol]16.0 mg/dLNormal7.0-18.0The Doctors HospitalComment on above:Performed By: #### T7, CMP, TSH, LIPID #### [facility] [address] [place] [address] Dr. Jaren Dobbs nitrogen/Creatinine [Mass ratio]24.2 mg/mgNoWhite HospitalComment on above:Performed By: #### T7, CMP, TSH, LIPID #### [facility] [address] [place] [address] Dr. Jaren Simms 43-81-9850FQR1.971 uIU/mLNormal0.358-3.740The Doctors HospitalComment on above:Performed By: #### T7, CMP, TSH, LIPID #### [facility] [address] [place] [address] Dr. Jaren LandersVITAMIN D 25 OHon 58-85-4506FTR D 25-OH81.1 ng/mLNormalThe Doctors HospitalComment on above:Performed By: #### IRON, VITAD #### [facility] [address] [place] [address] Dr. Jaren ROMO BELOWThe Christ HospitalComment on above: Result Comment: <20 ng/mL Vit D deficient 20 - <30 ng/mL Vit D insufficient 30 - 100 ng/mL Vit D sufficient >100 ng/mL Potential ToxicityPerformed By: #### IRON, VITAD #### [facility] [address] [address] [address] Jaren LandersHAND LEFT 3 VWSon 47-70-5345UASF LEFT 3 VWSUnicovenant children's hospital [facility] Department of Radiology [address] [place] [id number] Patient Name: SHERRON GARCIA : 1965 Sex: F Age: Race: Black Pt. Location: Patient Status: D Ordered Date: 10/20/2021 1:35:00 PM Completed Date: 10/20/2021 02:35 PM Requesting Provider: VENTURA WILKS Attending Provider: Report Copy To: Signs & Symptoms: M79.641 Pain in right hand I10 History: [place] Comments: , , , Ordering Provider - Thea AJ , Exam: HAND LEFT 3 VWS HAND LEFT 3 VWS 10/20/2021 2:35 PM CLINICAL INDICATIONS: [...] report. Electronically signed: Tone Cheatham. Transcribed by: [email or web address], User Resident: GLEN NGUYEN Electronically Signed by: TONE CHEATHAM @ 10/21/2021 09:13 AM I personally read this/these film(s) with this residentMercy Health Lorain HospitalComment on above:Order Comment: , , , Ordering Provider - Thea AJ , HAND RIGHT 3 Son 20-18-2547GDCC RIGHT 3 SUniHolzer Health System Department of Radiology [address] [place] [id number] Patient Name: SHERRON GARCIA : 1965 Sex: F Age: Race: Black Pt. Location: Patient Status: D Ordered Date: 10/20/2021 1:35:00 PM Completed Date: 10/20/2021 02:35 PM Requesting Provider: VENTURA WILKS Attending Provider: Report Copy To: Signs & Symptoms: M79.641 Pain in right hand I10 History: [place] Comments: , , , Ordering Provider - Thea AJ , Exam: HAND RIGHT 3 S HAND RIGHT 3 VWS 10/20/2021 2:35 PM CLINICAL INDICATIONS: M79.641 Pain in right hand I10 TECHNOLOGIST COMMENTS: bilateral hand pain and swelling hx: arthritis QUESTION FOR THE RADIOLOGIST: , , , Ordering Provider - Thea [facility] , PROTOCOL: AP,Lateral and Oblique views were obtained. COMPARISON: None FINDINGS: No acute malalignment or fracture. Mild multifocal degenerative changes. IMPRESSION: Mild multifocal degenerative changes. No acute bony pathology. Approved by:Glen Benton10/21/2021 8:56 AM. I, Tone Cheatham,have reviewed the image(s) and agree with the findings in this report. Electronically signed: Tone Cheatham. Transcribed by: [email or web address], User Resident: GLEN NGUYEN Electronically Signed by: TONE CHEATHAM @ 10/21/2021 09:14 AM I personally read this/these film(s) with this [facility] HospitalComment on above:Order Comment: , , , Ordering Provider - A MGADALENA [facility] , Basophils Auto (Bld) [#/Vol]Ordered By: Dimitri Mixon on 23-39-8717Khjlshtps (Bld) [#/Vol]0.1 10*3/uL0.0-0.2 [facility] HospitalBasophils/100 WBC Auto (Bld)Ordered By: Dimitri Mixon on 54-30-4815Fupbssnpg/100 WBC (Bld)0.5 %.[facility] HospitalBlood hemoglobin measurement (mass/volume)Ordered By: Dimitri Mixon on 88-78-5837Qujabjfjzp (Bld) [Mass/Vol]13.5 g/dL11.8-15.4FUniversity Hospitals TriPoint Medical CenterBlood leukocytes automated count (number/volume)Ordered By: Dimitri Mixon on 48-36-4934MZV (Bld) [#/Vol]10.8 10*3/uL4.5-11.0[facility] HospitalBody fluid albumin measurement (mass/volume)Ordered By: Dimitri Mixon on 88-51-0639Lytfghn (Body fld) [Mass/Vol]3.9 g/dL3.2-5.5 [facility] HospitalCreatinine and Glomerular filtration rate.predicted panel (S/P/Bld)Ordered By: Dimitri Mixon on 25-40-4064Xwxibjfrto [Mass/Vol]0.74 mg/dL0.44-1.03[facility] HospitalEosinophils Auto (Bld) [#/Vol]Ordered By: Dimitri Mixon on 19-23-7682Nwhbwqizaui (Bld) [#/Vol] 0.2 10*3/uL0.0-0.45[facility] HospitalEosinophils/100 WBC Auto (Bld)Ordered By: Dimitri Mixon on 68-93-6126Arhylxjglsb/100 WBC (Bld)1.5 %. [facility] HospitalErythrocyte distribution width Auto (RBC) [Ratio]Ordered By: Dimitri Mixon on 32-73-5583Rhdjltysotl distribution width (RBC) [Ratio]14.4 %11.9-15.3FUniversity Hospitals TriPoint Medical CenterEstimated glomerular filtration rate (GFR) non- AmericanOrdered By: Dimitri Mixon on 12-59-3715EEW/1.73 sq M.predicted among non-blacks MDRD (S/P/Bld) [Vol rate/Area]> 60 mL/MinDayton Osteopathic HospitalGlobulin Calc (S) [Mass/Vol]Ordered By: Dimitri Mixon on 10-73-4382Xyiyntfd (S) [Mass/Vol]2.7 g/dLDayton Osteopathic HospitalHematocrit Auto (Bld) [Volume fraction] Ordered By: Dimitri Mixon on 19-97-3101Xxiokigfyp (Bld) [Volume fraction]40.3 % 34.0-46.4FUniversity Hospitals TriPoint Medical CenterLaboratory - Hematology and Cell countsOrdered By: Dimitri Mixon on 98-91-8148Hnlkeoici RBC/100 WBC (Bld) [Ratio]0.1 %0-0.5FUniversity Hospitals TriPoint Medical CenterLymphocytes Auto (Bld) [#/Vol] Ordered By: Dimitri Mixon on 64-13-2241Wijrckotfpo (Bld) [#/Vol]3.4 10*3/uL 1.00-4.8[facility] HospitalLymphocytes/100 WBC Auto (Bld)Ordered By: Dimitri Mixon on 99-68-3698Qqfwlieimpu/100 WBC (Bld)32.0 %.[facility] HospitalH Auto (RBC) [Entitic mass]Ordered By: Dimitri Mixon on 63-53-4679RWB (RBC) [Entitic mass]29.7 pg24.7-34.3FUniversity Hospitals TriPoint Medical CenterMCHC Auto (RBC) [Mass/Vol]Ordered By: Dimitri Mixon on 36-96-7935CSRZ (RBC) [Mass/Vol]33.6 g/dL32.0-35.0[facility] HospitalMCV Auto (RBC) [Entitic vol]Ordered By: Dimitri Mixon on 26-07-8946CDI (RBC) [Entitic vol]88.5 mH12-669NnrfdtccnDayton Osteopathic HospitalMonocytes Auto (Bld) [#/Vol] Ordered By: Dimitri Mixon on 59-35-4920Usldkmzro (Bld) [#/Vol]0.8 10*3/uL 0.0-0.8[facility] HospitalMonocytes/100 WBC Auto (Bld)Ordered By: Dimitri Mixon on 48-00-8138Vmjsyuuuh/100 WBC (Bld)7.8 %.[facility] HospitalNeutrophils Auto (Bld) [#/Vol]Ordered By: Dimitri Mixon on 03-66-6265Wmcqtmiygqf (Bld) [#/Vol]6.3 10*3/uL1.8-7.7FUniversity Hospitals TriPoint Medical CenterNeutrophils/100 WBC Auto (Bld)Ordered By: Dimitri Mixon on 10-17-2021 Neutrophils/100 WBC (Bld)58.2 %.[facility] HospitalNo Panel InformationOrdered By: Dimitri Mixon on 36-23-8406Soqwdbvgz GFR ()> 60 mL/MinDayton Osteopathic HospitalComment on above:GFR estimated reference range: According to KDOQI guidelines, <60 ml/min/1.73m2 is sufficient todiagnose a patient with chronic kidney disease.Pharmacy Creatinine Clearance (ChemN/[facility] Medical CenterPlatelet mean volume Auto (Bld) [Entitic vol]Ordered By: Dimitri Mixon on 49-47-5203Zygyxmgj mean volume (Bld) [Entitic vol]9.9 fL6.3-10.7FUniversity Hospitals TriPoint Medical CenterPlatelets Auto (Bld) [#/Vol]Ordered By: Dimitri Mixon on 41-80-1724Pddognxeo (Bld) [#/Vol]244 10*3/dW738-786YrablnglrDayton Osteopathic HospitalProtein [Mass/volume] in Serum or PlasmaOrdered By: Dimitri Mixon on 94-81-0719Nxdvtqx [Mass/Vol]6.6 g/dL6.1-7.9 [facility] HospitalRBC Auto (Bld) [#/Vol]Ordered By: Dimitri Mixon on 50-61-6280IWL (Bld) [#/Vol]4.55 10*6/uL3.60-5.00[facility] Hospitalerum or plasma alanine aminotransferase measurement without P-5'-P (enzymatic activiOrdered By: Dimitri Mixon on 43-10-9860PJT No additional P-5'-P [Catalytic activity/Vol]14 U/A97-65TlcmwmxmmCommunity Memorial Hospitalerum or plasma albumin/globulin mass ratioOrdered By: Dimitri Mixon on 04-70-7598Bvnxvys/Globulin [Mass ratio]1.4 {ratio}[facility] Hospitalerum or plasma alkaline phosphatase measurement (enzymatic activity/volume)Ordered By: Dimitri Mixon on 70-90-7331HJU [Catalytic activity/Vol]86 U/X21-36EfkidzidqCommunity Memorial Hospitalerum or plasma anion gap determinationOrdered By: Dimitri Mixon on 18-62-6422Tmvlj gap [Moles/Vol] 15.0 mmol/L6.0-15.0[facility] Hospitalerum or plasma aspartate aminotransferase measurement (enzymatic activity/volume)Ordered By: Dimitri Mixon on 42-89-9624SDX [Catalytic activity/Vol]18 U/Y39-50UpnlgpaegCommunity Memorial Hospitalerum or plasma calcium measurement (mass/volume)Ordered By: Dimitri Mixon on 95-63-1782Zdanhgs [Mass/Vol]10.5 mg/dL8.2-10.2FUK Healthcareerum or plasma chloride measurement (moles/volume) Ordered By: Dimitri Mixon on 47-97-2068Mnpvyhvu [Moles/Vol]100 mmol/L95-114 [facility] Hospitalerum or plasma glucose measurement (mass/volume)Ordered By: Dimitri Mixon on 48-72-9465Vsoyrnj [Mass/Vol]101 mg/dL 70-100[facility] HospitalComment on above:ADA recommended reference range Random Glucose Reference Range is dependent on time and content of last meal. Glucose of more than 200 mg/dL in a nonstressed, ambulatory subject supports the diagnosis of Diabetes Mellitus.Serum or plasma potassium measurement (moles/volume)Ordered By: Dimitri Mixon on 18-92-1695Vvskvhffz [Moles/Vol]4.8 mmol/L3.5-5.1FUK Healthcareerum or plasma sodium measurement (moles/volume)Ordered By: Dimitri Mixon on 50-52-1059Felmrd [Moles/Vol]138 mmol/U998-887WvzvvlyivCommunity Memorial Hospitalerum or plasma total bilirubin measurement (mass/volume)Ordered By: Dimitri Mixon on 44-03-6612Rohxrilmj [Mass/Vol]0.2 mg/dL0.3-1.2FUK Healthcareerum or plasma total carbon dioxide measurement (moles/volume)Ordered By: Dimitri Mixon on 47-43-4481RV0 [Moles/Vol]27.8 mmol/L22.0-30.0[facility] Serum or plasma urea nitrogen measurement (mass/volume)Ordered By: Dimitri Mixon on 20-27-8023Bsud nitrogen [Mass/Vol]20 mg/dL9-23[facility] HospitalOperative Reporton 06-06-7111Kziducfuu ReportMR#: [id number] S [facility] Pt. Name: Jose Sherron Room #: 0C Discharge Date: Birthdate: 1965 OPERATIVE REPORT DATE OF SURGERY: 06/06/2021 SURGEON: Nelida Wilks M.D. COFFIN MAKER: Benton Lambert M.D. PREOPERATIVE DIAGNOSIS: Left carpal [...] Lambert MD Date Trans: 06/06/2021 09:17 Thea/tee DN_JN:[id number] cc: Gamal Morgan M.D. [facility] [address] [place] [phone] Katerine Jacobs M.D. [address] [address] [place], [place] [address]PO GLUCOSE LABon 40-38-0776Ndzkvgg [Mass/Vol]107 mg/cJRqpq34-229Ytj [facility] HospitalComment on above:Performed By: #### [id number] #### [address]Operative Reporton 44-93-4862Pytaxvjkr ReportMR#: [id number] S [facility] Pt. Name: Sherron Garcia Room #: 0C Discharge Date: Birthdate: 1965 OPERATIVE REPORT DATE OF SURGERY: 05/23/2021 SURGEON: Nelida Wilks M.D. COFFIN MAKER: Benton Lambert M.D. PREOPERATIVE DIAGNOSIS: Right carpal [...] P Nelida Wilks M.D. Date Dict: 05/23/2021/11:25 Thea/Nelida Wilks M.D. Date Trans: 05/23/2021 11:54 A/tee DN_JN:[id number] cc: Gamal Morgan M.D. N [facility] [address] [place] [phone] Katerine Jacobs M.D. [address] [place] [address]OsjyblLvqSt. Anthony's Hospital GLUCOSE LABon 10-88-7052Gxjeyqm [Mass/Vol]87 mg/uLCmfeii42-119Axr [facility] HospitalComment on above:Performed By: #### [id number] #### [address] [place] [address] [address] Vital Signs Date TimeVital SignValuePerforming ZcxbnrehaLwrtgwvb37-51-3057 14:29-0400Body voxzvy546.32 cmKaterine Jacobs MD Work Phone: [facility]08-07-2025 14:29-0400 Body mass index (BMI) [Ratio]27.3 kg/r9IkmftbaKaterine Jacobs MD Work Phone: [facility]08-07-2025 14:29-0400 Body .3 kgKaterine Jacobs MD Work Phone: [facility]01-04-2024 14:59-0500 Body mass index (BMI) [Ratio]28.76 kg/m2Lisa Moshe FURNACE MECHANIC-DENTAL NURSE Work Phone: [facility] [employer] Mypdfz29-29-9026 14:59-0500Body aqavap57.41 kgLisa Moshe FURNACE MECHANIC-DENTAL NURSE Work Phone: [facility] [employer] Ljzpkx42-92-8861 14:59-0500Diastolic blood mbwsbtly69 mm[Hg]Kenna Moshe FURNACE MECHANIC-DENTAL NURSE Work Phone: [facility] [employer] Hssbdc72-08-0572 14:59-0500Systolic blood mm[Hg]Kenna Moshe FURNACE MECHANIC-DENTAL NURSE Work Phone: [facility] [employer] Nqunot31-60-5407 14:58-0400Body qhagvx275.32 cmCarmgeisinger jersey shore hospital Quantitative MedicineGarfieldPFI [employer] 09-23-2021 14:58-0400Body mass index (BMI) [Ratio]32.71 kg/i5Atkadsm Quantitative MedicineGarfieldPFI Acquisition 09-23-2021 14:58-0400Body surface area Derived from formula1.7 l7Oxfcfhx BULXGrace HospitalPFI Acquisition 09-23-2021 14:58-0400Body vyhmql16.99 kgCarbellevue women's hospitalReds10ncCatalyst Mobile 09-23-2021 14:58-0400Diastolic blood ahwiwkxc96 mm[Hg] Amayaregistracija vozilaphelps memorial hospitalPFI Acquisition 09-23-2021 14:58-0400Heart rate84 /minCarbellevue women's hospitalReds10ncAniways [facility] 09-23-2021 14:58-0400Systolic blood amjvhyhm787 mm[Hg] Magistophelps memorial hospitalTopmall [facility] Encounters Encounter DateEncounter TypeCare ProviderFacilityStart: 09-25-2024 End: 58-99-6849rsuewjdqdoXaocpym M Hoy MD Work Phone: [facility] Work Phone: Start: 09-25-2024 End: 52-24-7421Bcndwgu encounter procedureAngelito Cotton MD-[facility] Work Phone: start: 06-18-2024 End: 49-87-6708Uocbwhw encounter procedureKaterine Jacobs MD Work Phone: [facility] [address] Work Phone: Start: 06-18-2024 End: 48-49-1187blehatawjdCtqreva M Hoy MD Work Phone: [facility] Work Phone: Start: 12-13-2023 End: 13-51-6709Spngprn encounter procedureMD Katerine Jacobs Work Phone: [facility] [address] Work Phone: Start: 12-13-2023 End: 22-46-2228cykdnzwehlHG Katerine Jacobs Work Phone: [facility] Work Phone: Start: 05-10-2023 End: 30-83-5076tiyaqzekgnYQDJUniversity Hospitals Parma Medical Centertart: 03-06-2023 Orders OnlyKenna Mesa APRN-DENTAL NURSE Work Phone: [facility] Obstetrics/GynecologyComment on above:Heterogeneously dense tissue of both breasts on mammography (Primary Dx); Family history of breast cancerStart: 00-46-6568cabicgnqhzTBOZElkview General Hospital – [place] PPGStart: 03-02-2023 End: 99-78-6956xwgaonoafaGWMNCity Hospitaltart: 02-22-2023 End: 45-94-6980lwncwcekgbKCYKCitizens Baptist Ambulatory PPGStart: 06-69-0871Sjjfnssai for gynecological examination (general) (routine) without abnormal findingsStillwater Medical Center – [place] PPGStart: 02-22-2023 End: 29-33-9690Uyepwyu encounter procedureKenna Mesa APRN-DENTAL NURSE Work Phone: [facility] HospitalWordseyeCommunity Memorial Hospitaltart: 02-22-2023 End: 86-90-0139Ssiecvvh preventive med est patient 40-64yrsKenna Mesa APRN-DENTAL NURSE Work Phone: [facility]Cle[facility] Obstetrics/GynecologyComment on above:Well woman exam with routine gynecological exam (Primary Dx); Encounter for screening mammogram for malignant neoplasm of breast; Standardized adult depression screening tool completed; Status post hysterectomy; Vaginal dryness, menopausal; Vaginal atrophyStart: 09-29-2022 End: 72-42-2888wgvbpectwvVFNYV MUSTAPHAUniversUniversity Hospitals Geauga Medical Centertart: 09-07-2022 End: 10-05-1094cwzfhdexzmJLIGMCFAshtabula County Medical Centertart: 09-06-2022 End: 51-11-6987ltsnyclybqZFSWMOKAshtabula County Medical Centertart: 08-04-2022 End: 38-12-9436kotbweggygXDKTG MUSTAPHAUniversUniversity Hospitals Geauga Medical Centertart: 07-24-2022 End: 53-96-2130vdacoprtgbYBYKI MUSTAPHAUniversUniversity Hospitals Geauga Medical Centertart: 32-40-9229gpcfndhryoEICRN MUSTAPHAUniversity of Methodist Hospitaltart: 04-18-2022 End: 16-90-2380yxsqzmfqhdQO Katerine Salazar Hoy Work Phone: [facility] Work Phone: Start: 04-18-2022 End: 29-56-2161Dvlykyk encounter procedureMD Katerine Hoy Work Phone: [facility] [address] Work Phone: Start: 29-26-3732Ptkzcajbm for general adult medical examination without abnormal findingsDR KATERINE JAMAYThe Von Ormy HospitalStart: 01-18-2022 End: 44-17-3133bborrkuqebIT KATERINE HOYFacility:X9Arjae: 01-18-2022 End: 36-36-5101Hcquzoaum for general adult medical examination without abnormal findingsDR KATERINE HOYFacility:W2Waigm: 10-17-2021 End: 63-49-7346Cthdbnc encounter procedureMD Katerine Hoy Work Phone: [facility] [address] RdStart: 06-06-2021 End: 79-83-0757ofcysgkelaIIKPRPMWV MUSTAPHAFacility:UTMCStart: 05-23-2021 End: 54-56-6263ggqfrebpbdGXZRNFGOB MUSTAPHAFacility:UTMCStart: 43-26-3901Yublx Emily Waldron Other [facility] Office Procedures DateProcedureProcedure DetailPerforming ClinicianStart: 92-77-2528Xrsmzrnhymi Kenna Mesa FURNACE MECHANIC-DENTAL NURSE Work Phone: Start: 42-59-6681Lptpi depression screening assessment Kenna Mesa APRN-DENTAL NURSE Work Phone: Start: 08-31-2840Glzdta-up visitFollow-upABDUL MUSTAPHAStart: 55-10-7396SeaubpvlguqZidp Franco FURNACE MECHANIC-DENTAL NURSE Work Phone: Start: 39-82-8827Zikvd conduction studies 9-10 studies Amaya OsborneH/O: hysterectomyStatus post hysterectomyJerilynsa Martin Mesa FURNACE MECHANIC-DENTAL NURSE Work Phone: Plan of Treatment DateCare ActivityDetailAuthorStart: 03-13-7653P[facility] Work Phone: Start: 32-21-3229Umgyn BMI ScreeningAdult BMI ScreeningProMedica Health SystemStart: 76-13-5796Gbmrqnkpm for malignant neoplasm of breastMammogramProMIOX Health SystemStart: 56-51-5772Pwbzr BMI Follow Up PlanAdult BMI Follow Up PlanProUniversity Hospitals Tripoint Medical CenterNumberPicture Health SystemStart: 02-23-2024 Adult BMI ScreeningAdult BMI ScreeningProMedica Health SystemStart: 02-23-2024 Depression ScreeningDepression ScreeningProMIOX Health SystemStart: 02-23-2024 Tobacco ScreeningTobacco ScreeningProUniversity Hospitals Tripoint Medical CenterNumberPicture Health SystemStart: 03-06-2023 End: 80-56-0432RF Guidance limited for localization of tumorNM Molecular breast imaging localization limited area Imaging Routine Heterogeneously dense tissue o f both breasts on mammography Family history of breast cancer Expected: 03/06/2023, Expires: 03/06/2024PROFishbowl SBO Work Phone: Comment on above:Expected: 03/06/2023, Expires: 03/06/2024Start: 02-22-2023 End: 29-76-3499NMQ Breast - bilateral screeningMammography screening bilateral with CAD Imaging Routine Encounter for screening mammogram for malignant neoplasm of breast Expected: 02/22/2023, Expires: 04/21/2024PROFishbowl SBO Work Phone: Comment on above:Expected: 02/22/2023, Expires: 04/21/2024Start: 15-02-7673Flsjrcoqe vaccinationInfluenza VaccineProUniversity Hospitals Tripoint Medical CenterHintsoft SystemStart: 51-76-0244Vvneucsom for malignant neoplasm of breast MammogramProstartuply SystemStart: 77-30-4675Snukcbhmxdznut of varicella zoster vaccineZoster (Shingles) Vaccine (1 of 2)[facility] [employer] SystemStart: 95-59-0870JItD,Tdap and Td Vaccines (1 - Tdap)DTaP,Tdap and Td Vaccines (1 - Tdap)[facility] SystemPatient [facility] Work Phone: Payers DatePayer CategoryPayerPolicy [id number]-mtu [id number] Health [id number] Health InsuranceSELECT MEDICAL [facility]ALTHSC[facility] BENEFITS/[place] istm2012 2022-[facility] [phone] [address] [address] [place], [place] [id number] [id number] 2.840.1.896949.3.57[id number] 2.840.1.960906.3.57[id number] 2.840.1.344155.3.57[id number] 2.840.1.367681.3.57[id number] 2..840.1.005809.3.57[id number] 2..840.1.846430.3.57[id number] 2.840.1.983252.3.57[id number] 2.16.840.1.511261.3.57[id number] 2..840.1.699940.3.57[id number] 2.16.840.1.845496.3.57[id number] 2.16.840.1.107808.3.579.[id number] Health Insurance [employer] Insurance [id number] 2.16.[id number] 2.16.840.1.2[id number] 2.160.1.021261.3.579.2.531 Worker's [id number] Social History DateTypeDetailFacilityStart: 94-64-3051RrmeszqrsFhhjeqlan [facility] Start: 82-55-1653EeewuxhpVkvvkublr [facility] Start: 70-04-0370NcgbzszBggvuxcmc [facility] Start: 09-17-2017 End: 25-80-5492Btenons smoking status NHISSmoker (finding)[facility] Hospitaltart: [id number] Assigned At BirthFeRegency Hospital Companytart: 01-31-2022 End: [id number] smoking status NHISNever smoked tobaccoProMedica St. Anthony'S Hospital SystemStart: [id number] use and exposureSmokeless tobacco non-user [facility] SystemStart: 02-22-2023 End: 50-59-1506Kencgoq intakeCurrent drinker of alcohol (finding)[facility] [employer] SystemStart: 45-53-2446Brwlexy of Social functionMercy Health Willard Hospital System Start: 73-48-8013Cudvhuh use panelHolmes County Joel Pomerene Memorial HospitalAdolescent depression screening dyzubwtlbl9GynAhkwqtAtrium Health Wake Forest Baptist Lexington Medical Centertart: [id number] Comment occasionalAtrium Health Wake Forest Baptist Lexington Medical Centertart: [id number] Assigned At BirthNot on fileAtrium Health Wake Forest Baptist Lexington Medical Centertart: [id number] (finding)[facility] Clinical Notes 07-06-2022 to 02-22-2023 Note Date & [id number] History of Present illness Narrative* Kenna Mesa, TERELL-DENTAL NURSE - 02/22/2023 3:00 PM EST Sherron Garcia is a 57 y.o. female who presents for annual client success specialist exam. She is postmenopausal.Hysterectomy: yes - 2005 at age 39 for fibroids She is sexually active. No painful intercourse or pelvic pain. 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 All questions answered. RTO for annual client success specialist exam and / or PRN. RUTH Carcamo APRN-CNP 02/22/23 1527 documented in this encounterHolmes County Joel Pomerene Memorial Hospital08-11-2023 Note Attestation signed by Aliya Wilks MD [...] hand pain. -Pt already has appt with Aviation Maintenance Instructor setup - RTC as needed if symptoms worsen or fail to improve - Call office any questions or concerns Ramin Stone MD Orthopedic Surgery, PGY-2 Pager: [phone] 09/29/22 8:26 AM By using the attestations [...] may be an additional personal documentation from me.[facility]07-19-2023 NoteChief Complaint: neck and radicular pain both arms HPI When [...] to assess spinal stenosis Follow up after MRIUnMarion Hospital06-16-2023 Note Attestation signed by Aliya Wilks MD [...] may be an additional personal documentation from me.[facility]06-05-2023 NotePatient: Sherron Garcia Procedure Summary Date: 07/24/22 Room / Location: [facility] OR [address] [place] [address] [facility] OR Anesthesia Start: 1316 Anesthesia Stop: 1355 [...] 1410 Anesthesia Post Evaluation No notable events documented.[facility]06-05-2023 Note Patient: Sherron Garcia Procedure Information Date/Time: 07/24/22 1245 Procedure: long finger A1 pully release (Right: Middle Finger) Location: [facility] OR [address] [place] [address] OR Surgeons: Aliya Wilks MD Relevant Problems [...] patient. Plan discussed with CAA. Additional Equipment RequestsUnMarion Hospital05-18-2023 Note Attestation signed by Aliya Wilks MD [...] radha Rufus Gee MD PGY-4 Orthopedic Surgery [facility] By using the attestations below, the [...] may be an additional personal documentation from me.[facility] HospitalEvaluation noteNo assessment information availableUniversity Hospitals Elyria Medical Center Work Phone: Evaluation note* Diagnosis Well woman exam with routine gynecological exam- Primary Routine gynecological examination Encounter for screening mammogram for malignant neoplasm of breast Standardized adult depression screening tool completed Status post hysterectomy Acquired absence of both cervix and uterus Vaginal dryness, menopausal Vaginal atrophy Postmenopausal atrophic vaginitis documented in this encounter [facility] SystemEvaluation note* Diagnosis Heterogeneously dense tissue of both breasts on mammography- Primary Family history of breast cancer Family history of malignant neoplasm of breast documented in this encounter [facility] SystemEvaluation [facility]* Diagnosis Onset Date Resolution Status Admit Date Cervical disc disorder at C5-C6 level wi th radiculopathy acuteAugust 2024 2:13pmDisorder of intervertebral disc at C4-C5 level with radiculopathyacuteAugust 2024 2:13pm [facility] Work Phone: Hospital Discharge instructionsAmbulatory Orders* Referral to Pain Management Location: None Selected [facility] Work Phone: Instructions* Attachments The following attachments cannot be sent through Care Everywhere. * Vaginal dryness (Estonian) * Calcium and vitamin D for bone health (Estonian) documented in this encounterProKeenan Private Hospital SystemInstructionsNot on file documented in this encounterProKeenan Private Hospital System Chief Complaint and Reason for Visit Chief Complaint M15.0/M54.2/Z79.899 Chief Complaint Admit Date Radiculopathy, lumbar region September 25, 2024 2:13pm Reason for Visit Admit Date Cervical disc disorder at C5-C6 level wi th radiculopathy September 25, 2024 2:13pm Disorder of intervertebral d isc at C4-C5 level with radiculopathy September 25, 2024 2:13pm Advance Directives Advance Directive Response Recorded Date/ Time Advance Directives No January 2:59pm Advance Directive Response Recorded Date/ Time Advance Directives No January 1:59pm Summary Purpose Family History Relationship Condition Age at Onset Recorded Date/T yury mother Myocardial infarction Unknown Reason for Referral SpecialtyDiagnoses / ProceduresReferred By ContactReferred To ContactRadiology Diagnoses Heterogeneously dense tissue of both breasts on mammography Family history of breast cancer Procedures NM Molecular breast imaging localization limited area Kenna Mesa, FURNACE MECHANIC-DENTAL NURSE [address] [place] [address] Referral IDStatusReasonStart DateExpiration DateVisits RequestedVisits [id number] Review/ Additional Source Comments Care Teams (unrecognized sec tion and content) Team Status: Inactive Member Role Status Dates Katerine Jacobs MD Primary Care Provider Active Mike Mixon MDAttending ProviderActive Team Status: Active Member Role Status Dates Katerine Jacobs MD Primary Care Provider Active Team Status: Inactive Member Role Status Dates Katerine Jacobs MD Primary Care Provider Active Start: December 13, 2023 End: December 13, 2023Julia Tineo ProviderActiveStart: December 13, 2023 End: December 13, 2023Team MemberRelationshipSpecialtyStart DateEnd Date Katerine Jacobs MD [address] [place] [address] PCP - [facility]02/22/23Team MemberRelationshipSpecialtyStart DateEnd Date Katerine Jacobs MD [facility] [place] [address] PCP - [facility]02/22/23 Team Status: Inactive Member Role Status Dates Katerine Jacobs MD Primary Care Provider Active Start: June 18, 2024 End: June 18, 2024Jowhitney Pearce SLITTER OPERATOR-CAttending ProviderActiveStart: June 18, 2024 End: June 18, 2024 Team Status: Inactive Member Role Status Dates Katerine Jacobs MD Primary Care Provider Active Start: September 25, 2024 End: September 25, 2024DaJulia Mcdowell ProviderActiveStart: September 25, 2024 End: September 25, 2024 Goals (unrecognized section and content) Goals may be documented in a n alternate sectionGoals may be documented in an alternate sectionGoals may be documented in an alternate sectionNot on filedocumented as of this encounterNot on filedocumented as of this encounterGoals may be documented in an alternate sectionGoals may be documented in an alternate section INFORMATION SOURCE (unrecogn ized section and content) DATE CREATED AUTHOR 10/26/2021 [facility] DATE CREATED AUTHOR AUTHOR'S ORGANIZ ATION 01/21/2022 [facility] DATE CREATED AUTHOR AUTHOR'S ORGANIZ ATION 10/04/2022 [facility] DATE CREATED AUTHOR AUTHOR'S ORGANIZ ATION 03/06/2023 [facility] DATE CREATED AUTHOR AUTHOR'S ORGANIZ ATION 03/25/2023 [facility] DATE CREATED AUTHOR AUTHOR'S ORGANIZ ATION 05/12/2023 [facility] DATE CREATED AUTHOR AUTHOR'S ORGANIZ ATION 06/26/2024 [facility] Reason for Visit (unrecogniz ed section and content) ReasonCommentsAnnual Exam FOR RECORDS PERTAINING TO PATIENTS WHO [...] BE BASED ON THE PRIMARY CLINICAL RECORDS. [facility]. provides no warranty or guarantee of the accuracy or completeness of information in this document.
[2025-01-03 12:31] LABS: Hematocrit 45.0 % (36.0-48.0); Hemoglobin 15.0 g/dL (12.0-16.0); Immature Granulocytes Abs Auto 0.04 10^3/uL (0.00-0.03); Immature Granulocytes Pct Auto 0.2 % (0.0-0.5); Lymphocytes Absolute Auto 1.8 10^3/uL (1.2-3.8); Mean Corpuscular HGB Conc 33.3 g/dL (29.9-35.2); Mean Corpuscular Hemoglobin 29.9 pg (26.7-34.0); Mean Corpuscular Volume 89.8 fL (81.0-99.0); Platelet Count 354 10^3/uL (150-450); Red Blood Count 5.01 10^6/uL (4.20-5.40); White Blood Count 16.4 10^3/uL (4.0-11.0)
[2025-01-03 13:07] LABS: Iron 108.0 ug/dL (50.0-170.0)
[2025-01-03 13:17] LABS: Alanine Aminotransferase 31 U/L (14-59); Albumin Globulin Ratio 1.0; Albumin Level 4.0 g/dL (3.4-5.0); Alkaline Phosphatase 95 U/L (46-116); Anion Gap 12.1; Aspartate Amino Transferase 11 U/L (15-37); Blood Urea Nitrogen 20.0 mg/dL (7.0-18.0); Calcium 9.8 mg/dL (8.5-10.1); Carbon Dioxide 29.6 mmol/L (21.0-32.0); Chloride 105 mmol/L (98-107); Cholesterol 252 mg/dL (<=200); Estimated GFR (African America >60 (>=60 mL/min/1.73m^2); Estimated GFR (Non-African Ame >60 (>=60 mL/min/1.73m^2); Free T3 2.39 pg/mL (2.18-3.98); Globulin 4.0 g/dL; Glucose 104 mg/dL (74-106); HDL Cholesterol 88 mg/dL (40-60); Potassium 3.7 mmol/L (3.5-5.1); Sodium 143 mmol/L (136-145); Thyroid Stimulating Hormone 0.238 uIU/mL (0.358-3.740); Total Protein 8.0 g/dL (6.4-8.2); Triglycerides 42 mg/dL (<=150); VLDL CHOLESTEROL 8.4 mg/dL
[2025-01-03 13:22] LABS: Folate 32.20 ng/mL (8.60-58.90)
[2025-01-05 10:08] LABS: Vitamin B12 930 pg/mL (232-1245)
--- OUTSIDE RECORDS SUMMARY | 2025-01-06 11:50 | XMS_ITS | CCD ---
Author Organization [facility] Care Team Providers Care It Security Administrator Name Role Phone Amaya Waldron Primary Care Physician Amaya Garcia Unavailable Unavailable MD Katerine Jacobs Primary Care Provider MD Mike Mixon Attending Provider [phone] MAGDALENA, ABDULAZIM Admitting Unavailable MAGDALENA, ABDULAZIM Attending Unavailable GAMAL MORGAN Referring Unavailable KATERINE JACOBS Primary Care Unavailable MAGDALENA, ABDULAZIM Admitting Unavailable MAGDALENA, ABDULAZIM Attending Unavailable GAMAL MORGAN Referring Unavailable KATERINE JACOBS Primary Care Unavailable DR KATERINE JACOBS Attending Unavailable DR KATERINE JACOBS Consulting Unavailable DR KATERINE JACOBS Primary Care Unavailable DR KATERINE JACOBS Admitting Unavailable MD Katerine Jacobs Primary Care Provider [phone] MD Mike Mixon Attending Provider [phone] ELGAFY, DAVE Attending Unavailable MAGDALENA, ALIYA [...] Unavailable MD Katerine Jacobs Primary Care Provider [phone] MD Dimitri Mixon Attending Provider Katerine Jacobs MD Primary Care Provider [phone] Katerine Jacobs MD Primary Care Provider [phone] Nivia Howard Attending Provider Katerine Jacobs Primary Care Unavailable Dimitri Mixon Admitting Unavailable Dimitri Mixon Attending Unavailable Nivia Pearce Admitting Unavailable Nivia Pearce Attending Unavailable Katerine Jacobs Primary Care Unavailable Katerine Jacobs MD Primary Care Provider [phone] Angelito Cotton MD Attending Provider [phone] Allergies Allergy ClassificationReported Allergen(s)Allergy TypeDate of OnsetReaction(s) Facility (1 source)Acetaminophen / Dextromethorphan / Doxylamine / Pseudoephedrine; Translations: [NyQuil]Drug AllergySEVEREPaynesvilleSynaffix (1 source)Naproxen; Translations: [Aleve]Drug AllergyMODERATEPaynesvilleSynaffix (1 source)OtherAllergy to substance (disorder)Head and Chest OTC-MODERATE [place] [employer] Medications Current Medications MedicationDrug Class(es)DatesSig (Normalized)Sig (Original)acetaminophen 250 mg / aspirin 250 mg / caffeine 65 mg oral tablet (2 sources)Platelet Aggregation Inhibitor, Nonsteroidal Anti-inflammatory Drug, Central Nervous System Stimulant, Methylxanthinetake 2 tablets by mouth once daily as qoxbcsrnsynbd-orunxzxejgnsb-lgkxzjgw (EXCEDRIN EXTRA STRENGTH) 250-250-65 mg per tablet 2 tablets Orally Once a day prn 0 Activecholecalciferol 0.025 mg oral capsule (3 sources)Vitamin DStart: 02-00-8745nnrf 1 capsule by mouth once daily Cholecalciferol (Vitamin D3) 25 mcg (1,000 unit) capsule Active 25 MCG PO Daily September 25, 2024 12:00am Complies with drug therapycholecalciferol, vitamin D3, (VITAMIN D3) 5,000 units tablet Take 8,000 Units by mouth in the morning. 0 ActiveCod Liver Oil capsule (1 source)Start: 31-73-7749mcbe 1 capsule by mouth once dailyCod Liver [...] mg/ml vaginal cream (3 sources)EstrogenStart: 01-31-2022 End: 67-80-0353kgftjzihV (ESTRACE) 0.01 % (0.1 mg/gram) vaginal cream Indications: Status post hysterectomy , Vaginal dryness, menopausal , Vaginal atrophy Insert 1 g into the vagina 2 (two) times a week. 42.5 g 3 02/22/2023 Activeetodolac 500 mg oral tablet (2 sources)Nonsteroidal Anti-inflammatory DrugStart: 09-59-4834efja 1 tablet by mouth in the morning, then take 1 tablet by mouth at bedtimeetodolac (LODINE) 500 mg tablet Take 1 tablet (500 mg total) by mouth in the morning and 1 tablet (500 mg total) before bedtime. 0 12/07/2021 Activefluticasone propionate 0.05 mg/actuat metered dose nasal spray (3 sources)CorticosteroidStart: 90-46-2833lmtu 2 spray(s) nasal route once daily fluticasone [...] 600 mg oral tablet (4 sources)Anti-epileptic AgentStart: 15-28-7767kgfg 1 capsule by mouth once dailyGabapentin 300 mg capsule Active 300 MG PO Daily September 25, 2024 12:00am Complies with drug therapyStart: 07-01-6802fztp 1 tablet by mouth once daily at [...] oral tablet (8 sources)Angiotensin Converting Enzyme InhibitorStart: 36-72-6272bjro 1 tablet by mouth in the morninglisinopriL (PRINIVIL,ZESTRIL) 10 mg tablet Take 1 tablet (10 mg total) by mouth in the morning. 0 01/17/2022 ActiveStart: 93-33-6591qopf 1 tablet by mouth once dailyLisinopril 20 mg Tablet Active 20 MG PO Daily September 17, 2017 12:00am Complies with drug therapytake 1 tablet by mouth once daily lisinopril 10 mg tablet take 1 tablet (10 mg) by oral route once dailymeloxicam 15 mg oral tablet (1 source)Nonsteroidal Anti-inflammatory DrugStart: 96-86-2245mcpv 1 tablet by mouth once dailyMeloxicam 15 mg tablet Active 15 MG PO Daily September 25, 2024 12:00am Complies with drug therapymultivitamin capsule (2 sources)take 1 capsule by mouth in the morningmultivitamin capsule Take 1 capsule by mouth in the morning. 0 ActiveMultivitamin tablet (1 source)Start: 93-64-1512qbaw 1 tablet by mouth once dailyMultivitamin tablet [...] in the evening. Take with meals. 0 Btjeae45 hr PARoxetine hydrochloride 12.5 mg extended release oral tablet (3 sources)Serotonin Reuptake InhibitorStart: 70-76-3332hmjq 1 tablet by mouth every twenty-four hours [...] Zoster Virus Nucleoside Analog DNA Polymerase InhibitorStart: 46-70-5063dwtp 1 tablet by mouth in the morningvalACYclovir (VALTREX) 1000 mg tablet Take 1 tablet (1,000 mg total) by mouth in the morning. 0 01/17/2022 Activetake 1 tablet by mouth once dailyvalacyclovir 1 gram tablet take 1 tablet by oral route daily Completed/Discontinued Medications MedicationDrug Class(es)DatesSig (Normalized)Sig (Original)amoxicillin 875 mg / clavulanate 125 mg oral tablet (5 sources)Penicillin-class AntibacterialStart: 09-17-2017 End: 45-06-8808fmuq 1 tablet by mouth twice dailyAmoxicillin-Pot Clavulanate (Augmentin) 875-125 mg tablet Discontinued 1 TAB PO Twice daily September 17, 2017 12:00am September 25, 2024 2:31pm two days leftcetirizine hydrochloride 10 mg oral capsule (5 sources)Histamine-1 Receptor AntagonistStart: 09-17-2017 End: 39-86-1939tmna 1 capsule by mouth once dailyCetirizine (Zyrtec) 10 mg Capsule Discontinued 10 MG PO Daily September 17, 2017 12:00am September 25, 2024 2:31pmdexamethasone 1 mg/ml / neomycin 3.5 mg/ml / polymyxin b 33514 unt/ml ophthalmic suspension (1 source)Aminoglycoside Antibacterial, Polymyxin-class Antibacterial, Corticosteroidtake 1 drop(s) into the eye(s) every four hours as needed iwtdmnvk-jjiqkedsq-qdpirujv 3.5 mg/mL-10,000 unit/mL-0.1% eye drops instill in affected eye 1 drop by ophthalmic route every 4 hours as neededfluconazole 100 mg oral tablet (5 sources)Azole AntifungalStart: 09-17-2017 End: 01-59-1366bfoz 1 tablet by mouth once dailyFluconazole 100 mg Tablet Discontinued 100 MG PO Daily September 17, 2017 12:00am September 25, 2024 2:32pm ibuprofen 800 mg oral tablet (6 sources)Nonsteroidal Anti-inflammatory DrugStart: 09-17-2017 End: 46-80-2230mshk 1 tablet by mouth four times daily [...] female climacteric states; Translations: [Postmenopausal atrophic vaginitis]Onset: 571404-52-8544Nbxztpj Osteoarthritis (2 sources)Unspecified osteoarthritis, unspecified site; Translations: [Primary generalized (osteo)arthritis]Onset: 94-69-7060VogkhnyJtaiv connective tissue disease (1 source)Pain in right armOnset: 60-08-1170ApbkmmltUitcu connective tissue disease (1 source)Pain in left armOnset: 54-59-9687SjuybamiKmamj connective tissue disease (2 sources)Pain in right hand; Translations: [Pain in right hand]Onset: 89-88-6861YlpsitzcYljmz connective tissue disease (2 sources)Pain in left hand; Translations: [Pain in left hand]Onset: 09-29-2022 EpisodicOther connective tissue disease (2 sources)Trigger finger, unspecified finger; Translations: [Trigger finger, unspecified finger]Onset: 28-58-7497NxfgcqrpLleyl nervous system disorders (1 source)Other disturbances of skin sensationOnset: 16-40-5438BxwrfglgHbplr non-traumatic joint disorders (1 source)Other specific arthropathies, not elsewhere classified, right shoulder ChronicOther screening for suspected conditions (not mental disorders or infectious disease) (4 sources)Other abnormal and inconclusive findings on diagnostic imaging of breast; Translations: [Encounter for screening mammogram for malignant neoplasm of breast]Onset: 384850-35-7404IajgrbvmHfdgvgro codes; unclassified (1 source)Acquired absence of both cervix and uterus; Translations: [Acquired absence of both cervix and uterus]Onset: 18-43-4209TabmpoizEmmsenpm codes; unclassified (1 source)Family history of malignant neoplasm of breast; Translations: [Family history of malignant neoplasmof breast]Onset: 62-09-7493DidalbjrRbyxbhbuu and history of mental health and substance abuse codes (2 sources)Encounter for screening for depression; Translations: [Standardized adult depression screening toolcompleted ]Onset: 849484-68-5463Kfabqklp Spondylosis; intervertebral disc disorders; other back problems (8 sources)Cervical disc disorder with radiculopathy, unspecified cervical region; Translations: [Radiculopathy, cervical region]Onset: 04-90-0177Usehzbgp Unclassified (1 source)Annual ExamOnset: 67-06-7892Cmvpdlsddlqu (1 source)Mammographic heterogeneous density, bilateral breasts; Translations: [Mammographic heterogeneous density, bilateral breasts]Onset: 03-06-2023 Unclassified (1 source)M50.121 - Cervical disc disorder at C4-C5 level with radiculopathy Past or Other Problems Problem ClassificationProblemDateDocumented DateEpisodic/ChronicMood disorders (2 sources)Mood disordersOnset: 224837-12-9518Suqqulbnuzdy breast conditions (2 sources)Heterogeneously dense breast composition; Translations: [Heterogeneously dense tissue of both breasts on mammography]Onset: 03-06-2023 23-37-6185KasawgeyFupey connective tissue disease (2 sources)Acquired trigger finger; Translations: [Trigger finger, unspecified finger]Onset: 633617-76-6040BulwrsxbTxckz skin disorders (1 source)Nonscarring hair loss, unspecified; Translations: [Nonscarring hair loss, unspecified]Onset: 45-48-7860XqwbpbvwYdfupcgv codes; unclassified (2 sources)Family history of breast cancer; Translations: [Family history of malignant neoplasm of breast]Onset: 860139-82-2398IzpilatqSvciqxyqezrj (1 source)[id number]_name_3Unclassified (2 sources)Onset: Results Test NameValueInterpretationReference RangeFacilityAlanine aminotransferase [Enzymatic activity/volume] in Serum or PlasmaOrdered By: Nivia Pearce on 49-71-3054KNK [Catalytic activity/Vol]Alanine aminotransferase [Enzymatic activity/volume] in Serum or Plasma-[facility] HospitalAlbumin [Mass/volume] in Serum or Plasma by Bromocresol green (BCG) dye binding metho Ordered By: Nivia Pearce on 63-07-2424Ohemotb BCG dye [Mass/Vol]Albumin [Mass/volume] in Serum or Plasma by Bromocresol green (BCG) dye binding metho 3.5-5.7FWadsworth-Rittman HospitalAlkaline phosphatase [Enzymatic activity/volume] in Serum or PlasmaOrdered By: Nivia Pearce on 89-99-3861BQE [Catalytic activity/Vol]Alkaline phosphatase [Enzymatic activity/volume] in Serum or Zfujot62-188XddsjbvilThe Bellevue HospitalAspartate aminotransferase [Enzymatic activity/volume] in Serum or PlasmaOrdered By: Nivia Pearce on 19-81-3387GDZ [Catalytic activity/Vol]Aspartate aminotransferase [Enzymatic activity/volume] in Serum or Pzetxq70-22RupnbujwrThe [facility] Hospital Basophils Auto (Bld) [#/Vol]Ordered By: Nivia Pearce on 20-05-7093Bsekclzmo (Bld) [#/Vol]Automated basophil count0.0-0.2FWadsworth-Rittman Hospital Basophils/100 WBC Auto (Bld)Ordered By: Nivia Pearce on 06-18-2024 Basophils/100 WBC (Bld)Automated basophil %.[facility] Bilirubin.total [Mass/volume] in Serum or PlasmaOrdered By: Nivia Pearce on 76-65-3236Hemgtuzen [Mass/Vol]Bilirubin.total [Mass/volume] in Serum or Plasma 0.3-1.0The [facility] HospitalCalcium [Mass/volume] in Serum or Plasma Ordered By: Nivia Pearce on 82-55-7977Ugszxxz [Mass/Vol]Calcium [Mass/volume] in Serum or Plasma8.6-10.3FWadsworth-Rittman HospitalCarbon dioxide, total [Moles/volume] in Serum or PlasmaOrdered By: Nivia Pearce on 72-86-8138SV4 [Moles/Vol]Carbon dioxide, total [Moles/volume] in Serum or Dfessi62.0-31.0 [facility] HospitalChloride [Moles/volume] in Serum or Plasma Ordered By: Nivia Pearce on 36-57-7831Wbpaxtrg [Moles/Vol]Chloride [Moles/volume] in Serum or Dxzjvb63-280WmsemsxlxThe Bellevue HospitalComplete Blood Count Auto Diffon 97-48-7579Jdktvaujt (Bld) [#/Vol]0.1 10*3/uLNormal 0.0-0.2The [facility] Physician GroupComment on above:Result Comment: PERFORMED BY: [place] [address] PATHOLOGIST MECHANICAL DESIGN ENGINEER FACILITIES MIA NATARAJAN M.D.Performed By: #### CMP, CBC #### [facility] [address] [place] [address] USABasophils/100 WBC (Bld)0.8 %Normal.The [facility] Physician GroupComment on above:Performed By: #### CMP, CBC #### [facility] [address] [place] [address] USAEosinophils (Bld) [#/Vol]0.2 10*3/uLNormal0.0-0.45The [facility] Physician GroupComment on above:Performed By: #### CMP, CBC #### [place] [id number] USAEosinophils/100 WBC (Bld)1.8 %Normal.The [facility] Physician GroupComment on above:Performed By: #### CMP, CBC #### [place] [address] USAErythrocyte distribution width (RBC) [Ratio]14.9 %Normal 11.9-15.3The [facility] Physician GroupComment on above:Performed By: #### CMP, CBC #### [place] [address] USAHematocrit (Bld) [Volume fraction]41.5 %Dilhsm60.0-46.4The [facility] Physician GroupComment on above:Performed By: #### CMP, CBC #### [place] [address] USAHemoglobin (Bld) [Mass/Vol]14.1 g/uQSeyxgc08.8-15.4The [facility] Physician GroupComment on above:Performed By: #### CMP, CBC #### [place] [address] USALymphocytes (Bld) [#/Vol]3.1 10*3/uLNormal1.00-4.8The [facility] Physician GroupComment on above:Performed By: #### CMP, CBC #### [place] [id number] USALymphocytes/100 WBC (Bld)29.1 %Normal.The [facility] Physician GroupComment on above:Performed By: #### CMP, CBC #### [place] [address] USAMCH (RBC) [Entitic mass]30.7 ynZwymbx36.7-34.3The [facility]ard[facility] Physician GroupComment on above:Performed By: #### CMP, CBC #### [place] [address] USAMCV (RBC) [Entitic vol]90.1 dDOhkooc73-768Hiv [facility] Physician GroupComment on above:Performed By: #### CMP, CBC #### [facility] [address] [place] [address] USAMean Corpuscular HGB Conc34.1 g/tQPdmlxn39.0-35.0The [facility] Physician GroupComment on above:Performed By: #### CMP, CBC #### [facility] [address] [place] [address] USAMonocytes (Bld) [#/Vol]0.8 10*3/uLNormal0.0-0.8The [facility] Physician GroupComment on above:Performed By: #### CMP, CBC #### [facility] [address] [place] [address] USAMonocytes/100 WBC (Bld)7.7 %Normal.The [facility] Physician GroupComment on above:Performed By: #### CMP, CBC #### [place] [address] USANeutrophils (Bld) [#/Vol]6.5 10*3/uLNormal1.8-7.7The [facility] Physician GroupComment on above:Performed By: #### CMP, CBC #### [place] [address] USANeutrophils/100 WBC (Bld)60.6 %Normal.The [facility] Physician GroupComment on above:Performed By: #### CMP, CBC #### [facility] [address] [place] [address] USANRBC%0.1 /100{WBC}Normal0-0.5The [facility] Comment on above:Performed By: #### CMP, CBC #### [facility] [address] [place] [address] USAPlatelet mean volume (Bld) [Entitic vol]8.8 fLNormal 6.3-10.7The [facility] Physician GroupComment on above:Performed By: #### CMP, CBC #### [place] [address] USAPlatelets (Bld) [#/Vol]265 10*3/oWVsctok391-536Szn [facility] Physician GroupComment on above:Performed By: #### CMP, CBC #### [place] [address] USARBC (Bld) [#/Vol]4.61 10*6/uLNormal3.60-5.00The [facility] Physician GroupComment on above:Performed By: #### CMP, CBC #### [place] [address] USAWBC (Bld) [#/Vol]10.7 10*3/uLNormal3.8-11.6The [facility] Physician GroupComment on above:Performed By: #### CMP, CBC #### [place] [address] USAComprehensive Metabolic Panelon 74-12-3400Rsrzzbr [Mass/Vol]4.4 g/dLNormal3.5-5.7The [facility] Physician GroupComment on above: Performed By: #### CMP, CBC #### [place] [address] USAAlbumin/Globulin [Mass ratio]1.6 {ratio}NormalThe [facility] Physician GroupComment on above:Performed By: #### CMP, CBC #### [place] [address] USAALP [Catalytic activity/Vol]65 U/KMyrvvu92-414Osf [facility] Physician GroupComment on above:Result Comment: PERFORMED BY: [place] [address] PATHOLOGIST MECHANICAL DESIGN ENGINEER FACILITIES MIA NATARAJAN M.D.Performed By: #### CMP, CBC #### [place] [address] USAALT [Catalytic activity/Vol]23 U/LNormal7-52The [facility] Physician GroupComment on above:Performed By: #### CMP, CBC #### [place] [address] USAAnion gap [Moles/Vol]13.3 mmol/LNormal6.0-15.0The [facility] Physician GroupComment on above:Performed By: #### CMP, CBC #### [facility] [address] [place] [address] USAAST [Catalytic activity/Vol]21 U/NQdftlk59-09Jrt [facility] Physician GroupComment on above:Performed By: #### CMP, CBC #### [facility] [address] [place] [address] USABilirubin [Mass/Vol]0.3 mg/dLNormal0.3-1.0The [facility] Physician GroupComment on above:Performed By: #### CMP, CBC #### [facility] [address] [place] [address] USACalcium [Mass/Vol]10.0 mg/dLNormal8.6-10.3The [facility] Physician GroupComment on above:Performed By: #### CMP, CBC #### [facility] [address] [place] [address] USAChloride [Moles/Vol]101 mmol/OOilnfm42-797Pbe [facility] Physician GroupComment on above:Performed By: #### CMP, CBC #### [facility] [address] [place] [id number] USACO2 [Moles/Vol]27.8 mmol/JJmlpcq37.0-31.0The [facility] Physician GroupComment on above:Performed By: #### CMP, CBC #### [facility] [address] [place] [address] USACreatinine [Mass/Vol]0.70 mg/dLNormal0.60-1.20The [facility] Physician GroupComment on above:Performed By: #### CMP, CBC #### [facility] [address] [place] [address] USAGFR/1.73 sq M.predicted MDRD (S/P/Bld) [Vol rate/Area] mL/min/{1.73_m2}NormalThe [facility] Physician GroupComment on above:Performed By: #### CMP, CBC #### [facility] [address] [place] [id number] USAGlobulin (S) [Mass/Vol]2.7 g/dLNormalThe [facility] Physician GroupComment on above:Performed By: #### CMP, CBC #### [facility] [address] [place] [address] USAGlucose [Mass/Vol]121 mg/gUUcfe41-004Vzq [facility] Physician GroupComment on above:Result Comment: Random Glucose Reference Range is dependent on time and content of last meal. Glucose of more than 200 mg/dL in a nonstressed, ambulatory subject supports the diagnosis of Diabetes Mellitus. ADA recommended reference rangePerformed By: #### CMP, CBC #### [facility] [address] [place] [address] USAPotassium [Moles/Vol]4.1 mmol/LNormal3.5-5.1The [facility] Physician GroupComment on above:Performed By: #### CMP, CBC #### [facility] [address] [place] [address] USAProtein [Mass/Vol]7.1 g/dLNormal6.4-8.9The [facility] Physician GroupComment on above:Performed By: #### CMP, CBC #### [facility] [address] [place] [id number] USASodium [Moles/Vol]138 mmol/VNaojse684-993Pby [facility] Physician GroupComment on above:Performed By: #### CMP, CBC #### [facility] [address] [place] [address] USAUrea nitrogen [Mass/Vol]27 mg/dLHigh7-25The [facility] Physician GroupComment on above:Performed By: #### CMP, CBC #### [facility] [address] [place] [address] USACreatinine [Mass/volume] in Serum or PlasmaOrdered By: Nivia Pearce on 68-79-2743Smbsckpplb [Mass/Vol]Creatinine [Mass/volume] in Serum or Plasma0.60-1.20The [facility] HospitalEosinophils Auto (Bld) [#/Vol]Ordered By: Nivia Pearce on 25-81-3083Lllctmslajy (Bld) [#/Vol] Automated eosinophil count0.0-0.45[facility] Eosinophils/100 WBC Auto (Bld)Ordered By: Nivia Pearce on 06-18-2024 Eosinophils/100 WBC (Bld)Automated eosinophil %.The [facility] HospitalErythrocyte distribution width Auto (RBC) [Ratio]Ordered By: Nivia Pearce on 82-07-8954Pedyoofwzxv distribution width (RBC) [Ratio]Erythrocyte distribution width [Ratio] by Automated count11.9-15.3FWadsworth-Rittman HospitalGlobulin Calc (S) [Mass/Vol]Ordered By: Nivia Pearce on 06-18-2024 Globulin (S) [Mass/Vol]Serum globulin measurement by calculation (mass/volume) [facility] HospitalGlucose [Mass/volume] in Serum or PlasmaOrdered By: Nivia Pearce on 60-04-2150Mflylyl [Mass/Vol]Glucose [Mass/volume] in Serum or FjpcvoOcca20-565TlszftlwkThe Bellevue HospitalComment on above:ADA recommended reference rangeRandom Glucose Reference Range is dependent on time and content of last meal. Glucose of more than 200 mg/dL in a nonstressed, ambulatory subject supports the diagnosisof Diabetes Mellitus.Hematocrit Auto (Bld) [Volume fraction]Ordered By: Nivia Pearce on 27-48-6501Tnlkhrgcsr (Bld) [Volume fraction]Hematocrit [Volume Fraction] of Blood by Automated count 34.0-46.4FWadsworth-Rittman HospitalHemoglobin [Mass/volume] in Blood Ordered By: Nivia Pearce on 95-65-4701Sbaebqbuwm (Bld) [Mass/Vol]Hemoglobin [Mass/volume] in Blood11.8-15.4FWadsworth-Rittman HospitalLeukocytes [#/volume] corrected for nucleated erythrocytes in Blood by Automated coun Ordered By: Nivia Pearce on 16-06-2262FVR corrected for nucl RBC Auto (Bld) [#/Vol]Leukocytes [#/volume] corrected for nucleated erythrocytes in Blood by Automated coun3.8-11.6FWadsworth-Rittman HospitalLymphocytes Auto (Bld) [#/Vol]Ordered By: Nivia Pearce on 57-27-6490Ciisezpqxbz (Bld) [#/Vol] Lymphocytes [#/volume] in Blood by Automated count1.00-4.8The [facility] HospitalLymphocytes/100 WBC Auto (Bld)Ordered By: Nivia Pearce on 77-92-9694Ulvnfoceilk/100 WBC (Bld)Lymphocytes/100 leukocytes in Blood by Automated count.The [facility] HospitalMCH Auto (RBC) [Entitic mass] Ordered By: Nivia Pearce on 05-33-2269FRW (RBC) [Entitic mass]MCH [Entitic mass] by Automated count24.7-34.3FWadsworth-Rittman HospitalMCHC Auto (RBC) [Mass/Vol]Ordered By: Nivia Pearce on 55-15-2484ZTPD (RBC) [Mass/Vol] MCHC [Mass/volume] by Automated count32.0-35.0[facility] MCV Auto (RBC) [Entitic vol]Ordered By: Nivia Pearce on 62-23-6286DZL (RBC) [Entitic vol]MCV [Entitic volume] by Automated -397LmrhwkcfnThe Bellevue HospitalMonocytes Auto (Bld) [#/Vol]Ordered By: Nivia Pearce on 50-11-2143Kpkfvexdh (Bld) [#/Vol]Automated blood monocyte count0.0-0.8The [facility] HospitalMonocytes/100 WBC Auto (Bld)Ordered By: Nivia Pearce on 87-54-7870Bijtetugj/100 WBC (Bld)Automated monocyte %.[facility] HospitalNeutrophils Auto (Bld) [#/Vol]Ordered By: Nivia Pearce on 13-75-2592Rdtjccykihh (Bld) [#/Vol]Neutrophils [#/volume] in Blood by Automated count1.8-7.7FWadsworth-Rittman HospitalNeutrophils/100 WBC Auto (Bld) Ordered By: Nivia Pearce on 74-34-4681Rorjvlmycyj/100 WBC (Bld)Automated neutrophil %.[facility] HospitalNo Panel InformationOrdered By: Nivia Pearce on 63-21-4113Dxqbdjltg GFR (CKD-EPI)> 60.0 mL/MinThe Bellevue HospitalPharmacy Creatinine Clearance (ChemN/AFWadsworth-Rittman HospitalNucleated erythrocytes [Presence] in Blood by Automated count Ordered By: Nivia Pearce on 41-37-3809Magukgbfi RBC Auto Ql (Bld)Nucleated erythrocytes [Presence] in Blood by Automated count0-0.5FWadsworth-Rittman HospitalPlatelet mean volume Auto (Bld) [Entitic vol]Ordered By: Nivia Pearce on 36-04-7716Eyvldvdp mean volume (Bld) [Entitic vol]Platelet mean volume [Entitic volume] in Blood by Automated count6.3-10.7FWadsworth-Rittman HospitalPlatelets Auto (Bld) [#/Vol]Ordered By: Nivia Pearce on 07-89-2240Rerbfpvrh (Bld) [#/Vol]Platelets [#/volume] in Blood by Automated zbvoa431-606YvdmmqoaiThe Bellevue HospitalPotassium [Moles/volume] in Serum or PlasmaOrdered By: Nivia Pearce on 33-33-7387Pbwreraic [Moles/Vol]Potassium [Moles/volume] in Serum or Plasma3.5-5.1FWadsworth-Rittman HospitalProtein [Mass/volume] in Serum or PlasmaOrdered By: Nivia Pearce on 81-83-5734Aojtxwy [Mass/Vol]Protein [Mass/volume] in Serum or Plasma6.4-8.9The [facility] HospitalRBC Auto (Bld) [#/Vol]Ordered By: Nivia Pearce on 77-64-6575VDZ (Bld) [#/Vol]Erythrocytes [#/volume] in Blood by Automated count3.60-5.00 [facility] Centererum or plasma albumin/globulin mass ratio Ordered By: Nivia Pearce on 02-24-7859Otfujiy/Globulin [Mass ratio]Serum or plasma albumin/globulin mass ratioUniversity Hospitals Cleveland Medical Centererum or plasma anion gap determinationOrdered By: Nivia Pearce on 78-04-6597Mdxlq gap [Moles/Vol]Serum or plasma anion gap determination6.0-15.0[facility] Centerodium [Moles/volume] in Serum or PlasmaOrdered By: Nivia Pearce on 82-22-7394Hidnip [Moles/Vol]Sodium [Moles/volume] in Serum or Iwlntg713-745 [facility] HospitalUrea nitrogen [Mass/volume] in Serum or Plasma Ordered By: Nivia Pearce on 09-94-0473Nmwi nitrogen [Mass/Vol]Urea nitrogen [Mass/volume] in Serum or PlasmaHigh7-25The [facility] HospitalWBC Auto (Bld) [#/Vol]Ordered By: Nivia Pearce on 30-20-5769YQL (Bld) [#/Vol] Leukocytes [#/volume] in Blood by Automated count3.8-11.6FWadsworth-Rittman HospitalThyrotropin [Units/volume] in Serum or PlasmaOrdered By: Dimitri Mixon on 03-20-6316DII Qn1.36 m[IU]/LNormal0.45-5.33The [facility]vue HospitalComment on above:Result Comment: PERFORMED BY: [place] [address] PATHOLOGIST MECHANICAL DESIGN ENGINEER FACILITIES KYLAH BRADFORD M.D.Performed By: #### T4F, TSH3 #### [facility] [address] [place], [place] [address] USAThyroxine (T4) free [Mass/volume] in Serum or Plasma Ordered By: Dimitri Mixon on 05-68-8201Fbgc T4 [Mass/Vol]0.78 ng/dLNormal 0.61-1.12The [facility] HospitalComment on above:Performed By: #### T4F, TSH3 #### [facility] [address] [place], [place] [address] USAMAMM SCREENING BILATERAL W CADon 52-36-0356DFHB SCREENING BILATERAL W CADMAMM SCREENING BILATERAL W CAD *ADDENDUM*Comparisons from 12/28/2020, 10/02/2019 are now available. Assessment unchanged from prior. No evidence of malignancy. BI-RADS 1. One year screening mammogram recommended Finalized by Kristian Olmstead MD on 03/21/2023 9:02 PM 1 c MOLEC BR IMGNormalProMedica Sutter California Pacific Medical CenterOffice Visiton 57-41-3270Ohhokn-up [id number] Sherron Garcia 1965 F Date Provider Department Center 09/29/2022 АЛЕКСАНДР MALAGON ORTHO MPORTHO Family History Family Status - Relation Status Age at Mother Father Brother Level of Service:39756 [place] OFFICE/OUTPATIENT ESTABLISHED LOW MDM 20-29 MIN Reason for Visit and Comments: Follow-up [329092] - Long fingerNormalUniUpper Valley Medical CenterConsult on [id number] Sherron Garcia 1965 F Date Provider Department Center 09/06/2022 DAVE RIOJAS MP ORTHO MPORTHO No family history on file Level of Service:28432 [place] OFFICE/OUTPATIENT ESTABLISHED LOW MDM 20-29 MIN Reason for Visit and Comments: New Patient [632][facility] HospitalOffice Visiton 98-36-4380Cxdofl-up [id number] Sherron Garcia 1965 F Date Provider Department Center 08/04/2022 АЛЕКСАНДР MALAGON ORTHO MPORTHO No family history on file Level of Service:86723 [place] POSTOP FOLLOW UP VISIT RELATED TO ORIGINAL PX Reason for Visit and Comments: Post-op [483][facility] HospitalHPon 92-76-2290XSQ&P reviewed. The patient was examined and there are no changes to the H&P. Patient also presented with clinical symptoms and signs supportive of adjacent right ring trigger finger as well. She consented for release of both the right long and ring trigger fingers.[facility] HospitalOPNOTEon 08-28-8199DAOOKLBXRFFWTUYDO SURGERY OPERATIVE REPORT Date of Surgery: 07/24/2022 Surgeon: Aliya Wilks MD Coat Cutter: Jana Spencer MD PGY-2 Anup Anthony MD [...] the entirety of the procedure(s). Aliya Wilks MDNormalUniversBucyrus Community HospitalPOCT GLUCOSE METER UNSOLICITED RESULTSon 55-11-3790Lkmvpuw [Mass/Vol]98 mg/vOSttgbt92-480KedefvnoatCoshocton Regional Medical CenterComment on above:Result Comment: [id number] By: #### [id number] ####[facility] ([facility]AKER)[address] [place] [address] Letter (Out)on 60-64-9114Dipjhu (Out)[id number] Sherron Garcia 1965 Date Provider Department Center 07/10/2022 None-None [facility] AUTH [place] [facility] No family history on fileNormalUniversBucyrus Community HospitalFollow-Upon [id number] Sherron Garcia 1965 Provider Department T[place] 07/06/2022 373-ALIYA WILKS ORTHO MPORTHO No family history on file Level of Service:05816 [place] OFFICE/OUTPATIENT ESTABLISHED LOW MDM 20-29 MIN Reason for Visit and Comments: Pain [136] Follow-up [161750]NormalUnCoshocton Regional Medical CenterHPon 13-31-0121GU Attestation signed by Aliya Wilks MD at [...] radha Rufus Gee MD PGY-4 Orthopedic Surgery [facility] By using the attestations below, the [...] may be an additional personal documentation from me.[facility] HospitalAlbumin [Mass/volume] in Serum or PlasmaOrdered By: Dimitri Mixon on 10-04-3719Xtfntkx [Mass/Vol]3.8 g/dL3.2-5.5FWadsworth-Rittman HospitalAlkaline phosphatase [Enzymatic activity/volume] in Serum or PlasmaOrdered By: Dimitri Mixon on 62-81-2090VVJ [Catalytic activity/Vol]80 U/K79-21VfjrlemtnThe Bellevue HospitalAspartate aminotransferase [Enzymatic activity/volume] in Serum or Plasma Ordered By: Dimitri Mixon on 49-78-8371EJZ [Catalytic activity/Vol]16 U/L10-42 The [facility] HospitalBasophils Auto (Bld) [#/Vol]Ordered By: Dimitri Mixon on 97-85-1962Rkjpgldxu (Bld) [#/Vol]0.0 10*3/uL0.0-0.2FWadsworth-Rittman HospitalBasophils/100 WBC Auto (Bld)Ordered By: Dimitri Mixon on 12-37-3391Lepzjvtwr/100 WBC (Bld)0.2 %.[facility] Bilirubin.total [Mass/volume] in Serum or PlasmaOrdered By: Dimitri Mixon on 04-78-2867Erjevkbju [Mass/Vol]0.4 mg/dL0.3-1.2FWad[facility] Hospital Calcium [Mass/volume] in Serum or PlasmaOrdered By: Dimitri Mixon on 04-18-2022 Calcium [Mass/Vol]9.4 mg/dL8.2-10.2FWadsworth-Rittman HospitalCarbon dioxide, total [Moles/volume] in Serum or PlasmaOrdered By: Dimitri Mixon on 84-37-5001MS7 [Moles/Vol]25.2 mmol/L22.0-30.0[facility] Chloride [Moles/volume] in Serum or PlasmaOrdered By: Dimitri Mixon on 95-80-2073Uubburqk [Moles/Vol]103 mmol/M95-426HpixtefffThe [facility] Hospital Creatinine and Glomerular filtration rate.predicted panel (S/P/Bld)Ordered By: Dimitri Mixon on 26-96-9611Jjhcfjbglf [Mass/Vol]0.60 mg/dL0.44-1.03The [facility] HospitalEosinophils Auto (Bld) [#/Vol]Ordered By: Dimitri Mixon on 61-71-8507Haslzpdcdfd (Bld) [#/Vol]0.3 10*3/uL0.0-0.45The [facility] HospitalEosinophils/100 WBC Auto (Bld)Ordered By: Dimitri Mixon on 67-47-6282Quulhnqqygg/100 WBC (Bld)4.2 %.[facility] Erythrocyte distribution width Auto (RBC) [Ratio]Ordered By: Dimitri Mixon on 63-26-0689Dzlfhzdpgln distribution width (RBC) [Ratio]14.2 %11.9-15.3FWadsworth-Rittman HospitalEstimated glomerular filtration rate (GFR) non- AmericanOrdered By: Dimitri Mixon on 81-27-3538GDA/1.73 sq M.predicted among non-blacks MDRD (S/P/Bld) [Vol rate/Area]> 60 mL/MinThe Bellevue HospitalGlobulin Calc (S) [Mass/Vol]Ordered By: Dimitri Mixon on 04-18-2022 Globulin (S) [Mass/Vol]3.1 g/dLThe Bellevue HospitalGlucose [Mass/volume] in Serum or PlasmaOrdered By: Dimitri Mxion on 09-26-5611Fmlnluj [Mass/Vol]98 mg/cX41-021YfvefwsmvThe Bellevue HospitalComment on above:ADA recommended reference rangeRandom Glucose Reference Range is dependent on time and content of last meal. Glucose of more than 200 mg/dL in a nonstressed, ambulatory subject supports the diagnosisof Diabetes Mellitus.Hematocrit Auto (Bld) [Volume fraction]Ordered By: Dimitri Mixon on 29-40-1167Ifmcjxfihs (Bld) [Volume fraction]41.1 %34.0-46.4FWadsworth-Rittman HospitalHemoglobin [Mass/volume] in BloodOrdered By: Dimitri Mixon on 02-66-2193Sgtluvigwc (Bld) [Mass/Vol]13.5 g/dL11.8-15.4FWadsworth-Rittman HospitalLeukocytes [#/volume] corrected for nucleated erythrocytes in Blood by Automated coun Ordered By: Dimitri Mixon on 97-43-9945LEP corrected for nucl RBC Auto (Bld) [#/Vol]8.2 10*3/uL3.8-11.6FWadsworth-Rittman HospitalLymphocytes Auto (Bld) [#/Vol]Ordered By: Dimitri Mixon on 68-07-1890Zmytanicwgz (Bld) [#/Vol] 3.0 10*3/uL1.00-4.8The [facility] HospitalLymphocytes/100 WBC Auto (Bld)Ordered By: Dimitri Mixon on 39-05-4597Xoofeyrgiwz/100 WBC (Bld)37.3 %. The [facility] HospitalMCH Auto (RBC) [Entitic mass]Ordered By: Dimitri Mixon on 81-79-1332MJM (RBC) [Entitic mass]28.9 pg24.7-34.3FWadsworth-Rittman HospitalMCHC Auto (RBC) [Mass/Vol]Ordered By: Dimitri Mixon on 29-02-1938WIIJ (RBC) [Mass/Vol]32.7 g/dL32.0-35.0The [facility] HospitalMCV Auto (RBC) [Entitic vol]Ordered By: Dimitri Mixon on 87-37-5559QZU (RBC) [Entitic vol]88.3 fO52-335YluavxgulThe Bellevue HospitalMonocytes Auto (Bld) [#/Vol]Ordered By: Dimitri Mixon on 83-81-1667Ugpjiggjt (Bld) [#/Vol]0.6 10*3/uL0.0-0.8The [facility] HospitalMonocytes/100 WBC Auto (Bld) Ordered By: Dimitri Mixon on 65-59-5327Ekkymzjgm/100 WBC (Bld)7.3 %.The [facility] HospitalNeutrophils Auto (Bld) [#/Vol]Ordered By: Dimitri Mixon on 99-99-3212Dbumxzavhew (Bld) [#/Vol]4.2 10*3/uL1.8-7.7FWadsworth-Rittman HospitalNeutrophils/100 WBC Auto (Bld)Ordered By: Dimitri Mixon on 77-07-1776Lkvzdvugilm/100 WBC (Bld)51.0 %.The [facility] HospitalNo Panel InformationOrdered By: Dimitri Mixon on 61-67-1690Phcewyjzh GFR ()> 60 mL/MinThe Bellevue HospitalComment on above:GFR estimated reference range: According to KDOQI guidelines, <60 ml/min/1.73m2 is sufficient todiagnose a patient with chronic kidney disease.Pharmacy Creatinine Clearance (ChemN/[facility]ding County HospitalNucleated erythrocytes [Presence] in Blood by Automated countOrdered By: Dimitri Mixon on 04-18-2022 Nucleated RBC Auto Ql (Bld)0.1 /100{WBC}0-0.5FWadsworth-R[facility] Hospital Platelet mean volume Auto (Bld) [Entitic vol]Ordered By: Dimitri Mixon on 41-56-7315Ctpifizw mean volume (Bld) [Entitic vol]9.2 fL6.3-10.7FWadsworth-Rittman HospitalPlatelets Auto (Bld) [#/Vol]Ordered By: Dimitri Mixon on 47-61-2845Ayhzfcpxm (Bld) [#/Vol]238 10*3/gQ565-916BiwnsckvlThe Bellevue HospitalPotassium [Moles/volume] in Serum or PlasmaOrdered By: Dimitri Mixon on 03-33-9093Aglfoamrp [Moles/Vol]4.0 mmol/L3.5-5.1FWadsworth-Rittman HospitalProtein [Mass/volume] in Serum or PlasmaOrdered By: Dimitri Mixon on 14-71-4148Srfsghl [Mass/Vol]6.9 g/dL6.1-7.9The [facility] HospitalRBC Auto (Bld) [#/Vol]Ordered By: Dimitri Mixon on 99-71-4919YWY (Bld) [#/Vol]4.66 10*6/uL3.60-5.00[facility] Centererum or plasma alanine aminotransferase measurement without P-5'-P (enzymatic activiOrdered By: Dimitri Mixon on 95-86-3703ZKO No additional P-5'-P [Catalytic activity/Vol]17 U/L 10-60[facility] Centererum or plasma albumin/globulin mass ratioOrdered By: Dimitri Mixon on 76-47-7933Jetmwas/Globulin [Mass ratio]1.2 {ratio}[facility] Centererum or plasma anion gap determination Ordered By: Dimitri Mixon on 03-63-3155Lyyxc gap [Moles/Vol]11.8 mmol/L6.0-15.0 [facility] Centerodium [Moles/volume] in Serum or PlasmaOrdered By: Dimitri Mixon on 46-09-8194Yshoqf [Moles/Vol]136 mmol/S295-201GirfegfebThe Bellevue HospitalUrea nitrogen [Mass/volume] in Serum or PlasmaOrdered By: Dimitri Mixon on 61-70-0661Hsat nitrogen [Mass/Vol]18 mg/dL9-23The [facility] HospitalWBC Auto (Bld) [#/Vol]Ordered By: Dimitri Mixon on 59-18-3591BQL (Bld) [#/Vol]8.2 10*3/uL3.8-11.6FWadsworth-R[facility] Hospital CBC AUTO DIFFon 79-66-1535XXAQ #0.0 103/ulNormal0.0-0.1[facility] Comment on above:Performed By: #### CBC #### [facility] [address] [address] [address] Jaren Ramsaysophils/100 WBC (Bld)0.4 %Normal0.2-2.0[facility] Comment on above:Performed By: #### CBC #### [facility] [address] [address] [address] Jaren Sprague #0.3 103/ulNormal0.0-0.7The [facility] HospitalComment on above: Performed By: #### CBC #### [facility] [address] [address] [address] Yilan ChangEosinophils/100 WBC (Bld)5.1 %Normal0.9-7.0[facility] Comment on above:Performed By: #### CBC #### [facility] [address] [place] [address] Dr. Jaren Shirleyrythrocyte distribution width (RBC) [Ratio]14.5 %Lbnnyo47.0-15.0 The [facility] HospitalComment on above:Performed By: #### CBC #### [facility] [address] [place] [address] Dr. Jaren LandersHematocrit (Bld) [Volume fraction]41.2 %Uggfft89.0-48.0The [facility] HospitalComment on above:Performed By: #### CBC #### [facility] [address] [place] [address] Dr. Jaren LandersHemoglobin (Bld) [Mass/Vol]13.7 g/rWWttfqt04.0-16.0The [facility] HospitalComment on above:Performed By: #### CBC #### [facility] [address] [place] [address] Dr. Jaren LandersIG #0.01 10e3/ulNormal0.00-0.03The [facility] HospitalComment on above:Performed By: #### CBC #### [facility] [address] [place] [address] Dr. Jaren LandersIG %0.1 %Normal0.0-0.5The [facility] HospitalComment on above: Performed By: #### CBC #### [facility] [address] [place] [address] Dr. Jaren FayH #2.3 103/ulNormal1.2-3.8The [facility] HospitalComment on above:Performed By: #### CBC #### [facility] [address] [place] [address] Dr. Jaren Rosariomphocytes/100 WBC (Bld)34.1 %Aglmer19.5-60.0The [facility] HospitalComment on above:Performed By: #### CBC #### [facility] [address] [place], [place] [address] Dr. Jaren Ro DIFF REQNONormalThe Berger HospitalComment on above: Performed By: #### CBC #### [facility] [address] [place] [address] Dr. Jaren Andrade (RBC) [Entitic mass]29.1 seTmlaim47.7-34.0The [facility] HospitalComment on above:Performed By: #### CBC #### [facility] [address] [place] [address] Dr. Jaren Andrade (RBC) [Mass/Vol]33.3 g/hHDpksvc68.9-35.2The [facility] HospitalComment on above:Performed By: #### CBC #### [facility] [address] [place] [address] Dr. Jaren Andrade (RBC) [Entitic vol]87.7 vLHsqowd81.0-99.0The [facility] HospitalComment on above:Performed By: #### CBC #### [facility] [address] [place] [address] Dr. Jaren Martinez #0.5 103/ulNormal0.3-0.8The [facility] HospitalComment on above:Performed By: #### CBC #### [facility] [address] [place] [address] Dr. Jaren Herreraocytes/100 WBC (Bld)7.3 %Normal1.7-12.0[facility] Comment on above:Performed By: #### CBC #### [facility] [address] [place] [address] Dr. Jaren Steele #3.6 103/ulNormal1.4-6.5The [facility] HospitalComment on above:Performed By: #### CBC #### [facility] [address] [place] [address] Dr. Jaren Espinalutrophils/100 WBC (Bld)53.0 %Wyetcf20.0-75.0The [facility] HospitalComment on above:Performed By: #### CBC #### [facility] [address] [address] [address] Jaren Kay mean volume (Bld) [Entitic vol]10.4 fLNormal9.5-13.5The [facility] HospitalComment on above:Performed By: #### CBC #### [facility] [address] [place] [address] Dr. Jaren SyT248 103/keBvfias476-551Kuo [facility] HospitalComment on above: Performed By: #### CBC #### [facility] [address] [place] [address] Dr. Jaren LandersRBC4.70 106/ulNormal4.20-5.40The [facility] HospitalComment on above:Performed By: #### CBC #### [facility] [address] [place] [address] Dr. Jaren LandersWBC6.7 103/ulNormal4.0-11.0The [facility] HospitalComment on above: Performed By: #### CBC #### [facility] [address] [place] [address] Dr. Jaren LandersFREE THYROXINE INDEX T7on 73-93-7894JMP9.27Vxucaf8.30-4.50The [facility] HospitalCommclaren caro region on above:Performed By: #### T7, CMP, TSH, LIPID #### [facility] [address] [place] [address] Dr. Jaren LandersT3U31.0 %Gvjuac95.0-39.0The [facility] Ohioment on above: Performed By: #### T7, CMP, TSH, LIPID #### [facility] [address] [place] [address] Dr. Jaren LandersT4 [Mass/Vol]6.60 ug/dLNormal4.80-13.90[facility] Comment on above:Performed By: #### T7, CMP, TSH, LIPID #### [facility] [address] [place] [address] Dr. Jaren LandersGLYCOHEMOGLOBIN A1Con 79-78-4392QLP RECOMMENDATIONSEE BELOWNormal The [facility] HospitalComment on above:Result Comment: ADA RECOMMENDED LIMIT 4.0 - 6.0 ADA THERAPEUTIC TARGET < 7.0 ACTION SUGGESTED > 7.0Performed By: #### A1C #### [facility] [address] [place] [address] Dr. Jaren LandersGlucose [Mass/Vol]128 mg/dLMercy Health St. Vincent Medical CenterCommclaren caro region on above:Performed By: #### A1C #### [facility] [address] [place] [address] Dr. Jaren LandersHbA1c (Bld) [Mass fraction]6.1 %Normal4.5-6.2The [facility] HospitalCommclaren caro region on above:Performed By: #### A1C #### [facility] [address] [place] [address] Dr. Jaren Zayas 90-07-6161Sltu [Mass/Vol]86.0 ug/kAFonqqz41.0-170.0The [facility] HospitalCommclaren caro region on above:Performed By: #### IRON, VITAD #### [facility] [address] [place] [address] Dr. Jaren PetersonID PROFILEon 38-21-2463LQOM-HDL RATIO NORMSOhioHealth Berger HospitalCommclaren caro region on above:Result Comment: 3.3 - 4.4 LOW RISK 4.4 - 7.1 AVERAGE RISK 7.1 - 11.0 MODERATE RISK >11.0 HIGH RISKPerformed By: #### T7, CMP, TSH, LIPID #### [facility] [address] [place] [address] Dr. Jaren LandersCholesterol [Mass/Vol]206 mg/dLCritically high<=200The [facility] on above:Performed By: #### T7, CMP, TSH, LIPID #### [facility] [address] [place] [address] Dr. Jaren Armijoesterol in HDL [Mass/Vol]68 mg/dLCritically klyd74-26Lnj [facility] on above:Performed By: #### T7, CMP, TSH, LIPID #### [facility] [address] [place] [address] Dr. Yilan ChangCholesterol in LDL [Mass/Vol]126.6 mg/dLMercy Health St. Vincent Medical CenterComment on above:Performed By: #### T7, CMP, TSH, LIPID #### [facility] [address] [place] [address] Dr. Jaren rFanklin.total/Cholesterol in HDL [Mass ratio]3.0 {ratio} NormalThe [facility] HospitalComment on above:Performed By: #### T7, CMP, TSH, LIPID #### [facility] [address] [place] [address] Dr. Jaren Pickens NORMAL> or = 60 mg/dl - LOW CARDIOVASCULAR RISK <40 mg/dl - HIGH CARDIOVASCULAR RISKMercy Health St. Vincent Medical CenterComment on above:Performed By: #### T7, CMP, TSH, LIPID #### [facility] [address] [place] [address] Dr. Jaren Wray CALC NORMALSEE BELOWMercy Health St. Vincent Medical CenterComment on above:Result Comment: <100 mg/dl OPTIMAL 100 - 129 mg/dl NEAR OR ABOVE OPTIMAL 130 - 159 mg/dl BORDERLINE HIGH 160 - 189 mg/dl HIGH >190 mg/dl VERY HIGH Performed By: #### T7, CMP, TSH, LIPID #### [facility] [address] [place] [address] Dr. Jaren LandersTriglyceride [Mass/Vol]57 mg/dLNormal<=150[facility] Comment on above:Performed By: #### T7, CMP, TSH, LIPID #### [facility] [address] [place] [address] Dr. Jaren LandersVLDL CALC11.4 mg/dLNoAdams County HospitalComment on above: Performed By: #### T7, CMP, TSH, LIPID #### [facility] [address] [place] [address] Dr. Jaren LandersPROMilena 14(COMP METB)on 05-95-0194Fnwcove [Mass/Vol]3.6 g/dLNormal 3.4-5.0The [facility] HospitalComment on above:Performed By: #### T7, CMP, TSH, LIPID #### [facility] [address] [address] [address] Jaren LandersAlbumin/Globulin [Mass ratio]0.9 {ratio}NormalThe [facility] Ohioment on above:Performed By: #### T7, CMP, TSH, LIPID #### [facility] [address] [address] [address] Jaren HamlinP [Catalytic activity/Vol]84 U/LWnxvzq60-394Emf [facility] HospitalComment on above:Performed By: #### T7, CMP, TSH, LIPID #### [facility] [address] [address] [address] Jaren HamlinT [Catalytic activity/Vol]27 U/DTvcrlz20-60Cmz [facility] HospitalComment on above:Performed By: #### T7, CMP, TSH, LIPID #### [facility] [address] [place] [address] Dr. Jaren Brockon gap [Moles/Vol]11.0 mmol/LNormalThe [facility] Comment on above:Performed By: #### T7, CMP, TSH, LIPID #### [facility] [address] [place] [address] Dr. Jaren LandersAST [Catalytic activity/Vol]28 U/HQjrgxj33-33Qgb [facility] HospitalComment on above:Performed By: #### T7, CMP, TSH, LIPID #### [facility] [address] [place] [address] Dr. Jaren LandersBilirubin [Mass/Vol]0.4 mg/dLNormal0.2-1.0[facility] Comment on above:Performed By: #### T7, CMP, TSH, LIPID #### [facility] [address] [place] [address] Dr. Jaren LandersCalcium [Mass/Vol]9.2 mg/dLNormal8.5-10.1[facility] Comment on above:Performed By: #### T7, CMP, TSH, LIPID #### [facility] [address] [address] [address] Jaren LandersChloride [Moles/Vol]103 mmol/VLevsuz28-061JhdWayne Healthcare [facility] Campus Comment on above:Performed By: #### T7, CMP, TSH, LIPID #### [facility] [address] [place] [address] Dr. Jaren LandersCO2 [Moles/Vol]28.8 mmol/SGceeff50.0-32.0[facility] Comment on above:Performed By: #### T7, CMP, TSH, LIPID #### [facility] [address] [place] [address] Dr. Jaren LandersCreatinine [Mass/Vol]0.66 mg/dLNormal0.55-1.02[facility] CampusComment on above:Performed By: #### T7, CMP, TSH, LIPID #### [facility] [address] [place] [address] Dr. Jaren ShirleyGFR-AF PITCAIRN ISLANDER>60Normal>=60The [facility] HospitalComment on above:Performed By: #### T7, CMP, TSH, LIPID #### [facility] [address] [place] [address] Dr. Jaren ShirleyGFR-NON AF PITCAIRN ISLANDER>60Normal>=60The [facility] HospitalComment on above:Performed By: #### T7, CMP, TSH, LIPID #### [facility] [address] [place] [address] Dr. Jaren LandersGlobulin (S) [Mass/Vol]4.2 g/dLNormalThe [facility] HospitalComment on above:Performed By: #### T7, CMP, TSH, LIPID #### [facility] [address] [place] [address] Dr. Jaren LandersGlucose [Mass/Vol]107 mg/dLCritically hmey41-204Cve [facility] HospitalComment on above:Performed By: #### T7, CMP, TSH, LIPID #### [facility] [address] [place] [address] Dr. Jaren LandersPotassium [Moles/Vol]3.8 mmol/LNormal3.5-5.1[facility] Comment on above:Performed By: #### T7, CMP, TSH, LIPID #### [facility] [address] [place] [address] Dr. Jaren LandersProtein [Mass/Vol]7.8 g/dLNormal6.4-8.2[facility] Comment on above:Performed By: #### T7, CMP, TSH, LIPID #### [facility] [address] [place] [address] Dr. Jaren LandersSodium [Moles/Vol]139 mmol/TBmcush718-201Evw [facility] Comment on above:Performed By: #### T7, CMP, TSH, LIPID #### [facility] [address] [place] [address] Dr. Jaren LandersUrea nitrogen [Mass/Vol]16.0 mg/dLNormal7.0-18.0The [facility] HospitalComment on above:Performed By: #### T7, CMP, TSH, LIPID #### [facility] [address] [place] [address] Dr. Jaren Dobbs nitrogen/Creatinine [Mass ratio]24.2 mg/mgNoAdams County HospitalComment on above:Performed By: #### T7, CMP, TSH, LIPID #### [facility] [address] [place] [address] Dr. Jaren Simms 71-93-8225CDS9.971 uIU/mLNormal0.358-3.740The [facility] HospitalComment on above:Performed By: #### T7, CMP, TSH, LIPID #### [facility] [address] [place] [address] Dr. Jaren LandersVITAMIN D 25 OHon 39-07-2414HVV D 25-OH81.1 ng/mLNormalThe [facility] HospitalComment on above:Performed By: #### IRON, VITAD #### [facility] [address] [place] [address] Dr. Jaren ROMO BELOWMercy Health St. Vincent Medical CenterComment on above: Result Comment: <20 ng/mL Vit D deficient 20 - <30 ng/mL Vit D insufficient 30 - 100 ng/mL Vit D sufficient >100 ng/mL Potential ToxicityPerformed By: #### IRON, VITAD #### [facility] [address] [address] [address] Jaren LandersHAND LEFT 3 VWSon 18-44-2171XSII LEFT 3 VWSUnichildren's medical center plano of [facility] Department of Radiology [address] [place] [phone] Patient Name: SHERRON GARCIA : 1965 [...] report. Electronically signed: Tone Cheatham. Transcribed by: [email or web address], User Resident: GLEN NGUYEN Electronically Signed by: TONE CHEATHAM @ 10/21/2021 09:13 AM I personally read this/these film(s) with this residentRiverview Health InstituteComment on above:Order Comment: , , , Ordering Provider - Thea AJ , HAND RIGHT 3 Son 32-55-4539DDQM RIGHT 3 SUniUpper Valley Medical Center Department of Radiology [address] [place] [phone] Patient Name: SHERRON GARCIA : 1965 Sex: F Age: Race: Black Pt. Location: Patient Status: D Ordered Date: 10/20/2021 1:35:00 PM Completed Date: 10/20/2021 02:35 PM Requesting Provider: VENTURA WILKS Attending Provider: Report Copy To: Signs & Symptoms: M79.641 Pain in right hand I10 History: [place] Comments: , , , Ordering Provider - Thea AJ , Exam: HAND RIGHT 3 S HAND RIGHT 3 VWS 10/20/2021 2:35 PM CLINICAL INDICATIONS: M79.641 Pain in right hand I10 TECHNOLOGIST COMMENTS: bilateral hand pain and swelling hx: arthritis QUESTION FOR THE RADIOLOGIST: , , , Ordering Provider - Thea [facility] , PROTOCOL: AP,Lateral and Oblique views were obtained. COMPARISON: None FINDINGS: No acute malalignment or fracture. Mild multifocal degenerative changes. IMPRESSION: Mild multifocal degenerative changes. No acute bony pathology. Approved by:Glen Benton10/21/2021 8:56 AM. I, Tone Cheatham,have reviewed the image(s) and agree with the findings in this report. Electronically signed: Tone Cheatham. Transcribed by: [id number], User Resident: GLEN NGUYEN Electronically Signed by: TONE CHEATHAM @ 10/21/2021 09:14 AM I personally read this/these film(s) with this [facility] HospitalComment on above:Order Comment: , , , Ordering Provider - A MAGDALEAN [facility]IL[facility]IRAELK[facility] , Basophils Auto (Bld) [#/Vol]Ordered By: Dimitri Mixon on 33-44-0140Pjtxsdwqk (Bld) [#/Vol]0.1 10*3/uL0.0-0.2 [facility] HospitalBasophils/100 WBC Auto (Bld)Ordered By: Dimitri Mixon on 42-75-8129Bbmfomfja/100 WBC (Bld)0.5 %.[facility] HospitalBlood hemoglobin measurement (mass/volume)Ordered By: Dimitri Mixon on 41-79-1942Wtpcbuapuk (Bld) [Mass/Vol]13.5 g/dL11.8-15.4FWadsworth-Rittman HospitalBlood leukocytes automated count (number/volume)Ordered By: Dimitri Mixon on 30-98-1502OUJ (Bld) [#/Vol]10.8 10*3/uL4.5-11.0[facility] HospitalBody fluid albumin measurement (mass/volume)Ordered By: Dimitri Mixon on 78-99-4458Pgwbfwe (Body fld) [Mass/Vol]3.9 g/dL3.2-5.5 [facility] HospitalCreatinine and Glomerular filtration rate.predicted panel (S/P/Bld)Ordered By: Dimitri Mixon on 94-77-4466Qehvsurtqb [Mass/Vol]0.74 mg/dL0.44-1.03[facility] HospitalEosinophils Auto (Bld) [#/Vol]Ordered By: Dimitri Mixon on 35-99-4519Rjuwlhcyjsd (Bld) [#/Vol] 0.2 10*3/uL0.0-0.45[facility] HospitalEosinophils/100 WBC Auto (Bld)Ordered By: Dimitri Mixon on 45-75-5762Emyxcihyiux/100 WBC (Bld)1.5 %. [facility] HospitalErythrocyte distribution width Auto (RBC) [Ratio]Ordered By: Dimitri Mixon on 80-92-2197Sywozyzlcqe distribution width (RBC) [Ratio]14.4 %11.9-15.3FWadsworth-Rittman HospitalEstimated glomerular filtration rate (GFR) non- AmericanOrdered By: Dimitri Mixon on 91-35-2743ORE/1.73 sq M.predicted among non-blacks MDRD (S/P/Bld) [Vol rate/Area]> 60 mL/MinThe Bellevue HospitalGlobulin Calc (S) [Mass/Vol]Ordered By: Dimitri Mixon on 20-66-6981Ikvlwttz (S) [Mass/Vol]2.7 g/dLThe Bellevue HospitalHematocrit Auto (Bld) [Volume fraction] Ordered By: Dimitri Mixon on 68-08-5817Sfhniwuxoy (Bld) [Volume fraction]40.3 % 34.0-46.4FWadsworth-Rittman HospitalLaboratory - Hematology and Cell countsOrdered By: Dimitri Mixon on 45-11-0450Yjssnnzge RBC/100 WBC (Bld) [Ratio]0.1 %0-0.5FWadsworth-Rittman HospitalLymphocytes Auto (Bld) [#/Vol] Ordered By: Dimitri Mixon on 81-86-7055Rgigpniwxcr (Bld) [#/Vol]3.4 10*3/uL 1.00-4.8[facility] HospitalLymphocytes/100 WBC Auto (Bld)Ordered By: Dimitri Mixon on 51-04-8228Saalmgbcjfi/100 WBC (Bld)32.0 %.[facility] NorthH Auto (RBC) [Entitic mass]Ordered By: Dimitri Mixon on 42-19-6808GRN (RBC) [Entitic mass]29.7 pg24.7-34.3FWadsworth-Rittman HospitalMCHC Auto (RBC) [Mass/Vol]Ordered By: Dimitri Mixon on 06-66-0098DWEE (RBC) [Mass/Vol]33.6 g/dL32.0-35.0[facility] HospitalMCV Auto (RBC) [Entitic vol]Ordered By: Dimitri Mixon on 52-69-9796KMV (RBC) [Entitic vol]88.5 wF39-162ZawlcjgagThe Bellevue HospitalMonocytes Auto (Bld) [#/Vol] Ordered By: Dimitri Mixon on 29-93-5986Dfpqheyqz (Bld) [#/Vol]0.8 10*3/uL 0.0-0.8[facility] HospitalMonocytes/100 WBC Auto (Bld)Ordered By: Dimitri Mixon on 45-35-0391Bpbgduxyt/100 WBC (Bld)7.8 %.[facility] HospitalNeutrophils Auto (Bld) [#/Vol]Ordered By: Dimitri Mixon on 13-89-1581Czehqtisnhb (Bld) [#/Vol]6.3 10*3/uL1.8-7.7FWadsworth-Rittman HospitalNeutrophils/100 WBC Auto (Bld)Ordered By: Dimitri Mixon on 10-17-2021 Neutrophils/100 WBC (Bld)58.2 %.[facility] HospitalNo Panel InformationOrdered By: Dimitri Mixon on 63-81-5639Evhockmxb GFR ()> 60 mL/MinThe Bellevue HospitalComment on above:GFR estimated reference range: According to KDOQI guidelines, <60 ml/min/1.73m2 is sufficient todiagnose a patient with chronic kidney disease.Pharmacy Creatinine Clearance (ChemN/[facility]ding County HospitalPlatelet mean volume Auto (Bld) [Entitic vol]Ordered By: Dimitri Mixon on 73-29-1485Kftdjcjj mean volume (Bld) [Entitic vol]9.9 fL6.3-10.7FWadsworth-Rittman HospitalPlatelets Auto (Bld) [#/Vol]Ordered By: Dimitri Mixon on 93-36-4430Jdwvptfoy (Bld) [#/Vol]244 10*3/eA567-537TmqwlddfyThe Bellevue HospitalProtein [Mass/volume] in Serum or PlasmaOrdered By: Dimitri Mixon on 92-71-4581Akwazvs [Mass/Vol]6.6 g/dL6.1-7.9 [facility] HospitalRBC Auto (Bld) [#/Vol]Ordered By: Dimitri Mixon on 82-28-3141IVR (Bld) [#/Vol]4.55 10*6/uL3.60-5.00[facility] Centererum or plasma alanine aminotransferase measurement without P-5'-P (enzymatic activiOrdered By: Dimitri Mixon on 74-34-7338KHH No additional P-5'-P [Catalytic activity/Vol]14 U/D34-41VslvjkatfUniversity Hospitals Cleveland Medical Centererum or plasma albumin/globulin mass ratioOrdered By: Dimitri Mixon on 11-69-8905Hpnpphz/Globulin [Mass ratio]1.4 {ratio}[facility] Centererum or plasma alkaline phosphatase measurement (enzymatic activity/volume)Ordered By: Dimitri Mixon on 05-31-3428FDV [Catalytic activity/Vol]86 U/N08-70RudbanygcUniversity Hospitals Cleveland Medical Centererum or plasma anion gap determinationOrdered By: Dimitri Mixon on 81-21-5562Sewne gap [Moles/Vol] 15.0 mmol/L6.0-15.0[facility] Centererum or plasma aspartate aminotransferase measurement (enzymatic activity/volume)Ordered By: Dimitri Mixon on 85-87-2025PZL [Catalytic activity/Vol]18 U/C96-10FiwspnnibUniversity Hospitals Cleveland Medical Centererum or plasma calcium measurement (mass/volume)Ordered By: Dimitri Mixon on 12-33-0525Dfwjwjo [Mass/Vol]10.5 mg/dL8.2-10.2FCincinnati VA Medical Centererum or plasma chloride measurement (moles/volume) Ordered By: Dimitri Mixon on 31-23-9736Jsqeycbg [Moles/Vol]100 mmol/L95-114 [facility] Centererum or plasma glucose measurement (mass/volume)Ordered By: Dimitri Mixon on 05-98-2137Rklpghr [Mass/Vol]101 mg/dL 70-100[facility] HospitalComment on above:ADA recommended reference range Random Glucose Reference Range is dependent on time and content of last meal. Glucose of more than 200 mg/dL in a nonstressed, ambulatory subject supports the diagnosis of Diabetes Mellitus.Serum or plasma potassium measurement (moles/volume)Ordered By: Dimitri Mixon on 37-66-9861Eekkonnok [Moles/Vol]4.8 mmol/L3.5-5.1FCincinnati VA Medical Centererum or plasma sodium measurement (moles/volume)Ordered By: Dimitri Mixon on 60-10-2965Blupwt [Moles/Vol]138 mmol/J904-392GpaugqwqnUniversity Hospitals Cleveland Medical Centererum or plasma total bilirubin measurement (mass/volume)Ordered By: Dimitri Mixon on 46-48-0528Onhlqtbij [Mass/Vol]0.2 mg/dL0.3-1.2FCincinnati VA Medical Centererum or plasma total carbon dioxide measurement (moles/volume)Ordered By: Dimitri Mixon on 62-19-8532BC2 [Moles/Vol]27.8 mmol/L22.0-30.0[facility] Serum or plasma urea nitrogen measurement (mass/volume)Ordered By: Dimitri Mixon on 38-69-1422Nuzx nitrogen [Mass/Vol]20 mg/dL9-23The [facility] HospitalOperative Reporton [id number] ReportMR#: [id number] [facility] Pt. Name: Jose Sherron Room #: 0C Discharge Date: Birthdate: 1965 OPERATIVE REPORT DATE OF SURGERY: 06/06/2021 SURGEON: Nelida Wilks M.D. LOG MARKER: Benton Lambert M.D. PREOPERATIVE DIAGNOSIS: Left carpal [...] Lambert MD Date Trans: 06/06/2021 09:17 Thea/tee DN_JN:[id number] cc: Gamal Morgan M.D. [facility] [address] [place] [phone] Katerine Jacobs M.D. [address] [address] [place], [place] [address]PO GLUCOSE LABon 73-38-2898Vvyrfjc [Mass/Vol]107 mg/yFKiub87-404Uts [facility] HospitalComment on above:Performed By: #### [id number] #### [address] Reporton [id number] ReportMR#: [id number] [facility] Pt. Name: Sherron Garcia Room #: 0C Discharge Date: Birthdate: 1965 OPERATIVE REPORT DATE OF SURGERY: 05/23/2021 SURGEON: Neilda Wilks M.D. LOG MARKER: Benton Lambert M.D. PREOPERATIVE DIAGNOSIS: Right carpal [...] Wilks M.D. Date Trans: 05/23/2021 11:54 A/tee DN_JN:[id number] cc: Gamal Morgan M.D. [facility] [address] [place] [phone] Katerine Jacobs M.D. [address] [place] [address]LbjwriWudLima Memorial Hospital GLUCOSE LABon 98-50-4358Usvjzim [Mass/Vol]87 mg/uSQyeacw65-507Fgx [facility] HospitalComment on above:Performed By: #### [address] #### [address] [address] [address] Vital Signs Date TimeVital SignValuePerforming LvcvmhuuiOzgtdmdd67-49-6164 14:29-0400Body ioidvq970.32 cmKaterine Jacobs MD Work Phone: [facility]08-07-2025 14:29-0400 Body mass index (BMI) [Ratio]27.3 kg/i6SpzznlvKaterine Jacobs MD Work Phone: [facility]08-07-2025 14:29-0400 Body ytxqxy64.3 kgKaterine Jacobs MD Work Phone: [facility]01-04-2024 14:59-0500 Body mass index (BMI) [Ratio]28.76 kg/m2Lisa Moshe CONTROL PANEL BUILDER-FOREIGN EXCHANGE TRADER Work Phone: [facility] [employer] Ewfcyf68-97-8263 14:59-0500Body zolmdb06.41 kgLisa Moshe CONTROL PANEL BUILDER-FOREIGN EXCHANGE TRADER Work Phone: [facility] [employer] Wwhulk73-30-8116 14:59-0500Diastolic blood ursofyfq56 mm[Hg]Kenna Moshe CONTROL PANEL BUILDER-FOREIGN EXCHANGE TRADER Work Phone: [facility] [employer] Bslawi63-73-6518 14:59-0500Systolic blood mm[Hg]Kenna Moshe CONTROL PANEL BUILDER-FOREIGN EXCHANGE TRADER Work Phone: [facility] [employer] Hstudl56-89-5708 14:58-0400Body ysyggg637.32 cmCarmcoatesville veterans affairs medical center CQuotientPaynesvilleSynaffix 09-23-2021 14:58-0400Body mass index (BMI) [Ratio]32.71 kg/o3Dljmbtz CQuotientPaynesvilleSynaffix 09-23-2021 14:58-0400Body surface area Derived from formula1.7 w6Sgexfbd GlassesOffLegacy Salmon Creek HospitalSynaffix 09-23-2021 14:58-0400Body kfakci77.99 kgCarclifton-fine hospitalTrigencencEtacts 09-23-2021 14:58-0400Diastolic blood tjyuocvl94 mm[Hg] AmayaAmerican CareSource Holdingsnyu langone health systemSynaffix 09-23-2021 14:58-0400Heart rate84 /minCarclifton-fine hospitalTrigencencMusicshake [facility] 09-23-2021 14:58-0400Systolic blood uxfsfgsp743 mm[Hg] HacemeUnRegalo.comnyu langone health systemRe-vinyl [facility] Encounters Encounter DateEncounter TypeCare ProviderFacilityStart: 09-25-2024 End: 45-77-1981kjhglxiiezVkpuqnc M Hoy MD Work Phone: [facility] Work Phone: Start: 09-25-2024 End: 42-10-2410Yryihoi encounter procedureAngelito Cotton MD-[facility] Work Phone: start: 06-18-2024 End: 64-32-8340Bemjscp encounter procedureKaterine Jacobs MD Work Phone: [facility] [address] Work Phone: Start: 06-18-2024 End: 12-77-8209bugtiuiabjJkvptxl M Hoy MD Work Phone: [facility] Work Phone: Start: 12-13-2023 End: 65-74-8889Colmsxj encounter procedureMD Katerine Jacobs Work Phone: [facility] [address] Work Phone: Start: 12-13-2023 End: 72-75-5219lsbrvvvumpKY Katerine Jacobs Work Phone: [facility] Work Phone: Start: 05-10-2023 End: 99-41-7361byhbxnlxenOWEBMary Rutan Hospitaltart: 03-06-2023 Orders OnlyKenna Mesa APRN-FOREIGN EXCHANGE TRADER Work Phone: [facility] Physicians Obstetrics/GynecologyComment on above:Heterogeneously dense tissue of both breasts on mammography (Primary Dx); Family history of breast cancerStart: 12-32-1294wkpmgnbcpnZSPHMercy [facility] [place] PPGStart: 03-02-2023 End: 92-87-2040ujqymryvcjXKRTBrookdale University Hospital and Medical Centertart: 02-22-2023 End: 16-10-9928hmoqnyjofdLAZOMarshall Medical Center South Ambulatory PPGStart: 21-40-2835Yubhmdxrd for gynecological examination (general) (routine) without abnormal findingsMercy Hospital [facility] [place] PPGStart: 02-22-2023 End: 41-88-8511Iemuqsd encounter procedureKenna Mesa APRN-FOREIGN EXCHANGE TRADER Work Phone: [facility] City HospitalCisivHodgeman County Health Centertart: 02-22-2023 End: 72-21-9055Qnhhotua preventive med est patient 40-64yrsKenna Mesa APRN-FOREIGN EXCHANGE TRADER Work Phone: [facility] Physicians Obstetrics/GynecologyComment on above:Well woman exam with routine gynecological exam (Primary Dx); Encounter for screening mammogram for malignant neoplasm of breast; Standardized adult depression screening tool completed; Status post hysterectomy; Vaginal dryness, menopausal; Vaginal atrophyStart: 09-29-2022 End: 71-19-3957iknrikfcayOGEJY MUSTAPHAUniversEast Liverpool City Hospitaltart: 09-07-2022 End: 61-55-5507wnszogssvkZTNGTFLMary Rutan Hospitaltart: 09-06-2022 End: 10-08-1257lgadhjsawwOXXHUIQMary Rutan Hospitaltart: 08-04-2022 End: 87-77-8048ryqtdvoagzXOQNR MUSTAPHAUniversEast Liverpool City Hospitaltart: 07-24-2022 End: 94-07-2920xedhsbdozlTNPUJ MUSTAPHAUniversEast Liverpool City Hospitaltart: 02-39-1302yyzdgpervrICNFW MUSTAPHAUniversity of Metropolitan Methodist Hospitaltart: 04-18-2022 End: 42-47-0696alcxrzqnfoLR Katerine Salazar Hoy Work Phone: [facility] Work Phone: Start: 04-18-2022 End: 60-06-5599Hxnmnuo encounter procedureMD Katerine Hoy Work Phone: [facility] [address] Work Phone: Start: 79-63-3417Yusmjbjhy for general adult medical examination without abnormal findingsDR KATERINE JAMAYThe Saint Louis HospitalStart: 01-18-2022 End: 28-96-6633jggyzieajpFL KATERINE HOYFacility:B7Ocyno: 01-18-2022 End: 12-16-2344Ivcdwucoz for general adult medical examination without abnormal findingsDR KATERINE HOYFacility:W4Wojvc: 10-17-2021 End: 87-21-2054Rjavtfr encounter procedureMD Katerine Hoy Work Phone: [facility] [address] RdStart: 06-06-2021 End: 05-77-8199wtyzuzqgfqNIBMFDBEX MUSTAPHAFacility:UTMCStart: 05-23-2021 End: 53-69-3591bxjlfkxohpTLTXYOQBS MUSTAPHAFacility:UTMCStart: 57-28-3646Rtzhk Emily Waldron Other [facility] Office Procedures DateProcedureProcedure DetailPerforming ClinicianStart: 59-69-1932Rhmiqseeuwi Kenna Mesa CONTROL PANEL BUILDER-FOREIGN EXCHANGE TRADER Work Phone: Start: 58-39-9298Xkhoo depression screening assessment Kenna Mesa APRN-FOREIGN EXCHANGE TRADER Work Phone: Start: 20-12-4364Jpnizb-up visitFollow-upABDUL MUSTAPHAStart: 11-99-7503McqulpsccsyDwwy Franco CONTROL PANEL BUILDER-FOREIGN EXCHANGE TRADER Work Phone: Start: 99-96-3001Mvaak conduction studies 9-10 studies Amaya OsborneH/O: hysterectomyStatus post hysterectomyJerilynsa Martin Mesa CONTROL PANEL BUILDER-FOREIGN EXCHANGE TRADER Work Phone: Plan of Treatment DateCare ActivityDetailAuthorStart: 71-34-2481Pznadpw [facility] Work Phone: Start: 03-47-0684Pozwm BMI ScreeningAdult BMI ScreeningProMedica Health SystemStart: 58-67-2830Zyqsrtoik for malignant neoplasm of breastMammogramProEnSolve Biosystems Health SystemStart: 86-20-3969Tgkqw BMI Follow Up PlanAdult BMI Follow Up PlanProKettering Health PrebleTekTrak Health SystemStart: 02-23-2024 Adult BMI ScreeningAdult BMI ScreeningProMedica Health SystemStart: 02-23-2024 Depression ScreeningDepression ScreeningProEnSolve Biosystems Health SystemStart: 02-23-2024 Tobacco ScreeningTobacco ScreeningProKettering Health PrebleTekTrak Health SystemStart: 03-06-2023 End: 32-36-6419AT Guidance limited for localization of tumorNM Molecular breast imaging localization limited area Imaging Routine Heterogeneously dense tissue o f both breasts on mammography Family history of breast cancer Expected: 03/06/2023, Expires: 03/06/2024PROHipcamp SBO Work Phone: Comment on above:Expected: 03/06/2023, Expires: 03/06/2024Start: 02-22-2023 End: 99-19-2795XLD Breast - bilateral screeningMammography screening bilateral with CAD Imaging Routine Encounter for screening mammogram for malignant neoplasm of breast Expected: 02/22/2023, Expires: 04/21/2024PROHipcamp SBO Work Phone: Comment on above:Expected: 02/22/2023, Expires: 04/21/2024Start: 81-90-4436Gyydrormh vaccinationInfluenza VaccineProKettering Health PrebleMD-IT SystemStart: 45-92-7208Fvenaggzk for malignant neoplasm of breast MammogramProSmartPill SystemStart: 85-34-7463Mwcaufiufnciob of varicella zoster vaccineZoster (Shingles) Vaccine (1 of 2)[facility] [employer] SystemStart: 08-71-2558XSpV,Tdap and Td Vaccines (1 - Tdap)DTaP,Tdap and Td Vaccines (1 - Tdap)[facility] SystemPatient [facility] Work Phone: Payers DatePayer CategoryPayerPolicy [id number]-bfc [id number] Health [id number] Health InsuranceCHILLICOTHE HOSPITAL HEALTHSCOPE BENEFITS/[place] [id number] 2022-[facility] [phone] [address] [address] [place], [place] [id number] [id number] 2.840.1.106889.3.57[id number] 2.840.1.796414.3.57[id number] 2.840.1.817424.3.57[id number] 2.840.1.250452.3.579.[id number] 2..840.1.798841.3.579.2.568186-53-0334Htpahsp6954027 2..840.1.056757.3.579.2.564168-00-9862Epflkue0354440 2.840.1.453947.3.579.2.687534-70-7861Hzecbvd7925491 2.16.840.1.124045.3.579.2.723930-14-3843Nfczfyr1804287 2..840.1.180460.3.579.2.0[id number] 2.16.840.1.685760.3.57[id number] 2.16.840.1.355691.3.579.[id number] Health Insurance [employer] Insurance [id number] 2.16.8[id number] 2.16.840.1.50[id number] 2.160.1.933126.3.579.2.531 Worker's [id number] Social History DateTypeDetailFacilityStart: 47-53-8651FxhsnnoruEvlczyhqt [employer] Start: 26-00-9787TlkyqabwGkazzkdos RedDrummer [facility] Start: 97-83-5196BfjousmMfzfosnbz RedDrummer [facility] Start: 09-17-2017 End: 38-83-2742Rraguwc smoking status NHISSmoker (finding)[facility] Centertart: 09-12-9404Dpr Assigned At BirthFeGrand Lake Joint Township District Memorial Hospitaltart: 01-31-2022 End: 49-12-2281Nhqtyvh smoking status NHISNever smoked tobaccoProMedica Corey Hospital SystemStart: 89-03-6283Klxinoi use and exposureSmokeless tobacco non-user [facility] SystemStart: 02-22-2023 End: 05-08-3580Accxfwg intakeCurrent drinker of alcohol (finding)[facility] [employer] SystemStart: 81-81-5543Rimdcje of Social functionCleveland Clinic South Pointe Hospital System Start: 55-78-3066Htfwhry use panelSumma Health Akron CampusAdolescent depression screening zogfkpvjky4GgdVprszqWashington Regional Medical Centertart: 74-68-0452Zabnapr Comment occasionalWashington Regional Medical Centertart: 90-24-2680Ptl Assigned At BirthNot on fileWashington Regional Medical Centertart: 55-04-4848RoiLlfnwf (finding)[facility] Clinical Notes 07-06-2022 to 02-22-2023 Note Date & TclgBqvjAxxhldqb51-16-8088 History of Present illness Narrative* Kenna Mesa, TERELL-FOREIGN EXCHANGE TRADER - 02/22/2023 3:00 PM EST Sherron Garcia is a 57 y.o. 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 She is postmenopausal.Hysterectomy: yes - 2005 [...] Current Outpatient Medications Medication Sig Dispense Refill gcgsbwc-dkvznuimesdue-yatqanug (EXCEDRIN EXTRA STRENGTH) 250-250-65 mg per tablet [...] provided. All questions answered. RTO for annual education faculty member exam and / or PRN. RUTH Carcamo APRN-CNP 02/22/23 1527 documented in this encounterSumma Health Akron Campus08-11-2023 Note Attestation signed by Aliya Wilks MD [...] hand pain. -Pt already has appt with Manager Payment setup - RTC as needed if symptoms worsen or fail to improve - Call office any questions or concerns Ramin Stone MD Orthopedic Surgery, PGY-2 Pager: [phone] 09/29/22 8:26 AM By using the attestations [...] may be an additional personal documentation from me.[facility]07-19-2023 NoteChief Complaint: neck and radicular pain [...] to assess spinal stenosis Follow up after MRIUnCoshocton Regional Medical Center06-16-2023 Note Attestation signed by Aliya Wilks MD [...] may be an additional personal documentation from me.[facility]06-05-2023 NotePatient: Sherron Garcia Procedure Summary Date: 07/24/22 Room / Location: [facility] OR [address] [place] [address] GISC OR Anesthesia Start: 1316 Anesthesia Stop: [...] 1410 Anesthesia Post Evaluation No notable events documented.[facility]06-05-2023 Note Patient: Sherron Garcia Procedure Information Date/Time: 07/24/22 1245 Procedure: long finger A1 pully release (Right: Middle Finger) Location: [facility] OR [address] [place] [address] OR Surgeons: Aliya Wilks MD Relevant Problems [...] patient. Plan discussed with CAA. Additional Equipment RequestsUnCoshocton Regional Medical Center05-18-2023 Note Attestation signed by Aliya Wilks MD [...] radha Rufus Gee MD PGY-4 Orthopedic Surgery [facility] By using the attestations below, the [...] may be an additional personal documentation from me.[facility] HospitalEvaluation noteNo assessment information availableOhiohealth Arthur G.[facility]. [facility], Cancer Center Work Phone: Evaluation note* Diagnosis Well woman exam with routine gynecological exam- Primary Routine gynecological examination Encounter for screening mammogram for malignant neoplasm of breast Standardized adult depression screening tool completed Status post hysterectomy Acquired absence of both cervix and uterus Vaginal dryness, menopausal Vaginal atrophy Postmenopausal atrophic vaginitis documented in this encounter [facility] SystemEvaluation note* Diagnosis Heterogeneously dense tissue of both breasts on mammography- Primary Family history of breast cancer Family history of malignant neoplasm of breast documented in this encounter [facility] SystemEvaluation note* Diagnosis Onset Date Resolution Status Admit Date Cervical disc disorder at C5-C6 level wi th radiculopathy acuteAugust 2024 2:13pmDisorder of intervertebral disc at C4-C5 level with radiculopathyacuteAugust 2024 2:13pm [facility] Work Phone: Hospital Discharge instructionsAmbulatory Orders* Referral to Pain Management Location: None Selected [facility] Work Phone: Instructions* Attachments The following attachments cannot be sent through Care Everywhere. * Vaginal dryness (Surinamese) * Calcium and vitamin D for bone health (Surinamese) documented in this encounterProC[facility] SystemInstructionsNot on file documented in this encounterProCleveland [facility] System Chief Complaint and Reason for [...] breast imaging localization limited area Kenna Mesa, CONTROL PANEL BUILDER-FOREIGN EXCHANGE TRADER [address] [place] [address] Referral IDStatusReasonStart DateExpiration DateVisits RequestedVisits [id number] Review/ Additional Source Comments Care Teams (unrecognized [...] MemberRelationshipSpecialtyStart DateEnd Date Katerine Jacobs MD [address] [place] [address] PCP - [facility] Medicine02/22/23Team MemberRelationshipSpecialtyStart DateEnd Date Katerine Jacobs MD [facility] [place] [address] PCP - [facility] Medicine02/22/23 Team Status: Inactive Member Role Status Dates Katerine Jacobs MD Primary Care Provider Active Start: June 18, 2024 End: June 18, 2024Jowhitney Pearce PROPERTY AND CASUALTY INSURANCE AGENT-CAttending ProviderActiveStart: June 18, 2024 End: June 18, [...] and content) DATE CREATED AUTHOR 10/26/2021 [facility] DATE CREATED AUTHOR AUTHOR'S ORGANIZ ATION 01/21/2022 [facility] DATE CREATED AUTHOR AUTHOR'S ORGANIZ ATION 10/04/2022 [facility] DATE CREATED AUTHOR AUTHOR'S ORGANIZ ATION 03/06/2023 [facility] DATE CREATED AUTHOR AUTHOR'S ORGANIZ ATION 03/25/2023 [facility] DATE CREATED AUTHOR AUTHOR'S ORGANIZ ATION 05/12/2023 [facility] DATE CREATED AUTHOR AUTHOR'S ORGANIZ ATION 06/26/2024 [facility] Reason for Visit (unrecogniz ed [...] BE BASED ON THE PRIMARY CLINICAL RECORDS. [facility]. provides no warranty or guarantee of the accuracy or completeness of information in this document.
== END 2025-01-03 11:46 | disposition home or self-care (01) ==
LOC: LAB 01-06 11:45
PROVIDERS: PCP Family Medicine; Visit Provider Family Medicine
DX: Z00.00 Encounter for general adult medical examination without abnormal findings (principal)
CPT/HCPCS: 36415; 80053; 80061; 82306; 82607; 82746; 83036; 83525; 83540; 84436; 84443; 84481; 85025; 86376; 86800

== ENCOUNTER 2025-01-13 16:00 | Outpatient (RCR) | payer OTHER, SELFPAY | END 2025-02-11 08:17 | disposition home or self-care (01) | LOC: PT 16:00 | PROVIDERS: PCP Family Medicine; Visit Provider Family Medicine | DX: M54.16 Radiculopathy, lumbar region (principal) | CPT/HCPCS: 97012; 97110; 97161 ==

== ENCOUNTER 2025-01-20 11:36 | Outpatient (OUT) | payer OTHER, SELFPAY ==
--- OUTSIDE RECORDS SUMMARY | 2025-01-20 11:41 | XMS_ITS | Clinical Summary ---
Author Organization [facility] Address [address] [place] [address] Care Team Providers Care Sales Order Specialist Name Role Phone Nikos Jacobs MD Primary Care Provider [phone] Allergies No known active allergies Medications MedicationSigDispense [...] morning.06/06/2022ctive Active Problems ProblemNoted DateDiagnosed DateTrigger finger, /18/2023 Overview (07/06/2022): Added automatically from request for surgery [id number] Family History RelationNameStatusCommentsBrotherDeceasedFatherDeceasedMotherDeceased Social History Tobacco UseTypesPacks/DayYears UsedDateSmoking Tobacco: NeverSmokeless Tobacco: Never Tobacco Cessation:Counseling Given: Not Answered Alcohol UseStandard Drinks/WeekCommentsNever0 (1 standard drink = 0.6 oz pure alcohol)PHQ-2AnswerDate RecordedPatient Health Questionnaire-2 Xfzst016 [place] Safety & EnvironmentAnswerDate RecordedFear of Current or Ex-PartnerNot on file04/12/2023Emotionally AbusedNot on file04/12/2023hysically AbusedNot on file04/12/2023Sexually AbusedNot on file04/12/2023hysically or Sexually Abused Not on file04/12/2023CommentsUnknownSex and Gender InformationValueDate RecordedSex Assigned at LzvpaIpippi97/18/2023 3:04 PM EDTLegal SexFemale 08/18/2021 12:17 AM EDTGender KyfhtklzPfirrk96/18/2023 3:04 PM EDTSexual OrientationHeterosexual or Gtiuzqdh36/18/2023 3:04 PM EDT Last Filed Vital Signs Vital SignReadingTime TakenCommentsBlood Gjlhphkt273/61007/24/2022 2:25 PM EDT Mljmj5987/05/2023 2:25 PM FYJRshvbtxyfrm67 ??C (96.8 ??F)07/24/2022 2:25 PM EDT Respiratory Jasm769707/24/2022 2:25 PM EDTOxygen Mlpsxkmkko93%07/24/2022 2:25 PM EDTInhaled Oxygen Concentration--Fchttj81.5 kg (140 lb)09/29/2022 8:08 AM EDT Buxegf057.3 cm (4' 10 )09/29/2022 8:08 AM EDTBody Mass Index29.2608 8:08 AM EDT Plan of Treatment Health MaintenanceDue DateLast DoneCommentsCT Fztvagzhssee62/21/1967Colonoscopy 1966Colorectal Cancer Rvekvozew22/21/1967FIT-DNA1966FIT1966 FOBT1966 1999Qcjzundhkbqjl60/21/1967Depression Vhzxuviuk27/21/1979Hepatitis B Vaccines (1 of 3 - 19+ 3-dose series)1985Pap Smear1987Adult Tetanus 1988Cervical Cancer Mhdfbretm76/21/1997HPV/Asuhxd5004/11/1996Mammogram 2006Zoster Vaccines (1 of 2)2016Influenza Vaccine (#1)2024HIB [...] Insurance Care Teams Team MemberRelationshipSpecialtyStart DateEnd Nikos aJcobs MD [address] [place] [address] [facility]07/06/22
--- OUTSIDE RECORDS SUMMARY | 2025-01-20 11:41 | XMS_ITS | Clinical Summary ---
Author Organization [facility] tem Address [id number] [address] [place] [address] Care Team Providers Care Surgical Consultant Name Role Phone Nikos Jacobs MD Primary Care Provider [phone] Allergies No known active allergies Medications MedicationSigDispense [...] total) in the evening. Take with meals.Active rqnaafj-jksxpuwiywgcu-gsfizndy (EXCEDRIN EXTRA STRENGTH) 250-250-65 mg per tablet [...] DateHeterogeneously dense tissue of both breasts on hzpbihknkse52/16/2024 Overview (03/06/2023): Recommendation: Recommend MBI as a supplemental screening combined with annual mammography.. Family history of breast ggsrea6503/06/2023 Overview (03/06/2023): Maternal aunt Trigger finger, fvfaadvm79/18/2023 Overview (02/22/2023): Added automatically from request for surgery [id number] Family History Medical HistoryRelationNameCommentsDiabetesBrotherHypertensionBrotherKidney failureBrotherDiabetesFatherHypertensionFatherBreast cancerMaternal AuntDiabetes MotherHypertensionMotherBil Breast CancerNeg HxRelationNameStatusCommentsBrother FatherDeceasedMaternal AuntMotherDeceased Social History Tobacco UseTypesPacks/DayYears UsedDateSmoking Tobacco: NeverSmokeless Tobacco: NeverAlcohol UseStandard Drinks/WeekCommentsYes0 (1 standard drink = 0.6 oz pure alcohol)occasionalPHQ-2AnswerDate RecordedTotal Zyypx023Hunger Screening AnswerDate RecordedWithin the past 12 months we worried whether our food would run out before we got money to buy more.Never True02/22/2023Within the past 12 months the food we bought just didn't last and we didn't have money to get more. Never True02/22/2023CommentsNoSex and Gender InformationValueDate RecordedSex Assigned at BirthNot on fileLegal DxyNkmoju45/22/2022 3:20 PM EST Gender IdentityNot on fileSexual OrientationNot on file Last Filed Vital Signs Vital SignReadingTime TakenCommentsBlood Cgslgmds563/80002/22/2023 2:59 PM EST Dvzir362001/31/2022 1:32 PM ESTTemperature--Respiratory Pzmu991104/03/2021 1:32 PM ESTOxygen Saturation--Inhaled Oxygen Concentration--Gvdkwk13.3 kg (133 lb) 03/02/2023 2:59 PM XMXDsemyt732.3 cm (4' 10 )03/02/2023 2:59 PM ESTBody Mass Index27. 2:59 PM EST Plan of Treatment Health MaintenanceDue DateLast DoneCommentsDTaP,Tdap and Td Vaccines (1 - Tdap) 1985Zoster (Shingles) Vaccine (1 of 2)2016Depression Screening Tobacco Krkgpbmzc91dult BMI Screening Mammogram, 12/28/2020, 12/28/2020, Additional history existsInfluenza Rograas6810/20/2024 Medical Devices Not on file Procedures Procedure NamePriorityDate/TimeAssociated DiagnosisCommentsMAMM SCREENING BILATERAL W LZGNfpxtfp58/12/2024 3:15 PM EST Encounter for screening mammogram [...] IMG Authorizing ProviderResult TypeResult StatusLi Martin Markylayachapin CALCULUS TUTOR-CNPIMG MAMMOGRAPHY ORDERABLESEdited Result - Final from Last 3 Months or Most Recently Relevant to Health Maintenance Insurance Care Teams Team MemberRelationshipSpecialtyStart DateEnd Date Nikos Jacosb MD PCP - GeneralFamily Medicine02/22/23
--- OUTSIDE RECORDS SUMMARY | 2025-01-20 11:41 | XMS_ITS | Clinical Summary ---
Author Organization [facility] Address [address] [facility] [place] [address] Care Team Providers Care Car Designer Name Role Phone Unavailable Primary Care Provider Unavailabl e Social History Tobacco UseTypesPacks/DayYears UsedDateSmoking Tobacco: Never Assessed CommentsUnknownSex and Gender InformationValueDate RecordedSex Assigned at Not on fileLegal ObvRxdkzk03/15/2023 6:35 PM EDTGender IdentityNot on fileSexual OrientationNot on file Last Filed Vital Signs Vital SignReadingTime TakenCommentsBlood Arzdeiwo323/8010 12:00 PM EDT Pulse--Temperature--Respiratory Rate--Oxygen Saturation--Inhaled Oxygen Concentration--Dxsxnc72.1 kg (137 lb)12/18/2021 12:00 PM ROOPgtyge612.3 cm (4' 10 )12/18/2021 12:00 PM EDTBody Mass Index28.6312/18/2021 12:00 PM EDT Plan of Treatment Not on file
--- OUTSIDE RECORDS SUMMARY | 2025-01-20 11:41 | XMS_ITS | Clinical Summary ---
Author Organization [facility] Address [address] [place] [address] Care Team Providers Care Air Conditioning Service Technician Name Role Phone [facility], Other Unavailable [phone] Social History Tobacco UseTypesPacks/DayYears UsedDateSmoking Tobacco: Never Assessed CommentsUnknownSex and Gender InformationValueDate RecordedSex Assigned at Not on fileLegal RhiUtkdpt87/19/2022 12:00 PM EDTGender IdentityNot on file Sexual OrientationNot on file Last Filed Vital Signs Vital SignReadingTime TakenCommentsBlood Pressure--Pulse--Temperature-- Respiratory Rate--Oxygen Saturation--Inhaled Oxygen Concentration--Qusswy01.2 kg (135 lb)07/07/2021 12:00 PM SAINembhh585.8 cm (4' 9 )07/07/2021 12:00 PM EDTBody Mass Index29.21007/07/2021 12:00 PM EDT Plan of Treatment Health MaintenanceDue DateLast DoneCommentsHEPATITIS C VIRUS IPFPDPJRN19/21/1967 KJPOAJV83 1966HIV SCREENING MQYJXZCGAQ04/21/1982HEP B VACCINE (1 of 3 - 19+ 3-dose series)1985TDAP (ADULT)1985CERVICAL CANCER SCREENING YLIWAAVNKT19/21/1988LIPID KSOJNPBFU40/21/2007MAMMOGRAM SCREENING DISCUSSION 2006COLORECTAL CANCER SCREENING IVYDBMBUZA01/21/2012PNEUMOCOCCAL VACCINE SERIES (1 of 1 - PCV)2016ZOSTER (SHINGLES) VACCINE (1 of 2)2016 COVID-19 VACCINE (1 - 2024- season)2024INFLUENZA VACCINE (#1)2024 Care Teams Team MemberRelationshipSpecialtyStart DateEnd Date [facility], Other [address] [place] [address] PCP - Transplant CoordinatorTransplant07/07/21
--- OUTSIDE RECORDS SUMMARY | 2025-01-20 11:42 | XMS_ITS | CCD ---
Author Organization [facility] Care Team Providers Care Shipping And Receiving Name Role Phone Amaya Waldron Primary Care Physician Amaya Garcia Unavailable Unavailable MD Katerine Jacobs Primary Care Provider MD Mike Mixon Attending Provider [phone] MAGDALENA, ABDULAZIM Admitting Unavailable MAGDALENA, ABDULAZIM Attending Unavailable GAMAL MORGAN Referring Unavailable KATERINE JACOBS Primary Care Unavailable MAGDALENA, ABDULAZIM Admitting Unavailable MAGDALENA, ABDULAZIM Attending Unavailable GAMAL MORGAN Referring Unavailable KATERINE JACOBS Primary Care Unavailable DR KATERINE JACOBS Attending Unavailable DR KATERINE JACOBS Consulting Unavailable DR KATERINE JACOBS Primary Care Unavailable DR KATERINE JACOBS Admitting Unavailable MD Katerine Jacobs Primary Care Provider [phone] MD Mike Mixon Attending Provider ELGAFY, [...] MD Katerine Jacobs Primary Care Provider MD Dimitri Mixon Attending Provider Katerine Jacobs MD Primary Care Provider [phone] Katerine Jacobs MD Primary Care Provider [phone] Nivia Howard Attending Provider Katerine Jacobs Primary Care Unavailable Dimitri Mixon Admitting Unavailable Dimitri Mixon Attending Unavailable Nivia Pearce Admitting Unavailable Nivia Pearce Attending Unavailable Katerine Jacobs Primary Care Unavailable Katerine Jacobs MD Primary Care Provider [phone] Angelito Cototn MD Attending Provider Allergies Allergy ClassificationReported Allergen(s)Allergy TypeDate of OnsetReaction(s) Facility (1 source)Acetaminophen / Dextromethorphan / Doxylamine / Pseudoephedrine; Translations: [NyQuil]Drug AllergySEVEREReynoldsvilleDepositphotos (1 source)Naproxen; Translations: [Aleve]Drug AllergyMODERATEReynoldsvilleDepositphotos (1 source)OtherAllergy to substance (disorder)Head and Chest OTC-MODERATE [facility] Medications Current Medications MedicationDrug Class(es)DatesSig (Normalized)Sig (Original)acetaminophen 250 mg / aspirin 250 mg / caffeine 65 mg oral tablet (2 sources)Platelet Aggregation Inhibitor, Nonsteroidal Anti-inflammatory Drug, Central Nervous System Stimulant, Methylxanthinetake 2 tablets by mouth once daily as pozjjpkipsofa-rixwetstfanzy-evotxzwc (EXCEDRIN EXTRA STRENGTH) 250-250-65 mg per tablet 2 tablets Orally Once a day prn 0 Activecholecalciferol 0.025 mg oral capsule (3 sources)Vitamin DStart: 62-24-3027grws 1 capsule by mouth once daily Cholecalciferol (Vitamin D3) 25 mcg (1,000 unit) capsule Active 25 MCG PO Daily September 25, 2024 12:00am Complies with drug therapycholecalciferol, vitamin D3, (VITAMIN D3) 5,000 units tablet Take 8,000 Units by mouth in the morning. 0 ActiveCod Liver Oil capsule (1 source)Start: 88-99-1839ehdl 1 capsule by mouth once dailyCod Liver [...] mg/ml vaginal cream (3 sources)EstrogenStart: 01-31-2022 End: 60-77-8100mfcojsdfC (ESTRACE) 0.01 % (0.1 mg/gram) vaginal cream Indications: Status post hysterectomy , Vaginal dryness, menopausal , Vaginal atrophy Insert 1 g into the vagina 2 (two) times a week. 42.5 g 3 02/22/2023 Activeetodolac 500 mg oral tablet (2 sources)Nonsteroidal Anti-inflammatory DrugStart: 12-26-1343paxy 1 tablet by mouth in the morning, then take 1 tablet by mouth at bedtimeetodolac (LODINE) 500 mg tablet Take 1 tablet (500 mg total) by mouth in the morning and 1 tablet (500 mg total) before bedtime. 0 12/07/2021 Activefluticasone propionate 0.05 mg/actuat metered dose nasal spray (3 sources)CorticosteroidStart: 08-21-4194jqui 2 spray(s) nasal route once daily fluticasone [...] 600 mg oral tablet (4 sources)Anti-epileptic AgentStart: 37-48-7754yojj 1 capsule by mouth once dailyGabapentin 300 mg capsule Active 300 MG PO Daily September 25, 2024 12:00am Complies with drug therapyStart: 87-46-5042zysf 1 tablet by mouth once daily at [...] oral tablet (8 sources)Angiotensin Converting Enzyme InhibitorStart: 70-27-0679rdhe 1 tablet by mouth in the morninglisinopriL (PRINIVIL,ZESTRIL) 10 mg tablet Take 1 tablet (10 mg total) by mouth in the morning. 0 01/17/2022 ActiveStart: 42-81-7612ksow 1 tablet by mouth once dailyLisinopril 20 mg Tablet Active 20 MG PO Daily September 17, 2017 12:00am Complies with drug therapytake 1 tablet by mouth once daily lisinopril 10 mg tablet take 1 tablet (10 mg) by oral route once dailymeloxicam 15 mg oral tablet (1 source)Nonsteroidal Anti-inflammatory DrugStart: 73-85-0486ptjs 1 tablet by mouth once dailyMeloxicam 15 mg tablet Active 15 MG PO Daily September 25, 2024 12:00am Complies with drug therapymultivitamin capsule (2 sources)take 1 capsule by mouth in the morningmultivitamin capsule Take 1 capsule by mouth in the morning. 0 ActiveMultivitamin tablet (1 source)Start: 76-85-0235rxjj 1 tablet by mouth once dailyMultivitamin tablet [...] in the evening. Take with meals. 0 Uknbsw43 hr PARoxetine hydrochloride 12.5 mg extended release oral tablet (3 sources)Serotonin Reuptake InhibitorStart: 04-84-7547ojsk 1 tablet by mouth every twenty-four hours [...] Zoster Virus Nucleoside Analog DNA Polymerase InhibitorStart: 63-67-6714tyjd 1 tablet by mouth in the morningvalACYclovir (VALTREX) 1000 mg tablet Take 1 tablet (1,000 mg total) by mouth in the morning. 0 01/17/2022 Activetake 1 tablet by mouth once dailyvalacyclovir 1 gram tablet take 1 tablet by oral route daily Completed/Discontinued Medications MedicationDrug Class(es)DatesSig (Normalized)Sig (Original)amoxicillin 875 mg / clavulanate 125 mg oral tablet (5 sources)Penicillin-class AntibacterialStart: 09-17-2017 End: 12-47-8909lkjp 1 tablet by mouth twice dailyAmoxicillin-Pot Clavulanate (Augmentin) 875-125 mg tablet Discontinued 1 TAB PO Twice daily September 17, 2017 12:00am September 25, 2024 2:31pm two days leftcetirizine hydrochloride 10 mg oral capsule (5 sources)Histamine-1 Receptor AntagonistStart: 09-17-2017 End: 08-93-8566vlou 1 capsule by mouth once dailyCetirizine (Zyrtec) 10 mg Capsule Discontinued 10 MG PO Daily September 17, 2017 12:00am September 25, 2024 2:31pmdexamethasone 1 mg/ml / neomycin 3.5 mg/ml / polymyxin b 14937 unt/ml ophthalmic suspension (1 source)Aminoglycoside Antibacterial, Polymyxin-class Antibacterial, Corticosteroidtake 1 drop(s) into the eye(s) every four hours as needed tzozgxkn-vpnoelent-axhnswwh 3.5 mg/mL-10,000 unit/mL-0.1% eye drops instill in affected eye 1 drop by ophthalmic route every 4 hours as neededfluconazole 100 mg oral tablet (5 sources)Azole AntifungalStart: 09-17-2017 End: 67-64-3534wkwn 1 tablet by mouth once dailyFluconazole 100 mg Tablet Discontinued 100 MG PO Daily September 17, 2017 12:00am September 25, 2024 2:32pm ibuprofen 800 mg oral tablet (6 sources)Nonsteroidal Anti-inflammatory DrugStart: 09-17-2017 End: 53-44-3263gmpj 1 tablet by mouth four times daily [...] female climacteric states; Translations: [Postmenopausal atrophic vaginitis]Onset: 596039-54-2942Pirdfzo Osteoarthritis (2 sources)Unspecified osteoarthritis, unspecified site; Translations: [Primary generalized (osteo)arthritis]Onset: 27-80-2797NulkvmcHttgc connective tissue disease (1 source)Pain in right armOnset: 07-97-6304ClmwvjjwLtlhg connective tissue disease (1 source)Pain in left armOnset: 67-83-7638YvkbkcpeQbvur connective tissue disease (2 sources)Pain in right hand; Translations: [Pain in right hand]Onset: 40-44-8758OogdsghaKvmtz connective tissue disease (2 sources)Pain in left hand; Translations: [Pain in left hand]Onset: 09-29-2022 EpisodicOther connective tissue disease (2 sources)Trigger finger, unspecified finger; Translations: [Trigger finger, unspecified finger]Onset: 75-63-0554FzvlddruKjsyt nervous system disorders (1 source)Other disturbances of skin sensationOnset: 24-11-0168ZyfjobkxShrvx non-traumatic joint disorders (1 source)Other specific arthropathies, not elsewhere classified, right shoulder ChronicOther screening for suspected conditions (not mental disorders or infectious disease) (4 sources)Other abnormal and inconclusive findings on diagnostic imaging of breast; Translations: [Encounter for screening mammogram for malignant neoplasm of breast]Onset: 248433-08-8219FbjppeqhKfvnfmza codes; unclassified (1 source)Acquired absence of both cervix and uterus; Translations: [Acquired absence of both cervix and uterus]Onset: 20-86-6866LuorszjcPzoxhvxq codes; unclassified (1 source)Family history of malignant neoplasm of breast; Translations: [Family history of malignant neoplasmof breast]Onset: 73-95-1460HmdimkseYgdinzjsg and history of mental health and substance abuse codes (2 sources)Encounter for screening for depression; Translations: [Standardized adult depression screening toolcompleted ]Onset: 703061-49-1886Iwvhlqaw Spondylosis; intervertebral disc disorders; other back problems (8 sources)Cervical disc disorder with radiculopathy, unspecified cervical region; Translations: [Radiculopathy, cervical region]Onset: 49-87-9072Jwcpnrud Unclassified (1 source)Annual ExamOnset: 92-10-3892Iuccfesczoas (1 source)Mammographic heterogeneous density, bilateral breasts; Translations: [Mammographic heterogeneous density, bilateral breasts]Onset: 03-06-2023 Unclassified (1 source)M50.121 - Cervical disc disorder at C4-C5 level with radiculopathy Past or Other Problems Problem ClassificationProblemDateDocumented DateEpisodic/ChronicMood disorders (2 sources)Mood disordersOnset: 388945-94-9694Syznyszfqfan breast conditions (2 sources)Heterogeneously dense breast composition; Translations: [Heterogeneously dense tissue of both breasts on mammography]Onset: 03-06-2023 94-61-4957GbztbzmiLsqty connective tissue disease (2 sources)Acquired trigger finger; Translations: [Trigger finger, unspecified finger]Onset: 518060-13-4541UxdjtkidXaxts skin disorders (1 source)Nonscarring hair loss, unspecified; Translations: [Nonscarring hair loss, unspecified]Onset: 04-73-8354DvoxxariJpontysl codes; unclassified (2 sources)Family history of breast cancer; Translations: [Family history of malignant neoplasm of breast]Onset: 449830-33-8897FkhaipnpIjnzcqxsaghe (1 source)[id number]_name_3Unclassified (2 sources)Onset: Results Test NameValueInterpretationReference RangeFacilityAlanine aminotransferase [Enzymatic activity/volume] in Serum or PlasmaOrdered By: Nivia Pearce on 08-90-5220NKF [Catalytic activity/Vol]Alanine aminotransferase [Enzymatic activity/volume] in Serum or Plasma-[facility] HospitalAlbumin [Mass/volume] in Serum or Plasma by Bromocresol green (BCG) dye binding metho Ordered By: Nivia Pearce on 50-46-1074Vshigmw BCG dye [Mass/Vol]Albumin [Mass/volume] in Serum or Plasma by Bromocresol green (BCG) dye binding metho 3.5-5.7FSelect Medical Cleveland Clinic Rehabilitation Hospital, Edwin ShawAlkaline phosphatase [Enzymatic activity/volume] in Serum or PlasmaOrdered By: Nivia Pearce on 69-18-4780LFR [Catalytic activity/Vol]Alkaline phosphatase [Enzymatic activity/volume] in Serum or Ptrdgg31-124MkirqnauoEast Ohio Regional HospitalAspartate aminotransferase [Enzymatic activity/volume] in Serum or PlasmaOrdered By: Nivia Pearce on 46-26-6114WRW [Catalytic activity/Vol]Aspartate aminotransferase [Enzymatic activity/volume] in Serum or Vfwtxz53-54MaqkyckmlEast [facility] Regional Hospital Basophils Auto (Bld) [#/Vol]Ordered By: Nivia Pearce on 34-22-1128Vxyinkfvz (Bld) [#/Vol]Automated basophil count0.0-0.2FSelect Medical Cleveland Clinic Rehabilitation Hospital, Edwin Shaw Basophils/100 WBC Auto (Bld)Ordered By: Nivia Pearce on 06-18-2024 Basophils/100 WBC (Bld)Automated basophil %.[facility] Bilirubin.total [Mass/volume] in Serum or PlasmaOrdered By: Nivia Pearce on 93-29-3602Wbuzofwqz [Mass/Vol]Bilirubin.total [Mass/volume] in Serum or Plasma 0.3-1.0[facility] HospitalCalcium [Mass/volume] in Serum or Plasma Ordered By: Nivia Pearce on 69-89-3336Rypkbsq [Mass/Vol]Calcium [Mass/volume] in Serum or Plasma8.6-10.3FSelect Medical Cleveland Clinic Rehabilitation Hospital, Edwin ShawCarbon dioxide, total [Moles/volume] in Serum or PlasmaOrdered By: Nivia Pearce on 73-96-5490RR6 [Moles/Vol]Carbon dioxide, total [Moles/volume] in Serum or Gwsgse77.0-31.0 [facility] HospitalChloride [Moles/volume] in Serum or Plasma Ordered By: Nivia Pearce on 63-33-1940Qdmfqlgp [Moles/Vol]Chloride [Moles/volume] in Serum or Fhzsky59-006JlcrlpwegEast Ohio Regional HospitalComplete Blood Count Auto Diffon 49-23-3564Voeudiceo (Bld) [#/Vol]0.1 10*3/uLNormal 0.0-0.2The [facility] Hospital Physician GroupComment on above:Result Comment: PERFORMED BY: [place] [address] PATHOLOGIST BUSINESS INTELLIGENCE ENGINEER MIA NATARAJAN M.D.Performed By: #### CMP, CBC #### [facility] [address] [place] [address] USABasophils/100 WBC (Bld)0.8 %Normal.The [facility] Access Hospital Physician GroupComment on above:Performed By: #### CMP, CBC #### [facility] [address] [place] [address] USAEosinophils (Bld) [#/Vol]0.2 10*3/uLNormal0.0-0.45The [facility] Access Hospital Physician GroupComment on above:Performed By: #### CMP, CBC #### [place] [id number] USAEosinophils/100 WBC (Bld)1.8 %Normal.The [facility] Access Hospital Physician GroupComment on above:Performed By: #### CMP, CBC #### [place] [address] USAErythrocyte distribution width (RBC) [Ratio]14.9 %Normal 11.9-15.3The [facility] Access Hospital Physician GroupComment on above:Performed By: #### CMP, CBC #### [place] [address] USAHematocrit (Bld) [Volume fraction]41.5 %Ufbxlg40.0-46.4The Critical Access Hospital Physician GroupComment on above:Performed By: #### CMP, CBC #### [place] [address] USAHemoglobin (Bld) [Mass/Vol]14.1 g/kITrdubh63.8-15.4The Critical Access Hospital Physician GroupComment on above:Performed By: #### CMP, CBC #### [place] [address] USALymphocytes (Bld) [#/Vol]3.1 10*3/uLNormal1.00-4.8The [facility] Access Hospital Physician GroupComment on above:Performed By: #### CMP, CBC #### [place] [id number] USALymphocytes/100 WBC (Bld)29.1 %Normal.The [facility] Access Hospital Physician GroupComment on above:Performed By: #### CMP, CBC #### [place] [address] USAMCH (RBC) [Entitic mass]30.7 kiQtioat83.7-34.3The [facility] Access Hospital Physician GroupComment on above:Performed By: #### CMP, CBC #### [place] [address] USAMCV (RBC) [Entitic vol]90.1 uZZqxrim10-997Abz [facility] Hospital Physician GroupComment on above:Performed By: #### CMP, CBC #### [facility] [address] [place] [address] USAMean Corpuscular HGB Conc34.1 g/kYBjccwb29.0-35.0The [facility] Access Hospital Physician GroupComment on above:Performed By: #### CMP, CBC #### [facility] [address] [place] [address] USAMonocytes (Bld) [#/Vol]0.8 10*3/uLNormal0.0-0.8The [facility] Access Hospital Physician GroupComment on above:Performed By: #### CMP, CBC #### [facility] [address] [place] [address] USAMonocytes/100 WBC (Bld)7.7 %Normal.The [facility] Access Hospital Physician GroupComment on above:Performed By: #### CMP, CBC #### [place] [address] USANeutrophils (Bld) [#/Vol]6.5 10*3/uLNormal1.8-7.7The Critical Access Hospital Physician GroupComment on above:Performed By: #### CMP, CBC #### [place] [address] USANeutrophils/100 WBC (Bld)60.6 %Normal.The [facility] Access Hospital Physician GroupComment on above:Performed By: #### CMP, CBC #### [facility] [address] [place] [address] USANRBC%0.1 /100{WBC}Normal0-0.5The [facility] Comment on above:Performed By: #### CMP, CBC #### [facility] [address] [place] [address] USAPlatelet mean volume (Bld) [Entitic vol]8.8 fLNormal 6.3-10.7The Critical Access Hospital Physician GroupComment on above:Performed By: #### CMP, CBC #### [place] [address] USAPlatelets (Bld) [#/Vol]265 10*3/xFVyrxai303-880Kmw [facility] Access Hospital Physician GroupComment on above:Performed By: #### CMP, CBC #### [place] [address] USARBC (Bld) [#/Vol]4.61 10*6/uLNormal3.60-5.00The Critical Access Hospital Physician GroupComment on above:Performed By: #### CMP, CBC #### [place] [address] USAWBC (Bld) [#/Vol]10.7 10*3/uLNormal3.8-11.6The Critical Access Hospital Physician GroupComment on above:Performed By: #### CMP, CBC #### [place] [address] USAComprehensive Metabolic Panelon 94-82-9742Lnbxxof [Mass/Vol]4.4 g/dLNormal3.5-5.7The Critical Access Hospital Physician GroupComment on above: Performed By: #### CMP, CBC #### [place] [address] USAAlbumin/Globulin [Mass ratio]1.6 {ratio}NormalThe Critical Access Hospital Physician GroupComment on above:Performed By: #### CMP, CBC #### [place] [address] USAALP [Catalytic activity/Vol]65 U/ZEugdhr76-021Gae [facility] Access Hospital Physician GroupComment on above:Result Comment: PERFORMED BY: [place] [address] PATHOLOGIST BUSINESS INTELLIGENCE ENGINEER MIA NATARAJAN M.D.Performed By: #### CMP, CBC #### [place] [address] USAALT [Catalytic activity/Vol]23 U/LNormal7-52The Critical Access Hospital Physician GroupComment on above:Performed By: #### CMP, CBC #### [place] [address] USAAnion gap [Moles/Vol]13.3 mmol/LNormal6.0-15.0The Critical Access Hospital Physician GroupComment on above:Performed By: #### CMP, CBC #### [facility] [address] [place] [address] USAAST [Catalytic activity/Vol]21 U/FVpvhht65-96Ihv [facility] Access Hospital Physician GroupComment on above:Performed By: #### CMP, CBC #### [facility] [address] [place] [address] USABilirubin [Mass/Vol]0.3 mg/dLNormal0.3-1.0The Critical Access Hospital Physician GroupComment on above:Performed By: #### CMP, CBC #### [facility] [address] [place] [address] USACalcium [Mass/Vol]10.0 mg/dLNormal8.6-10.3The Critical Access Hospital Physician GroupComment on above:Performed By: #### CMP, CBC #### [facility] [address] [place] [address] USAChloride [Moles/Vol]101 mmol/IZbdvae25-512Hki Critical Access Hospital Physician GroupComment on above:Performed By: #### CMP, CBC #### [facility] [address] [place] [id number] USACO2 [Moles/Vol]27.8 mmol/LRvahuu91.0-31.0The Critical Access Hospital Physician GroupComment on above:Performed By: #### CMP, CBC #### [facility] [address] [place] [address] USACreatinine [Mass/Vol]0.70 mg/dLNormal0.60-1.20The Critical Access Hospital Physician GroupComment on above:Performed By: #### CMP, CBC #### [facility] [address] [place] [address] USAGFR/1.73 sq M.predicted MDRD (S/P/Bld) [Vol rate/Area] mL/min/{1.73_m2}NormalThe Critical Access Hospital Physician GroupComment on above:Performed By: #### CMP, CBC #### [facility] [address] [place] [id number] USAGlobulin (S) [Mass/Vol]2.7 g/dLNormalThe Critical Access Hospital Physician GroupComment on above:Performed By: #### CMP, CBC #### [facility] [address] [place] [address] USAGlucose [Mass/Vol]121 mg/pJOggd77-729Svf Critical Access Hospital Physician GroupComment on above:Result Comment: Random Glucose Reference Range is dependent on time and content of last meal. Glucose of more than 200 mg/dL in a nonstressed, ambulatory subject supports the diagnosis of Diabetes Mellitus. ADA recommended reference rangePerformed By: #### CMP, CBC #### [facility] [address] [place] [address] USAPotassium [Moles/Vol]4.1 mmol/LNormal3.5-5.1The Critical Access Hospital Physician GroupComment on above:Performed By: #### CMP, CBC #### [facility] [address] [place] [address] USAProtein [Mass/Vol]7.1 g/dLNormal6.4-8.9The Critical Access Hospital Physician GroupComment on above:Performed By: #### CMP, CBC #### [facility] [address] [place] [id number] USASodium [Moles/Vol]138 mmol/GTittzu753-403Srn Critical Access Hospital Physician GroupComment on above:Performed By: #### CMP, CBC #### [facility] [address] [place] [address] USAUrea nitrogen [Mass/Vol]27 mg/dLHigh7-25The Critical Access Hospital Physician GroupComment on above:Performed By: #### CMP, CBC #### [facility] [address] [place] [address] USACreatinine [Mass/volume] in Serum or PlasmaOrdered By: Nivia Pearce on 27-53-1486Ddbllxsbhb [Mass/Vol]Creatinine [Mass/volume] in Serum or Plasma0.60-1.20[facility] HospitalEosinophils Auto (Bld) [#/Vol]Ordered By: Nivia Pearce on 56-00-2493Lxwjtscoxwy (Bld) [#/Vol] Automated eosinophil count0.0-0.45[facility] Eosinophils/100 WBC Auto (Bld)Ordered By: Nivia Pearce on 06-18-2024 Eosinophils/100 WBC (Bld)Automated eosinophil %.[facility] HospitalErythrocyte distribution width Auto (RBC) [Ratio]Ordered By: Nivia Pearce on 92-87-2714Psyexkrspof distribution width (RBC) [Ratio]Erythrocyte distribution width [Ratio] by Automated count11.9-15.3FSelect Medical Cleveland Clinic Rehabilitation Hospital, Edwin ShawGlobulin Calc (S) [Mass/Vol]Ordered By: Nivia Pearce on 06-18-2024 Globulin (S) [Mass/Vol]Serum globulin measurement by calculation (mass/volume) [facility] HospitalGlucose [Mass/volume] in Serum or PlasmaOrdered By: Nivia Pearce on 83-71-8194Ugppocg [Mass/Vol]Glucose [Mass/volume] in Serum or NwqhkfEbay55-977VffrgzxehEast Ohio Regional HospitalComment on above:ADA recommended reference rangeRandom Glucose Reference Range is dependent on time and content of last meal. Glucose of more than 200 mg/dL in a nonstressed, ambulatory subject supports the diagnosisof Diabetes Mellitus.Hematocrit Auto (Bld) [Volume fraction]Ordered By: Nivia Pearce on 98-74-3466Rreegiuyrs (Bld) [Volume fraction]Hematocrit [Volume Fraction] of Blood by Automated count 34.0-46.4FSelect Medical Cleveland Clinic Rehabilitation Hospital, Edwin ShawHemoglobin [Mass/volume] in Blood Ordered By: Nivia Pearce on 32-47-9738Rpooiclgah (Bld) [Mass/Vol]Hemoglobin [Mass/volume] in Blood11.8-15.4FSelect Medical Cleveland Clinic Rehabilitation Hospital, Edwin ShawLeukocytes [#/volume] corrected for nucleated erythrocytes in Blood by Automated coun Ordered By: Nivia Pearce on 58-97-7501KJY corrected for nucl RBC Auto (Bld) [#/Vol]Leukocytes [#/volume] corrected for nucleated erythrocytes in Blood by Automated coun3.8-11.6FSelect Medical Cleveland Clinic Rehabilitation Hospital, Edwin ShawLymphocytes Auto (Bld) [#/Vol]Ordered By: Nivia Pearce on 45-42-1031Bcodxehqmyk (Bld) [#/Vol] Lymphocytes [#/volume] in Blood by Automated count1.00-4.8[facility] HospitalLymphocytes/100 WBC Auto (Bld)Ordered By: Nivia Pearce on 89-06-4849Rpvpmphnsvz/100 WBC (Bld)Lymphocytes/100 leukocytes in Blood by Automated count.[facility] HospitalMCH Auto (RBC) [Entitic mass] Ordered By: Nivia Pearce on 87-57-6064PXK (RBC) [Entitic mass]MCH [Entitic mass] by Automated count24.7-34.3FSelect Medical Cleveland Clinic Rehabilitation Hospital, Edwin ShawMCHC Auto (RBC) [Mass/Vol]Ordered By: Nivia Pearce on 02-52-9164SEUV (RBC) [Mass/Vol] MCHC [Mass/volume] by Automated count32.0-35.0[facility] MCV Auto (RBC) [Entitic vol]Ordered By: Nivia Pearce on 87-09-3131NTR (RBC) [Entitic vol]MCV [Entitic volume] by Automated -067LxwrorqezEast Ohio Regional HospitalMonocytes Auto (Bld) [#/Vol]Ordered By: Nivia Pearce on 94-74-1786Fjmbohshv (Bld) [#/Vol]Automated blood monocyte count0.0-0.8[facility] HospitalMonocytes/100 WBC Auto (Bld)Ordered By: Nivia Pearce on 94-68-9352Czazftqzi/100 WBC (Bld)Automated monocyte %.[facility] HospitalNeutrophils Auto (Bld) [#/Vol]Ordered By: Nivia Pearce on 66-86-4891Flpaauyyfbp (Bld) [#/Vol]Neutrophils [#/volume] in Blood by Automated count1.8-7.7FSelect Medical Cleveland Clinic Rehabilitation Hospital, Edwin ShawNeutrophils/100 WBC Auto (Bld) Ordered By: Nivia Pearce on 95-89-3186Lifyascbrlr/100 WBC (Bld)Automated neutrophil %.[facility] HospitalNo Panel InformationOrdered By: Nivia Pearce on 76-78-9161Jpaalxdxx GFR (CKD-EPI)> 60.0 mL/MinEast Ohio Regional HospitalPharmacy Creatinine Clearance (ChemN/AFSelect Medical Cleveland Clinic Rehabilitation Hospital, Edwin ShawNucleated erythrocytes [Presence] in Blood by Automated count Ordered By: Nivia Pearce on 40-68-3776Irxaihxgf RBC Auto Ql (Bld)Nucleated erythrocytes [Presence] in Blood by Automated count0-0.5FSelect Medical Cleveland Clinic Rehabilitation Hospital, Edwin ShawPlatelet mean volume Auto (Bld) [Entitic vol]Ordered By: Nivia Pearce on 06-53-2744Uwrrlebe mean volume (Bld) [Entitic vol]Platelet mean volume [Entitic volume] in Blood by Automated count6.3-10.7FSelect [facility] ShawPlatelets Auto (Bld) [#/Vol]Ordered By: Nivia Pearce on 05-23-9755Erzmgzosu (Bld) [#/Vol]Platelets [#/volume] in Blood by Automated gnkgy611-852ZfanpwqraEast Ohio Regional HospitalPotassium [Moles/volume] in Serum or PlasmaOrdered By: Nivia Pearce on 08-97-6043Nbxwzouil [Moles/Vol]Potassium [Moles/volume] in Serum or Plasma3.5-5.1FSelect Medical [facility] Hospital, Edwin ShawProtein [Mass/volume] in Serum or PlasmaOrdered By: Nivia Pearce on 29-23-7365Lkiwvwy [Mass/Vol]Protein [Mass/volume] in Serum or Plasma6.4-8.9[facility] [place] Regional HospitalRBC Auto (Bld) [#/Vol]Ordered By: Nivia Pearce on 35-20-3501XBD (Bld) [#/Vol]Erythrocytes [#/volume] in Blood by Automated count3.60-5.00 [facility] Hospitalerum or plasma albumin/globulin mass ratio Ordered By: Nivia Pearce on 68-32-4719Nvkaunl/Globulin [Mass ratio]Serum or plasma albumin/globulin mass ratioMercy Health Clermont Hospitalerum or plasma anion gap determinationOrdered By: Nivia Pearce on 59-00-7548Reypp gap [Moles/Vol]Serum or plasma anion gap determination6.0-15.0[facility] Hospitalodium [Moles/volume] in Serum or PlasmaOrdered By: Nivia Pearce on 61-56-0926Vnddlx [Moles/Vol]Sodium [Moles/volume] in Serum or Yowark603-669 [facility] [place] [facility] HospitalUrea nitrogen [Mass/volume] in Serum or Plasma Ordered By: Nivia Pearce on 30-08-0364Ytgz nitrogen [Mass/Vol]Urea nitrogen [Mass/volume] in Serum or PlasmaHigh7-25[facility] [place] Regional HospitalWBC Auto (Bld) [#/Vol]Ordered By: Nivia Pearce on 18-12-2250FYN (Bld) [#/Vol] Leukocytes [#/volume] in Blood by Automated count3.8-11.6FSelect Medical [facility] Clinic Rehabilitation Hospital, Edwin ShawThyrotropin [Units/volume] in Serum or PlasmaOrdered By: Dimitri Mixon on 09-73-8598QED Qn1.36 m[IU]/LNormal0.45-5.33[facility] [place] Regional HospitalComment on above:Result Comment: PERFORMED BY: [place] [address] PATHOLOGIST BUSINESS INTELLIGENCE ENGINEER KYLAH BRADFORD M.D.Performed By: #### T4F, TSH3 #### [facility] [address] [place], [place] [id number] USAThyroxine (T4) free [Mass/volume] in Serum or Plasma Ordered By: Dimitri Mixon on 26-76-4498Quqk T4 [Mass/Vol]0.78 ng/dLNormal 0.61-1.12[facility] [place] [facility] HospitalComment on above:Performed By: #### T4F, TSH3 #### [facility] [address] [place], [place] [address] USAMAMM SCREENING BILATERAL W CADon 94-94-0660FKCA SCREENING BILATERAL W CADMAMM SCREENING BILATERAL W CAD *ADDENDUM*Comparisons from 12/28/2020, 10/02/2019 are now available. Assessment unchanged from prior. No evidence of malignancy. BI-RADS 1. One year screening mammogram recommended Finalized by Kristian Olmstead MD on 03/21/2023 9:02 PM 1 c MOLEC BR IMGNormalProMedica Monrovia Community HospitalOffice Visiton [id number]-up [id number] Sherron Garcia 1965 F Date Provider Department Center 09/29/2022 АЛЕКСАНДР MALAGON ORTHO MPORTHO Family History Family Status - Relation Status Age at Mother Father Brother Level of Service:93978 [place] OFFICE/OUTPATIENT ESTABLISHED LOW MDM 20-29 MIN Reason for Visit and Comments: Follow-up [413606] - Long fingerNormalUniLutheran HospitalConsult on [id number] Sherron Garcia 1965 F Date Provider Department Center 09/06/2022 DAVE RIOJAS MP ORTHO MPORTHO No family history on file Level of Service:39237 [place] OFFICE/OUTPATIENT ESTABLISHED LOW MDM 20-29 MIN Reason for Visit and Comments: New Patient [632][facility] HospitalOffice Visiton [id number]-up [id number] Sherron Garcia 1965 F Date Provider Department Center 08/04/2022 АЛЕКСАНДР MALAGON ORTHO MPORTHO No family history on file Level of Service:07021 [place] POSTOP FOLLOW UP VISIT RELATED TO ORIGINAL PX Reason for Visit and Comments: Post-op [483][facility] HospitalHPon 72-77-4500BPH&P reviewed. The patient was examined and there are no changes to the H&P. Patient also presented with clinical symptoms and signs supportive of adjacent right ring trigger finger as well. She consented for release of both the right long and ring trigger fingers.[facility] HospitalOPNOTEon 50-03-4849RMMUKKYZGMMOHPLHL SURGERY OPERATIVE REPORT Date of Surgery: 07/24/2022 Surgeon: Aliya Wilks MD Facility Supervisor: Jana Spencer MD PGY-2 Anup Anthony MD [...] the entirety of the procedure(s). Aliya Wilks MDNormalUniversSt. Mary's Medical Center, Ironton CampusPOCT GLUCOSE METER UNSOLICITED RESULTSon 30-62-4851Jetiddc [Mass/Vol]98 mg/aXLbyixr47-147PwgpzisnmcMartin Memorial HospitalComment on above:Result Comment: zhsem4Gvvwknixo By: #### [id number] ####[facility] ([facility])[address] [place] [address] Letter (Out)on 58-50-3270Mbgnbo (Out)[id number] Sherron Garcia 1965 Date Provider Department Center 07/10/2022 None-None [facility] AUTH [facility] Medical C No family history on fileNormalUniversSt. Mary's Medical Center, Ironton CampusFollow-Upon [id number]-[id number] Sherron Garcia 1965 Provider Department [place] 07/06/2022 373-ALIYA WILKS ORTHO MPORTHO No family history on file Level of Service:44990 [place] OFFICE/OUTPATIENT ESTABLISHED LOW MDM 20-29 MIN Reason for Visit and Comments: Pain [136] Follow-up [970193]NormalUnMartin Memorial HospitalHPon 95-21-9229MW Attestation signed by Aliya Wilks MD at [...] radha Rufus Gee MD PGY-4 Orthopedic Surgery [facility] By using the attestations below, the signing [...] may be an additional personal documentation from me.[facility] HospitalAlbumin [Mass/volume] in Serum or PlasmaOrdered By: Dimitri Mixon on 01-81-4859Vuunvhj [Mass/Vol]3.8 g/dL3.2-5.5FSelect Medical Cleveland Clinic Rehabilitation Hospital, Edwin ShawAlkaline phosphatase [Enzymatic activity/volume] in Serum or PlasmaOrdered By: Dimitri Mixon on 59-52-6708NVF [Catalytic activity/Vol]80 U/C66-63RzcxjsowwEast Ohio Regional HospitalAspartate aminotransferase [Enzymatic activity/volume] in Serum or Plasma Ordered By: Dimitri Mixon on 10-69-0853EZK [Catalytic activity/Vol]16 U/L10-42 [facility] [place] [facility] HospitalBasophils Auto (Bld) [#/Vol]Ordered By: Dimitri Mixon on 78-94-6263Oqwrbunec (Bld) [#/Vol]0.0 10*3/uL0.0-0.2FSelect Medical [facility] Clinic Rehabilitation Hospital, Edwin ShawBasophils/100 WBC Auto (Bld)Ordered By: Dimitri Mixon on 96-46-6559Qojeamijb/100 WBC (Bld)0.2 %.[facility] Bilirubin.total [Mass/volume] in Serum or PlasmaOrdered By: Dimitri Mixon on 88-88-8605Twnplqpss [Mass/Vol]0.4 mg/dL0.3-1.2FSelect Medical [facility] Shaw Calcium [Mass/volume] in Serum or PlasmaOrdered By: Dimitri Mixon on 04-18-2022 Calcium [Mass/Vol]9.4 mg/dL8.2-10.2FSelect Medical Cleveland Clinic Rehabilitation Hospital, Edwin ShawCarbon dioxide, total [Moles/volume] in Serum or PlasmaOrdered By: Dimitri Mixon on 58-55-0527VZ9 [Moles/Vol]25.2 mmol/L22.0-30.0[facility] Chloride [Moles/volume] in Serum or PlasmaOrdered By: Dimitri Mixon on 63-06-2208Nkqgdlcu [Moles/Vol]103 mmol/M08-267OlabopkkpEast [place] Regional Hospital Creatinine and Glomerular filtration rate.predicted panel (S/P/Bld)Ordered By: Dimitri Mixon on 57-87-6012Ppcnrpchzl [Mass/Vol]0.60 mg/dL0.44-1.03[facility] [place] [facility] HospitalEosinophils Auto (Bld) [#/Vol]Ordered By: Dimitri Mixon on 24-62-3322Pmimikdsbvt (Bld) [#/Vol]0.3 10*3/uL0.0-0.45[facility] [place] [facility] HospitalEosinophils/100 WBC Auto (Bld)Ordered By: Dimitri Mixon on 97-23-5777Btmxmkzpmgc/100 WBC (Bld)4.2 %.[facility] Erythrocyte distribution width Auto (RBC) [Ratio]Ordered By: Dimitri Mixon on 10-50-7242Xsrokqcrwzl distribution width (RBC) [Ratio]14.2 %11.9-15.3FSelect Medical [facility] Clinic Rehabilitation Hospital, Edwin ShawEstimated glomerular filtration rate (GFR) non- AmericanOrdered By: Dimitri Mixon on 64-11-5457ZYV/1.73 sq M.predicted among non-blacks MDRD (S/P/Bld) [Vol rate/Area]> 60 mL/MinEast Ohio Regional HospitalGlobulin Calc (S) [Mass/Vol]Ordered By: Dimitri Mixon on 04-18-2022 Globulin (S) [Mass/Vol]3.1 g/dLEast Ohio Regional HospitalGlucose [Mass/volume] in Serum or PlasmaOrdered By: Dimitri Mixon on 20-12-0748Qwcxhvr [Mass/Vol]98 mg/iP23-953WnjdbbggiEast Ohio Regional HospitalComment on above:ADA recommended reference rangeRandom Glucose Reference Range is dependent on time and content of last meal. Glucose of more than 200 mg/dL in a nonstressed, ambulatory subject supports the diagnosisof Diabetes Mellitus.Hematocrit Auto (Bld) [Volume fraction]Ordered By: Dimitri Mixon on 69-86-2894Vbchweyspe (Bld) [Volume fraction]41.1 %34.0-46.4FSelect Medical [facility] Clinic Rehabilitation Hospital, Edwin ShawHemoglobin [Mass/volume] in BloodOrdered By: Dimitri Mixon on 32-53-4750Ckbisfltvu (Bld) [Mass/Vol]13.5 g/dL11.8-15.4FSelect Medical [facility] Clinic Rehabilitation Hospital, Edwin ShawLeukocytes [#/volume] corrected for nucleated erythrocytes in Blood by Automated coun Ordered By: Dimitri Mixon on 86-58-5013NVQ corrected for nucl RBC Auto (Bld) [#/Vol]8.2 10*3/uL3.8-11.6FSelect Medical Cleveland Clinic Rehabilitation Hospital, Edwin ShawLymphocytes Auto (Bld) [#/Vol]Ordered By: Dimitri Mixon on 77-80-6346Mpbftgxrqij (Bld) [#/Vol] 3.0 10*3/uL1.00-4.8[facility] [place] Regional HospitalLymphocytes/100 WBC Auto (Bld)Ordered By: Dimitri Mixon on 63-42-1871Csrvhidgvrq/100 WBC (Bld)37.3 %. [facility] [place] [facility] HospitalMCH Auto (RBC) [Entitic mass]Ordered By: Dimitri Mixon on 95-40-9116GBS (RBC) [Entitic mass]28.9 pg24.7-34.3FSelect Medical [facility] Clinic Rehabilitation Hospital, Edwin ShawMCHC Auto (RBC) [Mass/Vol]Ordered By: Dimitri Mixon on 75-23-1332GQZH (RBC) [Mass/Vol]32.7 g/dL32.0-35.0[facility] [place] [facility] HospitalMCV Auto (RBC) [Entitic vol]Ordered By: Dimitri Mixon on 36-24-4658DJJ (RBC) [Entitic vol]88.3 dT04-676VamyalxelEast Ohio Regional HospitalMonocytes Auto (Bld) [#/Vol]Ordered By: Dimitri Mixon on 08-00-0501Ufwwuebgi (Bld) [#/Vol]0.6 10*3/uL0.0-0.8[facility] [place] [facility] HospitalMonocytes/100 WBC Auto (Bld) Ordered By: Dimitri Mixon on 91-71-7193Evbdlmvof/100 WBC (Bld)7.3 %.[facility] [place] [facility] HospitalNeutrophils Auto (Bld) [#/Vol]Ordered By: Dimitri Mixon on 49-55-3065Ximvbkqmsso (Bld) [#/Vol]4.2 10*3/uL1.8-7.7FSelect Medical [facility] Clinic Rehabilitation Hospital, Edwin ShawNeutrophils/100 WBC Auto (Bld)Ordered By: Dimitri Mixon on 15-40-2079Gbpgazynjup/100 WBC (Bld)51.0 %.[facility] HospitalNo Panel InformationOrdered By: Dimitri Mixon on 90-76-1507Phffrfixz GFR ()> 60 mL/MinEast Ohio Regional HospitalComment on above:GFR estimated reference range: According to KDOQI guidelines, <60 ml/min/1.73m2 is sufficient todiagnose a patient with chronic kidney disease.Pharmacy Creatinine Clearance (ChemN/[facility] GeneralNucleated erythrocytes [Presence] in Blood by Automated countOrdered By: Dimitri Mixon on 04-18-2022 Nucleated RBC Auto Ql (Bld)0.1 /100{WBC}0-0.5FSelect Medical [facility] Clinic [facility], [facility] Shaw Platelet mean volume Auto (Bld) [Entitic vol]Ordered By: Dimitri Mixon on 14-86-0381Rlvybunp mean volume (Bld) [Entitic vol]9.2 fL6.3-10.7FSelect Medical [facility] Clinic Rehabilitation Hospital, Edwin ShawPlatelets Auto (Bld) [#/Vol]Ordered By: Dimitri Mixon on 25-50-6345Lhcstrrrg (Bld) [#/Vol]238 10*3/bX656-001FdhfsmqvtEast Ohio Regional HospitalPotassium [Moles/volume] in Serum or PlasmaOrdered By: Dimitri Mixon on 91-00-0037Fzhzyqjqa [Moles/Vol]4.0 mmol/L3.5-5.1FSelect Medical [facility] Clinic Rehabilitation Hospital, Edwin ShawProtein [Mass/volume] in Serum or PlasmaOrdered By: Dimitri Mixon on 21-68-1648Wbwrrwc [Mass/Vol]6.9 g/dL6.1-7.9[facility] [place] [facility] HospitalRBC Auto (Bld) [#/Vol]Ordered By: Dimitri Mixon on 66-56-0409QCE (Bld) [#/Vol]4.66 10*6/uL3.60-5.00[facility] Hospitalerum or plasma alanine aminotransferase measurement without P-5'-P (enzymatic activiOrdered By: Dimitri Mixon on 29-48-9753YYR No additional P-5'-P [Catalytic activity/Vol]17 U/L 10-60[facility] Hospitalerum or plasma albumin/globulin mass ratioOrdered By: Dimitri Mixon on 68-06-6347Stiaalk/Globulin [Mass ratio]1.2 {ratio}[facility] Hospitalerum or plasma anion gap determination Ordered By: Dimitri Mixon on 83-42-3880Edvrx gap [Moles/Vol]11.8 mmol/L6.0-15.0 [facility] Hospitalodium [Moles/volume] in Serum or PlasmaOrdered By: Dimitri Mixon on 23-51-5896Empwvj [Moles/Vol]136 mmol/K059-221NkgtxcjduEast Ohio Regional HospitalUrea nitrogen [Mass/volume] in Serum or PlasmaOrdered By: Dimitri Mixon on 68-10-1662Aoat nitrogen [Mass/Vol]18 mg/dL9-23[facility] [place] [facility] HospitalWBC Auto (Bld) [#/Vol]Ordered By: Dimitri Mixon on 42-32-6561DVC (Bld) [#/Vol]8.2 10*3/uL3.8-11.6FSelect Medical [facility] Clinic Rehabilitation [facility], [facility] Shaw CBC AUTO DIFFon 97-58-3141CQQM #0.0 103/ulNormal0.0-0.1[facility] Comment on above:Performed By: #### CBC #### [facility] [address] [address] [address] Jaren Ramsaysophils/100 WBC (Bld)0.4 %Normal0.2-2.0[facility] Comment on above:Performed By: #### CBC #### [facility] [address] [address] [address] Jraen Sprague #0.3 103/ulNormal0.0-0.7The [facility] - Cleveland-FairhillComment on above: Performed By: #### CBC #### [facility] [address] [address] [address] Yilan ChangEosinophils/100 WBC (Bld)5.1 %Normal0.9-7.0The [facility] Comment on above:Performed By: #### CBC #### [facility] [address] [place] [address] Dr. Jaren Shirleyrythrocyte distribution width (RBC) [Ratio]14.5 %Ojhpve21.0-15.0 The [facility] - Cleveland-FairhillComment on above:Performed By: #### CBC #### [facility] [address] [place] [address] Dr. Jaren LandersHematocrit (Bld) [Volume fraction]41.2 %Dsywzv62.0-48.0The [facility] - Cleveland-FairhillComment on above:Performed By: #### CBC #### [facility] [address] [place] [address] Dr. Jaren LandersHemoglobin (Bld) [Mass/Vol]13.7 g/nKVklbcc18.0-16.0The [facility] - Cleveland-FairhillComment on above:Performed By: #### CBC #### [facility] [address] [place] [address] Dr. Jaren LandersIG #0.01 10e3/ulNormal0.00-0.03The [facility] - Cleveland-FairhillComment on above:Performed By: #### CBC #### [facility] [address] [place] [address] Dr. Jaren LandersIG %0.1 %Normal0.0-0.5The [facility] - Cleveland-FairhillComment on above: Performed By: #### CBC #### [facility] [address] [place] [address] Dr. Jaren FayH #2.3 103/ulNormal1.2-3.8The [facility] - Cleveland-FairhillComment on above:Performed By: #### CBC #### [facility] [address] [place] [address] Dr. Jaren Rosariomphocytes/100 WBC (Bld)34.1 %Lwzcum75.5-60.0The [facility] - Cleveland-FairhillComment on above:Performed By: #### CBC #### [facility] [address] [place], [place] [id number] Dr. Jaren Ro DIFF REQNONormalThe [facility] - Cleveland-FairhillComment on above: Performed By: #### CBC #### [facility] [address] [place] [address] Dr. Jaren Andrade (RBC) [Entitic mass]29.1 kjKbpkxy04.7-34.0The [facility] - Cleveland-FairhillComment on above:Performed By: #### CBC #### [facility] [address] [place] [address] Dr. Jaren Andrade (RBC) [Mass/Vol]33.3 g/kFBdssfa38.9-35.2The [facility] Cleveland-FairhillComment on above:Performed By: #### CBC #### [facility] [address] [place] [address] Dr. Jaren Andrade (RBC) [Entitic vol]87.7 qFWsetxv26.0-99.0The [facility] - Cleveland-FairhillComment on above:Performed By: #### CBC #### [facility] [address] [place] [address] Dr. Jaren Martinez #0.5 103/ulNormal0.3-0.8The [facility] - Cleveland-FairhillComment on above:Performed By: #### CBC #### [facility] [address] [place] [address] Dr. Jaren Herreraocytes/100 WBC (Bld)7.3 %Normal1.7-12.0The [facility] Comment on above:Performed By: #### CBC #### [facility] [address] [place] [address] Dr. Jaren Steele #3.6 103/ulNormal1.4-6.5The [facility] - Cleveland-FairhillComment on above:Performed By: #### CBC #### [facility] [address] [place] [address] Dr. Jaren Espinalutrophils/100 WBC (Bld)53.0 %Zmrhpi51.0-75.0The [facility] - Cleveland-FairhillComment on above:Performed By: #### CBC #### [facility] [address] [address] [address] Jaren Kay mean volume (Bld) [Entitic vol]10.4 fLNormal9.5-13.5The [facility] - Cleveland-FairhillComment on above:Performed By: #### CBC #### [facility] [address] [place] [address] Dr. Jaren SyT248 103/htZqqjzf487-100Bdk [facility]-FairhillComment on above: Performed By: #### CBC #### [facility] [address] [place] [address] Dr. Jaren LandersRBC4.70 106/ulNormal4.20-5.40The [facility]-FairhillComment on above:Performed By: #### CBC #### [facility] [address] [place] [address] Dr. Jaren LandersWBC6.7 103/ulNormal4.0-11.0The [facility] - Cleveland-FairhillComment on above: Performed By: #### CBC #### [facility] [address] [place] [address] Dr. Jaren LandersFREE THYROXINE INDEX T7on 07-33-6859INO2.20Jlyskp2.30-4.50The [facility]-FairhillCommclaren [place] on above:Performed By: #### T7, CMP, TSH, LIPID #### [facility] [address] [place] [address] Dr. Jaren LandersT3U31.0 %Hyexij15.0-39.0The [facility] Centerment on above: Performed By: #### T7, CMP, TSH, LIPID #### [facility] [address] [place] [address] Dr. Jaren LandersT4 [Mass/Vol]6.60 ug/dLNormal4.80-13.90The [facility] Comment on above:Performed By: #### T7, CMP, TSH, LIPID #### [facility] [address] [place] [address] Dr. Jaren LandersGLYCOHEMOGLOBIN A1Con 98-22-2101LVX RECOMMENDATIONSEE BELOWNormal The [facility]-FairhillComment on above:Result Comment: ADA RECOMMENDED LIMIT 4.0 - 6.0 ADA THERAPEUTIC TARGET < 7.0 ACTION SUGGESTED > 7.0Performed By: #### A1C #### [facility] [address] [place] [address] Dr. Jaren LandersGlucose [Mass/Vol]128 mg/dLSelect Medical Specialty Hospital - Southeast OhioCommclaren [place] on above:Performed By: #### A1C #### [facility] [address] [place] [address] Dr. Jaren LandersHbA1c (Bld) [Mass fraction]6.1 %Normal4.5-6.2The [facility]-FairhillCommclaren [place] on above:Performed By: #### A1C #### [facility] [address] [place] [address] Dr. Jaren Zayas 66-84-0599Jmoe [Mass/Vol]86.0 ug/gEYuhbfb09.0-170.0The [facility]FairhillCommclaren [place] on above:Performed By: #### IRON, VITAD #### [facility] [address] [place] [address] Dr. Jaren PetersonID PROFILEon 78-30-1152EYDB-HDL RATIO NORMSSelect Medical [facility] Clinic Rehabilitation Hospital, AvonCommclaren [place] on above:Result Comment: 3.3 - 4.4 LOW RISK 4.4 - 7.1 AVERAGE RISK 7.1 - 11.0 MODERATE RISK >11.0 HIGH RISKPerformed By: #### T7, CMP, TSH, LIPID #### [facility] [address] [place] [address] Dr. Jaren LandersCholesterol [Mass/Vol]206 mg/dLCritically high<=200The [facility] on above:Performed By: #### T7, CMP, TSH, LIPID #### [facility] [address] [place] [address] Dr. Jaren Armijoesterol in HDL [Mass/Vol]68 mg/dLCritically rpsb27-89Xxt [facility] on above:Performed By: #### T7, CMP, TSH, LIPID #### [facility] [address] [place] [address] Dr. Yilan ChangCholesterol in LDL [Mass/Vol]126.6 mg/dLSelect Medical Specialty Hospital - Southeast OhioComment on above:Performed By: #### T7, CMP, TSH, LIPID #### [facility] [address] [place] [address] Dr. Jaren Franklin.total/Cholesterol in HDL [Mass ratio]3.0 {ratio} NormalThe [facility] - Cleveland-FairhillComment on above:Performed By: #### T7, CMP, TSH, LIPID #### [facility] [address] [place] [address] Dr. Jaren Pickens NORMAL> or = 60 mg/dl - LOW CARDIOVASCULAR RISK <40 mg/dl - HIGH CARDIOVASCULAR RISKSelect Medical Specialty Hospital - Southeast OhioComment on above:Performed By: #### T7, CMP, TSH, LIPID #### [facility] [address] [place] [address] Dr. Jaren Wray CALC NORMALSEE BELOWSelect Medical Specialty Hospital - Southeast OhioComment on above:Result Comment: <100 mg/dl OPTIMAL 100 - 129 mg/dl NEAR OR ABOVE OPTIMAL 130 - 159 mg/dl BORDERLINE HIGH 160 - 189 mg/dl HIGH >190 mg/dl VERY HIGH Performed By: #### T7, CMP, TSH, LIPID #### [facility] [address] [place] [address] Dr. Jaren LandersTriglyceride [Mass/Vol]57 mg/dLNormal<=150The [facility] Comment on above:Performed By: #### T7, CMP, TSH, LIPID #### [facility] [address] [place] [address] Dr. Jaren LandersVLDL CALC11.4 mg/dLNoMercy Health Willard HospitalComment on above: Performed By: #### T7, CMP, TSH, LIPID #### [facility] [address] [place] [address] Dr. Jaren LandersPROMilena 14(COMP METB)on 39-10-6280Nqsvtwe [Mass/Vol]3.6 g/dLNormal 3.4-5.0The [facility]-FairhillComment on above:Performed By: #### T7, CMP, TSH, LIPID #### [facility] [address] [address] [address] Jaren LandersAlbumin/Globulin [Mass ratio]0.9 {ratio}NormalThe [facility] Stokes [facility] Medical Centerment on above:Performed By: #### T7, CMP, TSH, LIPID #### [facility] [address] [address] [address] Jaren HamlinP [Catalytic activity/Vol]84 U/ALqdiym09-020Gax [facility]-FairhillComment on above:Performed By: #### T7, CMP, TSH, LIPID #### [facility] [address] [address] [address] Jaren HamlinT [Catalytic activity/Vol]27 U/WBsznbh17-73Rtd [facility] Cleveland-FairhillComment on above:Performed By: #### T7, CMP, TSH, LIPID #### [facility] [address] [place] [address] Dr. Jaren Brockon gap [Moles/Vol]11.0 mmol/LNormalThe [facility] Comment on above:Performed By: #### T7, CMP, TSH, LIPID #### [facility] [address] [place] [address] Dr. Jaren LandersAST [Catalytic activity/Vol]28 U/XBkidam85-61Yca [facility]-FairhillComment on above:Performed By: #### T7, CMP, TSH, LIPID #### [facility] [address] [place] [address] Dr. Jaren LandersBilirubin [Mass/Vol]0.4 mg/dLNormal0.2-1.0The [facility] Comment on above:Performed By: #### T7, CMP, TSH, LIPID #### [facility] [address] [place] [address] Dr. Jaren LandersCalcium [Mass/Vol]9.2 mg/dLNormal8.5-10.1The [facility] Comment on above:Performed By: #### T7, CMP, TSH, LIPID #### [facility] [address] [address] [address] Jaren LandersChloride [Moles/Vol]103 mmol/AUnzybo21-873CsjMansfield Hospital Comment on above:Performed By: #### T7, CMP, TSH, LIPID #### [facility] [address] [place] [address] Dr. Jaren LandersCO2 [Moles/Vol]28.8 mmol/MSldfee97.0-32.0The [facility] Comment on above:Performed By: #### T7, CMP, TSH, LIPID #### [facility] [address] [place] [address] Dr. Jaren LandersCreatinine [Mass/Vol]0.66 mg/dLNormal0.55-1.02Mansfield HospitalComment on above:Performed By: #### T7, CMP, TSH, LIPID #### [facility] [address] [place] [address] Dr. Jaren ShirleyGFR-AF QATARI>60Normal>=60The [facility]-FairhillComment on above:Performed By: #### T7, CMP, TSH, LIPID #### [facility] [address] [place] [address] Dr. Jaren ShirleyGFR-NON AF QATARI>60Normal>=60The [facility]-FairhillComment on above:Performed By: #### T7, CMP, TSH, LIPID #### [facility] [address] [place] [address] Dr. Jaren LandersGlobulin (S) [Mass/Vol]4.2 g/dLNormalThe [facility]-FairhillComment on above:Performed By: #### T7, CMP, TSH, LIPID #### [facility] [address] [place] [address] Dr. Jaren LandersGlucose [Mass/Vol]107 mg/dLCritically fxqm36-178Tkx [facility]-FairhillComment on above:Performed By: #### T7, CMP, TSH, LIPID #### [facility] [address] [place] [address] Dr. Jaren LandersPotassium [Moles/Vol]3.8 mmol/LNormal3.5-5.1The [facility] Comment on above:Performed By: #### T7, CMP, TSH, LIPID #### [facility] [address] [place] [address] Dr. Jaren LandersProtein [Mass/Vol]7.8 g/dLNormal6.4-8.2[facility] Comment on above:Performed By: #### T7, CMP, TSH, LIPID #### [facility] [address] [place] [address] Dr. Jaren LandersSodium [Moles/Vol]139 mmol/PVwxjbu919-623Zfc [facility] Comment on above:Performed By: #### T7, CMP, TSH, LIPID #### [facility] [address] [place] [address] Dr. Jaren LandersUrea nitrogen [Mass/Vol]16.0 mg/dLNormal7.0-18.0The [facility]-FairhillComment on above:Performed By: #### T7, CMP, TSH, LIPID #### [facility] [address] [place] [address] Dr. Jaren Dobbs nitrogen/Creatinine [Mass ratio]24.2 mg/mgNoMercy Health Willard HospitalComment on above:Performed By: #### T7, CMP, TSH, LIPID #### [facility] [address] [place] [address] Dr. Jaren Simms 41-58-1062YFK6.971 uIU/mLNormal0.358-3.740The [facility] Cleveland-FairhillComment on above:Performed By: #### T7, CMP, TSH, LIPID #### [facility] [address] [place] [address] Dr. Jaren LandersVITAMIN D 25 OHon 34-91-1211DOR D 25-OH81.1 ng/mLNormalThe [facility]-FairhillComment on above:Performed By: #### IRON, VITAD #### [facility] [address] [place] [address] Dr. Jaren ROMO BELOWSelect Medical Specialty Hospital - Southeast OhioComment on above: Result Comment: <20 ng/mL Vit D deficient 20 - <30 ng/mL Vit D insufficient 30 - 100 ng/mL Vit D sufficient >100 ng/mL Potential ToxicityPerformed By: #### IRON, VITAD #### [facility] [address] [address] [address] Jaren LandersHAND LEFT 3 VWSon [id number] LEFT 3 VWSUnitexas vista [facility] Department of Radiology [address] [place] [phone] Patient Name: SHERRON GARCIA : 1965 [...] report. Electronically signed: Tone Cheatham. Transcribed by: [email or web address], User Resident: GLEN NGUYEN Electronically Signed by: TONE CHEATHAM @ 10/21/2021 09:13 AM I personally read this/these film(s) with this residentSalem Regional Medical CenterComment on above:Order Comment: , , , Ordering Provider - Thea AJ , HAND RIGHT 3 Son [id number] RIGHT 3 SUniLutheran Hospital Department of Radiology [address] [place] [phone] Patient Name: SHERRON GARCIA : 1965 [...] , , , Ordering Provider - Thea SIL[facility]IRAINTEGR[facility] [place] , PROTOCOL: AP,Lateral and Oblique views were obtained. COMPARISON: None FINDINGS: No acute malalignment or fracture. Mild multifocal degenerative changes. IMPRESSION: Mild multifocal degenerative changes. No acute bony pathology. Approved by:Glen Benton10/21/2021 8:56 AM. I, Tone Cheatham,have reviewed the image(s) and agree with the findings in this report. Electronically signed: Tone Cheatham. Transcribed by: [email or web address], User Resident: GLEN NGUYEN Electronically Signed by: TONE CHEATHAM @ 10/21/2021 09:14 AM I personally read this/these film(s) with this [facility] CenterComment on above:Order Comment: , , , Ordering Provider - A MAGDALENA SILVEIRAINTEGRIS [facility] [place] , Basophils Auto (Bld) [#/Vol]Ordered By: Dimitri Mixon on 80-19-5300Abtdhqwzw (Bld) [#/Vol]0.1 10*3/uL0.0-0.2 [facility] [place] [facility] HospitalBasophils/100 WBC Auto (Bld)Ordered By: Dimitri Mixon on 07-76-3849Ceysnwizd/100 WBC (Bld)0.5 %.[facility] [place] [facility] HospitalBlood hemoglobin measurement (mass/volume)Ordered By: Dimitri Mixon on 97-78-6175Vxprmgtawi (Bld) [Mass/Vol]13.5 g/dL11.8-15.4FSelect Medical Cleveland Clinic Rehabilitation Hospital, Edwin ShawBlood leukocytes automated count (number/volume)Ordered By: Dimitri Mixon on 06-39-7219PJR (Bld) [#/Vol]10.8 10*3/uL4.5-11.0[facility] [place] [facility] HospitalBody fluid albumin measurement (mass/volume)Ordered By: Dimitri Mixon on 54-80-1994Zsnhnqi (Body fld) [Mass/Vol]3.9 g/dL3.2-5.5 [facility] [place] [facility] HospitalCreatinine and Glomerular filtration rate.predicted panel (S/P/Bld)Ordered By: Dimitri Mixon on 49-96-5600Mmwgebajig [Mass/Vol]0.74 mg/dL0.44-1.03[facility] [place] [facility] HospitalEosinophils Auto (Bld) [#/Vol]Ordered By: Dimitri Mixon on 71-23-1358Mfvdjjghabk (Bld) [#/Vol] 0.2 10*3/uL0.0-0.45[facility] [place] [facility] HospitalEosinophils/100 WBC Auto (Bld)Ordered By: Dimitri Mixon on 53-34-3157Lkurhijxhww/100 WBC (Bld)1.5 %. [facility] [place] [facility] HospitalErythrocyte distribution width Auto (RBC) [Ratio]Ordered By: Dimitri Mixon on 12-48-0692Bimoybfdvbg distribution width (RBC) [Ratio]14.4 %11.9-15.3FSelect Medical Cleveland Clinic Rehabilitation Hospital, Edwin ShawEstimated glomerular filtration rate (GFR) non- AmericanOrdered By: Dimitri Mixon on 64-25-4857VSI/1.73 sq M.predicted among non-blacks MDRD (S/P/Bld) [Vol rate/Area]> 60 mL/MinEast [place] Regional HospitalGlobulin Calc (S) [Mass/Vol]Ordered By: Dimitri Mixon on 01-43-2712Rmlfjdht (S) [Mass/Vol]2.7 g/dLEast [place] Regional HospitalHematocrit Auto (Bld) [Volume fraction] Ordered By: Dimitri Mixon on 27-84-1471Ciwezquvag (Bld) [Volume fraction]40.3 % 34.0-46.4FSelect Medical Cleveland Clinic Rehabilitation Hospital, Edwin ShawLaboratory - Hematology and Cell countsOrdered By: Dimitri Mixon on 36-90-9760Aobtefery RBC/100 WBC (Bld) [Ratio]0.1 %0-0.5FSelect Medical Cleveland Clinic Rehabilitation Hospital, Edwin ShawLymphocytes Auto (Bld) [#/Vol] Ordered By: Dimitri Mixon on 87-09-7554Kmrdtyotast (Bld) [#/Vol]3.4 10*3/uL 1.00-4.8[facility] [place] [facility] HospitalLymphocytes/100 WBC Auto (Bld)Ordered By: Dimitri Mixon on 63-63-3984Efyepphwqul/100 WBC (Bld)32.0 %.OhioHealthH Auto (RBC) [Entitic mass]Ordered By: Dimitri Mixon on 35-65-5159RYF (RBC) [Entitic mass]29.7 pg24.7-34.3FSelect Medical Cleveland Clinic Rehabilitation Hospital, Edwin ShawMCHC Auto (RBC) [Mass/Vol]Ordered By: Dimitri Mixon on 39-81-4578HVXQ (RBC) [Mass/Vol]33.6 g/dL32.0-35.0[facility] [place] [facility] HospitalMCV Auto (RBC) [Entitic vol]Ordered By: Dimitri Mixon on 86-59-1292UZM (RBC) [Entitic vol]88.5 gG61-054SogwpzmjtEast [place] Regional HospitalMonocytes Auto (Bld) [#/Vol] Ordered By: Dimitri Mixon on 38-29-0619Bwpgjhspl (Bld) [#/Vol]0.8 10*3/uL 0.0-0.8[facility] [place] [facility] HospitalMonocytes/100 WBC Auto (Bld)Ordered By: Dimitri Mixon on 57-58-3425Lmmlgyohr/100 WBC (Bld)7.8 %.[facility] [place] [facility] HospitalNeutrophils Auto (Bld) [#/Vol]Ordered By: Dimitri Mixon on 83-67-2959Jyobpwqwxwh (Bld) [#/Vol]6.3 10*3/uL1.8-7.7FSelect Medical Cleveland Clinic Rehabilitation Hospital, Edwin ShawNeutrophils/100 WBC Auto (Bld)Ordered By: Dimitri Mixon on 10-17-2021 Neutrophils/100 WBC (Bld)58.2 %.[facility] [place] [facility] HospitalNo Panel InformationOrdered By: Dimitri Mixon on 67-81-7646Paassskhg GFR ()> 60 mL/MinEast [place] Regional HospitalComment on above:GFR estimated reference range: According to KDOQI guidelines, <60 ml/min/1.73m2 is sufficient todiagnose a patient with chronic kidney disease.Pharmacy Creatinine Clearance (ChemN/[facility] GeneralPlatelet mean volume Auto (Bld) [Entitic vol]Ordered By: Dimitri Mixon on 26-94-6392Joaxdywn mean volume (Bld) [Entitic vol]9.9 fL6.3-10.7FSelect Medical Cleveland Clinic Rehabilitation Hospital, Edwin ShawPlatelets Auto (Bld) [#/Vol]Ordered By: Dimitri Mixon on 12-20-6339Bxpzgkoqc (Bld) [#/Vol]244 10*3/yQ535-648UykarwwccEast [place] Regional HospitalProtein [Mass/volume] in Serum or PlasmaOrdered By: Dimitri Mixon on 93-67-4966Geiwjrn [Mass/Vol]6.6 g/dL6.1-7.9 [facility] [place] [facility] HospitalRBC Auto (Bld) [#/Vol]Ordered By: Dimitri Mixon on 62-40-4815QQH (Bld) [#/Vol]4.55 10*6/uL3.60-5.00Mer[facility] Clermont Hospitalerum or plasma alanine aminotransferase measurement without P-5'-P (enzymatic activiOrdered By: Dimitri Mixon on 25-77-6569UMG No additional P-5'-P [Catalytic activity/Vol]14 U/Q55-40PepiduugaMercy Health Clermont Hospitalerum or plasma albumin/globulin mass ratioOrdered By: Dimitri Mixon on 04-70-9041Wcqcysf/Globulin [Mass ratio]1.4 {ratio}[facility] Hospitalerum or plasma alkaline phosphatase measurement (enzymatic activity/volume)Ordered By: Dimitri Mixon on 47-68-2577IWE [Catalytic activity/Vol]86 U/Z63-38LccrroxjwMercy Health Clermont Hospitalerum or plasma anion gap determinationOrdered By: Dimitri Mixon on 46-94-1750Hreio gap [Moles/Vol] 15.0 mmol/L6.0-15.0Mer[facility] Clerm[facility] Hospitalerum or plasma aspartate aminotransferase measurement (enzymatic activity/volume)Ordered By: Dimitri Mixon on 85-18-7080ZNS [Catalytic activity/Vol]18 U/Z05-51GoiiimmccMercy Health Clermont Hospitalerum or plasma calcium measurement (mass/volume)Ordered By: Dimitri Mixon on 08-27-2982Zhoflvm [Mass/Vol]10.5 mg/dL8.2-10.2FUniversity Hospitals Cleveland Medical Centererum or plasma chloride measurement (moles/volume) Ordered By: Dimitri Mixon on 86-24-7462Urktvbxz [Moles/Vol]100 mmol/L95-114 [facility] Hospitalerum or plasma glucose measurement (mass/volume)Ordered By: Dimitri Mixon on 51-13-9776Xofkltf [Mass/Vol]101 mg/dL 70-100[facility] [place] [facility] HospitalComment on above:ADA recommended reference range Random Glucose Reference Range is dependent on time and content of last meal. Glucose of more than 200 mg/dL in a nonstressed, ambulatory subject supports the diagnosis of Diabetes Mellitus.Serum or plasma potassium measurement (moles/volume)Ordered By: Dimitri Mixon on 62-37-0381Wpkijxgak [Moles/Vol]4.8 mmol/L3.5-5.1FUniversity Hospitals Cleveland Medical Centererum or plasma sodium measurement (moles/volume)Ordered By: Dimitri Mixon on 79-09-5879Naalak [Moles/Vol]138 mmol/K792-984MxjslnlprMercy Health Clermont Hospitalerum or plasma total bilirubin measurement (mass/volume)Ordered By: Dimitri Mixon on 82-67-3265Mclvnecsr [Mass/Vol]0.2 mg/dL0.3-1.2FUniversity Hospitals Cleveland Medical Centererum or plasma total carbon dioxide measurement (moles/volume)Ordered By: Dimitri Mixon on 82-93-8077PC0 [Moles/Vol]27.8 mmol/L22.0-30.0[facility] Serum or plasma urea nitrogen measurement (mass/volume)Ordered By: Dimitri Mixon on 45-09-3091Vbtv nitrogen [Mass/Vol]20 mg/dL9-23[facility] [place] [facility] HospitalOperative Reporton [id number] ReportMR#: [id number] [facility] Pt. Name: Jose Sherron Room #: 0C Discharge Date: Birthdate: 1965 OPERATIVE REPORT DATE OF SURGERY: 06/06/2021 SURGEON: Nelida Wilks M.D. STERILE PROC TECH: Benton Lambert M.D. PREOPERATIVE DIAGNOSIS: Left carpal [...] Lambert MD Date Trans: 06/06/2021 09:17 Thea/tee DN_JN:[id number] cc: Gamal Morgan M.D. [facility] [address] [place] [phone] Katerien Jacobs M.D. [address] [phone] [place], [place] [address]PO GLUCOSE LABon 74-38-2895Xnjlfjo [Mass/Vol]107 mg/iXMius45-052Odj [facility] Medical CenterComment on above:Performed By: #### [id number] #### [address]Operative Reporton [id number] ReportMR#: [id number] S [facility] Pt. Name: Sherron Garcia Room #: 0C Discharge Date: Birthdate: 1965 OPERATIVE REPORT DATE OF SURGERY: 05/23/2021 SURGEON: Nelida Wilks M.D. STERILE PROC TECH: Benton Lambert M.D. PREOPERATIVE DIAGNOSIS: Right carpal [...] Wilks M.D. Date Trans: 05/23/2021 11:54 A/tee DN_JN:[id number] cc: Gamal Morgan M.D. [address] [facility] [address] [place] [phone] Katerine Jacobs M.D. [address] [place] [address]JjnkshEiaMcCullough-Hyde Memorial Hospital GLUCOSE LABon 84-99-9837Zcyihzh [Mass/Vol]87 mg/tPKqywli59-714Hvw [facility] Medical CenterComment on above:Performed By: #### [id number] #### [address] [address] [address] Vital Signs Date TimeVital SignValuePerforming ImvvvehbfDxcpzdqb45-33-2016 14:29-0400Body toewjv363.32 cmKaterine Jacobs MD Work Phone: [facility]08-07-2025 14:29-0400 Body mass index (BMI) [Ratio]27.3 kg/p8ZsdghrdKaterine Jacobs MD Work Phone: [facility]08-07-2025 14:29-0400 Body qpyste16.3 kgKaterine Jacobs MD Work Phone: [facility]01-04-2024 14:59-0500 Body mass index (BMI) [Ratio]28.76 kg/m2Lisa Moshe REPAIR CLERK-RESIDENTIAL SALES MANAGER Work Phone: [facility] [employer] Pmiqnh98-78-3745 14:59-0500Body cbyouw31.41 kgLisa Moshe REPAIR CLERK-RESIDENTIAL SALES MANAGER Work Phone: [facility] Jstffi44-78-3839 14:59-0500Diastolic blood mm[Hg]Kenna Moshe REPAIR CLERK-RESIDENTIAL SALES MANAGER Work Phone: [facility] [employer] Dqtcan91-71-7909 14:59-0500Systolic blood mm[Hg]Kenna Moshe REPAIR CLERK-RESIDENTIAL SALES MANAGER Work Phone: [facility] [employer] Xnhcbx15-32-9172 14:58-0400Body qedski617.32 cmCarmselect specialty hospital - mckeesport SafeStoreReynoldsvilleDepositphotos 09-23-2021 14:58-0400Body mass index (BMI) [Ratio]32.71 kg/x2Agvzetz SafeStoreReynoldsvilleDepositphotos 09-23-2021 14:58-0400Body surface area Derived from formula1.7 x0Apupind DunamuLincoln HospitalDepositphotos 09-23-2021 14:58-0400Body .99 kgCarbrooklyn hospital centerSuniblencSommer Pharmaceuticals 09-23-2021 14:58-0400Diastolic blood hpjydeez36 mm[Hg] AmayaIntheGlohuntington hospitalDepositphotos 09-23-2021 14:58-0400Heart rate84 /minCarbrooklyn hospital centerSuniblencMyWebGrocer [facility] 09-23-2021 14:58-0400Systolic blood rbregdbt759 mm[Hg] Respectancehuntington hospitalChukong Technologies [facility] Encounters Encounter DateEncounter TypeCare ProviderFacilityStart: 09-25-2024 End: 81-73-8674guevtlindpZroltdd M Hoy MD Work Phone: [facility] Work Phone: Start: 09-25-2024 End: 98-22-3014Xjrlnzr encounter procedureAngelito Cotton MD-[facility] Work Phone: start: 06-18-2024 End: 53-78-4861Yatnpga encounter procedureKaterine Jacobs MD Work Phone: [facility] [address] Work Phone: Start: 06-18-2024 End: 75-65-2508sjvqnfedmfGzleujo M Hoy MD Work Phone: [facility] Work Phone: Start: 12-13-2023 End: 09-96-7577Difaegt encounter procedureMD Katerine Jacobs Work Phone: [facility] [address] Work Phone: Start: 12-13-2023 End: 72-44-9082phvyjjypknIR Katerine Jacobs Work Phone: [facility] Work Phone: Start: 05-10-2023 End: 99-20-2890hglawehkytDXSPOhioHealth Grove City Methodist Hospitaltart: 03-06-2023 Orders OnlyKenna Mesa APRN-RESIDENTIAL SALES MANAGER Work Phone: ProSt. [facility] Physicians Obstetrics/GynecologyComment on above:Heterogeneously dense tissue of both breasts on mammography (Primary Dx); Family history of breast cancerStart: 52-72-2968qginzyewnvAZHTAllianceHealth [facility] PPGStart: 03-02-2023 End: 58-60-1054ytiztkfdziCWCSMohawk Valley General Hospitaltart: 02-22-2023 End: 18-05-2309favgrtlcemMJPJBullock County Hospital Ambulatory PPGStart: 43-77-8925Srgxnoznh for gynecological examination (general) (routine) without abnormal findingsLindsay Municipal Hospital – Lindsay PPGStart: 02-22-2023 End: 60-60-3604Icnvhgn encounter procedureKenna Mesa APRN-RESIDENTIAL SALES MANAGER Work Phone: [facility] Memorial HospitalSironRX TherapeuticsPhillips County Hospitaltart: 02-22-2023 End: 81-67-6092Exlakxwf preventive med est patient 40-64yrsKenna Mesa APRN-RESIDENTIAL SALES MANAGER Work Phone: ProSt. [facility] Physicians Obstetrics/GynecologyComment on above:Well woman exam with routine gynecological exam (Primary Dx); Encounter for screening mammogram for malignant neoplasm of breast; Standardized adult depression screening tool completed; Status post hysterectomy; Vaginal dryness, menopausal; Vaginal atrophyStart: 09-29-2022 End: 28-68-9751qbdhypobsuHVNKP MUSTAPHAUniversSelect Medical Specialty Hospital - [facility] Northtart: 09-07-2022 End: 92-60-5611vblkprjgulRCCHKUQDetwiler Memorial Hospitaltart: 09-06-2022 End: 55-69-6653mskopcizspLJXJPOPDetwiler Memorial Hospitaltart: 08-04-2022 End: 53-21-6524gvknfutxheBNRRT MUSTAPHAUniversSelect Medical Specialty Hospital [facility] Northtart: 07-24-2022 End: 65-99-2289rmztkxqqnuSWDFU MUSTAPHAUniversSelect Medical Specialty Hospital - [facility] Northtart: 67-61-9411vypgjamixkDUOWO MUSTAPHAUniversity of Baylor [facility] – Dallastart: 04-18-2022 End: 28-06-1611oxonnmtfvbJB Katerine Salazar Hoy Work Phone: [facility] Work Phone: Start: 04-18-2022 End: 61-31-9155Ixfkxhz encounter procedureMD Katerine Hoy Work Phone: [facility] [address] Work Phone: Start: 65-25-1226Blzsubnyh for general adult medical examination without abnormal findingsDR KATERINE JAMAYThe Wapato HospitalStart: 01-18-2022 End: 65-53-3517dcshwgheaiZP KATERINE HOYFacility:D8Xdnuk: 01-18-2022 End: 25-17-9339Hvakjimhq for general adult medical examination without abnormal findingsDR KATERINE HOYFacility:B3Ojelb: 10-17-2021 End: 11-02-9749Mxdsnqv encounter procedureMD Katerine Hoy Work Phone: [facility] [address] RdStart: 06-06-2021 End: 38-00-8507dehpcfmxlxCNAKBUHMP MUSTAPHAFacility:UTMCStart: 05-23-2021 End: 31-04-2031xyillguyukTFOKIXRIO MUSTAPHAFacility:UTMCStart: 86-73-2994Vjszw Emily Waldron Other [facility] Office Procedures DateProcedureProcedure DetailPerforming ClinicianStart: 00-02-7142Jwmzviwqknr Kenna Mesa REPAIR CLERK-RESIDENTIAL SALES MANAGER Work Phone: Start: 43-58-1445Lluid depression screening assessment Kenna Mesa APRN-RESIDENTIAL SALES MANAGER Work Phone: Start: 90-79-3964Ehjofl-up visitFollow-upABDUL MUSTAPHAStart: 01-05-8170DdovvkordbjUfnt Franco REPAIR CLERK-RESIDENTIAL SALES MANAGER Work Phone: Start: 58-52-0964Otesz conduction studies 9-10 studies Amaya OsborneH/O: hysterectomyStatus post hysterectomyJerilynsa Martin Mesa REPAIR CLERK-RESIDENTIAL SALES MANAGER Work Phone: Plan of Treatment DateCare ActivityDetailAuthorStart: 63-79-4275Wieclux [facility] Work Phone: Start: 84-89-6390Okxec BMI ScreeningAdult BMI ScreeningProMedica Health SystemStart: 26-03-5697Ypuoszjar for malignant neoplasm of breastMammogramProDavia Health SystemStart: 60-79-3243Myptp BMI Follow Up PlanAdult BMI Follow Up PlanProBlanchard Valley Health System Bluffton HospitalJiuxian.com Health SystemStart: 02-23-2024 Adult BMI ScreeningAdult BMI ScreeningProMedica Health SystemStart: 02-23-2024 Depression ScreeningDepression ScreeningProDavia Health SystemStart: 02-23-2024 Tobacco ScreeningTobacco ScreeningProBlanchard Valley Health System Bluffton HospitalJiuxian.com Health SystemStart: 03-06-2023 End: 43-50-0204RD Guidance limited for localization of tumorNM Molecular breast imaging localization limited area Imaging Routine Heterogeneously dense tissue o f both breasts on mammography Family history of breast cancer Expected: 03/06/2023, Expires: 03/06/2024PROGillBus SBO Work Phone: Comment on above:Expected: 03/06/2023, Expires: 03/06/2024Start: 02-22-2023 End: 63-03-3230UJA Breast - bilateral screeningMammography screening bilateral with CAD Imaging Routine Encounter for screening mammogram for malignant neoplasm of breast Expected: 02/22/2023, Expires: 04/21/2024PROGillBus SBO Work Phone: Comment on above:Expected: 02/22/2023, Expires: 04/21/2024Start: 56-27-9299Sksawuggl vaccinationInfluenza VaccineProBlanchard Valley Health System Bluffton HospitalThe Good Jobs SystemStart: 88-76-5706Bdqazuatj for malignant neoplasm of breast MammogramProSecond Decimal SystemStart: 27-89-0687Knfdnxhbiwmbaa of varicella zoster vaccineZoster (Shingles) Vaccine (1 of 2)[facility] [employer] SystemStart: 64-93-4301DKqQ,Tdap and Td Vaccines (1 - Tdap)DTaP,Tdap and Td Vaccines (1 - Tdap)[facility] SystemPatient [facility] Work Phone: Payers DatePayer CategoryPayerPolicy [id number] Health [id number] Health InsuranceBARNESVILLE HOSPITAL HEALTHSC[facility] BENEFITS/[place] [id number] 2022-[facility] [phone] [address] [address] [place], [place] [id number] [id number] 2..840.1.264938.3.57[id number] 2..840.1.991031.3.57[id number] 2.840.1.205871.3.579.2.574774-52-5046Ccozamb3315401 2.16.840.1.273851.3.579.2.64[id number] 2..840.1.565355.3.579.2.408096-82-6977Jjyrboy8364325 2.16.840.1.615340.3.579.[id number] 2.16.840.1.942925.3.579.[id number] Health Insurance [employer] Insurance [id number] [id number] 2.16.8[id number] 2.16.840.1.46[id number] 2.160.1.325115.3.579.2.531 Worker's [id number] Social History DateTypeDetailFacilityStart: 82-55-2604OfpsmkqcqZedvdtgre [place] [facility] Start: 81-28-8357GsbmpwwzMijaxpacu [employer] [facility] Start: 96-97-9277ItcyhtrCdvhmorfg [employer] [facility] Start: 09-17-2017 End: 38-66-7735Pqchdoz smoking status NHISSmoker (finding)[facility]art: 83-84-3004Buc Assigned At BirthFeCorey Hospitaltart: 01-31-2022 End: 33-90-8378Pxomptn smoking status NHISNever smoked tobaccoProMedica Lima Memorial Hospital SystemStart: 47-60-7953Zppccpf use and exposureSmokeless tobacco non-user [facility] SystemStart: 02-22-2023 End: 66-38-0693Ljiffjz intakeCurrent drinker of alcohol (finding)[facility] SystemStart: 24-81-1747Dezfqnc of Social functionKettering Health Behavioral Medical Center System Start: 73-99-3086Fsplmbg use panelToledo HospitalAdolescent depression screening oarsehcfqp8ZktBymmjaFormerly [facility] Hospitaltart: 21-71-6953Doueodp Comment occasionalFormerly [facility] Hospitaltart: 02-79-4949Lab Assigned At BirthNot on fileFormerly [facility] Hospitaltart: 81-32-0307YefVicwns (finding)[facility] Clinical Notes 07-06-2022 to 02-22-2023 Note Date & HkwcAkpbAeihhqdj33-12-7658 History of Present illness Narrative* Kenna Mesa, TERELL-RESIDENTIAL SALES MANAGER - 02/22/2023 3:00 PM EST Sherron Garcia is a 57 y.o. female who presents for annual zoogler exam. She is postmenopausal.Hysterectomy: yes - 2005 at age 39 for fibroids She is sexually active. No painful intercourse or pelvic pain. 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 All questions answered. RTO for annual zoogler exam and / or PRN. RUTH Carcamo APRN-CNP 02/22/23 1527 documented in this encounterToledo Hospital08-11-2023 Note Attestation signed by Aliya Wilks [...] hand pain. -Pt already has appt with Sheet Taker setup - RTC as needed if symptoms worsen or fail to improve - Call office any questions or concerns Ramin Stone MD Orthopedic Surgery, PGY-2 Pager: [phone] 09/29/22 8:26 AM By using the attestations [...] may be an additional personal documentation from me.[facility]07-19-2023 NoteChief Complaint: neck and radicular pain both [...] to assess spinal stenosis Follow up after MRIUnMartin Memorial Hospital06-16-2023 Note Attestation signed by Aliya Wilks [...] may be an additional personal documentation from me.[facility]06-05-2023 NotePatient: Sherron Garcia Procedure Summary Date: 07/24/22 Room / Location: [facility] OR [address] [place] [address] GISC OR Anesthesia Start: 1316 Anesthesia Stop: [...] 1410 Anesthesia Post Evaluation No notable events documented.[facility]06-05-2023 Note Patient: Sherron Garcia Procedure Information Date/Time: 07/24/22 1245 Procedure: long finger A1 pully release (Right: Middle Finger) Location: [facility] OR [address] [place] [address] OR Surgeons: Aliya Wilks MD Relevant Problems [...] patient. Plan discussed with CAA. Additional Equipment RequestsUnMartin Memorial Hospital05-18-2023 Note Attestation signed by Aliya Wilks [...] radha Rufus Gee MD PGY-4 Orthopedic Surgery [facility] By using the attestations below, the signing clinician agrees that I have read and verify that the documentation has been personally reviewed by me and ensure that the documentation accurately reflects the encounter. GC: I personally saw this patient on the day of the encounter, performed the rasgdale portion(s) of the service and participated in the management and confirm the resident's documentation. Please note there may be an additional personal documentation from me.[facility] CenterEvaluation noteNo assessment information availableMarion Hospital Work Phone: Evaluation note* Diagnosis Well woman exam with routine gynecological exam- Primary Routine gynecological examination Encounter for screening mammogram for malignant neoplasm of breast Standardized adult depression screening tool completed Status post hysterectomy Acquired absence of both cervix and uterus Vaginal dryness, menopausal Vaginal atrophy Postmenopausal atrophic vaginitis documented in this encounter [facility] SystemEvaluation note* Diagnosis Heterogeneously dense tissue of both breasts on mammography- Primary Family history of breast cancer Family history of malignant neoplasm of breast documented in this encounter [facility] SystemEvaluation note* Diagnosis Onset Date Resolution Status Admit Date Cervical disc disorder at C5-C6 level wi th radiculopathy acuteAugust 2024 2:13pmDisorder of intervertebral disc at C4-C5 level with radiculopathyacuteAugust 2024 2:13pm [facility] Work Phone: Hospital Discharge instructionsAmbulatory Orders* Referral to Pain Management Location: None Selected [facility] Work Phone: Instructions* Attachments The following attachments cannot be sent through Care Everywhere. * Vaginal dryness ([place] Zealander) * Calcium and vitamin D for bone health ([place]) documented in this encounterProOhiohealth Marion General Hospital SystemInstructionsNot on file documented in this encounterProOhiohealth Marion General Hospital System Chief Complaint and Reason for [...] breast imaging localization limited area Kenna Mesa, REPAIR CLERK-RESIDENTIAL SALES MANAGER [address] [place] [address] Referral IDStatusReasonStart DateExpiration DateVisits RequestedVisits [id number] Review/ Additional Source Comments Care Teams (unrecognized [...] MemberRelationshipSpecialtyStart DateEnd Date Katerine Jacobs MD [address] [place] [address] PCP - [facility] Medicine02/22/23Team MemberRelationshipSpecialtyStart DateEnd Date Katerine Jacobs MD [facility] [place] [address] PCP - [facility] Medicine02/22/23 Team Status: Inactive Member Role Status Dates Katerine Jacobs MD Primary Care Provider Active Start: June 18, 2024 End: June 18, 2024Jowhitney Pearce [facility] LIAISON-CAttending ProviderActiveStart: June 18, 2024 End: June 18, [...] and content) DATE CREATED AUTHOR 10/26/2021 [facility] DATE CREATED AUTHOR AUTHOR'S ORGANIZ ATION 01/21/2022 [facility] DATE CREATED AUTHOR AUTHOR'S ORGANIZ ATION 10/04/2022 [facility] DATE CREATED AUTHOR AUTHOR'S ORGANIZ ATION 03/06/2023 [facility] DATE CREATED AUTHOR AUTHOR'S ORGANIZ ATION 03/25/2023 [facility] DATE CREATED AUTHOR AUTHOR'S ORGANIZ ATION 05/12/2023 [facility] DATE CREATED AUTHOR AUTHOR'S ORGANIZ ATION 06/26/2024 [facility] Reason for Visit (unrecogniz ed [...] BE BASED ON THE PRIMARY CLINICAL RECORDS. [facility] [employer] [facility]. provides no warranty or guarantee of the accuracy or completeness of information in this document.
[2025-01-20 11:55] LABS: Hematocrit 41.8 % (36.0-48.0); Hemoglobin 13.8 g/dL (12.0-16.0); Immature Granulocytes Abs Auto 0.02 10^3/uL (0.00-0.03); Immature Granulocytes Pct Auto 0.2 % (0.0-0.5); Lymphocytes Absolute Auto 2.2 10^3/uL (1.2-3.8); Mean Corpuscular HGB Conc 33.0 g/dL (29.9-35.2); Mean Corpuscular Hemoglobin 29.7 pg (26.7-34.0); Mean Corpuscular Volume 89.9 fL (81.0-99.0); Platelet Count 301 10^3/uL (150-450); Red Blood Count 4.65 10^6/uL (4.20-5.40); White Blood Count 9.6 10^3/uL (4.0-11.0)
== END 2025-01-20 11:37 | disposition home or self-care (01) ==
PROVIDERS: PCP Family Medicine; Visit Provider Family Medicine
DX: D72.829 Elevated white blood cell count, unspecified (principal)
CPT/HCPCS: 36415; 85025

== ENCOUNTER 2025-01-21 16:36 | Outpatient (OUT) | payer OTHER, SELFPAY ==
--- OUTSIDE RECORDS SUMMARY | 2025-01-07 11:15 | XMS_ITS ---
Author Organization [facility] in [place] Address [address] [place] [address] Care Team Providers Care Strategic Communications Manager Name Role Phone Reynaldo Cosme Primary Care Provider Allergies No Known Allergies Reason For Referral Reason C-spine and L spine radiculopathy Diagnosis 1 Lumbar radiculitis ( M54.16) Referral Organization [facility] Medicine Referring Provider First Name Cosme Referring Provider Last Name Reynaldo Referring Provider Speciality Family Med icine Referred Provider TB, Physical Therap y Referred Provider Specialty Physical The rapist Referral Priority Routine REASON FOR VISIT back pain Medications Medication SIG (Take, Route, Frequency, Duration) Notes Start Date End Date Status Lisinopril 10 mg TAKE 1 TABLET BY MOUTH DAILY; D uration: 90 days ActivetiZANidine HCl 4 MG2 tablets Orally at bedtime; Duration: 16NOG4803/05/2022 ActiveTylenol 8 Hour Arthritis Pain 650 MG2 tablets as needed Orally every 8 hrs prnPRNActivePataday 0.1 %1 drop into affected eye Ophthalmic Twice a dayActive Simvastatin 20 MG1 tablet Orally every evening; Duration: 30 days01/05/2025 ActiveExcedrin Extra Strength 250-250-65 MG2 tablets Orally Once a day prnPRN ActiveCod Liver Oil 4000-200 UNITas directed OrallyActivevalACYclovir HCl 1 GM1 tablet Orally Once a day; Duration: 90 daysPRNActiveEstradiol 0.1 MG/GMas directed VaginalActiveVoltaren 1 %as directed Externally prnPRNActiveVitamin D (Cholecalciferol) 25 MCG (1000 UT)1 capsule Orally Once a dayActive Social History Tobacco Use: Social History Observation Description Date Details (start date - stop date) Never Smoker NA - NA Tobacco Use/Smoking Question Answer Notes Patient is a nonsmoker AUDIT-C (Standard) Question Answer Notes Did you have a drink containing alcohol in the p ast year? No Akeiri3ZdhdgkrprnviztQzmfqimb Vital Signs Weight 130.0 lbs 01/07/2025 Height 58 in 01/07/2025 Blood pressure systolic 120 mm Hg 01/08/20 25 Blood pressure diastolic 72 mm Hg 025 BMI 27.17 kg/m2 01/07/2025 Encounters Encounter Location Date Provider Diagnosis [facility] [address] [place] [address] 01/07/2025 Cosme Jacobs Lumbar radiculitis M54.16 Assessments Encounter Date Diagnosis (ICD Code) Assessment Notes Treatment Notes Treatment Clinical Notes Section Notes 01/07/2025 Lumbar radiculitis (ICD-10 - M54 .16) 01/07/2025OtherRecommended to rest and use a heating pad on the area. Take NSAIDs for pain as needed Plan Of Treatment Medication Medication Name Sig Start Date Stop Date Notes valACYclovir HCl 1 GM 1 tablet Orally Once a day ; Duration: 90 days PRNTreatment Notes Assessment Notes Other Recommended to rest and use a heating pad on the area. Take NSAIDs for pain as needed Referrals Referral Date Details 01/07/2025 01/07/2025, C-spine and L spine radiculopathy, Physical Therapy [facility] Progress Notes * Sherron NUNN MDOB: 7 (59 yo F)Acc No.[id number]:01/07/2025 Progress Note Patient: Sherron JIMENEZ :?Nikos Jacobs ([facility]), MDDOB:1965???Age: 59 Y???Sex:FemaleDate:01/07/2025Phone:[phone]:[address], [place], [id number] In:04:26 PM ESTCheck Out:05:07 PM EST Subjective: * Chief Complaints: * B ack pain * HPI: ???General:?Felix and neck pain - goping on sunce august getting back injections -? Needs FMLA due to frequent Office visit neeed 3 days a month. ???Back Pain:? The patient complains of -. The symptoms have been present for1-2 days. The patient believes symptoms are injury related No. The symptoms are mild. Symptomatic treatment has included heating pad, stretching. Associated symptoms include None. * ROS: ???General/Constitutional:?Lightheadedness?denies.?Change in appetite?denies.?Weight Change?denies.?Cardiovascular:?Irregular heartbeat?denies.?Swelling in hands/feet denies.?Respiratory:?Shortness of breath?denies.?Shortness of breath with e xertion?denies.?Wheezing?denies.?Musculoskeletal:?Comments?See HPI for details.?Neurologic:?Dizziness?denies.?Fainting?denies.?Headache denies.? 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 Modified On:07/26/2022/U Status:afcnkdqnkT55.072Primary osteoarthritis, left ankle and foot Modified On:10/04/2022/U Status:ipyvoawemK87.90Arthritis Modified On:10/25/2022/U Status:ztvhpxxxhH26.22Hallux rigidus, left foot Modified On:10/04/2022/U Status:qnwbaicdqR84.16Lumbar radiculitis Modified On:04/16/2023/U Status:bciqzgpqjR79.00Carpal tunnel syndrome, unspecified upper limb Modified On:01/04/2023/U Status:ledzxvnzrG48.512Left shoulder pain Modified On:03/10/2024/U Status:rctkpccpyF08.20Biceps tendonitis Modified On:04/04/2024/U Status:giuozdiarY82.012Arthritis of left shoulder region Modified On:05/02/2024/U Status:hooyyappkT96.50Shoulder bursitis Modified On:08/19/2024/U Status:tvzktxzgzG59.12Cervical radicular pain Modified On:08/20/2024U Status:pvsgfkpjpF69.8XXABruising Modified On:09/22/2024U Status:srlcdlpzvM75.30Trigger finger Modified On:10/01/2024/U Status:nvdmwzonhA32.06Lumbar spondylolysis Modified On:12/25/2024U Status:pzcrooxvaM47.9Hair loss Modified On:12/31/2024U Status:vlaibxnnsF34.00Hypercholesterolemia Modified On:01/05/2025U Status:bcysxxrizE36.829Elevated WBC count Modified On:01/05/2025 Status:confirmed * Medical History: * Surgical History: t bridge rigger finger TS right TS left / left trigger finger 05/2017rotator cuff left 11/2019rotator cuff left eft achilles tendon 05/2016hysterctomy 06/2005Cervical Epidural Steroid Inj- Dr Mohamud 11/21/24 * Hospitalization/Major Diagno stic Procedure: D enies Past Hospitalization * Family History: F ather: 79 yrs. M other: 78 yrs, diagnosed with Heart Disease. B terier(s): 52 yrs. S on(s): alive. D fior(s): alive. M aternal aunt: diagnosed with Cancer. 1 brother(s) . 1 son(s) , 1 daughter(s) - healthy. . * Social History: ???Tobacco Use:?Tobacco Use/Smoking?Patient is a?nonsmoker ???Drug/Alcohol:?AUDIT-C (Standard)?Did you have a drink containing alcohol in the past year??No ?Points?0 ?Interpretation?Negative * Medications: T akingCod Liver Oil 4000-200 UNIT Capsule as directed Orally Estradiol 0.1 MG/GM Cream as directed Vaginal Excedrin Extra Strength(Fuifvsb-Cesksxthislee-Pkrosdlc) 250-250-65 MG Tablet 2 tablets Orally Once a day prn , Notes to Pharmacist: PRNLisinopril 10 mg Tablet TAKE 1 TABLET BY MOUTH DAILY Pataday(Olopatadine HCl) 0.1 % Solution 1 drop into affected eye Ophthalmic Twice a day Simvastatin 20 MG Tablet 1 tablet Orally every evening tiZANidine HCl 4 MG Tablet 2 tablets Orally at bedtime , Notes to Pharmacist: PRNTylenol 8 Hour Arthritis Pain(Acetaminophen ER) 650 MG Tablet Extended Release 2 tablets as needed Orally every 8 hrs prn , Notes to Pharmacist: PRNvalACYclovir HCl 1 GM Tablet 1 tablet Orally Once a day , Notes to Pharmacist: PRNVitamin D (Cholecalciferol) 25 MCG (1000 UT) Capsule 1 capsule Orally Once a day Voltaren 1 % Gel as directed Externally prn , Notes to Pharmacist: PRNMedication List reviewed and reconciled with the patientTaking Cod Liver Oil 4000-200 UNIT Capsule as directed Orally Taking Estradiol 0.1 MG/GM Cream as directed Vaginal Taking Excedrin Extra Strength(Kxwvray-Ftnyxxlsqvrpy-Mgbrnzbu) 250-250-65 MG Tablet 2 tablets Orally Once a day prn , Notes to Pharmacist: PRNTaking Lisinopril 10 mg Tablet TAKE 1 TABLET BY MOUTH DAILY Taking Pataday(Olopatadine HCl) 0.1 % Solution 1 drop into affected eye Ophthalmic Twice a day Taking Simvastatin 20 MG Tablet 1 tablet Orally every evening Taking tiZANidine HCl 4 MG Tablet 2 tablets Orally at bedtime , Notes to Pharmacist: PRNTaking Tylenol 8 Hour Arthritis Pain(Acetaminophen ER) 650 MG Tablet Extended Release 2 tablets as needed Orally every 8 hrs prn , Notes to Pharmacist: PRNTaking valACYclovir HCl 1 GM Tablet 1 tablet Orally Once a day , Notes to Pharmacist: PRNTaking Vitamin D (Cholecalciferol) 25 MCG (1000 UT) Capsule 1 capsule Orally Once a day Taking Voltaren 1 % Gel as directed Externally prn , Notes to Pharmacist: PRNMedication List reviewed and reconciled with the patient * Allergies: N .K.D.A.no[Allergies Verified] Objective: * Vitals: W t:130.0lbs, Ht: 58 in, BP:120/72mm Hg, BMI:27.17Index, Ht-cm: 147.32 cm, Wt-k.97 kg. * Examination: ???General Examination: ?GENERAL APPEARANCE:?in no acute distress, well developed, well nourished.?LUNGS:? clear to auscultation bilaterally.?CARDIO:? S1, S2 normal, no murmurs, rubs, gallops.?MUSCULOSKELETAL:? ____.?EXTREMITIES:? no clubbing, cyanosis, or edema.?NEUROLOGIC:? alert, oriented to time, place, & person. ??? Assessment: * Assessment: 1.?Lumbar radiculitis - M54.16 (Primary)??? Plan: * Treatment: Refill valACYclovir HCl Tablet, 1 GM, 1 tablet, Orally, Once a day, 90 days, 90 Tablet, Refills 3, Notes to Pharmacist: PRN.? Referral To:Physical Therapy [facility]??Physical Therapist ?Reason:C-spine and L spine radiculopathy 2.?Others? Notes: Recommended to rest and use a heating pad on the area. Take NSAIDs for pain as needed? * Procedure Codes: * Preventive Medicine: ??Screenings/Counseling:?BMI ACTION PLAN?Above Normal BMI Follow-up?Dietary management education, guidance, and counseling * * Sign off status: CompletedVisit Status:?CHK (Check Out) true * Provider: Lea Jacobs ([facility])MD Date: 1 03/09/2024 Generated for Printing/Faxing/eTransmitting on:?01/21/2025 04:41 PM EST History and Physical Notes * HPI (History of Present Illness) CategorySub-CategoryDetailNotesCategory NotesGeneral Felix and neck pain - goping on august getting back injections - Needs FMLA due to frequent Office visit neeed 3 days a month Examination CategorySub-CategoryDetailNotesCategory NotesGeneral ExaminationGENERAL APPEARANCE:in no acute distress, well developed, well nourishedCARDIO:S1, S2 normal, no murmurs, rubs, gallopsLUNGS:clear to auscultation bilaterally NEUROLOGIC:alert, oriented to time, place, & personEXTREMITIES:no clubbing, cyanosis, or edemaMUSCULOSKELETAL:____ Consultation Request Notes Referral Date Referring Provider Referred Provider Not 01/07/2025 Cosme Jacobs [facility], Physical Therapy C-spin e and L spine radiculopathy
--- OUTSIDE RECORDS SUMMARY | 2025-01-20 06:00 | XMS_ITS ---
Author Organization [facility] in [place] Address [address] [place] [address] Care Team Providers Care Fusing Machine Operator Name Role Phone Cosme Jacobs Primary Care Provider Allergies No Known Allergies REASON FOR VISIT Back pain started Sunday- right sided- was on hands and knees on Sunday cleaning cabinet Medications Medication SIG (Take, Route, Frequency, Duration) Notes Start Date End Date Status Excedrin Extra Strength 250-250-65 MG 2 tablets Orally Once a day prn PRN ActiveEstradiol 0.1 MG/GMas directed VaginalActiveCod Liver Oil 4000-200 UNITas directed OrallyActiveVoltaren 1 %as directed Externally prnPRNActiveVitamin D (Cholecalciferol) 25 MCG (1000 UT)1 capsule Orally Once a dayActiveTylenol 8 Hour Arthritis Pain 650 MG2 tablets as needed Orally every 8 hrs prnPRNActive tiZANidine HCl 4 MG2 tablets Orally at bedtime; Duration: 91KFY0701/03/2023ctive Simvastatin 20 MG1 tablet Orally every evening; Duration: 30 days01/05/2025 ActiveMeloxicam 15 MG1 tablet Orally Once a day; Duration: 30 days01/20/2025 ActivevalACYclovir HCl 1 GM1 tablet Orally Once a day; Duration: 90 daysPRN ActivePataday 0.1 %1 drop into affected eye Ophthalmic Twice a dayActive Lisinopril 10 mgTAKE 1 TABLET BY MOUTH DAILY; Duration: 90 daysActive Social History Tobacco Use: Social History Observation Description Date Details (start date - stop date) Never Smoker NA - NA Tobacco Use/Smoking Question Answer Notes Patient is a nonsmoker Vital Signs Weight 128.0 lbs 01/20/2025 Height 58 in 01/20/2025 Blood pressure systolic 138 mm Hg 01/21/20 25 Blood pressure diastolic 82 mm Hg 025 BMI 26.75 kg/m2 01/20/2025 Encounters Encounter Location Date Provider Diagnosis [facility] [address] [place] [address] 01/20/2025 Cosme Jacobs Lumbar radiculitis M54.16 Assessments Encounter Date Diagnosis (ICD Code) Assessment Notes Treatment Notes Treatment Clinical Notes Section Notes 01/20/2025 Lumbar radiculitis (ICD-10 - M54 .16) 01/20/2025OtherRecommended to rest and use a heating pad on the area. Take NSAIDs for pain as needed Plan Of Treatment Medication Medication Name Sig Start Date Stop Date Notes Meloxicam 15 MG 1 tablet Orally Once a day; Duration: 30 days 01/20/2025 Treatment Notes Assessment Notes Other Recommended to rest and use a heating pad on the area. Take NSAIDs for pain as needed Medications Administered Medication Instructions Date of Administration Dosage Notes methylPREDNISolone Acetate 0 mgKetorolac Btvdmfbjbrub03/02/202560 mgOrphenadrine Citrate mg Progress Notes * Sherron NUNN MDOB: 7 (59 yo F)Acc No.[id number]:01/20/2025 UNLOCKED PROGRESS NOTE Progress Note Patient: Sherron JIMENEZ :?Nikos Jacobs ([facility]), MDDOB:1965???Age: 59 Y???Sex:FemaleDate:01/20/2025Phone:[phone]:[address], [place], [id number] In:11:02 AM ESTCheck Out:11:19 AM EST Subjective: * Chief Complaints: * 1 . Back pain started Sunday- right sided- was on hands and knees on Sunday cleaning cabinet. * HPI: ???General:? back pain - doing more activities at home after resting ten had more pain in low back pain from back into left leg - past knee. ???Back Pain:? The patient complains of -. The symptoms have been present for1-2 days. The patient believes symptoms are injury related No. The symptoms are mild. Symptomatic treatment has included heating pad, stretching. Associated symptoms include None. * ROS: ???General/Constitutional:?Lightheadedness?denies.?Change in appetite?denies.?Weight Change?denies.?Cardiovascular:?Irregular heartbeat?denies.?Swelling in hands/feet denies.?Respiratory:?Shortness of breath?denies.?Shortness of breath with e xertion?denies.?Wheezing?denies.?Musculoskeletal:?Comments?See HPI for details.?Neurologic:?Dizziness?denies.?Fainting?denies.?Headache denies.? * Medical History: D DD (degenerative disc disease), cervical, ADHD, Impingement syndrome of right shoulder, Primary osteoarthritis, left ankle and foot. * Surgical History: t commercial or institutional cleaner finger 06/2022, CTS right 05/2021, CTS left / left trigger finger 05/2017, rotator cuff left 11/2019, rotator cuff left 03/2020, left achilles tendon 05/2016, hysterctomy 06/2005, Cervical Epidural Steroid Inj- Dr Mohamud 11/21/24. * Family History: F ather: 79 yrs. M other: 78 yrs, diagnosed with Heart Disease. B terier(s): 52 yrs. S on(s): alive. D fior(s): alive. M aternal aunt: diagnosed with Cancer. 1 brother(s) . 1 son(s) , 1 daughter(s) - healthy. . * Social History: ???Tobacco Use:?Tobacco Use/Smoking?Patient is a?nonsmoker * Medications: T aking Cod Liver Oil 4000-200 UNIT Capsule as directed Orally , Taking Estradiol 0.1 MG/GM Cream as directed Vaginal , Taking Excedrin Extra Strength(Imnrhvb-Qlbdhshhbjtha-Eaubnngn) 250-250-65 MG Tablet 2 tablets Orally Once a day prn , Notes to Pharmacist: PRN, Taking Lisinopril 10 mg Tablet TAKE 1 TABLET BY MOUTH DAILY , Taking Pataday(Olopatadine HCl) 0.1 % Solution 1 drop into affected eye Ophthalmic Twice a day , Taking Simvastatin 20 MG Tablet 1 tablet Orally every evening , Taking tiZANidine HCl 4 MG Tablet 2 tablets Orally at bedtime , Notes to Pharmacist: PRN, Taking Tylenol 8 Hour Arthritis Pain(Acetaminophen ER) 650 MG Tablet Extended Release 2 tablets as needed Orally every 8 hrs prn , Notes to Pharmacist: PRN, Taking valACYclovir HCl 1 GM Tablet 1 tablet Orally Once a day , Notes to Pharmacist: PRN, Taking Vitamin D (Cholecalciferol) 25 MCG (1000 UT) Capsule 1 capsule Orally Once a day , Taking Voltaren 1 % Gel as directed Externally prn , Notes to Pharmacist: PRN, Medication List reviewed and reconciled with the patient * Allergies: N .K.D.A. Objective: * Vitals: W t:128.0lbs, Ht: 58 in, BP:138/82mm Hg, BMI:26.75Index, Ht-cm: 147.32 cm, Wt-k.06 kg. * Examination: ???General Examination: ?GENERAL APPEARANCE:?in no acute distress, well developed, well nourished.?LUNGS:? clear to auscultation bilaterally.?CARDIO:? S1, S2 normal, no murmurs, rubs, gallops.?MUSCULOSKELETAL:?Poor rom in back due to pain and + SLR n the left.?EXTREMITIES:? no clubbing, cyanosis, or edema.?NEUROLOGIC:? alert, oriented to time, place, & person. ??? Assessment: * Assessment: 1.?Lumbar radiculitis - M54.16 (Primary)??? Plan: * Treatment: Start Meloxicam Tablet, 15 MG, 1 tablet, Orally, Once a day, 30 days, 30 Tablet, Refills 11.? 2.?Others? Notes: Recommended to rest and use a heating pad on the area. Take NSAIDs for pain as needed? * Therapeutic Injections: Methylprednisolone Acetate 40mg/mL : 80 mg (Route: Intramuscular) given by Patricia Dowd , VALENTINE on right gluteus (Lumbar radiculitis)??? Ketorolac Tromethamine : 60 mg (Route: Intramuscular) given by Patricia Dowd , BF on right gluteus (Lumbar radiculitis)??? Orphenadrine Citrate : 60 mg (Route: Intramuscular) given by Patricia Dowd , BF on left gluteus (Lumbar radiculitis) * Procedure Codes: 9 6372 THERAP.INJ. OF MED. INTRAMUSCULAR OR SUBCUTANEOUS, J1010 Injection, methylprednisolone acetate, 1 mg, Units: 80.00 , J1885 TORADOL, PER 15 MG, Units: 4.00 , Modifiers: JZ , J2360 NORFLEX,UP TO 60MG. * Preventive Medicine: ??Screenings/Counseling:?BMI ACTION PLAN?Above Normal BMI Follow-up?Dietary management education, guidance, and counseling * * Electronic signature of Cosme Jacobs MD, [id number] on 01/21/2025 at 04:41 PM EST Sign off status: PendingVisit Status:?CHK (Check Out) * Provider: Lea Jacobs ([facility])MD Date: 03/23/2024 Generated for Printing/Faxing/eTransmitting on:?01/21/2025 04:41 PM EST History and Physical Notes * HPI (History of Present Illness) CategorySub-CategoryDetailNotesCategory NotesGeneral back pain - doing more activities at home after resting ten had more pain in low back pain from back into left leg - past knee Examination CategorySub-CategoryDetailNotesCategory NotesGeneral ExaminationGENERAL APPEARANCE:in no acute distress, well developed, well nourishedCARDIO:S1, S2 normal, no murmurs, rubs, gallopsLUNGS:clear to auscultation bilaterally NEUROLOGIC:alert, oriented to time, place, & personEXTREMITIES:no clubbing, cyanosis, or edemaMUSCULOSKELETAL:Poor rom in back due to pain and + SLR n the left
--- NOTE | 2025-01-21 | XR_ITS ---
[place] [id number] Patient Name: GÓMEZ NUNN MRN: [id number] date: 1965 Sex: F Assigned Patient Location: [facility] Current Patient Location: [facility] Accession/Order Number: [id number] Exam Date: 01/21/2025 16:49 Report Date: 01/21/2025 19:00 At the request of: KATERINE DOHERTY MD Procedure: XR pelvis 1-2V AP PELVIS: CLINICAL HISTORY: Lumbar Radiculitis, M54.16 COMPARISON: None FINDINGS: No fracture or dislocation. Joint spaces preserved. Qhue-sr-iidddjsv stool rectosigmoid junction. Surgical clips project over the pelvis noted of uncertain clinical significance. Soft tissues unremarkable. XR/XR pelvis 1-2V IMPRESSION: NO ACUTE BONY FINDINGS. Impression dictated by: Fernando Goncalves M.D. 01/21/2025 7:00 PM Dictation Location: [place] [address] Electronically authenticated by: [id number] Y Date: 01/21/2025 19:00
--- NOTE | 2025-01-21 | XR_ITS ---
The [address] [address] Patient Name: GÓMEZ NUNN MRN: [id number] date: 1965 Sex: F Assigned Patient Location: [facility] Current Patient Location: Accession/Order Number: [id number] Exam Date: 01/21/2025 16:49 Report Date: 01/22/2025 08:28 At the request of: KATERINE DOHERTY MD Procedure: XR lumbar spine min 4V LUMBAR SPINE -4 views: CLINICAL HISTORY: Chronic low back pain radiating down the left leg with numbness and tingling M54.16 COMPARISON: 03/30/2023 and MRI 04/13/2023 AP, lateral and both oblique views were obtained. There is subtle dextroscoliotic curvature. There is no evidence of fracture. There is 3 to 4 mm anterolisthesis of L4 on L5. There is mild disc space narrowing at L3-4 and moderate at L4-5. There are small endplate spurs. There is facet disease, greater distally. No pars defect is identified. The sacroiliac joints are maintained. There are no paraspinal soft tissue abnormalities. XR/XR lumbar spine min 4V IMPRESSION: DEGENERATIVE CHANGES, DESCRIBED. Impression dictated by: Rosina Donaldson M.D. 01/22/2025 8:28 AM Dictation Location: [place] [address] Electronically authenticated by: [id number] Y Date: 01/22/2025 08:28
--- OUTSIDE RECORDS SUMMARY | 2025-01-21 16:41 | XMS_ITS | Patient Health Record ---
Author Organization [facility] Address [address] [place] [address] Care Team Providers Care Merry Go Round Attendant Name Role Phone Reynaldo Nikos Primary Care Provider UnavailGigi Pappas Unavailable [phone] Azar Mohamud Unavailable [phone] Carine Townsend Unavailable [phone] Chrissy Crow Unavailable [phone] Livia Melo Unavailable Allergies No Known Allergies Reason For Referral Reason Cervical SLAVA Diagnosis 1 Cervical radiculitis (M54.12) Referral Organization [facility] Referring Provider First Name Azar Referring Provider Last Name Oneida Referring Provider Speciality Pain Manag ement [facility]erred Provider Azar Mohamud Referred Address [address] [place] [phone], Referred Provider Specialty Pain Managem ent Procedure 1 NJX INTERLAMINAR CRV /THRC (02055) General Notes Deanna Olmos 11/11/2024 06:49:50 AM > umr for approval - pending, Deanna Olmos 11/13/2024 07:18:50 AM > TELMA - ref#[id number] - scanned in chart Referral Priority Routine Reason Lumbar SLAVA L4-L5 LEF T of midline with oral sedation Diagnosis 1 Lumbar radiculitis ( M54.16) Referral Organization [facility] Referring Provider First Name Azar Referring Provider Last Name Oneida Referring Provider Speciality Pain Manag ement Referred Organization [facility] Referred Provider Azar Mohamud Referred Address [address] [place] [address],[place], [place],[address],[place] Referred Provider Specialty Pain Managem ent Procedure 1 NJX INTERLAMINAR LMB R/SAC (90967) General Notes Deanna Olmos 12/24/2024 06:44:21 AM > UMR for approval - pending, Deanna Olmos 12/25/2024 07:28:57 AM > TELMA -r #[id number] Referral Priority Routine Medications Medication SIG (Take, [...] Problem Status W/U Status Risk Notes Problem Tendonitis of left s houlder (3273427906558685) Left shoulder tendonitis (M77.8) ActiveconfirmedProblemLumbar radiculitis (49496239030769806)Lumbar radiculitis (M54.16)ActiveconfirmedProblemLumbar spondylosis (573477884)Lumbar spondylosis (M47.816)ActiveconfirmedProblemCervicalgia (22748729)Cervicalgia (M54.2)Active confirmedProblemBursitis of left shoulder (865974146091515)Bursitis of left shoulder (M75.52)ActiveconfirmedProblemCervical spondylosis (592520672)Cervical spondylosis (M47.812)ActiveconfirmedProblemCervical radiculitis (49357367) Cervical radiculitis (M54.12)Activeconfirmed Vital Signs Blood pressure diastolic 96 mm Hg 11/10/2024 Azgkrr10 in12/23/2024lood pressure euoifnjv063 mm Hg11/10/20240743Ivfhtg456 lbs 12/23/2024BMI27.17102/23/2024 Procedures Procedure Date Ordered Date Performed Result Body Sit e CERVICAL SLVAA 11/10/2024 11/11/2024 N/A LUMBAR ESIN/A Encounters Encounter Location Date Provider Diagnosis [facility] [address] [facility] [place] [address] [place] [address] 05/19/2024 Livia pascualWhiteland Bursitis of right shoulder M75.51 and Bursitis of left shoulder M75.52 [facility] [address] [facility] [address] [place] [address] 06/30/2024 Gigi Daoland Bursitis of left shoulder M75.52 and Left shoulder tendonitis M77.8 [facility] [address] [place] [address] 11/10/2024 Azar Bahn Cervical radiculitis M54.12 ; Cervical spondylosis M47.812 and Cervicalgia M54.2 [facility] [address] [place] [address] 11/21/2024 Azar Bahn Cervical radiculitis M54.12 [facility] [address] [place] [address] 12/23/2024 Chrissy Levyford Lumbar radiculitis M54.16 and Lumbar spondylosis M47.816 [facility] [address] [place] [address] 01/02/2025 Azar Bahn Lumbar radiculitis M54.16 [facility] [place] [address] [place] [address] 12/29/2024 Carine Townsend Cervical radiculitis M54.12 Assessments Encounter Date Diagnosis (ICD Code) Assessment Notes Treatment Notes Treatment Clinical Notes Section Notes 05/19/2024 Bursitis of left shoulder (ICD-1 0 - M75.52) Bilateral shoulder bursitis/tendinitis Prior bilateral rotator cuff repairs, biceps tenodesis 05/19/2024ursitis of right shoulder (ICD-10 - M75.51) Bilateral shoulder bursitis/tendinitis Prior bilateral rotator cuff repairs, biceps tenodesis 5Bursitis of left shoulder (ICD-10 - M75.52)06/30/2024Left shoulder tendonitis (ICD-10 - M77.8)11/10/2024ervical radiculitis (ICD-10 - M54.12) 11/21/2024ervical radiculitis (ICD-10 - M54.12)12/23/2024Lumbar spondylosis (ICD-10 - M47.816)12/23/2024Lumbar radiculitis (ICD-10 - M54.16)12/29/2024 Cervical radiculitis (ICD-10 - M54.12)01/02/2025Lumbar radiculitis (ICD-10 - M54.16)11/10/2024ervical spondylosis (ICD-10 - M47.812)11/10/2024ervicalgia (ICD-10 - M54.2)05/19/2024OtherToday [...] along with medication management both prescriptive and nbzh-zcy-uwxsxep. I did spend 30 minutes with the [...] Plan Of Treatment Next Appt Details Provider Name:Chrissy Merino rd, 02/09/2025 03:30:00 PM, [address] [place] [address], [phone], Insurance Providers Payer Name Payer Address Payer Phone Subscriber Number Group Number Insured Name Patient Relationship to Insured Coverage Start Date Coverage End Date [employer] [address] [address] [place] [address] [id number] GÓMEZ NUNN Self - patient is the insured 5 Medications Administered Medication Instructions Date of Administration Dosage Notes BUPIVACAINE gXSWCHEVZJYZW09/12/20252 mLDepo-Piodep15 mLDepo-Medrol mLDepo-Jfexop55 mLDepo-Blmbqc25 mLdexamethasone vYhclpaavgijpbr82/14/20251 sGsnovmaics61/12/20252 mLlidocaine jNssmzzsdzi56/14/20255 vKJvwpvulex53/03/20253 cOZygjdmtiy71/14/20253 mL Medical (General) History Medical History History ICD Code High Blood Pressure Surgical History Surgery Date(Month/Year) x2 Rforcvotdytk3483Tbqt Fhkowwgx8814Egun shoulder zuqxdohgqhu6243G/L IXC6825Lkwnz shoulder fhpatrcfzrk3487
--- OUTSIDE RECORDS SUMMARY | 2025-01-21 16:41 | XMS_ITS | Clinical Summary ---
Author Organization [facility] Healthcare Address [address] [facility] [place] [address] Care Team Providers Care Lasting Machine Operator Hand Method Name Role Phone Unavailable Primary Care Provider Unavailabl e Social History Tobacco UseTypesPacks/DayYears UsedDateSmoking Tobacco: Never Assessed CommentsUnknownSex and Gender InformationValueDate RecordedSex Assigned at Not on fileLegal YieZltxzi12/15/2023 6:35 PM EDTGender IdentityNot on fileSexual OrientationNot on file Last Filed Vital Signs Vital SignReadingTime TakenCommentsBlood Ecppimok479/8010 12:00 PM EDT Pulse--Temperature--Respiratory Rate--Oxygen Saturation--Inhaled Oxygen Concentration--Csrlvp28.1 kg (137 lb)12/18/2021 12:00 PM KSURqmqxv502.3 cm (4' 10 )12/18/2021 12:00 PM EDTBody Mass Index28.6312/18/2021 12:00 PM EDT Plan of Treatment Not on file
--- OUTSIDE RECORDS SUMMARY | 2025-01-21 16:41 | XMS_ITS | Clinical Summary ---
Author Organization [address] [facility] tem Address [facility] [place] [address] [place] [address] Care Team Providers Care Stock Preparation Supervisor Name Role Phone Nikos Jacobs MD Primary Care Provider [phone] Allergies No known active allergies Medications MedicationSigDispense [...] total) in the evening. Take with meals.Active kyzkoxh-tenpnfizjappm-qzabkqyu (EXCEDRIN EXTRA STRENGTH) 250-250-65 mg per tablet [...] DateHeterogeneously dense tissue of both breasts on jiafvnhsyko86/16/2024 Overview (03/06/2023): Recommendation: Recommend MBI as a supplemental screening combined with annual mammography.. Family history of breast lnlexc9903/06/2023 Overview (03/06/2023): Maternal aunt Trigger finger, icvvcheh30/18/2023 Overview (02/22/2023): Added automatically from request for surgery [id number] Family History Medical HistoryRelationNameCommentsDiabetesBrotherHypertensionBrotherKidney failureBrotherDiabetesFatherHypertensionFatherBreast cancerMaternal AuntDiabetes MotherHypertensionMotherBil Breast CancerNeg HxRelationNameStatusCommentsBrother FatherDeceasedMaternal AuntMotherDeceased Social History Tobacco UseTypesPacks/DayYears UsedDateSmoking Tobacco: NeverSmokeless Tobacco: NeverAlcohol UseStandard Drinks/WeekCommentsYes0 (1 standard drink = 0.6 oz pure alcohol)occasionalPHQ-2AnswerDate RecordedTotal Ksbcz914Hunger Screening AnswerDate RecordedWithin the past 12 months we worried whether our food would run out before we got money to buy more.Never True02/22/2023Within the past 12 months the food we bought just didn't last and we didn't have money to get more. Never True02/22/2023CommentsNoSex and Gender InformationValueDate RecordedSex Assigned at BirthNot on fileLegal DbzGvqdgn11/22/2022 3:20 PM EST Gender IdentityNot on fileSexual OrientationNot on file Last Filed Vital Signs Vital SignReadingTime TakenCommentsBlood Vkkdcczf372/80002/22/2023 2:59 PM EST Glfyc027601/31/2022 1:32 PM ESTTemperature--Respiratory Dsut505304/03/2021 1:32 PM ESTOxygen Saturation--Inhaled Oxygen Concentration--Btbnwp02.3 kg (133 lb) 03/02/2023 2:59 PM TUYAbhnya517.3 cm (4' 10 )03/02/2023 2:59 PM ESTBody Mass Index27. 2:59 PM EST Plan of Treatment Health MaintenanceDue DateLast DoneCommentsDTaP,Tdap and Td Vaccines (1 - Tdap) 1985Zoster (Shingles) Vaccine (1 of 2)2016Depression Screening Tobacco Lotepnfkh55dult BMI Screening Mammogram, 12/28/2020, 12/28/2020, Additional history existsInfluenza Rbkvbej0410/20/2024 Medical Devices Not on file Procedures Procedure NamePriorityDate/TimeAssociated DiagnosisCommentsMAMM SCREENING BILATERAL W SFVChrvijh85/12/2024 3:15 PM EST Encounter for screening mammogram [...] IMG Authorizing ProviderResult TypeResult StatusLi Martin Markylayachapin APARTMENT COMMUNITY MANAGER-CNPIMG MAMMOGRAPHY ORDERABLESEdited Result - Final from Last 3 Months or Most Recently Relevant to Health Maintenance Insurance Care Teams Team MemberRelationshipSpecialtyStart DateEnd Date Nikos Jacobs MD PCP - GeneralFamily Medicine02/22/23
--- OUTSIDE RECORDS SUMMARY | 2025-01-21 16:41 | XMS_ITS | Clinical Summary ---
Author Organization [facility] Address [address] [place] [address] Care Team Providers Care Dictaphone Operator Name Role Phone Nikos Jacobs MD Primary Care Provider [phone] Allergies No known active allergies Medications MedicationSigDispense [...] morning.06/06/2022ctive Active Problems ProblemNoted DateDiagnosed DateTrigger finger, vbwnalkn88/18/2023 Overview (07/06/2022): Added automatically from request for surgery [id number] Family History RelationNameStatusCommentsBrotherDeceasedFatherDeceasedMotherDeceased Social History Tobacco UseTypesPacks/DayYears UsedDateSmoking Tobacco: NeverSmokeless Tobacco: Never Tobacco Cessation:Counseling Given: Not Answered Alcohol UseStandard Drinks/WeekCommentsNever0 (1 standard drink = 0.6 oz pure alcohol)PHQ-2AnswerDate RecordedPatient Health Questionnaire-2 Httbf841 [place] Safety & EnvironmentAnswerDate RecordedFear of Current or Ex-PartnerNot on file04/12/2023Emotionally AbusedNot on file04/12/2023hysically AbusedNot on file04/12/2023Sexually AbusedNot on file04/12/2023hysically or Sexually Abused Not on file04/12/2023CommentsUnknownSex and Gender InformationValueDate RecordedSex Assigned at FqbllFubttc62/18/2023 3:04 PM EDTLegal SexFemale 08/18/2021 12:17 AM EDTGender FgrvdoyrWcqpdd41/18/2023 3:04 PM EDTSexual OrientationHeterosexual or Zsxtlmyo66/18/2023 3:04 PM EDT Last Filed Vital Signs Vital SignReadingTime TakenCommentsBlood Hmmlaald623/61007/24/2022 2:25 PM EDT Tvpgk5915/05/2023 2:25 PM WHEKevmtmlyuxc43 ??C (96.8 ??F)07/24/2022 2:25 PM EDT Respiratory Cjln165707/24/2022 2:25 PM EDTOxygen Mbdqrrjntl61%07/24/2022 2:25 PM EDTInhaled Oxygen Concentration--Gmucvs11.5 kg (140 lb)09/29/2022 8:08 AM EDT Leqcpj886.3 cm (4' 10 )09/29/2022 8:08 AM EDTBody Mass Index29.2608 8:08 AM EDT Plan of Treatment Health MaintenanceDue DateLast DoneCommentsCT Jdhucxucmtgf15/21/1967Colonoscopy 1966Colorectal Cancer Fohsiknug72/21/1967FIT-DNA1966FIT1966 FOBT1966 9543Yvcpudzlewmyo75/21/1967Depression Iwxholbkp99/21/1979Hepatitis B Vaccines (1 of 3 - 19+ 3-dose series)1985Pap Smear1987Adult Tetanus 1988Cervical Cancer Jlujomydc04/21/1997HPV/Zupmgg4004/11/1996Mammogram 2006Zoster Vaccines (1 of 2)2016Influenza Vaccine (#1)2024HIB [...] MemberRelationshipSpecialtyStart DateEnd Nikos Jacobs MD [address] [place] [address] [facility]07/06/22
--- OUTSIDE RECORDS SUMMARY | 2025-01-21 16:42 | XMS_ITS | Patient Health Record ---
Author Organization [facility] in [place] Address [address] [place] [address] Care Team Providers Care Broadcast Field Supervisor Name Role Phone Cosme Doherty Primary Care Provider Allergies No Known Allergies Results Component Value Reference Range Notes XR cervical spine 2-3V Reviewed date:08/20/2024 07:16:37 PM Interpretation: Performing Lab: Notes/Report: Source Facility: [place] [address] XRay Report Signed Patient: SHERRON NUNN MR#: [id number] : 1965 Acct:[id number] Age/Sex: 59 / F ADM Date: 08/20/24 Loc: RAD Attending Dr: Katerine Doherty M.D. Ordering Physician: Katerine Doherty M.D. Date of Service: 08/20/24 Procedure(s): XR cervical spine 2-3V Accession Number(s): [id number] cc: Katerine Doherty M.D. [place] [address] Patient Name: SHERRON NUNN MRN: [id number] date: 1965 Sex: F Assigned Patient Location: RAD Current Patient Location: RAD Accession/Order Number: [id number] Exam Date: 08/20/2024 16:31 Report Date: 08/20/2024 [...] Jr., D.O. 08/20/2024 4:31 PM Dictation Location: [place] [address] Electronically authenticated by: [id number] Y Date: 08/20/2024 16:31 Dictated By: Parminder Jacobo M.D. Signed By: 08/20/241633 DD/ 30 TD/TT: Supervisor [employer]: CBC AUTO DIFF Reviewed date:09/24/2024 12:35:49 PM Interpretation: Performing Lab: Notes/Report: [facility] , White Blood Count 9.9 4.0-11.0 10 3/uL Red Blood Count4.684.20-5.40 10 6/pZAvtrhrgsil44.112.0-16.0 g/zXXjzsawtjtc04.4 36.0-48.0 %Mean Corpuscular Cvgpkv03.681.0-99.0 fLMean Corpuscular Hemoglobin 30.126.7-34.0 pgMean Corpuscular HGB Conc33.329.9-35.2 g/dLRed Cell Distribution Width14.011.0-15.0 %Platelet Ygmxt567977-516 10 3/uLMean Platelet Volume9.99.5- 13.5 fLNeutrophils Percent Auto65.843.0-75.0 %Lymphocytes Percent Auto25.420.5- 60.0 %Monocytes Percent Auto7.21.7-12.0 %Eosinophils Percent Auto1.10.9-7.0 % Basophils Percent Auto0.20.2-2.0 %Immature Granulocytes Pct Auto0.30.0-0.5 % Neutrophils Absolute Auto6.51.4-6.5 10 3/uLLymphocytes Absolute Auto2.51.2-3.8 10 3/uLMonocytes Absolute Auto0.70.3-0.8 10 3/uLEosinophils Absolute Auto0.10.0- 0.7 10 3/uLBasophils Absolute Auto0.00.0-0.1 10 3/uLImmature Granulocytes Abs Auto0.030.00-0.03 10 3/uLPerforming Lab:see noteML - [facility] LB FERRITIN Reviewed date:09/24/2024 12:35:49 PM Interpretation: Performing Lab: Notes/Report: [facility] ,Arflypjg21.08.0-252.0 ng/mLPerforming Lab:see note - [facility] LB PROF 14(COMP METB) Reviewed date:09/24/2024 12:35:49 PM Interpretation: Performing Lab: Notes/Report: [facility] ,Cjvvmg104346-936 mmol/LPotassium3.83.5-5.1 mmol/OYxbseulq77473-433 mmol/LCarbon Ygzdugz73.121.0-32.0 mmol/LAnion Gap13.1Jgifpnv04612-848 mg/dLBlood Urea Gqudocpf76.07.0-18.0 mg/dLCreatinine0.650.55-1.02 mg/dLEstimated GFR ( Lyn>60>=60 mL/min/1.73m 2Estimated GFR (Non- Abbey>60>=60 mL/min/1.73m 2BUN Creatinine Ratio36.0Qlklvnz9.78.5-10.1 mg/dLBilirubin Total0.30.2-1.0 mg/dL Aspartate Amino Nnqclxpcmnq0048-98 U/LAlanine Bykcehpnhlpkncug2028-04 U/L Alkaline Njvxqefwsui7714-122 U/LTotal Protein7.66.4-8.2 g/dLAlbumin Level4.03.4- 5.0 g/dLGlobulin3.6Albumin Globulin Ratio1.1Performing Lab:see note - [facility] LBPTT Reviewed date:09/24/2024 12:35:49 PM Interpretation: Performing Lab: Notes/Report: [facility] ,Partial Thromboplastin Time23.122.3-36.2 secPerforming Lab:see noteML - [facility] LBTHYROID ANTIBODIES Reviewed date:01/06/2025 06:58:42 PM Interpretation: Performing Lab: Notes/Report: [facility] ,Thyroid Peroxidase (TPO) Ab<90-34 IU/mLThyroglobulin Antibody<1.00.0-0.9 IU/mL Thyroglobulin Antibody measured by Xander Rubén Methodology It should be noted that the presence of thyroglobulin antibodies may not be pathogenic nor diagnostic, especially at very low levels. The assay truck packer has found that four percent of individuals without evidence of thyroid disease or autoimmunity will have positive TgAb levels up to 4 IU/mL. Performed at: [facility] [address] [id number] Silver Solution Mixer: Satya Marino PhD, Phone: [phone] Performing Lab:[facility] LBMR shoulder LT wo con Reviewed date:05/01/2024 07:28:28 PM Interpretation: Performing Lab: Notes/Report: Source Facility: [place] [address] [place] [address] Magnetic Resonance Report Signed Patient: SHERRON NUNN MR#: [id number] : 1965 Acct:[id number] Age/Sex: 59 / F ADM Date: 05/01/24 Loc: MRI Attending Dr: Katerine Doherty M.D. Ordering Physician: Katerine Doherty M.D. Date of Service: 05/01/24 Procedure(s): MR shoulder LT wo con Accession Number(s): [id number] cc: Katerine Doherty M.D. [place] [address] Patient Name: SHERRON NUNN MRN: [id number] date: 1965 Sex: F Assigned Patient Location: MRI Current Patient Location: MRI Accession/Order Number: [id number] Exam Date: 05/01/2024 18:50 Report Date: 05/01/2024 [...] Paco Laura M.D.05/01/2024 6:56 PM Dictation Location: [place] [address] Electronically authenticated by: [id number] Y Date: 05/01/2024 18:56 Dictated By: Paco Laura D.O. Signed By: 05/01/249 DD/ 55 TD/TT: Supervisor [employer]:MR cervical spine wo con Reviewed date:08/31/2024 04:04:07 PM Interpretation: Performing Lab: Notes/Report: Source Facility: [facility] [place] [id number] Magnetic Resonance Report Signed Patient: SHERRON NUNN MR#: [id number] : 1965 Acct:[id number] Age/Sex: 59 / F ADM Date: 08/29/24 Loc: MRI Attending Dr: Katerine Doherty M.D. Ordering Physician: Katerine Doherty M.D. Date of Service: 08/29/24 Procedure(s): MR cervical spine wo con Accession Number(s): [id number] cc: Katerine Doherty M.D. [place] [address] Patient Name: SHERRON NUNN MRN: [id number] date: 1965 Sex: F Assigned Patient Location: MRI Current Patient Location: MRI Accession/Order Number: [id number] Exam Date: 08/29/2024 19:20 Report Date: 08/29/2024 [...] right moderate severe left neural from narrowing. Voja-io-lbifkgru central canal stenosis. C5-6: Circumferential disc osteophyte complex formation with uncovertebral spurring greatest left. Minimal right xehnbawt-qn-fozhya left neural from narrowing. Moderate central canal [...] Goncalves M.D. 08/29/2024 7:34 PM Dictation Location: [place] [address] Electronically authenticated by: [id number] Y Date: 08/29/2024 19:34 Dictated By: Fernando Goncalves M.D. Signed By: 08/29/241935 DD/ 33 TD/TT: Supervisor [employer]:Prothrombin Time INR Reviewed date:09/24/2024 12:35:49 PM Interpretation: Performing Lab: Notes/Report: [facility] ,Prothrombin Time10.99.0-11.6 secINR1.03 DESIRED INR: 2.0-3.0 CONDITIONS NOT LISTED BELOW 2.5-3.5 FOR PROSTHETIC HEART VALVE REPLACEMENT 2.5-3.5 RECURRENT THROMBOSIS Performing Lab:see noteML - [facility] LBCBC AUTO DIFF Reviewed date:01/03/2025 01:22:12 PM Interpretation: Performing Lab: Notes/Report: [facility] ,White Blood Count16.44.0-11.0 10 3/uLRed Blood Count5.014.20-5.40 10 6/uL Ijzhlytjhg94.012.0-16.0 g/sCEcwmjmrnwy36.036.0-48.0 %Mean Corpuscular Uvnlfa08.8 81.0-99.0 fLMean Corpuscular Hjksogndni80.926.7-34.0 pgMean Corpuscular HGB Conc 33.329.9-35.2 g/dLRed Cell Distribution Width13.611.0-15.0 %Platelet Qcurs030 150-450 10 3/uLMean Platelet Fbzyvy73.29.5-13.5 fLNeutrophils Percent Auto83.3 43.0-75.0 %Lymphocytes Percent Auto11.020.5-60.0 %Monocytes Percent Auto5.41.7- 12.0 %Eosinophils Percent Auto0.00.9-7.0 %Basophils Percent Auto0.10.2-2.0 % Immature Granulocytes Pct Auto0.20.0-0.5 %Neutrophils Absolute Auto13.71.4-6.5 10 3/uLLymphocytes Absolute Auto1.81.2-3.8 10 3/uLMonocytes Absolute Auto0.90.3- 0.8 10 3/uLEosinophils Absolute Auto0.00.0-0.7 10 3/uLBasophils Absolute Auto0.0 0.0-0.1 10 3/uLImmature Granulocytes Abs Auto0.040.00-0.03 10 3/uLPerforming Lab:see noteML - [facility] LBINSULIN Reviewed date:01/05/2025 01:51:57 PM Interpretation: Performing Lab: Notes/Report: [facility] ,Whubuek36.42.6-24.9 uIU/mL Performed at: - [facility] [address] [id number] Silver Solution Mixer: Satya Marino PhD, Phone: [phone] Performing Lab:see note - [facility] LBVitamin D, 25-Hydroxy Reviewed date:01/06/2025 06:58:42 PM Interpretation: Performing Lab: Notes/Report: [facility] ,Vitamin D, 25-Jfczuar70.330.0-100.0 ng/mL Vitamin D deficiency has been defined by the [place] of [employer] and an Endocrine Society practice guideline as a level of serum 25-OH vitamin D less than 20 ng/mL (1,2). The Endocrine Society went on to further define vitamin D insufficiency as a level between 21 and 29 ng/mL (2). 1. IOM ([place] of [employer]). 2010. Dietary reference intakes for calcium and D. [place]: The National Academies Press. 2. Mario MF, Rolanda [place], Armand OJEDA, et al. Evaluation, treatment, and prevention of vitamin D deficiency: an Endocrine Society clinical practice guideline. JCEM. 2010; 96(7):1911-30. Performed at: [address] [id number] Silver Solution Mixer: Satya Marino PhD, Phone: [phone] Performing Lab:see [facility] LBVitamin B12 Reviewed date:01/05/2025 01:51:57 PM Interpretation: Performing Lab: Notes/Report: [facility] ,Vitamin R84180625-2901 pg/mL Performed at: [address] [id number] [employer] Mixer: Satya Marino PhD, Phone: [phone] Performing Lab:see [facility] LBThyroxine (T4) Reviewed date:01/06/2025 06:58:42 PM Interpretation: Performing Lab: Notes/Report: [facility] ,Thyroxine (T4)7.54.5-12.0 ug/dL Performed at: [address] [id number] [employer] Mixer: Satya Marino PhD, Phone: [phone] Performing Lab:see [facility]ationCBC AUTO DIFF Reviewed date:01/20/2025 04:52:43 PM Interpretation: Performing Lab: Notes/Report: [facility] ,White Blood Count9.64.0-11.0 10 3/uLRed Blood Count4.654.20-5.40 10 6/uL Bkrcudgaxj95.812.0-16.0 g/wBVizjepaiob65.836.0-48.0 %Mean Corpuscular Xkwhdc42.9 81.0-99.0 fLMean Corpuscular Bpnzzszvnc39.726.7-34.0 pgMean Corpuscular HGB Conc 33.029.9-35.2 g/dLRed Cell Distribution Width13.811.0-15.0 %Platelet Oguqj462 150-450 10 3/uLMean Platelet Volume9.99.5-13.5 fLNeutrophils Percent Auto66.2 43.0-75.0 %Lymphocytes Percent Auto22.820.5-60.0 %Monocytes Percent Auto8.81.7- 12.0 %Eosinophils Percent Auto1.80.9-7.0 %Basophils Percent Auto0.20.2-2.0 % Immature Granulocytes Pct Auto0.20.0-0.5 %Neutrophils Absolute Auto6.41.4-6.5 10 3/uLLymphocytes Absolute Auto2.21.2-3.8 10 3/uLMonocytes Absolute Auto0.80.3-0.8 10 3/uLEosinophils Absolute Auto0.20.0-0.7 10 3/uLBasophils Absolute Auto0.00.0- 0.1 10 3/uLImmature Granulocytes Abs Auto0.020.00-0.03 10 3/uLPerforming Lab:see noteML - [facility] LBTSH Reviewed date:01/03/2025 01:42:52 PM Interpretation: Performing Lab: Notes/Report: [facility] ,Thyroid Stimulating Hormone0.2380.358-3.740 uIU/mLPerforming Lab:see noteML - [facility] LBPROF 14(COMP METB) Reviewed date:01/03/2025 01:42:52 PM Interpretation: Performing Lab: Notes/Report: [facility] ,Ikbbyj164681-627 mmol/LPotassium3.73.5-5.1 mmol/FRtygkvzg23548-363 mmol/LCarbon Qenrvgx32.621.0-32.0 mmol/LAnion Gap12.4Gyzppio12401-272 mg/dLBlood Urea Idchpghq04.07.0-18.0 mg/dLCreatinine0.680.55-1.02 mg/dLEstimated GFR ( Lyn>60>=60 mL/min/1.73m 2Estimated GFR (Non- Abbey>60>=60 mL/min/1.73m 2BUN Creatinine Ratio29.6Mzegihb2.88.5-10.1 mg/dLBilirubin Total0.30.2-1.0 mg/dL Aspartate Amino Mjdqsaeyyha1343-52 U/LAlanine Erfplfpzgdlradhi9509-55 U/L Alkaline Citgxvsngxl3240-178 U/LTotal Protein8.06.4-8.2 g/dLAlbumin Level4.03.4- 5.0 g/dLGlobulin4.0Albumin Globulin Ratio1.0Performing Lab:see noteML - [facility] LBLIPID PROFILE Reviewed date:01/03/2025 01:42:52 PM Interpretation: Performing Lab: Notes/Report: [facility] ,Rzjtpdxgtabku44<=150 mg/qXGfilmbkvxyu355<=200 mg/dLHDL Gutmjgbxzzz1978-98 mg/dL > or =60 mg/dl - LOW CARDIOVASCULAR RISK <40 mg/dl - HIGH CARDIOVASCULAR RISK LDL Cholesterol Wgaxvgsxma557.0 <100 mg/dl OPTIMAL 100-129 mg/dl NEAR OR ABOVE OPTIMAL 130-159 mg/dl BORDERLINE HIGH 160-189 mg/dl HIGH >190 mg/dl VERY HIGH VLDL CHOLESTEROL8.4Chol HDL Ratio2.9 3.3 - 4.4 LOW RISK 4.4 - 7.1 AVERAGE RISK 7.1 - 11.0 MODERATE RISK >11.0 HIGH RISK Performing Lab:see noteML - [facility] LBIRON Reviewed date:01/03/2025 01:22:12 PM Interpretation: Performing Lab: Notes/Report: [facility] ,Vglr515.050.0-170.0 ug/dLPerforming Lab:see noteML - [facility] LB GLYCOHEMOGLOBIN A1C Reviewed date:01/03/2025 01:22:12 PM Interpretation: Performing Lab: Notes/Report: [facility] ,Glycohemoglobin A1C6.14.5-6.2 % ADA RECOMMENDED LIMIT 4.0 - 6.0 ADA THERAPEUTIC TARGET < 7.0 ACTION SUGGESTED > 7.0 Estimated Average Qjsnjyv757Hpexdgodeh Lab:see noteML - [facility] LB FREE T3 Reviewed date:01/03/2025 01:42:52 PM Interpretation: Performing Lab: Notes/Report: [facility] ,Free T32.392.18-3.98 pg/mLPerforming Lab:see noteML - [facility] LB FOLATE Reviewed date:01/03/2025 01:42:52 PM Interpretation: Performing Lab: Notes/Report: [facility] ,Uypjzx61.208.60-58.90 ng/mLPerforming Lab:see noteML - [facility] LB Reason For Referral Diagnosis 1 Pain in left shoulde r (M25.512) Referral Organization [facility] Referring Provider First Name Cosme Referring Provider Last Name Reynaldo [facility] The[facility] y Referred Provider Specialty Physical The rapist Referral Priority Routine Diagnosis 1 Arthritis of left sh oulder region (M19.012) Diagnosis 2 Bursitis of shoulder , left (M75.52) Referral Organization [facility] Referring Provider First Name Cosme Referring Provider Last Name Yovanyelly Referring Provider [facility] Referred Provider Gigi Cm Referred Provider Specialty Orthopedic S urgery Referral Priority Routine Diagnosis 1 Cervical radicular p ain (M54.12) Diagnosis 2 Lumbar radiculitis ( M54.16) Referral Organization [facility] Referring Provider First Name Cosme Referring Provider Last Name Reynaldo Referring Provider [facility] Referred Provider Angelito Cotton Referred Provider Specialty Neurosurgery Referral Priority Routine Reason C-spine and L spine radiculopathy Diagnosis 1 Lumbar radiculitis ( M54.16) Referral Organization [facility] Referring Provider First Name Cosme Referring Provider Last Name Yovanyelly Referring Provider [facility] Referred Provider TB, Physical Therap y Referred Provider Specialty Physical The rapist Referral Priority Routine Medications Medication SIG (Take, Route, Frequency, Duration) Notes Start Date End Date Status Estradiol 0.1 MG/GM as directed Vaginal ActiveExcedrin Extra Strength 250-250-65 MG2 tablets Orally Once a day prnPRN ActiveLisinopril 10 mgTAKE 1 TABLET BY MOUTH DAILY; Duration: 90 daysActive Meloxicam 15 MG1 tablet Orally Once a day; Duration: 30 days5Active Pataday 0.1 %1 drop into affected eye Ophthalmic Twice a dayActiveSimvastatin 20 MG1 tablet Orally every evening; Duration: 30 days5ActivetiZANidine HCl 4 MG2 tablets Orally at bedtime; Duration: 73DYC443ActiveTylenol 8 Hour Arthritis Pain 650 MG2 tablets as needed Orally every 8 hrs prnPRNActive valACYclovir HCl 1 GM1 tablet Orally Once a day; Duration: 90 daysPRNActive Vitamin D (Cholecalciferol) 25 MCG (1000 UT)1 capsule Orally Once a dayActiveCod Liver Oil 4000-200 UNITas directed OrallyActiveVoltaren 1 %as directed Externally prnPRNActive Social History [...] containing alcohol in the past year?Weekly (3 points)Dewudd3ObzzjigohbzcbnSooebapnPSLLR-L (Standard) Question Answer Notes Did you have a drink containing alcohol in the p ast year? No Oqhrkm8MpjenzmiilldlwBtuerkaw Problems Problem Type SNOMED Code ICD Code Onset Dates Problem Status W/U Status Risk Notes Problem Carpal tunnel syndrome (45245435 ) Carpal tunnel syndrome, unspecified upper limb (G56.00) ActiveconfirmedProblemLocalized, primary osteoarthritis of the ankle and/or foot (650881986)Primary osteoarthritis, left ankle and foot (M19.072)Activeconfirmed ProblemAcquired hallux rigidus (4459482)Hallux rigidus, left foot (M20.22)Active confirmedProblemArthritis (3927207)Arthritis (M19.90)ActiveconfirmedProblem Leukocytosis (738733029)Elevated WBC count (D72.829)ActiveconfirmedProblem Trigger finger (0671891)Trigger finger (M65.30)ActiveconfirmedProblemLeft shoulder pain (5363183705)Left shoulder pain (M25.512)ActiveconfirmedProblem Acquired spondylolisthesis (298090748)Lumbar spondylolysis (M43.06)Active confirmedProblemAlopecia (27171141)Hair loss (L65.9)ActiveconfirmedProblem Osteoarthritis of right knee joint (545866340845855)Right knee DJD (M17.9)Active confirmedProblemBicipital tenosynovitis (59543704)Biceps tendonitis (M75.20) ActiveconfirmedProblemLumbar radiculitis (30674118140857243)Lumbar radiculitis (M54.16)ActiveconfirmedProblemCervical radiculopathy (16981975)Cervical radicular pain (M54.12)ActiveconfirmedProblemBursitis of shoulder (408033451) Shoulder bursitis (M75.50)ActiveconfirmedProblemHypercholesterolemia (20401600) Hypercholesterolemia (E78.00)ActiveconfirmedProblemLocalized, primary osteoarthritis of the shoulder region (383351717)Arthritis of left shoulder region (M19.012)ActiveconfirmedProblemBruising (525590926)Bruising (T14.8XXA) Activeconfirmed Vital Signs Blood pressure diastolic 80 mm Hg 01/21/2025 Lbjoxd04 in01/21/2025lood pressure tmqsaiuw768 mm Hg01/21/20256257Hmatpy264 lbs 01/21/2025BMI26.75 kg/m201/21/2025 Encounters Encounter Location Date Provider Diagnosis [address] [address] 01/20/2025 Cosme Hoy Lumbar radiculitis M54.[address] [address] 01/21/2025 Cosme Hoy Lumbar radiculitis M54.[address] [address] 03/10/2024 Cosme Hoy Left shoulder pain M25.[address] [address] 07/16/2024 Cosme Hoy Cervical radiculopat hy M54.[address] [address] 08/20/2024 Cosme Hoy Cervical radicular p ain M54.[address] [address] 12/24/2024 Cosme Hoy Arthritis M19.[address] [address] 12/31/2024 Cosme Hoy Hair loss L65.9 and Well adult Z00.00 [facility] [address] [facility] [place] [address] 01/07/2025 Cosme Hoy Lumbar radiculitis M54.16 [facility] [address] [facility] [place] [address] 04/04/2024 Cosme Hoy Biceps tendonitis M7 5.20 [facility] [address] [facility] [place] [address] 09/22/2024 Cosme Hoy Bruising T14.8XXA [facility] [address] [facility] [place] [address] 01/24/2024 Cosme Hoy [facility] [facility] [place] [address] 03/11/2024Doug HoyPain in left shoulder M25.512[facility] [address] [facility] [place] [address]/Doug HoyLeft shoulder pain M25.512[facility] [facility] [place] [address]/12/2024[facility] [facility] [place] [address]/Doug HoyArthritis of left shoulder region M19.012 and Bursitis of shoulder, left M75.52[facility] [facility] [place] [address]/03/2024[facility] [facility] [place] [address]/10/2024[facility] [facility] [place] [address]/ Cosme HoyCervical radicular pain M54.12 and Lumbar radiculitis M54.16[facility] [facility] [place] [address]/07/2024 [facility] [facility] [place] [address]/Doug HoyElevated WBC count D72.829[facility] [facility] [place] [address]/Doug Hoy Hypercholesterolemia E78.00[facility] [place] [address]/03/2024Doug Hoy Assessments Encounter Date Diagnosis (ICD Code) Assessment Notes Treatment Notes Treatment Clinical Notes Section Notes 03/10/2024 Left shoulder pain (ICD-10 - M25 .512) may need PT5Biceps tendonitis (ICD-10 - M75.20)07/16/2024ervical radiculopathy (ICD-10 - M54.12)trial injection - and keep ing oral muscle eeiwfaw7608/20/2024ervical radicular pain (ICD-10 - M54.12)5Bruising (ICD-10 - T14.8XXA)12/24/2024rthritis (ICD-10 - M19.90)12/31/2024Hair loss (ICD-10 - L65.9)12/31/2024Well adult (ICD-10 - Z00.00)01/07/2025Lumbar radiculitis (ICD-10 - M54.16)01/20/2025Lumbar radiculitis (ICD-10 - M54.16) 01/21/2025Lumbar radiculitis (ICD-10 - M54.16)03/11/2024Pain in left shoulder (ICD-10 - M25.512)2024Left shoulder pain (ICD-10 - M25.512)05/01/2024 Arthritis of left shoulder region (ICD-10 - M19.012)05/01/2024ursitis of shoulder, left (ICD-10 - M75.52)08/31/2024ervical radicular pain (ICD-10 - M54.12)08/31/2024Lumbar radiculitis (ICD-10 - M54.16)01/03/2025Elevated WBC count (ICD-10 - D72.829)01/03/2025Hypercholesterolemia (ICD-10 - E78.00) 01/20/2025OtherRecommended to rest and use a heating pad on the area. Take NSAIDs for pain as qgitpr0201/21/2025OtherRecommended to rest and use a heating pad on the area. Take NSAIDs for pain as rkbrsz2107/16/2024OtherRecommended to rest and use a heating pad on the area. Take NSAIDs for pain as uojucu4608/20/2024 OtherRecommended to rest and use a heating pad on the area. Take NSAIDs for pain as cafduu1412/31/2024OtherRecommended to rest and use a heating pad on the area. Take NSAIDs for pain as feshcq9301/07/2025OtherRecommended to rest and use a heating pad on the area. Take NSAIDs for pain as needed Plan Of Treatment Pending Test Test Name Order Date CMP (COMPLETE METABOLIC PANEL) HEMOGLOBIN A1C (GLYCO) 03/30/2023 HEMOGLOBIN A1C (GLYCO) 12/31/2024 IRON, TOTAL 12/31/2024 IRON, TOTAL 03/30/2023 LIPID PANEL (CHOL/TRIG/HDL/LDL) 03/30/19 24 LIPID PANEL (CHOL/TRIG/HDL/LDL) 01/01/20 25 CBC WITH DIFF (EXP 12/2024) 03/30/2023 VITAMIN D, 25 LEVEL (TOTAL) 03/30/2023 VITAMIN D, 25 LEVEL (TOTAL) 12/31/2024 MRI Shoulder LT w/o contrast 2024 CBC 01/03/2025 RHEUMATOID PANEL 09/27/2022 Insulin Level 03/30/2023 Insulin Level 12/31/2024 CBC AUTO DIFF 09/27/2022 LIPID PROFILE 01/03/2025 LIVER PROFILE 01/03/2025 PROF 14(COMP METB) 09/27/2022 PROTIME 09/22/2024 SED RATE WESTERGREN 09/27/2022 VIT B12 AND FOLATE 12/31/2024 MRI CSPINE WO CON 08/20/2024 MRI LSPINE WO CON 03/30/2023 MRI LSPINE WO CON 01/21/2025 XR CSPINE MIN 4 VIEWS 01/03/2023 XR FOOT LT MIN 3 VIEWS 08/29/2022 XR LSPINE 2_3 VIEWS 01/03/2023 XR LSPINE 2_3 VIEWS 03/30/2023 XR LSPINE MIN 4 VIEWS 01/21/2025 THYROID PANEL (T4/TSH/FREE T3) THYROID PANEL (T4/TSH/FREE T3) XR pelvis 1-2V 01/21/2025 CMP (COMP MET WHITING) w/eGFR CKD-EPI 2024 CBC WITH DIFF 12/31/2024 Insurance Providers Payer Name Payer Address Payer Phone Subscriber Number Group Number Insured Name Patient Relationship to Insured Coverage Start Date Coverage End Date [employer] [address] [address] [place] [address] [id number] Sherron Nunn Self - patient is the insured Medications Administered Medication Instructions Date of Administration Dosage Notes Dexamethasone, 4mg/mL mgKenalog-40020 wa154Xwongqf-8017/15/2023120 mgKenalog-40 vq935Ypraicu-9452 mgKetorolac Xpkeveiwdlqu83/15/202360 mgKetorolac Zakqmclhapum68/09/674127 tk01Dsiclxrth Vmgllfjjfzgl78/28/202560 mg Ketorolac Ibwmxbuxvofc78/04/202560 mgKetorolac Wxzwfvtqpjdg90/05/202560 mg Ketorolac Nvocextlgzzi13/02/202560 mgKetorolac Ljsmilmmbioe10/03/202560 mg methylPREDNISolone Jqllgef58 mgmethylPREDNISolone Cyvsqwd33 mgOrphenadrine Xblcyse19 mgOrphenadrine Nafnmrd72 mg60 Orphenadrine Oevqlmz25 mgOrphenadrine Arttyrk04 mg Orphenadrine Nitnobf80 mgOrphenadrine Gdpicje87 mg Triamcinolone 40 mg/ml20 mgTriamcinolone 40 mg/ml [...]
--- OUTSIDE RECORDS SUMMARY | 2025-01-21 16:42 | XMS_ITS | Clinical Summary ---
Author Organization [facility] Address [address] [place] [address] Care Team Providers Care Preschool Teacher Aide Name Role Phone [facility], Other Unavailable [phone]- [phone] Social History Tobacco UseTypesPacks/DayYears UsedDateSmoking Tobacco: Never Assessed CommentsUnknownSex and Gender InformationValueDate RecordedSex Assigned at Not on fileLegal CgkCtksxu82/19/2022 12:00 PM EDTGender IdentityNot on file Sexual OrientationNot on file Last Filed Vital Signs Vital SignReadingTime TakenCommentsBlood Pressure--Pulse--Temperature-- Respiratory Rate--Oxygen Saturation--Inhaled Oxygen Concentration--Rylcoh14.2 kg (135 lb)07/07/2021 12:00 PM APFRspcxj826.8 cm (4' 9 )07/07/2021 12:00 PM EDTBody Mass Index29.21007/07/2021 12:00 PM EDT Plan of Treatment Health MaintenanceDue DateLast DoneCommentsHEPATITIS C VIRUS KJDVEFECZ45/21/1967 NVUOHKJ78 1966HIV SCREENING YLIXSKVLWZ58/21/1982HEP B VACCINE (1 of 3 - 19+ 3-dose series)1985TDAP (ADULT)1985CERVICAL CANCER SCREENING XIGCKTKRNW72/21/1988LIPID HMRZMXZTD25/21/2007MAMMOGRAM SCREENING DISCUSSION 2006COLORECTAL CANCER SCREENING VTXIKMKVNU74/21/2012PNEUMOCOCCAL VACCINE SERIES (1 of 1 - PCV)2016ZOSTER (SHINGLES) VACCINE (1 of 2)2016 COVID-19 VACCINE (1 - 2024- season)2024INFLUENZA VACCINE (#1)2024 Care Teams Team MemberRelationshipSpecialtyStart DateEnd Date [facility], Other [address] [place] [address] PCP - Transplant CoordinatorTransplant07/07/21
== END 2025-01-21 16:37 | disposition home or self-care (01) ==
LOC: RAD 16:37
PROVIDERS: PCP Family Medicine; Visit Provider Family Medicine
DX: M54.16 Radiculopathy, lumbar region (principal)
CPT/HCPCS: 72110; 72170

== ENCOUNTER 2025-02-05 06:41 | Outpatient (OUT) | payer OTHER, SELFPAY ==
--- NOTE | 2025-02-05 06:44 | MR_ITS ---
The [address] [address] Patient Name: GÓMEZ NUNN MRN: [id number] date: 1965 Sex: F Assigned Patient Location: MRI Current Patient Location: MRI Accession/Order Number: [id number] Exam Date: 02/05/2025 07:05 Report Date: 02/05/2025 12:06 At the request of: KATERINE DOHERTY MD Procedure: MR lumbar spine wo con MRI LUMBAR SPINE WITHOUT CONTRAST COMPARISON: 04/13/2023 MRI and plain films 01/21/2025 CLINICAL DATA: Chronic back pain with radiation to the buttocks and left leg. No reported injury. Multiecho, multiplanar imaging of the lumbar spine was obtained in the axial and sagittal plane. There is still approximately 4 mm of anterolisthesis of L4 on L5. There are no developing compression fractures or marrow edema. The conus medullaris is within normal limits for caliber, position and signal intensity terminating at T12-L1. No paraspinal soft tissue abnormalities are identified. At T12-L1 through L2-3, there is no disc disease or stenosis. At L3-4, there is slight loss of disc height and disc desiccation. There is continued mild annular disc bulging, slightly asymmetric through the left neural foramen extending laterally. There is mild bilateral facet and ligamentous hypertrophy. Mild thecal sac effacement is noted. Mild right and mild to moderate left foraminal encroachment is seen. At L4-5, disc space narrowing and disc desiccation are again seen. There is annular disc bulging and uncovering of the disc, with continued asymmetry through the left neural foramen. Bilateral facet hypertrophy is noted with fluid in the joints. There is also mild thickening of ligamentum flavum. There is moderate to severe thecal sac effacement. There is also moderate to severe narrowing of the neural foramen on both sides, greater on the left. These findings show progression since the comparison. At the lumbosacral junction the disc is normal in height and signal. There is no significant disc bulge or herniation. There is bilateral set hypertrophy with fluid in the joints. No central stenosis is identified. There is at least mild foraminal encroachment. MR/MR lumbar spine wo con IMPRESSION: DISCOVERTEBRAL DEGENERATIVE CHANGES, GREATEST AT L4-5 WHERE THERE IS SPONDYLOLISTHESIS AND PROGRESSION OF ASSOCIATED STENOSIS. Impression dictated by: Rosina Donaldson M.D. 02/05/2025 12:06 PM Dictation Location: [place] [address] Electronically authenticated by: [id number] Y Date: 02/05/2025 12:06
--- OUTSIDE RECORDS SUMMARY | 2025-02-05 06:44 | XMS_ITS | Patient Health Record ---
Author Organization The [facility] in [place] Address [address] [place] [address] Care Team Providers Care Concrete Analyst Name Role Phone Cosme Doherty Primary Care Provider Allergies No Known Allergies Results Component Value Reference Range Notes CBC AUTO DIFF Reviewed date:09/24/2024 12:35:49 PM Interpretation: Performing Lab: Notes/Report: [facility] , White Blood Count 9.9 4.0-11.0 10 3/uL Red Blood Count4.684.20-5.40 10 6/qTKfihljuymx71.112.0-16.0 g/eAXnbjfkgvtr17.4 36.0-48.0 %Mean Corpuscular Cwcoxz65.681.0-99.0 fLMean Corpuscular Hemoglobin 30.126.7-34.0 pgMean Corpuscular HGB Conc33.329.9-35.2 g/dLRed Cell Distribution Width14.011.0-15.0 %Platelet Mfndw270492-665 10 3/uLMean Platelet Volume9.99.5- 13.5 fLNeutrophils Percent Auto65.843.0-75.0 %Lymphocytes Percent Auto25.420.5- 60.0 %Monocytes Percent Auto7.21.7-12.0 %Eosinophils Percent Auto1.10.9-7.0 % Basophils Percent Auto0.20.2-2.0 %Immature Granulocytes Pct Auto0.30.0-0.5 % Neutrophils Absolute Auto6.51.4-6.5 10 3/uLLymphocytes Absolute Auto2.51.2-3.8 10 3/uLMonocytes Absolute Auto0.70.3-0.8 10 3/uLEosinophils Absolute Auto0.10.0- 0.7 10 3/uLBasophils Absolute Auto0.00.0-0.1 10 3/uLImmature Granulocytes Abs Auto0.030.00-0.03 10 3/uLPerforming Lab:see note - [facility] LB PROF 14(COMP METB) Reviewed date:09/24/2024 12:35:49 PM Interpretation: Performing Lab: Notes/Report: [facility] ,Hqhkqb369527-186 mmol/LPotassium3.83.5-5.1 mmol/UFajqupgg96969-725 mmol/LCarbon Nynpuju69.121.0-32.0 mmol/LAnion Gap13.5Vczupim22469-848 mg/dLBlood Urea Syekoogx76.07.0-18.0 mg/dLCreatinine0.650.55-1.02 mg/dLEstimated GFR ( Lyn>60>=60 mL/min/1.73m 2Estimated GFR (Non- Abbey>60>=60 mL/min/1.73m 2BUN Creatinine Ratio36.0Vokdaie9.78.5-10.1 mg/dLBilirubin Total0.30.2-1.0 mg/dL Aspartate Amino Fgefyqsfvmw2983-16 U/LAlanine Teppfudxkfsfucgp4057-78 U/L Alkaline Caxwfsphrek7375-810 U/LTotal Protein7.66.4-8.2 g/dLAlbumin Level4.03.4- 5.0 g/dLGlobulin3.6Albumin Globulin Ratio1.1Performing Lab:see noteML - [facility] LBTHYROID ANTIBODIES Reviewed date:01/06/2025 06:58:42 PM Interpretation: Performing Lab: Notes/Report: [facility] ,Thyroid Peroxidase (TPO) Ab<90-34 IU/mLThyroglobulin Antibody<1.00.0-0.9 IU/mL Thyroglobulin Antibody measured by Xander Rubén to 4 IU/mL. four percent of individuals without evidence of thyroid at very low levels. The assay second cutter has found that Armhole Sewer: Satya Marino PhD, Phone: [phone] It should be noted that the presence of thyroglobulin [address] [place], [place] [phone] Performed at: [facility] antibodies may not be pathogenic nor diagnostic, especially disease or autoimmunity will have positive TgAb levels up Performing Lab:see noteLC - [facility] LBCBC AUTO DIFF Reviewed date:01/03/2025 01:22:12 PM Interpretation: Performing Lab: Notes/Report: [facility] ,White Blood Count16.44.0-11.0 10 3/uLRed Blood Count5.014.20-5.40 10 6/uL Skuleevjuz54.012.0-16.0 g/aJHfotojhxgh49.036.0-48.0 %Mean Corpuscular Lfwflf84.8 81.0-99.0 fLMean Corpuscular Ofishunzdl65.926.7-34.0 pgMean Corpuscular HGB Conc 33.329.9-35.2 g/dLRed Cell Distribution Width13.611.0-15.0 %Platelet Wmgrw766 150-450 10 3/uLMean Platelet Mpakig18.29.5-13.5 fLNeutrophils Percent Auto83.3 43.0-75.0 %Lymphocytes Percent Auto11.020.5-60.0 %Monocytes Percent Auto5.41.7- 12.0 %Eosinophils Percent Auto0.00.9-7.0 %Basophils Percent Auto0.10.2-2.0 % Immature Granulocytes Pct Auto0.20.0-0.5 %Neutrophils Absolute Auto13.71.4-6.5 10 3/uLLymphocytes Absolute Auto1.81.2-3.8 10 3/uLMonocytes Absolute Auto0.90.3- 0.8 10 3/uLEosinophils Absolute Auto0.00.0-0.7 10 3/uLBasophils Absolute Auto0.0 0.0-0.1 10 3/uLImmature Granulocytes Abs Auto0.040.00-0.03 10 3/uLPerforming Lab:see noteML - [facility] LBVitamin D, 25-Hydroxy Reviewed date:01/06/2025 06:58:42 PM Interpretation: Performing Lab: Notes/Report: [facility] ,Vitamin D, 25-Frbnssz50.330.0-100.0 ng/mL deficiency: an Endocrine Society clinical practice 2. Mario MF, Rolanda NC, Efrain-Darrick OJEDA, et al. National Academies Press. Evaluation, treatment, and prevention of vitamin D Performed at: [facility] guideline. JCEM. 2010; 96(1):1911-30. level of serum 25-OH vitamin D less than 20 ng/mL (1,2). Vitamin D deficiency has been defined by the [place] of insufficiency as a level between 21 and 29 ng/mL (2). The Endocrine Society went on to further define vitamin D intakes for calcium and D. [facility]: The Medicine and an Endocrine Society practice guideline as a Armhole Sewer: Satya Marino PhD, Phone: [phone] 1. IOM ([place] of Medicine). 2009. Dietary reference [address] [place] [phone] Performing [facility] LBThyroxine (T4) Reviewed date:01/06/2025 06:58:42 PM Interpretation: Performing Lab: Notes/Report: [facility] ,Thyroxine (T4)7.54.5-12.0 ug/dL Armhole Sewer: Satya Marino PhD, Phone: [phone] Performed at: [address] [id number] Performing Lab:[facility] LBVitamin B12 Reviewed date:01/05/2025 01:51:57 PM Interpretation: Performing Lab: Notes/Report: [facility] ,Vitamin S33441091-4844 pg/mL [address] [place] [phone] Performed at: [facility] Armhole Sewer: Satya Marino PhD, Phone: [phone] Performing Lab:see bess - [facility] LBINSULIN Reviewed date:01/05/2025 01:51:57 PM Interpretation: Performing Lab: Notes/Report: [facility] ,Tnxbpnb33.42.6-24.9 uIU/mL Performed at: [facility] Armhole Sewer: Satya Marino PhD, Phone: [phone] [place], [place] [phone] Performing Lab:see note - [facility] LBXR cervical spine 2-3V Reviewed date:08/20/2024 07:16:37 PM Interpretation: Performing Lab: Notes/Report: Source Facility: [place] [address] XRay Report Signed Patient: SHERRON NUNN MR#: [id number] : 1965 Acct:[id number] Age/Sex: 59 / F ADM Date: 08/20/24 Loc: RAD Attending Dr: Katerine Doherty M.D. Ordering Physician: Katerine Doherty M.D. Date of Service: 08/20/24 Procedure(s): XR cervical spine 2-3V Accession Number(s): [id number] cc: Katerine Doherty M.D. [place] [address] Patient Name: SHERRON NUNN MRN: [id number] date: 1965 Sex: F Assigned Patient Location: [facility] Current Patient Location: [facility] Accession/Order Number: [id number] Exam Date: 08/20/2024 16:31 Report Date: 08/20/2024 [...] Jr., D.O. 08/20/2024 4:31 PM Dictation Location: [place] [address] Electronically authenticated by: [id number] Y Date: 08/20/2024 16:31 Dictated By: Parminder Jacobo M.D. Signed By: 08/20/24 163 DD/ 163 TD/TT: Supervisor [employer]:XR lumbar spine min 4V Reviewed date:01/22/2025 09:08:03 AM Interpretation: Performing Lab: Notes/Report: Source Facility: [place] [address] XRay Report Signed Patient: SHERRON NUNN MR#: [id number] : 1965 Acct:[id number] Age/Sex: 59 / F ADM Date: 01/21/25 Loc: RAD Attending Dr: Katerine Doherty M.D. Ordering Physician: Katerine Doherty M.D. Date of Service: 01/21/25 Procedure(s): XR lumbar spine min 4V Accession Number(s): [id number] cc: Katerine Doherty M.D. [place] [address] Patient Name: SHERRON NUNN MRN: [id number] date: 1965 Sex: F Assigned Patient Location: [facility] Current Patient Location: Accession/Order Number: [id number] Exam Date: 01/21/2025 16:49 Report Date: 01/22/2025 08:28 At the request of: KATERINE DOHERTY MD Procedure: XR lumbar spine min 4V LUMBAR SPINE -4 views: CLINICAL HISTORY: Chronic low back pain radiating down the left leg with numbness and tingling M54.16 COMPARISON: 03/30/2023 and MRI 04/13/2023 AP, lateral and both oblique views were obtained. There is subtle dextroscoliotic curvature. There is no evidence of fracture. There is 3 to 4 mm anterolisthesis of L4 on L5. There is mild disc space narrowing at L3-4 and moderate at L4-5. There are small endplate spurs. There is facet disease, greater distally. No pars defect is identified. The sacroiliac joints are maintained. There are no paraspinal soft tissue abnormalities. XR/XR lumbar spine min 4V IMPRESSION: DEGENERATIVE CHANGES, DESCRIBED. Impression dictated by: Rosina Donaldson M.D. 01/22/2025 8:28 AM Dictation Location: [place] [address] Electronically authenticated by: [id number] Y Date: 01/22/2025 08:28 Dictated By: Rosina Donaldson M.D. Signed By: 01/22/25829 DD/ 7 TD/TT: Supervisor [employer]:CBC AUTO DIFF Reviewed date:01/20/2025 04:52:43 PM Interpretation: Performing Lab: Notes/Report: [facility] ,White Blood Count9.64.0-11.0 10 3/uLRed Blood Count4.654.20-5.40 10 6/uL Mwyfkyctyl83.812.0-16.0 g/dFYlqrgvjhcd19.836.0-48.0 %Mean Corpuscular Vdldfv18.9 81.0-99.0 fLMean Corpuscular Iblbsitnpd01.726.7-34.0 pgMean Corpuscular HGB Conc 33.029.9-35.2 g/dLRed Cell Distribution Width13.811.0-15.0 %Platelet Nwvzq647 150-450 10 3/uLMean Platelet Volume9.99.5-13.5 fLNeutrophils Percent Auto66.2 43.0-75.0 %Lymphocytes Percent Auto22.820.5-60.0 %Monocytes Percent Auto8.81.7- 12.0 %Eosinophils Percent Auto1.80.9-7.0 %Basophils Percent Auto0.20.2-2.0 % Immature Granulocytes Pct Auto0.20.0-0.5 %Neutrophils Absolute Auto6.41.4-6.5 10 3/uLLymphocytes Absolute Auto2.21.2-3.8 10 3/uLMonocytes Absolute Auto0.80.3-0.8 10 3/uLEosinophils Absolute Auto0.20.0-0.7 10 3/uLBasophils Absolute Auto0.00.0- 0.1 10 3/uLImmature Granulocytes Abs Auto0.020.00-0.03 10 3/uLPerforming Lab:see noteML - [facility] LBTS Reviewed date:01/03/2025 01:42:52 PM Interpretation: Performing Lab: Notes/Report: [facility] ,Thyroid Stimulating Hormone0.2380.358-3.740 uIU/mLPerforming Lab:see noteML - [facility] LBPROF 14(COMP METB) Reviewed date:01/03/2025 01:42:52 PM Interpretation: Performing Lab: Notes/Report: [facility] ,Vdqclu114073-416 mmol/LPotassium3.73.5-5.1 mmol/JWtwxfeoo35290-313 mmol/LCarbon Npkdwiu97.621.0-32.0 mmol/LAnion Gap12.1Pyxvxkf09357-126 mg/dLBlood Urea Tezgoplg95.07.0-18.0 mg/dLCreatinine0.680.55-1.02 mg/dLEstimated GFR ( Lyn>60>=60 mL/min/1.73m 2Estimated GFR (Non- Abbey>60>=60 mL/min/1.73m 2BUN Creatinine Ratio29.3Rtigksy6.88.5-10.1 mg/dLBilirubin Total0.30.2-1.0 mg/dL Aspartate Amino Vnzgemqvruu1167-85 U/LAlanine Ltywhyekmjngrxxx3464-52 U/L Alkaline Dofikmjrevd2184-434 U/LTotal Protein8.06.4-8.2 g/dLAlbumin Level4.03.4- 5.0 g/dLGlobulin4.0Albumin Globulin Ratio1.0Performing Lab:see noteML - [facility] LBLIPID PROFILE Reviewed date:01/03/2025 01:42:52 PM Interpretation: Performing Lab: Notes/Report: [facility] ,Jmfprgytlqhwj27<=150 mg/yYCkzbdpprdrd822<=200 mg/dLHDL Stbcuhmtalo9108-53 mg/dL <40 mg/dl - HIGH CARDIOVASCULAR RISK > or =60 mg/dl - LOW CARDIOVASCULAR RISK LDL Cholesterol Tmaypbnjpg840.0 130-159 mg/dl BORDERLINE HIGH <100 mg/dl OPTIMAL 160-189 mg/dl HIGH >190 mg/dl VERY HIGH 100-129 mg/dl NEAR OR ABOVE OPTIMAL VLDL CHOLESTEROL8.4Chol HDL Ratio2.9 3.3 - 4.4 LOW RISK >11.0 HIGH RISK 4.4 - 7.1 AVERAGE RISK 7.1 - 11.0 MODERATE RISK Performing Lab:see noteML - [facility] LBIRON Reviewed date:01/03/2025 01:22:12 PM Interpretation: Performing Lab: Notes/Report: [facility] ,Krht375.050.0-170.0 ug/dLPerforming Lab:see note - [facility] GLYCOHEMOGLOBIN A1C Reviewed date:01/03/2025 01:22:12 PM Interpretation: Performing Lab: Notes/Report: [facility] ,Glycohemoglobin A1C6.14.5-6.2 % > 7.0 ACTION SUGGESTED ADA RECOMMENDED LIMIT 4.0 - 6.0 ADA THERAPEUTIC TARGET < 7.0 Estimated Average Lcctxge518Wufadzkaqj Lab:see note - [facility] FREE T3 Reviewed date:01/03/2025 01:42:52 PM Interpretation: Performing Lab: Notes/Report: [facility] ,Free T32.392.18-3.98 pg/mLPerforming Lab:see note - [facility] FOLATE Reviewed date:01/03/2025 01:42:52 PM Interpretation: Performing Lab: Notes/Report: [facility] ,Jiyvzz11.208.60-58.90 ng/mLPerforming Lab:see note - [facility] Prothrombin Time INR Reviewed date:09/24/2024 12:35:49 PM Interpretation: Performing Lab: Notes/Report: [facility] ,Prothrombin Time10.99.0-11.6 secINR1.03 2.5-3.5 RECURRENT THROMBOSIS 2.0-3.0 CONDITIONS NOT LISTED BELOW DESIRED INR: 2.5-3.5 FOR PROSTHETIC HEART VALVE REPLACEMENT Performing Lab:see note - [facility] wo con Reviewed date:08/31/2024 04:04:07 PM Interpretation: Performing Lab: Notes/Report: Source Facility: [facility] [place] [address] [place] [address] Magnetic Resonance Report Signed Patient: SHERRON NUNN MR#: [id number] : 1965 Acct:[id number] Age/Sex: 59 / F ADM Date: 08/29/24 Loc: MRI Attending Dr: Katerine Doherty M.D. Ordering Physician: Katerine Doherty M.D. Date of Service: 08/29/24 Procedure(s): MR cervical spine wo con Accession Number(s): [id number] cc: Katerine Doherty M.D. [address] [address] Patient Name: SHERRON NUNN MRN: [facility]:[id number] date: 1965 Sex: F Assigned Patient Location: MRI Current Patient Location: MRI Accession/Order Number: [id number] Exam Date: 08/29/2024 19:20 Report Date: 08/29/2024 [...] right moderate severe left neural from narrowing. Mpnv-um-kqkvzquo central canal stenosis. C5-6: Circumferential disc osteophyte complex formation with uncovertebral spurring greatest left. Minimal right apchmffs-vh-fdpawj left neural from narrowing. Moderate central canal [...] Goncalves M.D. 08/29/2024 7:34 PM Dictation Location: [place] [address] Electronically authenticated by: [id number] Date: 08/29/2024 19:34 Dictated By: Fernando Goncalves M.D. Signed By: 08/29/241935 DD/ 33 TD/TT: Super[employer]:MR shoulder LT wo con Reviewed date:05/01/2024 07:28:28 PM Interpretation: Performing Lab: Notes/Report: Source Facility: [place] [address] Magnetic Resonance Report Signed Patient: SHERRON NUNN MR#: [id number] : 1965 Acct:[id number] Age/Sex: 59 / F ADM Date: 05/01/24 Loc: MRI Attending Dr: Katerine Doherty M.D. Ordering Physician: Katerine Doherty M.D. Date of Service: 05/01/24 Procedure(s): MR shoulder LT wo con Accession Number(s): [id number] cc: Katerine Doherty M.D. [place] [address] Patient Name: SHERRON NUNN MRN: [id number] date: 1965 Sex: F Assigned Patient Location: MRI Current Patient Location: MRI Accession/Order Number: [id number] Exam Date: 05/01/2024 18:50 Report Date: 05/01/2024 [...] Paco Laura M.D.05/01/2024 6:56 PM Dictation Location: [place] [address] Electronically authenticated by: [id number] Y Date: 05/01/2024 18:56 Dictated By: Paco Laura D.O. Signed By: 05/01/241858 DD/ 55 TD/TT: Supervisor [employer]:ROSA lawrence 1-2V Reviewed date:01/21/2025 07:34:29 PM Interpretation: Performing Lab: Notes/Report: Source Facility: [place] [address] [place] [address] XRay Report Signed Patient: SHERRON NUNN MR#: [id number] : 1965 Acct:[id number] Age/Sex: 59 / F ADM Date: 01/21/25 Loc: RAD Attending Dr: Katerine Doherty M.D. Ordering Physician: Katerine Doherty M.D. Date of Service: 01/21/25 Procedure(s): XR pelvis 1-2V Accession Number(s): [id number] cc: Katerine Doherty M.D. [address] [address] Patient Name: SHERRON NUNN MRN: [id number] date: 1965 Sex: F Assigned Patient Location: [facility] Current Patient Location: [facility] Accession/Order Number: [id number] Exam Date: 01/21/2025 16:49 Report Date: 01/21/2025 19:00 At the request of: KATERINE DOHERTY MD Procedure: XR pelvis 1-2V AP PELVIS: CLINICAL HISTORY: Lumbar Radiculitis, M54.16 COMPARISON: None FINDINGS: No fracture or dislocation. Joint spaces preserved. Leqv-vc-niouhiua stool rectosigmoid junction. Surgical clips project over the pelvis noted of uncertain clinical significance. Soft tissues unremarkable. XR/XR pelvis 1-2V IMPRESSION: NO ACUTE BONY FINDINGS. Impression dictated by: Fernando Goncalves M.D. 01/21/2025 7:00 PM Dictation Location: [place] [address] Electronically authenticated by: [id number] Y Date: 01/21/2025 19:00 Dictated By: Fernando Goncalves M.D. Signed By: 01/21/251902 DD/ 99 TD/TT: Supervisor [employer]:PTT Reviewed date:09/24/2024 12:35:49 PM Interpretation: Performing Lab: Notes/Report: [facility] ,Partial Thromboplastin Time23.122.3-36.2 secPerforming Lab:see noteML - [facility] LBFERRITIN Reviewed date:09/24/2024 12:35:49 PM Interpretation: Performing Lab: Notes/Report: [facility] ,Brjqyizw02.08.0-252.0 ng/mLPerforming Lab:see noteML - [facility] LB Reason For Referral Diagnosis 1 Pain in left shoulde r (M25.512) Referral Organization [facility] Referring Provider First Name Cosme Referring Provider Last Name Reynaldo [facility], Physical Therap y Referred Provider Specialty Physical The rapist Referral Priority Routine Diagnosis 1 Arthritis of left sh oulder region (M19.012) Diagnosis 2 Bursitis of shoulder , left (M75.52) Referral Organization [facility] Referring Provider First Name Cosme Referring Provider Last Name Reynaldo [facility] Gigi Cm Referred Provider Specialty Orthopedic S urgery Referral Priority Routine Diagnosis 1 Cervical radicular p ain (M54.12) Diagnosis 2 Lumbar radiculitis ( M54.16) Referral Organization [facility] Referring Provider First Name Cosme Referring Provider Last Name Reynaldo Referring Provider [facility] icine Referred Provider Angelito Cotton Referred Provider Specialty Neurosurgery Referral Priority Routine Reason C-spine and L spine radiculopathy Diagnosis 1 Lumbar radiculitis ( M54.16) Referral Organization [facility] Referring Provider First Name Cosme Referring Provider Last Name Reynaldo Referring Provider [facility] icine Referred Provider TB, Physical Therap y [...] 4 MG2 tablets Orally at bedtime; Duration: 89OQY533ActiveTylenol 8 Hour Arthritis Pain 650 MG2 tablets as needed Orally every 8 hrs prnPRNActiveVoltaren 1 %as directed Externally prnPRNActiveValium 5 MG 1 tablet as needed Orally once about 1 hour before procedure; Duration: 1 days F41.9 5ActivevalACYclovir HCl 1 GM1 tablet Orally Once a day; Duration: 90 daysPRNActiveVitamin D (Cholecalciferol) 25 MCG (1000 UT)1 capsule Orally Once a dayActiveCod Liver Oil 4000-200 UNITas directed OrallyActive Social History Tobacco Use: Social History Observation [...] containing alcohol in the past year?Weekly (3 points)Iktifs1SgubqjaybuumrqKjsdesbfQQRMY-C (Standard) Question Answer Notes Did you have a drink containing alcohol in the p ast year? No Lzdtxc9BsixtdoekxlxjmPztsgwdu Problems Problem Type SNOMED Code ICD Code Onset Dates Problem Status W/U Status Risk Notes Problem Carpal tunnel syndrome (82384110 ) Carpal tunnel syndrome, unspecified upper limb (G56.00) ActiveconfirmedProblemLocalized, primary osteoarthritis of the ankle and/or foot (348127489)Primary osteoarthritis, left ankle and foot (M19.072)Activeconfirmed ProblemAcquired hallux rigidus (9997347)Hallux rigidus, left foot (M20.22)Active confirmedProblemArthritis (0610749)Arthritis (M19.90)ActiveconfirmedProblem Leukocytosis (449823820)Elevated WBC count (D72.829)ActiveconfirmedProblem Trigger finger (3154311)Trigger finger (M65.30)ActiveconfirmedProblemLeft shoulder pain (2340008823)Left shoulder pain (M25.512)ActiveconfirmedProblem Acquired spondylolisthesis (893922351)Lumbar spondylolysis (M43.06)Active confirmedProblemAlopecia (97288675)Hair loss (L65.9)ActiveconfirmedProblem Osteoarthritis of right knee joint (762062103277655)Right knee DJD (M17.9)Active confirmedProblemBicipital tenosynovitis (44809428)Biceps tendonitis (M75.20) ActiveconfirmedProblemLumbar radiculitis (27123649696835945)Lumbar radiculitis (M54.16)ActiveconfirmedProblemCervical radiculopathy (80642620)Cervical radicular pain (M54.12)ActiveconfirmedProblemBursitis of shoulder (808352081) Shoulder bursitis (M75.50)ActiveconfirmedProblemHypercholesterolemia (85433494) Hypercholesterolemia (E78.00)ActiveconfirmedProblemLocalized, primary osteoarthritis of the shoulder region (472588368)Arthritis of left shoulder region (M19.012)ActiveconfirmedProblemBruising (979990091)Bruising (T14.8XXA) Activeconfirmed Vital Signs Blood pressure diastolic 80 mm Hg 01/21/2025 Lplyqi87 in01/21/2025lood pressure ypenuwsr254 mm Hg01/21/20255463Dynmbq640 lbs 01/21/2025BMI26.75 kg/m201/21/2025 Encounters Encounter Location Date Provider Diagnosis [facility] [address] [place] [address] 03/11/2024 Cosme Hoy Pain in left shoulde r M25.512 [facility] [address] [place] [address] 2024 Cosme Hoy Left shoulder pain M25.512 [facility] [address] [place] [address] 04/29/2024 Cosme Hoy [facility] [place] [address] 05/01/2024Doug HoyArthritis of left shoulder region M19.012 and Bursitis of shoulder, left M75.52[facility] [place] [address]/02/2025[facility] [place] [address]/10/2024Doug [facility] [facility] [place] [address]/Doug HoyCervical radicular pain M54.12 and Lumbar radiculitis M54.16[facility] [facility] [address]/07/2024Doug [facility] [facility] [place] [address]/ Cosme HoyElevated WBC count D72.829[facility] [facility] [place] [address]/Doug HoyHypercholesterolemia E78.00 [facility] [facility] [address] 01/20/2025Doug [facility] [facility] [address]/04/2024Doug HoyLumbar radiculitis M54.16[facility] [facility] [address]/Doug [facility] [facility] [place] [address]/03/2024 Cosme HoyLumbar radiculitis M54.16[facility] [facility] [address]/04/2024Doug HoyLumbar radiculitis M54.16[facility] [facility] [address]/ Cosme HoyLeft shoulder pain M25.512[facility] [facility] [address]/Doug HoyCervical radiculopathy M54.12 [facility] [place] [facility] [place] [address] 08/20/2024Doug HoyCervical radicular pain M54.12[facility] [address] [place] [place] [address]/06/2024Doug HoyArthritis M19.90 [facility] [place] [place] [address] 12/31/2024Doug HoyHair loss L65.9 and Well adult Z00.00[facility] [place] [place] [address]/Doug HoyLumbar radiculitis M54.16[place] [address] [place] [address]/Doug HoyBiceps tendonitis M75.20[place] [address] [place] [place] [address]/05/2024Doug HoyBruising T14.8XXA Assessments Encounter Date Diagnosis (ICD Code) Assessment Notes Treatment Notes Treatment Clinical Notes Section Notes 03/10/2024 Left shoulder pain (ICD-10 - M25 .512) may need PT5Biceps tendonitis (ICD-10 - M75.20)5Cervical radiculopathy (ICD-10 - M54.12)trial injection - and keep ing oral muscle pykryab15/02/2025Cervical radicular pain (ICD-10 - M54.12)5Bruising (ICD-10 - T14.8XXA)5Arthritis (ICD-10 - M19.90)12/31/2024Hair loss (ICD-10 - L65.9)12/31/2024Well [...] count (ICD-10 - D72.829)01/03/2025Hypercholesterolemia (ICD-10 - E78.00) 01/21/2025Lumbar radiculitis (ICD-10 - M54.16)07/16/2024OtherRecommended to rest and use a heating pad on the area. Take NSAIDs for pain as bqwdwu7808/20/2024Other Recommended to rest and use a heating pad on the area. Take NSAIDs for pain as lemskv2912/31/2024OtherRecommended to rest and use a heating pad on the area. Take NSAIDs for pain as lfnknn9301/07/2025OtherRecommended to rest and use a heating pad on the area. Take NSAIDs for pain as necqif7801/20/2025OtherRecommended to rest and use a heating pad on the area. Take NSAIDs for pain as dwwzmx9301/21/2025 OtherRecommended to rest and use a heating [...] 12/31/2024 MRI Shoulder LT w/o contrast 2024 MRI Lumbar Spine w/o contrast 01/21/2025 CBC 01/03/2025 RHEUMATOID PANEL 09/27/2022 Insulin Level [...] PANEL (T4/TSH/FREE T3) THYROID PANEL (T4/TSH/FREE T3) CMP (COMP MET WHITING) w/eGFR CKD-EPI 2024 CBC WITH DIFF 12/31/2024 Insurance Providers Payer Name Payer Address Payer Phone Subscriber Number Group Number Insured Name Patient Relationship to Insured Coverage Start Date Coverage End Date [employer] [address] [address] [place] [phone] [id number] Sherron Nunn Self - patient is the insured Medications Administered Medication Instructions Date of Administration Dosage Notes Dexamethasone, 4mg/mL mgKenalog-40020 rv348Gkouobp-0431/15/5409609 mgKenalog-40 20 im606Moiklse-9528480 mgKetorolac Qnmbprrhwdfk03/15/566053 mgKetorolac Nsnebsggjqls74/09/421923 ga63Uzbmynior Lipmrbhooukl88/28/202560 mg Ketorolac Mtrtmmalxzrv96/04/202560 mgKetorolac Yeqyabijulyn71/05/202560 mg Ketorolac Qdczglktmdav75/02/202560 mgKetorolac Ewhhhjsthbjd02/03/202560 mg methylPREDNISolone Rmyvlym59 mgmethylPREDNISolone Slxhgkh69 mgOrphenadrine Wvgrvqp67 mgOrphenadrine Xcypmwf04 mg60 Orphenadrine Glhwsmq91 mgOrphenadrine Crnxksi22 mg Orphenadrine Lmbaizi27 mgOrphenadrine Qzkpojh99 mg Triamcinolone 40 mg/ml mgTriamcinolone 40 mg/ml mg Triamcinolone 40 mg/ml [...]
--- OUTSIDE RECORDS SUMMARY | 2025-02-05 06:44 | XMS_ITS | Clinical Summary ---
Author Organization [facility] Address [address] [place] [address] Care Team Providers Care Manager Of Business Name Role Phone [facility], Other Unavailable [phone] Social History Tobacco UseTypesPacks/DayYears UsedDateSmoking Tobacco: Never Assessed CommentsUnknownSex and Gender InformationValueDate RecordedSex Assigned at Not on fileLegal ErgLkdcjh00/19/2022 12:00 PM EDTGender IdentityNot on file Sexual OrientationNot on file Last Filed Vital Signs Vital SignReadingTime TakenCommentsBlood Pressure--Pulse--Temperature-- Respiratory Rate--Oxygen Saturation--Inhaled Oxygen Concentration--Xkvsoq94.2 kg (135 lb)07/07/2021 12:00 PM VDLDoqlsm508.8 cm (4' 9 )07/07/2021 12:00 PM EDTBody Mass Index29.21007/07/2021 12:00 PM EDT Plan of Treatment Health MaintenanceDue DateLast DoneCommentsHEPATITIS C VIRUS HHJQGOQIX23/21/1967 WMGZRAD07 1966HIV SCREENING NYIEVQXOTY17/21/1982HEP B VACCINE (1 of 3 - 19+ 3-dose series)1985TDAP (ADULT)1985CERVICAL CANCER SCREENING KCEIEPBVCS04/21/1988LIPID DZRPARXMU34/21/2007MAMMOGRAM SCREENING DISCUSSION 2006COLORECTAL CANCER SCREENING QPZNDBIBTW47/21/2012PNEUMOCOCCAL VACCINE SERIES (1 of 1 - PCV)2016ZOSTER (SHINGLES) VACCINE (1 of 2)2016 COVID-19 VACCINE (1 - 2024- season)2024INFLUENZA VACCINE (#1)2024 Care Teams Team MemberRelationshipSpecialtyStart DateEnd Date [facility], Other [address] [place] [address] PCP - Transplant CoordinatorTransplant07/07/21
--- OUTSIDE RECORDS SUMMARY | 2025-02-05 06:44 | XMS_ITS | Clinical Summary ---
Author Organization [employer] [facility] tem Address [id number] [address] [place] [address] Care Team Providers Care Clamper Name Role Phone Nikos Jacobs MD Primary Care Provider [phone] Allergies No known active allergies Medications MedicationSigDispense [...] total) in the evening. Take with meals.Active irkqjda-yxshgerimdmga-yghnzfpy (EXCEDRIN EXTRA STRENGTH) 250-250-65 mg per tablet [...] DateHeterogeneously dense tissue of both breasts on wuqrqaewfuo92/16/2024 Overview (03/06/2023): Recommendation: Recommend MBI as a supplemental screening combined with annual mammography.. Family history of breast qdcviy8303/06/2023 Overview (03/06/2023): Maternal aunt Trigger finger, ajjwxeor46/18/2023 Overview (02/22/2023): Added automatically from request for surgery [id number] Family History Medical HistoryRelationNameCommentsDiabetesBrotherHypertensionBrotherKidney failureBrotherDiabetesFatherHypertensionFatherBreast cancerMaternal AuntDiabetes MotherHypertensionMotherBil Breast CancerNeg HxRelationNameStatusCommentsBrother FatherDeceasedMaternal AuntMotherDeceased Social History Tobacco UseTypesPacks/DayYears UsedDateSmoking Tobacco: NeverSmokeless Tobacco: NeverAlcohol UseStandard Drinks/WeekCommentsYes0 (1 standard drink = 0.6 oz pure alcohol)occasionalPHQ-2AnswerDate RecordedTotal Ffozr915Hunger Screening AnswerDate RecordedWithin the past 12 months we worried whether our food would run out before we got money to buy more.Never True02/22/2023Within the past 12 months the food we bought just didn't last and we didn't have money to get more. Never True02/22/2023CommentsNoSex and Gender InformationValueDate RecordedSex Assigned at BirthNot on fileLegal ApaIsefap92/22/2022 3:20 PM EST Gender IdentityNot on fileSexual OrientationNot on file Last Filed Vital Signs Vital SignReadingTime TakenCommentsBlood Zfztzhed510/80002/22/2023 2:59 PM EST Mlxnq515701/31/2022 1:32 PM ESTTemperature--Respiratory Ibeb541204/03/2021 1:32 PM ESTOxygen Saturation--Inhaled Oxygen Concentration--Bzptyg89.3 kg (133 lb) 03/02/2023 2:59 PM MPCVxabao596.3 cm (4' 10 )03/02/2023 2:59 PM ESTBody Mass Index27. 2:59 PM EST Plan of Treatment Health MaintenanceDue DateLast DoneCommentsDTaP,Tdap and Td Vaccines (1 - Tdap) 1985Zoster (Shingles) Vaccine (1 of 2)2016Depression Screening Tobacco Naviuepen57dult BMI Screening Mammogram, 12/28/2020, 12/28/2020, Additional history existsInfluenza Dwodzsv8610/20/2024 Medical Devices Not on file Procedures Procedure NamePriorityDate/TimeAssociated DiagnosisCommentsMAMM SCREENING BILATERAL W WKYTnmebbb86/12/2024 3:15 PM EST Encounter for screening mammogram [...] IMG Authorizing ProviderResult TypeResult StatusLi Martin Markylayachapin BRIDGE ENGINEER-CNPIMG MAMMOGRAPHY ORDERABLESEdited Result - Final from Last 3 Months or Most Recently Relevant to Health Maintenance Insurance Care Teams Team MemberRelationshipSpecialtyStart DateEnd Date Nikos Jacobs MD PCP - GeneralFamily Medicine02/22/23
--- OUTSIDE RECORDS SUMMARY | 2025-02-05 06:44 | XMS_ITS | Patient Health Record ---
Author Organization [facility] Address [address] [place] [address] Care Team Providers Care Tapper Supervisor Name Role Phone Reynaldo Nikos Primary Care Provider UnavailGigi Pappas Unavailable [phone] Azar Mohamud Unavailable [phone] Carine Townsend Unavailable [phone] Chrissy Crow Unavailable [phone] Livia Melo Unavailable [phone] Allergies No Known Allergies Reason For Referral Reason Cervical SLAVA Diagnosis 1 Cervical radiculitis (M54.12) Referral Organization [facility] Referring Provider First Name Azar Referring Provider Last Name Oneida Referring Provider Speciality Pain Manag ement [facility] Organization [facility] Referred Provider Azar Mohamud Referred Address [address] [place] [phone], Referred Provider Specialty Pain Managem ent Procedure 1 NJX INTERLAMINAR CRV /THRC ([id number]) General Notes Deanna Olmos 11/11/2024 06:49:50 AM > umr for approval - pending, Deanna Olmos 11/13/2024 07:18:50 AM > TELMA - ref#[id number] - scanned in chart Referral Priority Routine Reason Lumbar SLAVA L4-L5 LEF T of midline with oral sedation Diagnosis 1 Lumbar radiculitis ( M54.16) Referral Organization [facility] Referring Provider First Name Azar Referring Provider Last Name Oneida Referring Provider Speciality Pain Manag ement Referred Organization [facility] Referred Provider Azar Mohamud Referred Address [address] [place] [address],[place], [place],[address],[place] Referred Provider Specialty Pain Managem ent Procedure 1 NJX INTERLAMINAR LMB R/SAC (53805) General Notes Deanna Olmos 12/24/2024 06:44:21 AM > UMR for approval - pending, Deanna Olmos 12/25/2024 07:28:57 AM > TELMA -r #[id number] Referral Priority Routine Medications Medication SIG (Take, [...] W/U Status Risk Notes Problem Lumbar radiculitis (00254960387485229) Jovanna mbar radiculitis (M54.16) ActiveconfirmedProblemLumbar spondylosis (627219379)Lumbar spondylosis (M47.816) ActiveconfirmedProblemCervicalgia (40064794)Cervicalgia (M54.2)Activeconfirmed ProblemCervical spondylosis (223335671)Cervical spondylosis (M47.812)Active confirmedProblemCervical radiculitis (23713978)Cervical radiculitis (M54.12) ActiveconfirmedProblemTendonitis of left shoulder (6920524666381997)Left shoulder tendonitis (M77.8)ActiveconfirmedProblemBursitis of left shoulder (483256102277527)Bursitis of left shoulder (M75.52)Activeconfirmed Vital Signs Blood pressure diastolic 96 mm Hg 11/10/2024 Zrjrwo49 in12/23/2024lood pressure cwoniaxk435 mm Hg11/10/20241465Prpaoz889 lbs 12/23/2024BMI27.17102/23/2024 Procedures Procedure Date Ordered Date Performed Result Body Sit e CERVICAL SLAVA 11/10/2024 11/11/2024 N/A LUMBAR ESIN/A Encounters Encounter Location Date Provider Diagnosis [facility] [address] [facility] [place] [address] [place] [address] 05/19/2024 Livia pascualWhiteland Bursitis of right shoulder M75.51 and Bursitis of left shoulder M75.52 [facility] [address] [facility] [place] [address] [place] [address] 06/30/2024 Gigi Cm Bursitis of left shoulder M75.52 and Left shoulder tendonitis M77.8 [facility] [address] [place] [address] 11/10/2024 Azar Bahn Cervical radiculitis M54.12 ; Cervical spondylosis M47.812 and Cervicalgia M54.2 [facility] [address] [place] [address] 11/21/2024 Azar Bahn Cervical radiculitis M54.12 [facility] [address] [place] [address] 12/23/2024 [facility] Lumbar radiculitis M54.16 and Lumbar spondylosis M47.816 [facility] [address] [place] [address] 01/02/2025 Azar Bahn Lumbar radiculitis M54.16 [facility] [address] [place] [address] 12/29/2024 Carine Townsend Cervical radiculitis M54.12 Assessments Encounter Date Diagnosis (ICD Code) Assessment Notes Treatment Notes Treatment Clinical Notes Section Notes 05/19/2024 Bursitis of left shoulder (ICD-1 0 - M75.52) Bilateral shoulder bursitis/tendinitis Prior bilateral rotator cuff repairs, biceps tenodesis 05/19/2024ursitis of right shoulder (ICD-10 - M75.51) Bilateral shoulder bursitis/tendinitis Prior bilateral rotator cuff repairs, biceps tenodesis 11/10/2024ervical radiculitis (ICD-10 - M54.12)01/02/2025Lumbar radiculitis (ICD-10 - M54.16)06/30/2024ursitis of left shoulder (ICD-10 - M75.52)06/30/2024 Left shoulder tendonitis (ICD-10 - M77.8)12/29/2024ervical radiculitis (ICD-10 - M54.12)12/23/2024Lumbar spondylosis (ICD-10 - M47.816)12/23/2024Lumbar radiculitis (ICD-10 - M54.16)11/21/2024ervical radiculitis (ICD-10 - M54.12) 11/10/2024ervical spondylosis (ICD-10 - M47.812)11/10/2024ervicalgia (ICD-10 - M54.2)05/19/2024OtherToday [...] along with medication management both prescriptive and yacr-vql-pzqrmaq. I did spend 30 minutes with the [...] Provider Name:Chrissy Merino rd, 02/09/2025 03:30:00 PM, [address] [place] [address], [phone], Insurance Providers Payer Name Payer Address Payer Phone Subscriber Number Group Number Insured Name Patient Relationship to Insured Coverage Start Date Coverage End Date [employer] [address] [address] [place] [address] [id number] GÓMEZ NUNN Self - patient is the insured 5 Medications Administered Medication Instructions Date of Administration Dosage Notes BUPIVACAINE kUNMGYXHQYTZR98/12/20252 mLDepo-Euotiy27 mLDepo-Medrol mLDepo-Qpqiuz24 mLDepo-Yivpba76 mLdexamethasone kFciotwzzqtwhct87/14/20251 xDquadoygdx60/12/20252 mLlidocaine jGxxvknlrsh63/14/20255 cYKygvgmxlm30/03/20253 mRPzxwbkyqi40/14/20253 mL Medical (General) History Medical History History ICD Code High Blood Pressure Surgical History Surgery Date(Month/Year) B/L CTR 2021 Left shoulder replacement 2020 Left Achilles 2017 Hysterectomy 2006 x2 Right shoulder aledwyelqjm2514
--- OUTSIDE RECORDS SUMMARY | 2025-02-05 06:44 | XMS_ITS | Clinical Summary ---
Author Organization [facility] Address [address] [facility] [place] [address] Care Team Providers Care Employee Benefits Manager Name Role Phone Unavailable Primary Care Provider Unavailabl e Social History Tobacco UseTypesPacks/DayYears UsedDateSmoking Tobacco: Never Assessed CommentsUnknownSex and Gender InformationValueDate RecordedSex Assigned at Not on fileLegal LmlWlqada54/15/2023 6:35 PM EDTGender IdentityNot on fileSexual OrientationNot on file Last Filed Vital Signs Vital SignReadingTime TakenCommentsBlood Sfmevyiu832/8010 12:00 PM EDT Pulse--Temperature--Respiratory Rate--Oxygen Saturation--Inhaled Oxygen Concentration--Ylsumu15.1 kg (137 lb)12/18/2021 12:00 PM YMIAzprcx434.3 cm (4' 10 )12/18/2021 12:00 PM EDTBody Mass Index28.6312/18/2021 12:00 PM EDT Plan of Treatment Not on file
--- OUTSIDE RECORDS SUMMARY | 2025-02-05 06:44 | XMS_ITS | Clinical Summary ---
Author Organization [facility] Address [address] [place] [address] Care Team Providers Care Wheat Combine Driver Name Role Phone Nikos Jacobs MD Primary Care Provider [phone] Allergies No known active allergies Medications MedicationSigDispense [...] morning.06/06/2022ctive Active Problems ProblemNoted DateDiagnosed DateTrigger finger, fgvscvup48/18/2023 Overview (07/06/2022): Added automatically from request for surgery [id number] Family History RelationNameStatusCommentsBrotherDeceasedFatherDeceasedMotherDeceased Social History Tobacco UseTypesPacks/DayYears UsedDateSmoking Tobacco: NeverSmokeless Tobacco: Never Tobacco Cessation:Counseling Given: Not Answered Alcohol UseStandard Drinks/WeekCommentsNever0 (1 standard drink = 0.6 oz pure alcohol)PHQ-2AnswerDate RecordedPatient Health Questionnaire-2 Sorqj265 [place] Safety & EnvironmentAnswerDate RecordedFear of Current or Ex-PartnerNot on file04/12/2023Emotionally AbusedNot on file04/12/2023hysically AbusedNot on file04/12/2023Sexually AbusedNot on file04/12/2023hysically or Sexually Abused Not on file04/12/2023CommentsUnknownSex and Gender InformationValueDate RecordedSex Assigned at HwmchEbkomz71/18/2023 3:04 PM EDTLegal SexFemale 08/18/2021 12:17 AM EDTGender UxpqrbusBsxczn66/18/2023 3:04 PM EDTSexual OrientationHeterosexual or Ocgqdtua45/18/2023 3:04 PM EDT Last Filed Vital Signs Vital SignReadingTime TakenCommentsBlood Hvaxstbv991/61007/24/2022 2:25 PM EDT Bayyh3483/05/2023 2:25 PM LJRGdakastxoyw93 ??C (96.8 ??F)07/24/2022 2:25 PM EDT Respiratory Vovx298707/24/2022 2:25 PM EDTOxygen Oxfgnzqetv79%07/24/2022 2:25 PM EDTInhaled Oxygen Concentration--Mmwqud66.5 kg (140 lb)09/29/2022 8:08 AM EDT Cnffbx197.3 cm (4' 10 )09/29/2022 8:08 AM EDTBody Mass Index29.2608 8:08 AM EDT Plan of Treatment Health MaintenanceDue DateLast DoneCommentsCT Fwwolqqeikki61/21/1967Colonoscopy 1966Colorectal Cancer Jlkzchtzk64/21/1967FIT-DNA1966FIT1966 FOBT1966 7686Vmrjpydjgidcw41/21/1967Depression Btcvjqkwb54/21/1979Hepatitis B Vaccines (1 of 3 - 19+ 3-dose series)1985Pap Smear1987Adult Tetanus 1988Cervical Cancer Ymvjvwpnz28/21/1997HPV/Yjffez9704/11/1996Mammogram 2006Zoster Vaccines (1 of 2)2016Influenza Vaccine (#1)2024HIB [...] MemberRelationshipSpecialtyStart DateEnd Nikos Jacobs MD [address] [place] [address] [facility]07/06/22
== END 2025-02-05 06:42 | disposition home or self-care (01) ==
LOC: MRI 06:42
PROVIDERS: PCP Family Medicine; Visit Provider Family Medicine
DX: M54.16 Radiculopathy, lumbar region (principal); M51.369 Other intervertebral disc degeneration, lumbar region without mention of lumbar back pain or lower extremity pain; M48.062 Spinal stenosis, lumbar region with neurogenic claudication
CPT/HCPCS: 72148